=== PATIENT | female | born 1955 | race Caucasian/White ===

== ENCOUNTER → 2017-12-11 | Outpatient (CLI) | payer BC | END | disposition home or self-care (01) | LOC: LABPAT 10:53 | PROVIDERS: ATTEND Orthopaedic Surgery | DX: Z01.812 Encounter for preprocedural laboratory examination (principal) | CPT/HCPCS: 87070 ==

== ENCOUNTER 2017-12-25 07:30 | Inpatient (IN) | payer BC ==
[2017-12-19 16:27] VITALS: BMI 38.8
--- NOTE | 2017-12-24 11:48 | HP ---
HISTORY AND PHYSICAL SURGERY: 12/25/2017 Beverley Frances is a 62-year-old patient seen with symptomatic right knee osteoarthritis. Treatment options were discussed. She elected to proceed with right total knee arthroplasty. Consent was obtained. Medical clearance was provided by Dr. Kim. PAST MEDICAL HISTORY: Hypertension, hypothyroidism. PAST SURGICAL HISTORY: Left total knee arthroplasty. DAILY MEDICATIONS: Atenolol, furosemide, Klor-Con, losartan, Synthroid. ALLERGIES: ASPIRIN, SULFA, AMIODARONE, TAPAZOLE, ATORVASTATIN. SOCIAL HISTORY: The patient denies tobacco use. PHYSICAL EXAMINATION: Evaluation right knee: Range of motion is -13/14 to 120. Crepitus medial patellofemoral lateral compartments. Pain with patellofemoral compression. Tenderness medial joint line. Hip rotation without pain. Distal neurovascular exam intact. RADIOGRAPHS: Radiographs of the right knee revealed severe medial compartment osteoarthritis. IMPRESSION: 1. Right knee osteoarthritis. 2. Hypertension. 3. Hyperlipidemia. PLAN: Right total knee arthroplasty. MMODL / IJN: [id number] /
[~2017-12-25 07:30] MED LIST: ACETAMINOPHEN TAB 500 MG TAB PO ONE; DEXAMETHASONE SOD PHOSPHATE 10 MG/ML 1 ML VIAL IV ONE; MIDAZOLAM 2 MG/2 ML VIAL IV PRN; ONDANSETRON 4 MG/2 ML VIAL IVP ONE; Pre Op ABX Message 1 EACH MISC MISCELLANE ONE; TRANEXAMIC ACID 1,000 MG in SODIUM CHLORIDE 0.9% 50 ML IVPB ONE; ceFAZolin IN SWFI 2 GM/20 ML SYRINGE IVP ONE
[2017-12-25] MEDS: LACTATED RINGERS 1,000 ML IV SCH ×2 (08:58→16:21)
[2017-12-25] MEDS ORDERED: ROPIVACAINE 246.25 MG, EPINEPHrine 0.5 MG, KETOROLAC 30 MG, cloNIDine HCL/PF 80 MCG, WA... MISCELLANE ONE ×5 (09:16)
[2017-12-25 09:20] LABS: INR 1.2 (<1.2); Prothrombin Time 11.4 sec (9.0-12.0)
[2017-12-25] MEDS ORDERED: MIDAZOLAM 2 MG/2 ML VIAL IVP ONE (09:25)
[2017-12-25] MEDS ORDERED: ROPIVACAINE 1,100 MG, SODIUM CHLORIDE 0.9% 330 ML MISCELLANE PRN ×2 (09:46)
--- NOTE | 2017-12-25 09:49 | P.ONQ ---
Anesthesiology Proc Note - PNB - Peripheral Nerve Block Performed Right Adductor Canal Infusion Time Out Performed: Yes (0935) Procedure Start Time: 09:35 Procedure Stop Time: 09:48 Indication: Acute Post-Operative Pain, Dx/Pain Location (Right Knee Pain), Requested by physician Sedation Type: Sedate with meaningful contact maintained Catheter: Indwelling Needle Types: On-Q Needle Size: 100mm (4") Needle Gauge: 21 Technique: Ultrasound Injectate: 0.5% Ropivacaine (see comment for volume) Blood Aspirated: No Pain Paresthesia on Injection Noted: No Resistance on Injection: Normal Events: Uneventful and Well Tolerated
[2017-12-25] MEDS ORDERED: PROPOFOL 10 MG/ML 20 ML VIAL IV ONE (09:59)
[2017-12-25] MEDS ORDERED: SODIUM CHLORIDE 0.9% 100 ML BAG ONE (09:59)
[2017-12-25] MEDS ORDERED: TRANEXAMIC ACID 1,000 MG/10 ML VIAL ONE (09:59)
[2017-12-25] MEDS ORDERED: fentaNYL (PF) 50 MCG/ML 2 ML AMP ONE (09:59)
[2017-12-25] MEDS ORDERED: SUCCINYLCHOLINE CHLORIDE VIAL 200 MG/10 ML VIAL IV ONE (09:59)
[2017-12-25] MEDS ORDERED: LIDOCAINE 1% INJ 10MG/ML (20 ML MDV) ONE (09:59)
[2017-12-25] MEDS ORDERED: MIDAZOLAM 2 MG/2 ML VIAL ONE (09:59)
[2017-12-25] MEDS ORDERED: LACTATED RINGERS 1,000 ML IV ONE (10:37)
[2017-12-25] MEDS ORDERED: ceFAZolin 3,000 MG in SODIUM CHLORIDE 0.9% IRRIGATIO 3,000 ML IRRIGATION ONE (10:38)
[2017-12-25] MEDS ORDERED: HYDROmorphone 0.5 MG/0.5 ML SYRINGE IVP PRN ×3 (12:18)
[2017-12-25] MEDS ORDERED: ONDANSETRON 4 MG/2 ML VIAL IVP PRN (12:18)
[2017-12-25] MEDS ORDERED: hydrOXYzine PAMOATE 25 MG CAP PO PRN (12:18)
[2017-12-25] MEDS ORDERED: NALOXONE 0.4 MG/ML 1 ML VIAL IV PRN (12:18)
--- NOTE | 2017-12-25 12:18 | P.OP ---
Date of Procedure: 12/25/17 Preoperative Diagnosis: Right knee osteoarthritis with severe varus deformity Postoperative Diagnosis: same Procedure(s) Performed: Right total knee arthroplasty Implants: 1. Allyn persona size 6 right posterior stabilized cemented femur 2. Allyn persona size F right cemented tibia with a 14 mm stem extension 3. Allyn persona 20 mm fixed bearing constrained posterior stabilized polyethylene tibial insert 4. Allyn persona 32 mm all polyethylene cemented patella Anesthesia: GETA, regional (Adductor canal catheter), local Surgeon: Patrick Sosa Belt Cleaner #1: Van Rojas Estimated Blood Loss (ml): 30 Pathology: none sent Condition: stable Disposition: PACU Indications for Procedure: 62-year-old patient seen with symptomatic right knee osteoarthritis along with severe varus deformity. After treatment options were discussed, she elected to proceed with total knee arthroplasty. Operative Findings: See description of procedure Description of Procedure: Patient was taken to the operative suite after having and adductor canal catheter placed by the department of anesthesia. Patient underwent a final anesthetic by the department of anesthesia. Patient was given preoperative IV intake antibiotics and TXA. A well-padded tourniquet was placed about the [] lower extremity. The lower extremity was then prepped and draped in the normal sterile orthopedic fashion. The extremity was elevated, a tourniquet was insufflated to 350. A standard anterior incision was made sharply through skin. Dissection was taken down through the subcutaneous soft tissues down to the extensor mechanism. A medial arthrotomy was performed, patella was everted and knee was flexed. There was advanced osteoarthritis noted along with a severe varus deformity which was fairly fixed and severe erosion of the medial tibial plateau was present. A proximal tibial cutting guide was positioned. Proximal tibial cut was made taking quite a bit off laterally to try to accommodate this severe varus deformity knee. A distal intramedullary femoral cutting guide was positioned, distal femoral cut made. We placed the appropriate sizing guide and selected the appropriate size. A distal 4-in-1 femoral cutting block was positioned, distal femoral cuts were made. I now placed a trial femur and cut out the box for a posterior stabilized implant. We now placed a trial femoral component into position, along with an appropriate size tibial tray and insert. The knee was still quite tight medially and I performed quite a substantial released to loosen up and get this into a better position. I now fell again appropriate laxity medially to mimic the lateral side as close as possible. I now put the implant trials back in working up all the way to a size 20 mm fixed bearing constrained posterior stabilized trial tibial insert. We now took the knee through range of motion and had full extension good flexion and good overall soft tissue balance noted. The patella was everted and a flush cut made with patellar quad tendon. We templated the patella, appropriate drill holes were made. An appropriate trial patella was positioned, knee was taken through full range of motion with the patella tracking very nicely. The trial patella was removed. Drill holes were made through the femoral component. All trial components were removed after marking off the appropriate rotation of the tibia. Retractors were now positioned along the proximal tibia. An appropriate keel punch was made with the appropriate size tibial guide. The tibial bone was quite soft and therefore I'm going to add a stem extension for tibial tray. At this point appropriate size implants were chosen and opened. The joint was irrigated copiously with pulse lavage mechanical irrigation. The posterior capsule was infiltrated local analgesic. We mixed antibiotic methylmethacrylate. Once the methyl methacrylate was ready, the tibial component was cemented into place removing any excess methylmethacrylate. The femoral component was cemented into place removing the removing any excess methylmethacrylate. We then inserted the appropriate size polyethylene tibial insert. We made sure that it was locked into position. We took the knee into full extension, and then back in a flexion making sure we had removed any excess methylmethacrylate. The patellar component was then cemented down and secured with clamp. Excess methylmethacrylate removed. We kept the knee in full extension, patellar clamp in position until methylmethacrylate had hardened. Once it had hardened the patellar clamp was removed. The knee was taken through full range of motion. The patella tracked nicely. There was good soft tissue balancing. The tourniquet was now released. Additional hemostasis was achieved via electrocautery. A second gram of TXA was given. The wound was irrigated with pulse lavage irrigation. The superficial soft tissues were infiltrated local analgesic. The extensor mechanism was repaired with Vicryl. We checked the repair with range of motion and it was stable. The subcutaneous soft tissues were repaired with Vicryl in layers. The skin was approximated with skin kulwant. Sterile dressings were applied followed by loose web roll and Leonard bandage. The patient was transferred to a bed, and taken to recovery in stable and satisfactory condition. Angus RESENDEZ assisted with the procedure.
[2017-12-25] MEDS: HYDROmorphone 0.5 MG/0.5 ML SYRINGE IVP PRN ×4 (12:51→13:22)
--- NOTE | 2017-12-25 13:07 | XR ---
EXAMINATION TYPE: XR knee limited RT DATE OF EXAM: 12/25/2017 CLINICAL HISTORY: Right knee pain and arthritis status post total knee replacement. TECHNIQUE: Portable AP and crosstable lateral views of the right knee are obtained immediately posto peratively. COMPARISON: None FINDINGS: Metallic hardware from total right knee arthroplasty is seen and appears satisfactory in a lignment and position. There is evidence of recent surgery with diffuse subcutaneous gas and soft ti ssue swelling noted. IMPRESSION: METALLIC HARDWARE FROM TOTAL RIGHT KNEE ARTHROPLASTY IS SATISFACTORY IN ALIGNMENT.
[2017-12-25] MEDS: diphenhydrAMINE 50 MG/ML 1 ML VIAL IVP ONE ×2 (13:22→13:26)
[2017-12-25] MEDS: traMADol 50 MG TAB PO SCH ×3 (14:13→22:09)
[2017-12-25] MEDS: POTASSIUM CHLORIDE ER 20 MEQ TAB.ER PO SCH (18:00)
[2017-12-25] MEDS: ceFAZolin IN SWFI 2 GM/20 ML SYRINGE IVP SCH (20:47)
[2017-12-25] MEDS: SENNOSIDES-DOCUSATE SODIUM 1 EACH TAB PO SCH (20:47)
[2017-12-25] MEDS: MULTIVITAMINS, THERA 1 EACH TAB PO SCH (20:47)
[2017-12-25] MEDS ORDERED: ATENOLOL 50 MG TAB PO SCH (21:00)
[2017-12-25] MEDS: ENOXAPARIN 30 MG/0.3 ML SYRINGE SQ SCH (22:02)
--- NOTE | 2017-12-26 00:19 | PN ---
PROGRESS NOTE ATTENDING PHYSICIAN: Dr. Sosa. CONSULTING PHYSICIAN: Dr. Lilly Kim. CHIEF COMPLAINT: Re-evaluation. HISTORY OF PRESENT ILLNESS: This 62-year-old female was admitted to the hospital and undergone right total knee arthroplasty. The patient suffers from significant degenerative arthritis. She is also moderately obese. The patient had an episode of atrial fibrillation in the past. No recurrence with medical therapy. She has been on anticoagulation in the outpatient. She is doing relatively well postoperatively today. REVIEW OF SYSTEMS: NEURO: Denies any headaches or dizziness. PSYCH: No anxiety. CARDIAC: No chest pain, angina, palpitation. RESPIRATORY: Denies shortness of breath, cough. GI: No nausea, vomiting, abdominal pain, diarrhea. : No symptoms of dysuria, hematuria. EXTREMITIES: No pain except for the knee. CONSTITUTIONAL: No fever or chills. PHYSICAL EXAMINATION: Pleasant female in no distress. Vital signs reveals she is afebrile. Pulse 66, blood pressure 106/70, pulse ox 96% on room air. HEENT: Normocephalic. NECK: No JVD. CHEST: Clear to auscultation. CARDIAC: Normal S1, S2 with no gallops, murmurs. ABDOMEN: Soft. Bowel sounds present. EXTREMITIES: Reveal trace chronic edema. Neurologically, awake, alert, oriented with well-coordinated movements both upper extremities. LABORATORY ASSESSMENT: INR of 1.2. ASSESSMENT: 1. Paroxysmal atrial fibrillation. 2. Obesity. 3. Degenerative arthritis of the joints. PLAN: The patient is stable. Continue present medical regimen. The patient's condition discussed with the patient's spouse. Prognosis remains guarded. The patient will require placement in a nursing facility for rehab. MMODL / IJN: [id number] /
[2017-12-26] MEDS: ceFAZolin IN SWFI 2 GM/20 ML SYRINGE IVP SCH (02:13)
[2017-12-26] MEDS: HYDROcodone/APAP 7.5-325MG 1 EACH TAB PO PRN ×2 (04:58→14:11)
[2017-12-26] MEDS: LEVOTHYROXINE 88 MCG TAB PO SCH (04:58)
[2017-12-26] MEDS: LACTATED RINGERS 1,000 ML IV SCH ×3 (04:58→14:10)
[2017-12-26 07:42] LABS: Basophils % (A) 0 %; Eosinophils % (A) 0 %; HCT 31.8 % (34.0-46.0); HGB 10.2 gm/dL (11.4-16.0); Lymphocytes # (A) 0.4 k/uL (1.0-4.8); Lymphocytes % (A) 5 %; MCH 27.9 pg (25.0-35.0); MCV 87.3 fL (80.0-100.0); Mean Platelet Volume 6.9; Monocytes # (A) 0.6 k/uL (0-1.0); Monocytes % (A) 8 %; Neutrophils # (A) 6.6 k/uL (1.3-7.7); Neutrophils % (A) 86 %; Platelet Count 224 k/uL (150-450); RBC 3.64 m/uL (3.80-5.40); RDW 14.8 % (11.5-15.5); WBC 7.6 k/uL (3.8-10.6)
[2017-12-26] MEDS: ATENOLOL 25 MG TAB PO SCH ×2 (08:15→20:48)
[2017-12-26] MEDS: FAMOTIDINE 20 MG TAB PO SCH (08:15)
[2017-12-26] MEDS: MELOXICAM 7.5 MG TAB PO SCH (08:15)
[2017-12-26] MEDS: ENOXAPARIN 30 MG/0.3 ML SYRINGE SQ SCH ×2 (08:16→20:48)
[2017-12-26] MEDS: traMADol 50 MG TAB PO SCH ×4 (08:16→21:18)
[2017-12-26] MEDS: FUROSEMIDE 20 MG TAB PO SCH (08:16)
[2017-12-26] MEDS: LOSARTAN 50 MG TAB PO SCH (08:16)
--- NOTE | 2017-12-26 09:26 | P.PN ---
Subjective Progress Note Date: 12/26/17 Principal diagnosis: Status post right total knee arthroplasty Patient seen today resting in her hospital bed, she appears comfortable. Her pain is controlled at this time. She has worked with therapy. She denies any chest pain or shortness of breath. Objective - Vital Signs Vital signs: Vital Signs Temp 97.6 F 12/26/17 07:06 Pulse 65 12/26/17 07:06 Resp 16 12/26/17 07:06 BP 112/70 12/26/17 07:06 Pulse Ox 97 12/26/17 07:06 Intake & Output 12/25/17 12/26/17 12/26/17 18:59 06:59 18:59 Intake Total 1671 480 Output Total 30 Balance 1641 480 Weight 97.976 kg Intake: IV 1651 Intake, IV Titration 20 480 Amount Lactated Ringers 1,000 ml 20 @ 20 mls/hr IV .Q24H JOE Rx#:[id number] Lactated Ringers 1,000 ml 480 @ 80 mls/hr IV .[id number] JOE Rx#:[id number] Output: Estimated Blood Loss 30 Other: Voiding Method Incontinent Bedpan Incontinent # Voids 1 - Exam Right lower extremity: Incision is clean, dry, and intact. [place] are in good position. There is minimal soft tissue swelling and ecchymosis surrounding the medial and lateral aspects of the incision. Calf is soft, no tenderness with palpation. Plantar flexion, dorsiflexion, EHL, FHL are intact. Sensory exam to light touch throughout the extremity is intact, dorsal pedis pulses 2+. - Labs CBC & Chem 7: 12/26/17 07:12 Labs: Abnormal Lab Results - Last 24 Hours (Table) 12/26/17 Range/Units 07:12 RBC 3.64 L (3.80-5.40) m/uL Hgb 10.2 L (11.4-16.0) gm/dL Hct 31.8 L (34.0-46.0) % Lymphocytes # 0.4 L (1.0-4.8) k/uL Assessment and Plan Plan: Assessment: 1. Postop day #1 status post right total knee arthroplasty Plan: Pain control, continue use of oral medication GI and DVT prophylaxis, she is utilizing Lovenox, we'll restart Coumadin and bridge at this time Wound care instructions were discussed Daily therapy and use of CPM Medical recommendations Encourage incentive spirometer Plan for discharge to rehab over the next few days Time with Patient: Less than 30
--- NOTE | 2017-12-26 09:43 | P.PN ---
Progress Note - Text Progress Note Date: 12/26/17 62-year-old female status post right total knee arthroplasty postop day #1, adductor catheter day #2. Patient doing well VAS 0 out of 10 at rest, 2 out of 10 with movement. Patient is ambulatory, tolerating diet, and okay for discharge. Instructions given for removal of catheter were given, and patient was informed that if there is pain with removal or difficulty with removal to come back to the hospital to get evaluated
[2017-12-26 10:42] LABS: INR 1.3 (<1.2); Prothrombin Time 11.9 sec (9.0-12.0)
[2017-12-26] MEDS: IRON POLYSACCHARIDES COMPLEX 150 MG CAP PO SCH (12:22)
[2017-12-26] MEDS: POTASSIUM CHLORIDE ER 20 MEQ TAB.ER PO SCH (17:05)
[2017-12-26] MEDS ORDERED: WARFARIN 7.5 MG TAB PO ONE (18:00)
[2017-12-26] MEDS: MULTIVITAMINS, THERA 1 EACH TAB PO SCH (20:48)
[2017-12-26] MEDS: SENNOSIDES-DOCUSATE SODIUM 1 EACH TAB PO SCH (20:48)
--- NOTE | 2017-12-26 22:29 | PN ---
PROGRESS NOTE CHIEF COMPLAINT: Re-evaluation. HISTORY OF PRESENT ILLNESS: This is a 62-year-old, status post right knee arthroplasty. She is actually doing fairly well. REVIEW OF SYSTEMS: NEURO: Denies any headaches, dizziness. PSYCH: No anxiety. CARDIAC: No chest pain, angina, palpitation. RESPIRATORY: Denies shortness of breath, cough. GI: No nausea, vomiting, abdominal pain, diarrhea. : No symptoms of dysuria or hematuria. EXTREMITIES: Some tolerable pain, right knee. CONSTITUTIONAL: No fever, chills. PHYSICAL EXAMINATION: Pleasant female in no distress. VITAL SIGNS: Temperature 97.6, pulse 65, respirations 16, blood pressure 112/70, pulse ox 97% on 3 L. HEENT: Normocephalic. NECK: Supple. No JVD. CHEST: Clear to auscultation. CARDIAC: Normal S1, S2 with no gallop. Systolic murmur 2/6, left sternal border. ABDOMEN: Soft. Bowel sounds present. Extremities reveal trace edema. NEUROLOGIC: Awake, alert, oriented with well-coordinated movements, both upper extremities. LABORATORY ASSESSMENT: CBC shows hemoglobin of 10.2, white count 7.6, INR 1.3. ASSESSMENT: 1. Anemia secondary to acute blood loss. 2. History of paroxysmal atrial fibrillation. 3. Obesity. 4. Degenerative arthritis. PLAN: The patient is stable. Continue present medical regimen. Patient's condition was discussed with the patient. Prognosis remains guarded. MMODL / IJN: [id number] /
[2017-12-27] MEDS: LACTATED RINGERS 1,000 ML IV SCH ×3 (04:05→16:13)
[2017-12-27] MEDS: LEVOTHYROXINE 88 MCG TAB PO SCH (05:41)
[2017-12-27] MEDS: HYDROcodone/APAP 7.5-325MG 1 EACH TAB PO PRN ×3 (05:41→19:46)
[2017-12-27] MEDS: LOSARTAN 50 MG TAB PO SCH (09:45)
[2017-12-27] MEDS: ENOXAPARIN 30 MG/0.3 ML SYRINGE SQ SCH ×2 (09:45→20:46)
[2017-12-27] MEDS: traMADol 50 MG TAB PO SCH ×4 (09:45→22:43)
[2017-12-27] MEDS: FAMOTIDINE 20 MG TAB PO SCH (09:46)
[2017-12-27] MEDS: MELOXICAM 7.5 MG TAB PO SCH (09:46)
[2017-12-27] MEDS: ATENOLOL 25 MG TAB PO SCH ×2 (09:47→20:46)
[2017-12-27] MEDS: FUROSEMIDE 20 MG TAB PO SCH (09:54)
[2017-12-27 10:10] LABS: INR 1.6 (<1.2); Prothrombin Time 14.8 sec (9.0-12.0)
[2017-12-27] MEDS: IRON POLYSACCHARIDES COMPLEX 150 MG CAP PO SCH (12:04)
--- NOTE | 2017-12-27 12:05 | P.PN ---
Subjective Progress Note Date: 12/27/17 Principal diagnosis: Status post right total knee arthroplasty Patient seen today resting in her hospital bed, she appears comfortable. Her pain is controlled at this time. She has worked with therapy. She denies any chest pain or shortness of breath. Objective - Vital Signs Vital signs: Vital Signs Temp 98.8 F 12/27/17 07:00 Pulse 68 12/27/17 07:00 Resp 14 12/27/17 07:00 BP 118/66 12/27/17 07:00 Pulse Ox 99 12/27/17 07:00 Intake & Output 12/26/17 12/27/17 12/27/17 18:59 06:59 18:59 Intake Total 500 Balance 500 Intake: Oral 500 Other: Voiding Method Bedpan Incontinent Bedpan Incontinent Diaper Incontinent # Voids 2 1 2 # Bowel Movements 1 - Exam Right lower extremity: Incision is clean, dry, and intact. [place] are in good position. There is minimal soft tissue swelling and ecchymosis surrounding the medial and lateral aspects of the incision. Calf is soft, no tenderness with palpation. Plantar flexion, dorsiflexion, EHL, FHL are intact. Sensory exam to light touch throughout the extremity is intact, dorsal pedis pulses 2+. - Labs CBC & Chem 7: 12/26/17 07:12 Labs: Abnormal Lab Results - Last 24 Hours (Table) 12/27/17 Range/Units 09:34 PT 14.8 H (9.0-12.0) sec INR 1.6 H (<1.2) Assessment and Plan Plan: Assessment: 1. Postop day #2 status post right total knee arthroplasty Plan: Pain control, continue use of oral medication GI and DVT prophylaxis, she is utilizing Lovenox, we'll restart Coumadin and bridge at this time Wound care instructions were discussed Daily therapy and use of CPM Medical recommendations Encourage incentive spirometer Plan for discharge to rehab over the next few days Time with Patient: Less than 30
[2017-12-27] MEDS: POTASSIUM CHLORIDE ER 20 MEQ TAB.ER PO SCH (17:42)
[2017-12-27] MEDS ORDERED: WARFARIN 5 MG TAB PO ONE (18:00)
[2017-12-27] MEDS: SENNOSIDES-DOCUSATE SODIUM 1 EACH TAB PO SCH (20:46)
[2017-12-27] MEDS: MULTIVITAMINS, THERA 1 EACH TAB PO SCH (20:46)
--- NOTE | 2017-12-27 23:30 | PN ---
PROGRESS NOTE CHIEF COMPLAINT: Re-evaluation. HISTORY OF PRESENT ILLNESS: This 62-year-old female was admitted to the hospital and has undergone right total knee arthroplasty. The patient is actually doing fairly well. She does have some pain in the right knee area. REVIEW OF SYSTEMS: NEURO: Denies any headaches, dizziness. PSYCH: No anxiety. CARDIAC: No chest pain, angina, palpitation. RESPIRATORY: No shortness of breath or cough. GI: No nausea, vomiting, abdominal pain, diarrhea. : No symptoms of dysuria or hematuria. EXTREMITIES: Pain in the right knee. CONSTITUTIONAL: No fever, chills. PHYSICAL EXAMINATION: Pleasant female in no distress. Vital signs reveal temperature 98.8, pulse 68, respirations 14, blood pressure 118/66, pulse ox 99% on 2 L. HEENT: Normocephalic. NECK: No JVD. CHEST: Clear to auscultation. CARDIAC: Normal S1, S2 with no gallops or murmurs. Regular rhythm. ABDOMEN: Soft. Bowel sounds present. Extremities reveal some edema in the right lower leg. Neurologically awake, alert, oriented with well-coordinated movements, both upper extremities. LABORATORY ASSESSMENT: INR 1.6. ASSESSMENT: 1. Anemia secondary to acute blood loss. 2. History of paroxysmal atrial fibrillation. 3. Obesity. 4. Degenerative arthritis. PLAN: Patient is stable. Continue present medical regimen. Patient's condition was discussed with the patient. Prognosis guarded. Probable transfer to a nursing facility when bed is available. MMODL / IJN: [id number] /
[2017-12-28] MEDS: HYDROcodone/APAP 7.5-325MG 1 EACH TAB PO PRN ×2 (00:58→08:43)
[2017-12-28] MEDS: LEVOTHYROXINE 88 MCG TAB PO SCH (05:51)
[2017-12-28 07:15] LABS: Basophils % (A) 0 %; Eosinophils # (A) 0.1 k/uL (0-0.7); Eosinophils % (A) 2 %; HCT 26.8 % (34.0-46.0); Lymphocytes # (A) 0.9 k/uL (1.0-4.8); Lymphocytes % (A) 15 %; MCH 28.3 pg (25.0-35.0); MCV 88.3 fL (80.0-100.0); Mean Platelet Volume 7.1; Monocytes # (A) 0.7 k/uL (0-1.0); Monocytes % (A) 11 %; Neutrophils % (A) 70 %; Platelet Count 185 k/uL (150-450); RBC 3.03 m/uL (3.80-5.40); RDW 14.9 % (11.5-15.5); WBC 5.7 k/uL (3.8-10.6)
[2017-12-28 07:25] LABS: HGB 8.6 gm/dL (11.4-16.0)
[2017-12-28 07:26] LABS: INR 1.7 (<1.2); Prothrombin Time 15.4 sec (9.0-12.0)
[2017-12-28 08:28] VITALS: RESP 20
[2017-12-28] MEDS: LACTATED RINGERS 1,000 ML IV SCH ×3 (08:35→16:15)
[2017-12-28] MEDS: ATENOLOL 25 MG TAB PO SCH (08:44)
[2017-12-28] MEDS: ENOXAPARIN 30 MG/0.3 ML SYRINGE SQ SCH (08:44)
[2017-12-28] MEDS: LOSARTAN 50 MG TAB PO SCH (08:45)
[2017-12-28] MEDS: FAMOTIDINE 20 MG TAB PO SCH (08:45)
[2017-12-28] MEDS: MELOXICAM 7.5 MG TAB PO SCH (08:45)
[2017-12-28] MEDS: FUROSEMIDE 20 MG TAB PO SCH (08:45)
[2017-12-28] MEDS: traMADol 50 MG TAB PO SCH ×2 (08:46→13:25)
--- NOTE | 2017-12-28 11:45 | P.PN ---
Subjective Progress Note Date: 12/28/17 Principal diagnosis: Status post right total knee arthroplasty Patient seen today resting in her hospital bed, she appears comfortable. Her pain is controlled at this time. She has worked with therapy. She denies any chest pain or shortness of breath. Objective - Vital Signs Vital signs: Vital Signs Temp 98.6 F 12/28/17 08:15 Pulse 83 12/28/17 08:15 Resp 20 12/28/17 08:15 BP 122/77 12/28/17 08:15 Pulse Ox 96 12/28/17 08:15 Intake & Output 12/27/17 12/28/17 12/28/17 18:59 06:59 18:59 Intake Total 640 980 480 Balance 640 980 480 Intake: Oral 640 980 480 Other: Voiding Method Bedpan Bedpan Bedpan Diaper Diaper Diaper Incontinent Incontinent Incontinent # Voids 2 3 # Bowel Movements 1 - Exam Right lower extremity: Incision is clean, dry, and intact. [place] are in good position. There is minimal soft tissue swelling and ecchymosis surrounding the medial and lateral aspects of the incision. Calf is soft, no tenderness with palpation. Plantar flexion, dorsiflexion, EHL, FHL are intact. Sensory exam to light touch throughout the extremity is intact, dorsal pedis pulses 2+. - Labs CBC & Chem 7: 12/28/17 06:49 Labs: Abnormal Lab Results - Last 24 Hours (Table) 12/28/17 12/28/17 Range/Units 06:49 06:49 RBC 3.03 L (3.80-5.40) m/uL Hgb 8.6 L D (11.4-16.0) gm/dL Hct 26.8 L (34.0-46.0) % Lymphocytes # 0.9 L (1.0-4.8) k/uL PT 15.4 H (9.0-12.0) sec INR 1.7 H (<1.2) Assessment and Plan Plan: Assessment: 1. Postop day #3 status post right total knee arthroplasty Plan: Pain control, continue use of oral medication GI and DVT prophylaxis, she is utilizing Lovenox, we'll restart Coumadin and bridge at this time Wound care instructions were discussed Daily therapy and use of CPM Medical recommendations Encourage incentive spirometer Plan for discharge to rehab today Time with Patient: Less than 30
--- NOTE | 2017-12-28 11:53 | P.DS ---
Providers Date of admission: 12/25/17 07:54 Expected date of discharge: 12/28/17 Attending physician: Patrick Sosa Consults: 12/25/17 12:18 Consult Physician Routine Consulting Provider: Alexi Kim Reason/Comments: Medical management Do you want consulting provider notified?: Yes Primary care physician: Alexi Kim Hospital Course: Date of admission: 12/25/2017 Date of discharge: 12/28/2017 Admission diagnosis: Status post right total knee arthroplasty Discharge diagnosis: Same Attending physician: Dr. Sosa Surgical procedures: Right total knee arthroplasty Brief history: Patient is a 62-year-old female with a history of with progressive primary right knee osteoarthritis. At this point patient has failed conservative treatment measures and has opted to proceed with a elective right total knee arthroplasty. Hospital course: Details of patient's surgery can be found in operative report. Patient tolerated the procedure well and was subsequently transported to orthopedic floor. Patient's orthopeidc and medical care was provided daily. Patient had daily laboratory tests performed for evaluation of overall blood counts. Patient had daily physical therapy to include strengthening range of motion as well as education with walker ambulation. Patient had daily CPM usage as part of their physical therapy program. Patient was treated with Lovenox and Coumadin for their postoperative DVT prophylaxis during their inpatient stay. Patient was noted to have a relatively uneventful postoperative course. Patient reported satisfactory pain control with oral pain medications by postoperative day 0. Patient showed satisfactory progress with physical therapy. Patient moved steadily through the program and had no difficulty meeting the goals by postoperative day 3. Given patient's otherwise satisfactory course and having met physical therapy goals, plan is to discharge patient rehab on postoperative day 3. Discharge condition/disposition: Patient will be discharged to rehab in stable condition. Discharge medications: Instructions are given on resumption of patient's normal daily medications per primary care recommendation, in addition patient will be prescribed [place] 7.5 mg/325 mg, Lovenox 30mg. Discharge instructions: 1. Wound care and infection precautions, keep incision dry and covered while showering, no lotions, creams, moisturizers. No soaking, tubs, pools, hottubs. Do not scrub over the incision. 2. Weight-bear as tolerated with walker / cane until follow-up. 3. Ice and elevate when necessary. Do not exceed 20 minutes per hour with ice pack. 4. Utilize compression sleeve until seen at first follow up appointment. 5. Visiting nursing care. 6. Home physical therapy including home CPM. 7. Pain meds and anticoagulants per prescription. 8. Pain medication has potential to cause constipation. Increase oral fluid and fiber intake. Contact primary care provider if you have not had a bowel movement within 48 hours after discharge 9. No anti-inflammatory medication until discussed at first post operative visit, this including Motrin, Aleve, Mobic, Diclofenac. 10. Follow up in office at 2 weeks postop with Angus Rojas PA-C 11. Follow up with your primary care doctor 7-10 days after discharge. 12. Contact [facility] with any questions, . Procedures: Right total knee arthroplasty Patient Condition at Discharge: Good Plan - Discharge Summary Discharge Rx Participant: No New Discharge Prescriptions: New Enoxaparin [Lovenox] 30 mg SQ Q12H #10 syringe HYDROcodone/APAP 7.5-325MG [[place] 7.5] 1 - 2 each PO Q6HR PRN #56 tab PRN Reason: Pain No Action Multivitamins, Thera [Multivitamin (formulary)] 1 tab PO DAILY@2100 Atenolol 25 mg PO BID Warfarin [Coumadin] 7.5 mg PO TH Warfarin [Coumadin] 5 mg PO SUMOTUWEFRSA fluvoxaMINE MALEATE [Fluvoxamine Maleate] 100 mg PO DAILY Potassium Chloride [Klor-Con 20] 20 meq PO DAILY@1800 Losartan [Cozaar] 50 mg PO DAILY Levothyroxine Sodium [Synthroid] 88 mcg PO DAILY Furosemide [Lasix] 20 mg PO DAILY Acetaminophen [Tylenol Arthritis] 650 mg PO Q6H PRN PRN Reason: Pain Kvnekhainsswto-DV-Dzgatkjdgx [Folbic] 1 tab PO DAILY@1200 Iron (Unknown) 1 tab PO DAILY Discharge Medication List Atenolol 25 mg PO BID 11/25/13 [History] Multivitamins, Thera [Multivitamin (formulary)] 1 tab PO DAILY@2100 11/25/13 [ History] Acetaminophen [Tylenol Arthritis] 650 mg PO Q6H PRN 06/23/17 [History] Furosemide [Lasix] 20 mg PO DAILY 06/23/17 [History] Levothyroxine Sodium [Synthroid] 88 mcg PO DAILY 06/23/17 [History] Losartan [Cozaar] 50 mg PO DAILY 06/23/17 [History] Potassium Chloride [Klor-Con 20] 20 meq PO DAILY@1800 06/23/17 [History] Warfarin [Coumadin] 5 mg PO SUMOTUWEFRSA 06/23/17 [History] Warfarin [Coumadin] 7.5 mg PO TH 06/23/17 [History] fluvoxaMINE MALEATE [Fluvoxamine Maleate] 100 mg PO DAILY 06/23/17 [History] Urfrfpfooyucmk-LI-Kymrslwygt [Folbic] 1 tab PO DAILY@1200 06/26/17 [History] Iron (Unknown) 1 tab PO DAILY 12/19/17 [History] Enoxaparin [Lovenox] 30 mg SQ Q12H #10 syringe 12/28/17 [Rx] HYDROcodone/APAP 7.5-325MG [[place] 7.5] 1 - 2 each PO Q6HR PRN #56 tab 12/28/17 [ Rx] Follow up Appointment(s)/Referral(s): Van Rojas PAC [PHYSICIAN TELLERS SUPERVISOR] - 01/12/18 2:30 pm Ambulatory/Diagnostic Orders: Prothrombin Time INR [LAB.AMB] Location: Determined By Patient Activity/Diet/Wound Care/Special Instructions: Orthopedic Discharge Instructions: 1. Wound care and infection precautions, keep incision dry and covered while showering, no lotions, creams, moisturizers. No soaking, pools, hot tubs. Do not scrub over incision. 2. Weight-bear as tolerated with walker / cane until follow-up. 3. Ice and elevate when necessary. Do not exceed 20 minutes per hour with ice pack. 4. Utilize compression sleeve until seen at first follow up appointment. 5. Visiting nursing care. 6. Home physical therapy including home CPM. 7. Pain meds and anticoagulants per prescription. 8. Pain medication has potential to cause constipation. Increase oral fluid and fiber intake. Contact primary care provider if you have not had a bowel movement within 48 hours after discharge. 9. No anti-inflammatory medication until discussed at first post operative visit, this including Motrin, Aleve, Mobic, Diclofenac. 10. Follow up in office at 2 weeks postop with Angus Rojas PA-C 11. Follow up with your primary care doctor 7-10 days after discharge. 12. Contact [facility] with any questions, . Discharge Disposition: TRANSFER TO SNF/ECF
[2017-12-28] MEDS: IRON POLYSACCHARIDES COMPLEX 150 MG CAP PO SCH (13:19)
[2017-12-28 14:44] VITALS: BP 102/57; PULSE 78; TEMP 97.1
[2017-12-28] MEDS ORDERED: WARFARIN 7.5 MG TAB PO ONE (18:00)
--- NOTE | 2017-12-29 05:21 | PN ---
PROGRESS NOTE CHIEF COMPLAINT: Re-evaluation. HISTORY OF PRESENT ILLNESS: This 62-year-old was admitted to the hospital and undergone right total knee arthroplasty. The patient is doing relatively well. She has pain in the right knee joint. Otherwise denies any major symptoms. She does have a history of paroxysmal atrial fibrillation. She has stayed in sinus rhythm throughout. REVIEW OF SYSTEMS: NEURO: Denies any headaches, dizziness. PSYCH: No anxiety. CARDIAC: No chest pain, angina, palpitation. RESPIRATORY: Denies shortness of breath, cough. GI: No nausea, vomiting, abdominal pain, diarrhea. Did have a bowel movement yesterday. : No symptoms of dysuria or hematuria. EXTREMITIES: Has pain in the right knee, some edema. CONSTITUTIONAL: No fever or chills. PHYSICAL EXAMINATION: A 62-year-old, moderately obese female in no distress. Vital signs reveal temperature 98.6, pulse 83, respirations 20, blood pressure 122/77, pulse ox 96% on room air. HEENT: Normocephalic. NECK: No JVD. CHEST: Clear to auscultation. CARDIAC: Normal S1, S2 with no gallops or murmurs. ABDOMEN: Soft. Bowel sounds normal. Extremities reveal trace edema left ankle, 1+ edema right ankle. NEUROLOGICALLY: Awake, alert, oriented with well-coordinated movements both upper extremities. LABORATORY ASSESSMENT: CBC which revealed hemoglobin of 8.6. INR 1.7. ASSESSMENT: 1. Anemia secondary to acute blood loss post surgery. 2. History of paroxysmal atrial fibrillation. 3. Obesity. 4. Degenerative arthritis, status post right knee arthroplasty. PLAN: The patient is stable. Continue present medical regimen. Patient's condition discussed with the patient. Prognosis guarded. MMODL / IJN: [id number] /
== END 2017-12-28 16:48 | DRG 470 ==
LOC: 2ORMAIN 07:54 → 3SUR 12:05
PROVIDERS: ADMIT Orthopaedic Surgery; ATTEND Orthopaedic Surgery
PROC: 0SRC0J9 Replacement of Right Knee Joint with Synthetic Substitute, Cemented, Open Approach (ICD-10-PCS; principal; 2017-12-25 09:40)
DX: M17.11 Unilateral primary osteoarthritis, right knee (principal); D62 Acute posthemorrhagic anemia; E03.9 Hypothyroidism, unspecified; E66.9 Obesity, unspecified; E78.5 Hyperlipidemia, unspecified; I10 Essential (primary) hypertension; I48.0 Paroxysmal atrial fibrillation; Z96.652 Presence of left artificial knee joint; M21.161 Varus deformity, not elsewhere classified, right knee; Z79.890 Hormone replacement therapy; Z79.899 Other long term (current) drug therapy; Z88.6 Allergy status to analgesic agent; Z88.5 Allergy status to narcotic agent; Z88.2 Allergy status to sulfonamides; Z88.8 Allergy status to other drugs, medicaments and biological substances; Z68.38 Body mass index [BMI] 38.0-38.9, adult; Z86.73 Personal history of transient ischemic attack (TIA), and cerebral infarction without residual deficits
CPT/HCPCS: 85025; 85610; 88300

== ENCOUNTER → 2018-07-24 | Outpatient (CLI) | payer BC ==
[2018-07-24 09:02] VITALS: BP 142/65; PULSE 72; TEMP 96.9; BMI 43.9
--- NOTE | 2018-07-24 10:16 | P.HPOB ---
History of Present Illness H&P Date: 07/24/18 Chief Complaint: The patient is here for her routine gynecologic exam. This is a 63-year-old G0 with an LMP of 2006. The patient is here to establish with this office. She states that has been about 15 years since her last pelvic exam. The patient is without gynecologic complaints and denies any postmenopausal bleeding. She is sexually active. Review of Systems She is gained about 28 pounds over the last year. She previously weighed 339 pounds prior to being treated for thyroid problem. She went down to 203 pounds after thyroid treatment. She denies respiratory, cardiac, or G.I. problems. She has had some issues of anxiety. : she does have some urinary leakage at night since she does not wake when her bladder is full at night, according to the patient. She does not have problem with leakage during the day. 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 for thyroid, had kidney & liver issues related to a medication but no current problems, doesn't use CPAP. 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 History of Any Multi-Drug Resistant Organisms: None Reported Past Surgical History: Joint Replacement (Bilateral knee replacement), Orthopedic Surgery (Knee surgery) Additional Past Surgical History / Comment(s): wrist surg., colonoscopy 2016( next due 10yrs). Past Anesthesia/Blood Transfusion Reactions: No Reported Reaction Additional Past Anesthesia/Blood Transfusion Reaction / Comment(s): "DOESN'T WANT TO BE AWAKE," PER PATIENT. Past Psychological History: Anxiety, Depression Additional Psychological History / Comment(s): OCD Smoking Status: Never smoker Additional Past Alcohol Use History / Comment(s): quit drinking 1998, previously was a heavy drinker. Past Drug Use History: Marijuana (Many years ago.) Additional Drug Use History / Comment(s): Denies any marijuana use for many years. Additional History: since 1978. She is currently unemployed. - Past Family History Mother Family Medical History: Cancer (Breast cancer) Father Family Medical History: AFIB, Hypertension Sister(s) Family Medical History: Thyroid Disorder Additional Family Medical History / Comment(s): Multiple sisters with thyroid conditions. Medications and Allergies Home Medications Medication Instructions Recorded Confirmed Type Atenolol 25 mg PO BID 11/25/13 07/24/18 History Multivitamins, Thera [Multivitamin 1 tab PO DAILY@2100 11/25/13 07/24/18 History (formulary)] Acetaminophen [Tylenol Arthritis] 650 mg PO Q6H PRN 06/23/17 07/24/18 History Furosemide [Lasix] 20 mg PO DAILY 06/23/17 07/24/18 History Levothyroxine Sodium [Synthroid] 100 mcg PO DAILY 06/23/17 07/24/18 History Losartan [Cozaar] 50 mg PO DAILY 06/23/17 07/24/18 History Potassium Chloride [Klor-Con 20] 20 meq PO DAILY@1800 06/23/17 07/24/18 History Warfarin [Coumadin] 5 mg PO SUMOTUWEFRSA 06/23/17 07/24/18 History Warfarin [Coumadin] 7.5 mg PO TH 06/23/17 07/24/18 History Iron (Unknown) 1 tab PO DAILY 12/19/17 07/24/18 History Allergies Allergy/AdvReac Type Severity Reaction Status Date / Time amiodarone Allergy kidneys & Verified 07/24/18 08:48 liver shut down aspirin Allergy Swelling Verified 07/24/18 08:48 atorvastatin Allergy affected Verified 07/24/18 08:48 liver enzymes methimazole [From Tapazole] Allergy Unknown Verified 07/24/18 08:48 Sulfa (Sulfonamide Allergy Swelling Verified 07/24/18 08:48 Antibiotics) Exam Vital Signs Temp Pulse BP 07/24/18 08:59 96.9 F L 72 142/65 Intake and Output 07/23/18 07/24/18 07/24/18 22:59 06:59 14:59 Other: Weight 108.862 kg Height 5'2", weight 240 pounds, BMI 43.9. This is a well-developed well-nourished obese white female who is alert and oriented times 3 in no acute distress. The patient uses a walker chair and is very slow to ambulate. She states this is due to her knee problems and history of strokes. HEENT: Within normal limits. NECK: Supple without mass or thyromegaly. CHEST AND LUNGS: Clear to auscultation. HEART: Regular rate and rhythm. BREASTS: Are without mass or discharge. AXILLARY EXAM: Negative for adenopathy. BACK: Negative for CVA tenderness. ABDOMEN: Soft, obese, nontender, without palpable masses. PELVIC EXAM: Normal external genitalia with mild atrophy. Cervix and vagina appear normal mild atrophy. There is no unusual discharge. There is no evidence of prolapse. The uterus is midposition, nongravid size and nontender. There are no palpable adnexal masses or tenderness. Bimanual examination is somewhat limited secondary to her size. RECTAL EXAM: rectovaginal exam is negative for mass or tenderness and is negative for occult blood. EXTREMITIES: Nontender. IMPRESSION: 1. 63-year-old menopausal female with normal gynecologic exam. 2. Multiple medical problems. 3. Obesity. 4. Family history of breast cancer in her mother. PLAN: 1. Pap smear was performed. 2. Self breast awareness was discussed with the patient. 3. The patient states her last mammogram was done in the summer of 2018. I have recommended yearly mammograms especially with the family history of breast cancer. The order slip was given that the patient for this. 4. Osteoporosis prevention was discussed. I have stressed the importance of adequate calcium, vitamin D and regular exercise. Recommended amounts of calcium and vitamin D were also discussed. I recommended bone density screening and the order slip was given to the patient for this. 5. I have recommended that she return in one year and I have stressed the importance of regular gynecologic exams as well as yearly mammograms.
--- NOTE | 2018-08-01 08:48 | P.PN ---
Progress Note - Text Progress Note Date: 08/01/18 OUTPATIENT FOLLOW-UP NOTE TEST(S)/RESULTS: Pap smear on 07/24/2018 was negative. There was also a shift in the eliot suggestive of bacterial vaginosis. METHOD OF NOTIFICATION: the patient was notified by phone. PATIENT COMMENTS: the patient denies any symptoms such as vaginal odor or discharge. DIAGNOSIS: negative Pap smear with no BV symptoms. DISCUSSION: we have discussed these findings. She was instructed to call if she develops any symptoms such as vaginal odor or discharge. PLAN: she will return in one year for her annual well woman exam. She also has an order slip for her screening mammogram which will be due in the summer. She will also plan on doing the bone density test at that time as well.
== END ==
LOC: WWCWWP 08:34
PROVIDERS: ATTEND Obstetrics & Gynecology
DX: Z53.9 Procedure and treatment not carried out, unspecified reason (principal)

== ENCOUNTER 2019-06-10 15:02 | Emergency (ER) | payer BC ==
[2019-06-10] MEDS ORDERED: SODIUM CHLORIDE 0.9% 500 ML 500 ML IV STA (15:13)
[2019-06-10 15:14] VITALS: RESP 18
--- NOTE | 2019-06-10 15:54 | ED ---
General Adult HPI - General Chief complaint: Fall Stated complaint: fall, shoulder pain Time Seen by Provider: 06/10/19 15:05 Source: patient, EMS, RN notes reviewed Mode of arrival: EMS Limitations: no limitations - History of Present Illness Initial comments: 63-year-old female presents emergency Department with chief complaint of a fall. Patient states she is unsure how she fell she's not sure if she passed out or just lost her balance. She states there is a portion of this she does not remember. Patient states that she did hit her head and she does take warfarin. She states that she takes warfarin for irregular heartbeat and states that she has had 2 strokes in the past. Patient states that she had a mild headache no neck pain. Denies any left arm, lower extremity injury. She has right shoulder pain. Patient denies any current chest pain or palpitations. No nausea vomiting. - Related Data Home Medications Medication Instructions Recorded Confirmed Atenolol 25 mg PO BID 11/25/13 07/24/18 Multivitamins, Thera [Multivitamin 1 tab PO DAILY@2100 11/25/13 07/24/18 (formulary)] Acetaminophen [Tylenol Arthritis] 650 mg PO Q6H PRN 06/23/17 07/24/18 Furosemide [Lasix] 20 mg PO DAILY 06/23/17 07/24/18 Levothyroxine Sodium [Synthroid] 100 mcg PO DAILY 06/23/17 07/24/18 Losartan [Cozaar] 50 mg PO DAILY 06/23/17 07/24/18 Potassium Chloride [Klor-Con 20] 20 meq PO DAILY@1800 06/23/17 07/24/18 Warfarin [Coumadin] 5 mg PO SUMOTUWEFRSA 06/23/17 07/24/18 Warfarin [Coumadin] 7.5 mg PO TH 06/23/17 07/24/18 Iron (Unknown) 1 tab PO DAILY 12/19/17 07/24/18 Allergies Allergy/AdvReac Type Severity Reaction Status Date / Time amiodarone Allergy kidneys & Verified 06/10/19 15:14 liver shut down aspirin Allergy Swelling Verified 06/10/19 15:14 atorvastatin Allergy affected Verified 06/10/19 15:14 liver enzymes methimazole [From Tapazole] Allergy Unknown Verified 06/10/19 15:14 Sulfa (Sulfonamide Allergy Swelling Verified 06/10/19 15:14 Antibiotics) Review of Systems ROS Statement: Those systems with pertinent positive or pertinent negative responses have been documented in the HPI. ROS Other: All systems not noted in ROS Statement are negative. 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 for thyroid, had kidney & liver issues related to a medication but no current problems, doesn't use CPAP. 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 History of Any Multi-Drug Resistant Organisms: None Reported Past Surgical History: Joint Replacement, Orthopedic Surgery Additional Past Surgical History / Comment(s): wrist surg., colonoscopy 2016(next due 10yrs). Past Anesthesia/Blood Transfusion Reactions: No Reported Reaction Additional Past Anesthesia/Blood Transfusion Reaction / Comment(s): "DOESN'T WANT TO BE AWAKE," PER PATIENT. Past Psychological History: Anxiety, Depression Smoking Status: Never smoker Past Drug Use History: Marijuana - Past Family History Mother Family Medical History: Cancer (Breast cancer) Father Family Medical History: AFIB, Hypertension Sister(s) Family Medical History: Thyroid Disorder Additional Family Medical History / Comment(s): Multiple sisters with thyroid conditions. General Exam Limitations: no limitations General appearance: alert, in no apparent distress Head exam: Present: atraumatic, normocephalic, normal inspection Eye exam: Present: normal appearance, PERRL, EOMI. Absent: scleral icterus, conjunctival injection, periorbital swelling ENT exam: Present: normal exam, mucous membranes moist Neck exam: Present: normal inspection. Absent: tenderness, meningismus, lymphadenopathy Respiratory exam: Present: normal lung sounds bilaterally. Absent: respiratory distress, wheezes, rales, rhonchi, stridor Cardiovascular Exam: Present: regular rate, normal rhythm, normal heart sounds. Absent: systolic murmur, diastolic murmur, rubs, gallop, clicks GI/Abdominal exam: Present: soft, normal bowel sounds. Absent: distended, tenderness, guarding, rebound, rigid Extremities exam: Present: other (Tenderness with palpation to her right shoulder with ecchymosis limited range of motion neurovascular intact remaining extremity exam within normal limits.) Neurological exam: Present: alert Skin exam: Present: warm, dry, intact, normal color. Absent: rash Course Vital Signs 06/10/19 15:05 Temperature 97.1 F L Pulse Rate 76 Respiratory 18 Rate Blood Pressure 169/99 O2 Sat by Pulse 99 Oximetry EKG Findings - EKG Comments: EKG Findings:: EKG performed at 15:57 normal sinus rhythm rate of 70 VT 122 QRS 86 QTC is QTC 390/421 Medical Decision Making - Medical Decision Making Patient presented for a fall, right shoulder pain. Labs, CT her brain and C- spine are negative. X-ray shows fracture of the right proximal humerus. Patient placed in a sling follow-up with orthopedics. Return parameters were discussed. - Lab Data Result diagrams: 06/10/19 15:34 06/10/19 15:34 Lab Results 06/10/19 06/10/19 06/10/19 Range/Units 15:34 15:34 15:34 WBC 6.4 (3.8-10.6) k/uL RBC 4.49 (3.80-5.40) m/uL Hgb 14.0 (11.4-16.0) gm/dL Hct 42.3 (34.0-46.0) % MCV 94.2 (80.0-100.0) fL MCH 31.1 (25.0-35.0) pg MCHC 33.0 (31.0-37.0) g/dL RDW 12.5 (11.5-15.5) % Plt Count 295 (150-450) k/uL Neutrophils % 77 % Lymphocytes % 14 % Monocytes % 6 % Eosinophils % 1 % Basophils % 1 % Neutrophils # 4.9 (1.3-7.7) k/uL Lymphocytes # 0.9 L (1.0-4.8) k/uL Monocytes # 0.4 (0-1.0) k/uL Eosinophils # 0.1 (0-0.7) k/uL Basophils # 0.0 (0-0.2) k/uL PT 20.3 H (9.0-12.0) sec INR 2.1 H (<1.2) APTT 33.7 H (22.0-30.0) sec Sodium 133 L (137-145) mmol/L Potassium 4.5 (3.5-5.1) mmol/L Chloride 95 L (98-107) mmol/L Carbon Dioxide 28 (22-30) mmol/L Anion Gap 10 mmol/L BUN 19 H (7-17) mg/dL Creatinine 0.66 (0.52-1.04) mg/dL Est GFR (CKD-EPI)AfAm >90 (>60 ml/min/1.73 sqM) Est GFR (CKD-EPI)NonAf >90 (>60 ml/min/1.73 sqM) Glucose 149 H (74-99) mg/dL Calcium 9.4 (8.4-10.2) mg/dL Magnesium 1.9 (1.6-2.3) mg/dL Total Bilirubin 1.0 (0.2-1.3) mg/dL AST 26 (14-36) U/L ALT 20 (9-52) U/L Alkaline Phosphatase 105 (38-126) U/L Troponin I (0.000-0.034) ng/mL Total Protein 7.8 (6.3-8.2) g/dL Albumin 4.3 (3.5-5.0) g/dL 06/10/19 Range/Units 15:34 WBC (3.8-10.6) k/uL RBC (3.80-5.40) m/uL Hgb (11.4-16.0) gm/dL Hct (34.0-46.0) % MCV (80.0-100.0) fL MCH (25.0-35.0) pg MCHC (31.0-37.0) g/dL RDW (11.5-15.5) % Plt Count (150-450) k/uL Neutrophils % % Lymphocytes % % Monocytes % % Eosinophils % % Basophils % % Neutrophils # (1.3-7.7) k/uL Lymphocytes # (1.0-4.8) k/uL Monocytes # (0-1.0) k/uL Eosinophils # (0-0.7) k/uL Basophils # (0-0.2) k/uL PT (9.0-12.0) sec INR (<1.2) APTT (22.0-30.0) sec Sodium (137-145) mmol/L Potassium (3.5-5.1) mmol/L Chloride (98-107) mmol/L Carbon Dioxide (22-30) mmol/L Anion Gap mmol/L BUN (7-17) mg/dL Creatinine (0.52-1.04) mg/dL Est GFR (CKD-EPI)AfAm (>60 ml/min/1.73 sqM) Est GFR (CKD-EPI)NonAf (>60 ml/min/1.73 sqM) Glucose (74-99) mg/dL Calcium (8.4-10.2) mg/dL Magnesium (1.6-2.3) mg/dL Total Bilirubin (0.2-1.3) mg/dL AST (14-36) U/L ALT (9-52) U/L Alkaline Phosphatase (38-126) U/L Troponin I <0.012 (0.000-0.034) ng/mL Total Protein (6.3-8.2) g/dL Albumin (3.5-5.0) g/dL Disposition Clinical Impression: Fall, Closed fracture of right proximal humerus Disposition: HOME SELF-CARE Condition: Stable Instructions (If sedation given, give patient instructions): Proximal Humerus Fracture (ED) Additional Instructions: Please return to the Emergency Department if symptoms worsen or any other concerns. Is patient prescribed a controlled substance at d/c from ED?: No Referrals: Alexi Kim MD [Primary Care Provider] - 1-2 days Patrick Sosa DO [Doctor of Osteopathic Medicine] - 1-2 days Time of Disposition: 17:00
--- NOTE | 2019-06-10 16:00 | CT ---
EXAMINATION TYPE: CT brain dmitri michel DATE OF EXAM: 06/10/2019 COMPARISON: 11/24/2013 HISTORY: Fall injury today. Subsequent head and neck pain. CT DLP: 1547 mGycm. Automated Exposure Control for Dose Reduction was Utilized. TECHNIQUE: CT scan of the head and cervical spine are performed without contrast. FINDINGS: Right frontal scalp hematoma is seen measuring 1.1 cm. There is no acute intracranial hemo rrhage, mass effect, or midline shift identified. Encephalomalacia in the right frontal lobe and left parietal lobe are seen from prior infarcts. Moderate burden nonspecific white matter changes also se en as scattered areas of hypoattenuation in the periventricular and subcortical white matter. The aurora tricles and sulci are symmetrically prominent compatible with age-related volume loss with additional ex vacuo dilatation of the internal the right lateral ventricle. The globes are intact and the visu alized sinuses are clear. Bilateral raul bullosa are incidentally seen. Cervical spine is visualized in its entirety from C1 through upper thoracic levels and demonstrates s atisfactory alignment without evidence of acute fracture or dislocation. Prevertebral soft tissue ap pears within normal limits. There is straightening of usual cervical lordosis. Mild multilevel degene rative disc disease is seen without high-grade spinal canal stenosis. Spinal canal is limited on CT. The C1-C2 articulation is unremarkable. Scattered areas of atelectasis are seen in the lung apices. There is a levoscoliosis of the cervical spine, likely secondary to positioning. Enlargement of the r ight thyroid lobe and heterogeneity are seen. Variant anatomy is seen with at least aberrant subclavi an but possible right sided aortic arch. IMPRESSION: 1. There is no acute fracture or dislocation evident in the cervical spine. 2. No acute intracranial hemorrhage, mass effect, or midline shift is seen. 3. Right frontal scalp hematoma measuring 1.1 cm in greatest thickness. 4. Multifocal old infarcts and moderate burden nonspecific white matter change. 5. Mild multilevel degenerative change of the cervical spine.
[2019-06-10 16:09] LABS: Basophils % (A) 1 %; Eosinophils # (A) 0.1 k/uL (0-0.7); Eosinophils % (A) 1 %; HCT 42.3 % (34.0-46.0); Lymphocytes # (A) 0.9 k/uL (1.0-4.8); Lymphocytes % (A) 14 %; MCH 31.1 pg (25.0-35.0); MCV 94.2 fL (80.0-100.0); Mean Platelet Volume 6.3; Monocytes # (A) 0.4 k/uL (0-1.0); Monocytes % (A) 6 %; Neutrophils # (A) 4.9 k/uL (1.3-7.7); Neutrophils % (A) 77 %; Platelet Count 295 k/uL (150-450); RBC 4.49 m/uL (3.80-5.40); RDW 12.5 % (11.5-15.5); WBC 6.4 k/uL (3.8-10.6)
[2019-06-10 16:19] LABS: ALT 20 U/L (9-52); AST 26 U/L (14-36); African American GFR (CKD) >90 (>60 ml/min/1.73 sqM); Albumin 4.3 g/dL (3.5-5.0); Alkaline Phosphatase 105 U/L (38-126); Anion Gap 10 mmol/L; Blood Urea Nitrogen 19 mg/dL (7-17); Calcium 9.4 mg/dL (8.4-10.2); Carbon Dioxide 28 mmol/L (22-30); Chloride 95 mmol/L (98-107); Glucose 149 mg/dL (74-99); Magnesium 1.9 mg/dL (1.6-2.3); Non-African American GFR(CKD) >90 (>60 ml/min/1.73 sqM); Potassium 4.5 mmol/L (3.5-5.1); Sodium 133 mmol/L (137-145); Total Protein 7.8 g/dL (6.3-8.2)
[2019-06-10 16:21] LABS: INR 2.1 (<1.2); Partial Thromboplastin Time 33.7 sec (22.0-30.0); Prothrombin Time 20.3 sec (9.0-12.0)
[2019-06-10] MEDS ORDERED: MORPHINE SULFATE 4 MG/ML SYRINGE IVP STA ×2 (16:21→17:20)
--- NOTE | 2019-06-10 16:53 | XR ---
EXAMINATION TYPE: XR shoulder complete RT DATE OF EXAM: 06/10/2019 CLINICAL HISTORY: Right shoulder pain after injury TECHNIQUE: Three views of the right shoulder are obtained. COMPARISON: None. FINDINGS: There is a transversely oriented proximal right humeral fracture of the surgical neck with 1.7 cm foreshortening. No apparent comminution. Calcification of the distal rotator cuff tendon is se en. Mild arthropathy of the acromio clavicular joint. Diffuse osseous demineralization. IMPRESSION: Transversely oriented acute impacted right proximal humeral fracture without apparent com minution.
[2019-06-10] MEDS ORDERED: ACET/COD 300 MG/30 MG STARTER PACK 6 TAB BTL PO STA (17:00)
[2019-06-10 17:30] VITALS: BP 152/76; PULSE 74; TEMP 98.2
== END 2019-06-10 18:05 | disposition home or self-care (01) ==
LOC: EC 15:02
DX: S42.201A Unspecified fracture of upper end of right humerus, initial encounter for closed fracture (principal); R51 Headache; I48.91 Unspecified atrial fibrillation; I25.10 Atherosclerotic heart disease of native coronary artery without angina pectoris; I11.0 Hypertensive heart disease with heart failure; I50.9 Heart failure, unspecified; M19.90 Unspecified osteoarthritis, unspecified site; E05.90 Thyrotoxicosis, unspecified without thyrotoxic crisis or storm; Z88.2 Allergy status to sulfonamides; Z88.6 Allergy status to analgesic agent; Z88.8 Allergy status to other drugs, medicaments and biological substances; Z79.01 Long term (current) use of anticoagulants; Z79.890 Hormone replacement therapy; Z79.891 Long term (current) use of opiate analgesic; Z79.899 Other long term (current) drug therapy; Z86.73 Personal history of transient ischemic attack (TIA), and cerebral infarction without residual deficits; Z96.60 Presence of unspecified orthopedic joint implant; W19.XXXA Unspecified fall, initial encounter; Y92.015 Private garage of single-family (private) house as the place of occurrence of the external cause
CPT/HCPCS: 36415; 93005; 80053; 83735; 84484; 85025; 85610; 85730; 73030; 72125; 70450; 99284; 96374; 96376; 96361; J2270

== ENCOUNTER 2019-06-21 16:34 | Emergency (ER) | payer BC ==
[2019-06-21] MEDS ORDERED: SODIUM CHLORIDE 0.9% 500 ML 500 ML IV STA (17:34)
[2019-06-21] MEDS ORDERED: MORPHINE SULFATE 4 MG/ML SYRINGE IVP STA (17:34)
--- NOTE | 2019-06-21 18:19 | ED ---
Headache HPI - General Chief Complaint: Headache Stated Complaint: Head injury, headache Time Seen by Provider: 06/21/19 17:01 Mode of arrival: wheelchair Limitations: no limitations - History of Present Illness Initial Comments: Patient is a 63-year-old female, with past medical history of A. fib on Coumadin, heart failure, CVA, thyroid disease, presenting to the emergency dep artment with a headache. Patient states she tripped and fell approximately 10 days ago breaking her right humerus and also hitting her head on paint cans. Patient had a head CT performed on that day which did not show any acute bleeding. Patient states she has not been having headache until yesterday. Patient states she did develop a hematoma from hitting her head and it is still there. Patient states her head started hurting in the same spot last night and it has not stopped. Patient denies any additional falls. Patient states she called her doctor's office today to try to be seen however her doctor told her to go to the ER for evaluation and possible scan. Patient denies nausea, vomiting, fever, chills, blurry vision. Patient states she did take Tylenol 3 with codeine last night but it did not help with her headache. Patient has no other complaints at this time. Upon arrival to the ER, her vital signs are stable. - Related Data Home Medications Medication Instructions Recorded Confirmed Atenolol 25 mg PO BID 11/25/13 07/24/18 Multivitamins, Thera [Multivitamin 1 tab PO DAILY@2100 11/25/13 07/24/18 (formulary)] Acetaminophen [Tylenol Arthritis] 650 mg PO Q6H PRN 06/23/17 07/24/18 Furosemide [Lasix] 20 mg PO DAILY 06/23/17 07/24/18 Levothyroxine Sodium [Synthroid] 100 mcg PO DAILY 06/23/17 07/24/18 Losartan [Cozaar] 50 mg PO DAILY 06/23/17 07/24/18 Potassium Chloride [Klor-Con 20] 20 meq PO DAILY@1800 06/23/17 07/24/18 Warfarin [Coumadin] 5 mg PO SUMOTUWEFRSA 06/23/17 07/24/18 Warfarin [Coumadin] 7.5 mg PO TH 06/23/17 07/24/18 Iron (Unknown) 1 tab PO DAILY 12/19/17 07/24/18 Allergies Allergy/AdvReac Type Severity Reaction Status Date / Time amiodarone Allergy kidneys & Verified 06/21/19 16:57 liver shut down aspirin Allergy Swelling Verified 06/21/19 16:57 atorvastatin Allergy affected Verified 06/21/19 16:57 liver enzymes methimazole [From Tapazole] Allergy Unknown Verified 06/21/19 16:57 Sulfa (Sulfonamide Allergy Swelling Verified 06/21/19 16:57 Antibiotics) Review of Systems ROS Statement: Those systems with pertinent positive or pertinent negative responses have been documented in the HPI. ROS Other: All systems not noted in ROS Statement are negative. 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 for thyroid, had kidney & liver issues related to a medication but no current problems, doesn't use CPAP. 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 History of Any Multi-Drug Resistant Organisms: None Reported Past Surgical History: Joint Replacement, Orthopedic Surgery Additional Past Surgical History / Comment(s): wrist surg., colonoscopy 2016(next due 10yrs). Past Anesthesia/Blood Transfusion Reactions: No Reported Reaction Additional Past Anesthesia/Blood Transfusion Reaction / Comment(s): "DOESN'T WANT TO BE AWAKE," PER PATIENT. Past Psychological History: Anxiety, Depression Smoking Status: Never smoker Past Alcohol Use History: None Reported Past Drug Use History: None Reported, Marijuana - Past Family History Mother Family Medical History: Cancer (Breast cancer) Father Family Medical History: AFIB, Hypertension Sister(s) Family Medical History: Thyroid Disorder Additional Family Medical History / Comment(s): Multiple sisters with thyroid conditions. General Exam - General Exam Comments Initial Comments: GENERAL: Well-appearing, well-nourished and in no acute distress. HEAD: There is a small hematoma on the right superior portion of her skull. It is slightly tender to the touch. EYES: Pupils equal round and reactive to light, extraocular movements intact, sclera anicteric, conjunctiva are normal. ENT: TMs normal, nares patent, oropharynx clear without exudates. Moist mucous membranes. NECK: Normal range of motion, supple without lymphadenopathy or JVD. LUNGS: Breath sounds clear to auscultation bilaterally and equal. No wheezes rales or rhonchi. HEART: Regular rate and rhythm without murmurs, rubs or gallops. ABDOMEN: Soft, nontender, normoactive bowel sounds. No guarding, no rebound. No masses appreciated. : Deferred EXTREMITIES: Right upper extremity is in sling from humerus fracture. Left upper extremity and bilateral lower extremity strength is 5 out of 5. NEUROLOGICAL: Cranial nerves II through XII grossly intact. Normal speech. PSYCH: Normal mood, normal affect. SKIN: Warm, Dry, normal turgor, no rashes or lesions noted. Limitations: no limitations Course Vital Signs 06/21/19 16:54 Temperature 98.6 F Pulse Rate 71 Respiratory 16 Rate Blood Pressure 143/81 O2 Sat by Pulse 99 Oximetry Medical Decision Making - Medical Decision Making Patient is a 63-year-old female presenting with a headache since yesterday. Patient did have a fall on Coumadin and approximate 10 days ago fracturing her right humerus. Her computed tomography scan at that time was normal. Vital signs are normal today. Computed tomography scan shows no acute changes. Patient was given some fluids as well as morphine and reports improvement in her symptoms. I discussed the findings with the patient. Patient is stable for discharge at this time. Patient will follow up with her PCP as needed. I suggested she continue with Tylenol as needed for headache. Patient is in agreement with this plan of care. Return parameters were discussed with the patient she verbalized understanding. Case discussed with Dr. Hong. Disposition Clinical Impression: Headache Disposition: HOME SELF-CARE Condition: Stable Instructions (If sedation given, give patient instructions): Acute Headache (ED) Additional Instructions: Please return to the Emergency Department if symptoms worsen or any other concer ns. Follow-up with PCP as needed. Take Tylenol for headache. Continue to increase fluid intake. Is patient prescribed a controlled substance at d/c from ED?: No Referrals: Alexi Kim MD [Primary Care Provider] - 1-2 days
--- NOTE | 2019-06-21 19:09 | CT ---
EXAMINATION TYPE: CT brain wo con DATE OF EXAM: 06/21/2019 COMPARISON: 06/10/2019 HISTORY: Headache after head injury x11 days ago. CT DLP: 1173.4 mGycm Automated exposure control for dose reduction was used. There is some cerebral cortical atrophy. There is grade white matter hypodensity right posterior fron luis lobe and left posterior parietal lobe related to old infarct. There is no mass effect nor midline shift. There is no sign of intracranial hemorrhage. The calvarium is intact. There is patchy hypoden sity in the periventricular white matter. IMPRESSION: Old bilateral cortical infarcts. Chronic small vessel ischemia. No acute intracranial abnormality. No change.
[2019-06-21 19:51] VITALS: BP 144/84; PULSE 88; RESP 18; TEMP 98
== END 2019-06-21 19:49 | disposition home or self-care (01) ==
LOC: EC 16:34
DX: S00.03XA Contusion of scalp, initial encounter (principal); S42.331D Displaced oblique fracture of shaft of humerus, right arm, subsequent encounter for fracture with routine healing; I48.91 Unspecified atrial fibrillation; I25.10 Atherosclerotic heart disease of native coronary artery without angina pectoris; I11.0 Hypertensive heart disease with heart failure; I50.9 Heart failure, unspecified; M19.90 Unspecified osteoarthritis, unspecified site; E05.90 Thyrotoxicosis, unspecified without thyrotoxic crisis or storm; Z88.2 Allergy status to sulfonamides; Z88.6 Allergy status to analgesic agent; Z88.8 Allergy status to other drugs, medicaments and biological substances; Z79.01 Long term (current) use of anticoagulants; Z79.890 Hormone replacement therapy; Z79.891 Long term (current) use of opiate analgesic; Z79.899 Other long term (current) drug therapy; Z86.73 Personal history of transient ischemic attack (TIA), and cerebral infarction without residual deficits; Z92.3 Personal history of irradiation; Z97.8 Presence of other specified devices; Z96.60 Presence of unspecified orthopedic joint implant; W01.198A Fall on same level from slipping, tripping and stumbling with subsequent striking against other object, initial encounter; W01.198D Fall on same level from slipping, tripping and stumbling with subsequent striking against other object, subsequent encounter
CPT/HCPCS: 99283; 96374; 70450; J2270

== ENCOUNTER → 2019-08-14 | Outpatient (CLI) | payer BC ==
--- NOTE | 2019-08-14 12:21 | BD ---
EXAMINATION TYPE: Axial Bone Density DATE OF EXAM: 08/14/2019 COMPARISON: NONE CLINICAL HISTORY: Z 78.0 Height: 60 inches(patient unable to stand up fully as knees are in a flexed position) Weight: 242 pounds FRAX RISK QUESTIONS: Alcohol (3 or more units per day): no Family History (Parent hip fracture): yes, mother Glucocorticoids (More than 3mos): no (Ex: prednisone, prednisolone, methylprednisolone, dexamethasone, and hydrocortisone). History of Fracture in Adulthood: yes Secondary Osteoporosis: 1. Type 1 Diabetes: no 2. Hyperthyroidism: under control 3. Menopause before 45: no 4. Malnutrition: no 5. Chronic liver disease: no Rheumatoid Arthritis: states yes Current Tobacco Use: no RISK FACTORS HISTORY OF: History of Wrist Fracture: yes; right When: when in 20's Family History of Osteoporosis: unsure Active: limited uses walker Diet low in dairy products/other sources of calcium: no Postmenopausal woman: yes Take estrogen and/or progesterone medications: no Lost more than 2 inches in height since high school: unsure; may have been about 62 inches; patient n ot able to un-flex knees to stand to potential full height Frequent falls: balance problem Poor Health: somewhat Hyperparathyroidism: no Adrenal Insufficiency: no MEDICATIONS: Prednisone or other steroids: no Thyroid Medications: yes Which medication: Synthroid How Long: since 2014 Osteoporosis Medications: no Additional Medications: blood pressure med ; heart med for irregular beat, OCD med; potassium pill, i kiera pill Additional History: 2 strokes; radioactive iodine treatment, liver damage from a medication ; bilater al knee replacements EXAM MEASUREMENTS: Bone mineral densitometry was performed using the [employer] System. Bone mineral density as measured about the Lumbar spine is: ----- L1-L4(G/cm2): 1.302 T Score Values are as follows: ----- L2: 0.7 ----- L3: 2.3 ----- L4: 0.5 ----- L1-L4: 1.0 Bone mineral density BASELINE Bone mineral density about the R hip (g/cm2): 0.746 Bone mineral density about the L hip (g/cm2): 0.752 T Score values are as follows: -----R Neck: -2.1 -----L Neck: -2.1 -----R Total: -1.8 -----L Total: -1.7 Bone mineral density BASELINE Bone mineral density about the L Wrist (g/cm2): 0.631 T Score values are as follows: -----Dist. R+U: 2.0 -----Prox. R+U: -1.9 -----Radius total: -0.7 Bone mineral density BASELINE IMPRESSION: Osteopenia (T Score between -2.5 and -1). There is slightly increased risk of fracture and the patient may be considered for treatment. Re-Screen 2-5 years. NOTE: T-SCORE=SD OF THE YOUNG ADULT MEAN.
--- NOTE | 2019-08-14 14:25 | P.PN ---
Progress Note - Text Progress Note Date: 08/14/19 OUTPATIENT FOLLOW-UP NOTE TEST(S)/RESULTS: Bone density test from 08/14/2019 shows osteopenia. This is a baseline test. METHOD OF NOTIFICATION: The patient's was notified by phone and he will give the results to the patient. PATIENT COMMENTS: DIAGNOSIS: Osteopenia DISCUSSION: I have stressed the importance of adequate calcium, vitamin D and regular exercise. A handout on this will be sent to the patient by mail. PLAN: I have recommended that the patient have this repeated in approximately 2- 3 years.
--- NOTE | 2019-08-15 12:20 | MM ---
Reason for exam: screening (asymptomatic). Last mammogram was performed 1 year and 3 months ago. History: Patient is postmenopausal and is nulliparous. Family history of breast cancer in mother at age 79. Physical Findings: A clinical breast exam by your physician is recommended on an annual basis and results should be correlated with mammographic findings. MG 3D Screening Mammo W/Cad Bilateral CC and MLO view(s) were taken. Prior study comparison: May 02, 2018, mammogram, performed at [facility]. March 28, 2017, mammogram, performed at [facility]. There are scattered fibroglandular densities. There is no discrete abnormality. No significant changes when compared with prior studies. ASSESSMENT: Negative, BI-RAD 1 RECOMMENDATION: Routine screening mammogram of both breasts in 1 year.
== END | disposition home or self-care (01) ==
LOC: RADMAMWWP 09:00
PROVIDERS: ATTEND Obstetrics & Gynecology
DX: Z12.31 Encounter for screening mammogram for malignant neoplasm of breast (principal); M85.80 Other specified disorders of bone density and structure, unspecified site; Z78.0 Asymptomatic menopausal state
CPT/HCPCS: 77063; 77067; 77080

== ENCOUNTER → 2020-12-10 | Outpatient (CLI) | payer MEDICARE, OTHER ==
--- NOTE | 2020-12-10 17:05 | XR ---
EXAMINATION TYPE: XR Hip Bilateral Complete DATE OF EXAM: 12/10/2020 COMPARISON: None HISTORY: Hip pain TECHNIQUE: Bilateral hips are examined in 2 projections each. FINDINGS: Left hip: Femoral head articulates with the acetabulum. Mild diffuse joint space narrowing is present . No acute fracture or dislocation is evident. Some degenerative changes noted in the left sacroiliac joint. Right hip: There is destruction of the femoral head. A large erosion through the acetabulum is presen t. There is complete loss of joint space. No acute fracture is evident. IMPRESSION: 1. Destruction of the right femoral head with acetabular erosions compatible with very advanced dege nerative changes. 2. Mild degenerative change left hip
--- NOTE | 2020-12-14 07:54 | MM ---
Reason for exam: screening (asymptomatic). Last mammogram was performed 1 year and 4 months ago. History: Patient is postmenopausal and is nulliparous. Family history of breast cancer in mother at age 79. Physical Findings: A clinical breast exam by your physician is recommended on an annual basis and results should be correlated with mammographic findings. MG 3D Screening Mammo W/Cad Bilateral CC and MLO view(s) were taken. Prior study comparison: August 14, 2019, bilateral MG 3d screening mammo w/cad. May 02, 2018, mammogram, performed at [facility]. There are scattered fibroglandular densities. ASSESSMENT: Benign, BI-RAD 2 RECOMMENDATION: Routine screening mammogram of both breasts in 1 year.
== END | disposition home or self-care (01) ==
LOC: RADMAMWWP 10:49
PROVIDERS: ATTEND Internal Medicine
DX: Z12.31 Encounter for screening mammogram for malignant neoplasm of breast (principal); M16.12 Unilateral primary osteoarthritis, left hip; Z78.0 Asymptomatic menopausal state; Z80.3 Family history of malignant neoplasm of breast
CPT/HCPCS: 73521; 77063; 77067

== ENCOUNTER → 2021-06-08 | Outpatient (CLI) | payer MEDICARE, OTHER ==
--- NOTE | 2021-06-08 17:14 | US ---
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 Abnormal labs EXAM MEASUREMENTS: Liver Length: 13.9 cm Gallbladder Wall: 0.2 cm CBD: 0.5 cm Spleen: 9.37 cm Right Kidney: 10.0 x 3.9 x 4.4 cm Left Kidney: 10.1 x 3.7 x 5.1 cm Very limited exam due to patient body habitus Pancreas: Echogenic in appearance Liver: suboptimal visualization Gallbladder: Multiple echogenic foci seen Evidence for sonographic Husain's sign: neg CBD: wnl Spleen: wnl Right Kidney: No hydronephrosis or masses seen Left Kidney: No hydronephrosis or masses seen Upper IVC: wnl Abd Aorta: no AAA seen with portions visualized IMPRESSION: 1. Cholelithiasis. 2. Additional visualized portions of the abdomen are unremarkable. 2. Limited exam due to body habitus.
== END | disposition home or self-care (01) ==
LOC: RADUSWWP 10:16
PROVIDERS: ATTEND Internal Medicine Hematology & Oncology
DX: D89.2 Hypergammaglobulinemia, unspecified (principal); K80.20 Calculus of gallbladder without cholecystitis without obstruction
CPT/HCPCS: 76700

== ENCOUNTER → 2021-11-02 | Outpatient (CLI) | payer MEDICARE, OTHER ==
--- NOTE | 2021-11-02 15:30 | XR ---
EXAMINATION TYPE: XR hand limited bilateral DATE OF EXAM: 11/02/2021 CLINICAL HISTORY: Bilateral hand pain TECHNIQUE: Frontal and lateral images of the bilateral hands are obtained. COMPARISON: None. FINDINGS: Osseous structures are demineralized. Bilateral hands show moderate narrowing throughout th e PIP and DIP joints of the phalanges. There is mild to moderate narrowing and spurring first interph alangeal joint bilaterally. Moderate to severe narrowing first MCP joint bilaterally. Moderate Soft t issue swelling of the second and third digits is present bilaterally. There is valgus positioning sec ond MCP joint left hand. There is severe narrowing third MCP joint left hand. Advanced degenerative c hange in the carpal bones bilaterally with additional more prominent involvement base of first metaca rpal on the left. Findings could be better evaluated with dedicated wrist films as there is suggestio n of marked narrowing and subluxations at this level. IMPRESSION: As above.
[2021-11-02 16:55] LABS: Prothrombin Time 51.3 sec (9.0-12.0)
[2021-11-02 17:00] LABS: INR 5.1 (<1.2)
[2021-11-03 00:24] LABS: African American GFR (CKD) 104.6 (60.0-200.0); Anion Gap 9.9 mmol/L (10.00-18.00); BUN/Creat Ratio 35.57 Ratio (12.00-20.00); Blood Urea Nitrogen 24.9 mg/dL (9.0-27.0); Calcium 9.6 mg/dL (8.7-10.3); Carbon Dioxide 22.1 mmol/L (20.0-27.5); Non-African American GFR(CKD) 90.3 (60.0-200.0); Potassium 4.9 mmol/L (3.5-5.5); Total Bilirubin 0.4 mg/dL (0.30-1.20)
[2021-11-03 00:58] LABS: HCT 42.8 % (37.2-46.3); HGB 13.6 g/dL (12.0-15.0); MCHC 31.8 g/dL (32.0-37.0); MCV 94.5 fL (80.0-97.0); Mean Platelet Volume 10.6 fL (9.5-12.2); NRBC Per 100 WBC 0 /100 WBCS (0.0-0.0); Platelet Count 314 X 10*3/uL (140-440); RBC 4.53 X 10*6/uL (4.10-5.20); RDW 13.3 % (11.5-14.5); WBC 8.09 X 10*3/uL (4.50-10.00)
== END | disposition home or self-care (01) ==
LOC: LABWHC1 14:57
PROVIDERS: ATTEND Internal Medicine
DX: I10 Essential (primary) hypertension (principal); M79.643 Pain in unspecified hand; I48.91 Unspecified atrial fibrillation
CPT/HCPCS: 36415; 80053; 85027; 85610

== ENCOUNTER → 2021-11-04 | Outpatient (CLI) | payer MEDICARE, OTHER ==
[2021-11-04 23:16] LABS: INR 3.56 (0.90-1.11); Prothrombin Time 37.9 sec (9.9-11.9)
== END | disposition home or self-care (01) ==
LOC: LABWHC1 16:17
PROVIDERS: ATTEND Internal Medicine
DX: I48.91 Unspecified atrial fibrillation (principal)
CPT/HCPCS: 36415; 85610

== ENCOUNTER → 2022-02-15 | Outpatient (CLI) | payer MEDICARE, OTHER ==
[2022-02-15 22:52] LABS: Basophils # (A) 0.03 X 10*3/uL (0.00-0.10); Basophils % (A) 0.5 %; Eosinophils # (A) 0.11 X 10*3/uL (0.04-0.35); HCT 42.5 % (37.2-46.3); HGB 13.8 g/dL (12.0-15.0); Immature Grans, Automated 0.4 %; Lymphocytes # (A) 0.83 X 10*3/uL (0.90-5.00); Lymphocytes % (A) 15.2 %; MCH 30.7 pg (27.0-32.0); MCHC 32.5 g/dL (32.0-37.0); MCV 94.7 fL (80.0-97.0); Mean Platelet Volume 10.5 fL (9.5-12.2); Monocytes # (A) 0.54 X 10*3/uL (0.20-1.00); Monocytes % (A) 9.9 %; NRBC Per 100 WBC 0 /100 WBCS (0.0-0.0); Neutrophils # (A) 3.93 X 10*3/uL (1.80-7.70); Platelet Count 220 X 10*3/uL (140-440); RBC 4.49 X 10*6/uL (4.10-5.20); RDW 12.7 % (11.5-14.5); WBC 5.46 X 10*3/uL (4.50-10.00)
[2022-02-16 00:09] LABS: African American GFR (CKD) 93.6 (60.0-200.0); Albumin 4.2 g/dL (3.8-4.9); Albumin/Globulin Ratio 1.27 (1.60-3.17); Anion Gap 11.4 mmol/L (10.00-18.00); BUN/Creat Ratio 32.94 Ratio (12.00-20.00); Blood Urea Nitrogen 25.3 mg/dL (9.0-27.0); Calcium 9.7 mg/dL (8.7-10.3); Carbon Dioxide 24.3 mmol/L (20.0-27.5); Globulin 3.3 g/dL (1.6-3.3); Non-African American GFR(CKD) 80.7 (60.0-200.0); Total Bilirubin 0.7 mg/dL (0.30-1.20); Total Protein 7.5 g/dL (6.2-8.2)
== END | disposition home or self-care (01) ==
LOC: LABWHC1 15:09
PROVIDERS: ATTEND Internal Medicine Gastroenterology
DX: K76.9 Liver disease, unspecified (principal)
CPT/HCPCS: 36415; 80053; 85025

== ENCOUNTER → 2022-03-31 | Outpatient (CLI) | payer MEDICARE, OTHER ==
--- NOTE | 2022-04-01 08:12 | MM ---
Reason for Exam: Screening (asymptomatic). Last mammogram was performed 1 year(s) and 3 month(s) ago. Patient History: Menarche at age 12. Patient has no children. Postmenopausal. Mother had breast cancer, age 79. Risk Values: Kristin 5 year model risk: 3.3%. NCI Lifetime model risk: 11.5%. Prior Study Comparison: 05/02/2018 Screening Mammogram, [facility]. 08/14/2019 Bilateral Screening Mammogram, [facility]. 12/10/2020 Bilateral Screening Mammogram, [facility]. Tissue Density: There are scattered fibroglandular densities. Findings: Analyzed By CAD. There is no suspicious group of microcalcifications or new suspicious mass in either breast. Benign-appearing calcifications within both breasts. No significant change from prior exams. Overall Assessment: Benign, BI-RAD 2 Management: Screening Mammogram of both breasts in 1 year. A clinical breast exam by your physician is recommended on an annual basis and results should be correlated with mammographic findings. Electronically signed and approved by: Joseph Witt D.O.
== END | disposition home or self-care (01) ==
LOC: RADMAMWWP 11:06
PROVIDERS: ATTEND Internal Medicine
DX: Z12.31 Encounter for screening mammogram for malignant neoplasm of breast (principal); Z78.0 Asymptomatic menopausal state; Z80.3 Family history of malignant neoplasm of breast
CPT/HCPCS: 77063; 77067

== ENCOUNTER → 2022-03-31 | Outpatient (CLI) | payer MEDICARE, OTHER ==
[2022-03-31 19:18] LABS: T4, Free (Free Thyroxine) 1.81 ng/dL (0.800-1.800)
== END | disposition home or self-care (01) ==
LOC: LABWHC1 11:12
PROVIDERS: ATTEND Internal Medicine
DX: E89.0 Postprocedural hypothyroidism (principal); R73.9 Hyperglycemia, unspecified
CPT/HCPCS: 36415; 83036; 84439; 84443

== ENCOUNTER → 2022-10-18 | Outpatient (CLI) | payer MEDICARE, OTHER ==
[2022-10-18 20:06] LABS: Basophils # (A) 0.05 X 10*3/uL (0.00-0.10); Basophils % (A) 0.8 %; Eosinophils # (A) 0.12 X 10*3/uL (0.04-0.35); Eosinophils % (A) 1.8 %; HCT 41.1 % (37.2-46.3); HGB 13.4 g/dL (12.0-15.0); Immature Grans, Automated 0.3 %; Lymphocytes # (A) 1.03 X 10*3/uL (0.90-5.00); Lymphocytes % (A) 15.6 %; MCH 30.6 pg (27.0-32.0); MCHC 32.6 g/dL (32.0-37.0); MCV 93.8 fL (80.0-97.0); Mean Platelet Volume 10.3 fL (9.5-12.2); Monocytes # (A) 0.44 X 10*3/uL (0.20-1.00); Monocytes % (A) 6.7 %; NRBC Per 100 WBC 0 /100 WBCS (0.0-0.0); Neutrophils # (A) 4.94 X 10*3/uL (1.80-7.70); Neutrophils % (A) 74.8 %; Platelet Count 318 X 10*3/uL (140-440); RBC 4.38 X 10*6/uL (4.10-5.20); RDW 12.4 % (11.5-14.5)
== END | disposition home or self-care (01) ==
LOC: LABWHC1 15:48
PROVIDERS: ATTEND Internal Medicine Gastroenterology
DX: K76.9 Liver disease, unspecified (principal)
CPT/HCPCS: 36415; 85025

== ENCOUNTER 2023-03-02 17:43 | Inpatient (IN) | payer MEDICARE, OTHER ==
--- NOTE | 2023-03-02 18:00 | ED ---
Arrhythmia/Palpitations HPI - General Source: patient Mode of arrival: ambulatory Limitations: no limitations <Major Hester - Last Filed: 03/02/23 18:01> <Nena Frederick - Last Filed: 03/03/23 01:26> - General Chief Complaint: Arrhythmia/Palpitations Stated Complaint: Afib sent by icing maker Time Seen by Provider: 03/02/23 18:00 - History of Present Illness Initial Comments: 67-year-old female presenting to concerned for A. fib. Patient has history of A. fib, patient is on warfarin and atenolol. Heart rate ranging from 80s to 140s. Denies chest pain (Major Hester) 67-year-old female who presents to the emergency department from rehab with rapid heart rate. Patient does have a history of A. fib and takes atenolol and Eliquis. She recently had a total hip replacement done at [facility] on Monday. She was discharged to rehab on Monday. States that Monday night she began having elevated heart rate. The patient was in A. fib. They did attempt to adjust her atenolol however did not have success and therefore recommended that the patient be transferred to the hospital. She did want to come to [facility] as she sees Dr. Herman. She denies having any symptoms. No chest pain or shortness of breath. No other alleviating, precipitating modifying factors (Nena Frederick) - Related Data Home Medications Medication Instructions Recorded Confirmed Atenolol 50 mg PO BID 11/25/13 03/02/23 Acetaminophen [Tylenol Arthritis] 650 mg PO Q6H PRN 06/23/17 03/02/23 Apixaban [Eliquis] 5 mg PO BID 03/02/23 03/02/23 Docusate Sodium [Dok] 100 mg PO DAILY PRN 03/02/23 03/02/23 Levothyroxine Sodium [Synthroid] 125 mcg PO DAILY 03/02/23 03/02/23 fluvoxaMINE MALEATE [Luvox] 200 mg PO HS 03/02/23 03/02/23 methocarbamoL [Robaxin] 500 mg PO TID PRN 03/02/23 03/02/23 oxyCODONE HCL [OxyIR] 5 mg PO Q4H PRN 03/02/23 03/02/23 polyethylene glycoL 3350 [Miralax] 17 gm PO DAILY PRN 03/02/23 03/02/23 Allergies Allergy/AdvReac Type Severity Reaction Status Date / Time amiodarone Allergy kidneys & Verified 03/02/23 21:46 liver shut down aspirin Allergy Swelling Verified 03/02/23 21:46 atorvastatin Allergy affected Verified 03/02/23 21:46 liver enzymes methimazole [From Tapazole] Allergy Unknown Verified 03/02/23 21:46 Sulfa (Sulfonamide Allergy Swelling Verified 03/02/23 21:46 Antibiotics) Review of Systems ROS Other: All systems not noted in ROS Statement are negative. <Major Hester - Last Filed: 03/02/23 18:01> ROS Other: All systems not noted in ROS Statement are negative. <Nena Frederick - Last Filed: 03/03/23 01:26> ROS Statement: Those systems with pertinent positive or pertinent negative responses have been documented in the HPI. 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 for thyroid, had kidney & liver issues related to a medication but no current problems, doesn't use CPAP. 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 COVID 04/30 History of Any Multi-Drug Resistant Organisms: None Reported Past Surgical History: Joint Replacement, Orthopedic Surgery Additional Past Surgical History / Comment(s): wrist surg., colonoscopy 20 16(next due 10yrs)., rt total hip Past Anesthesia/Blood Transfusion Reactions: No Reported Reaction Additional Past Anesthesia/Blood Transfusion Reaction / Comment(s): "DOESN'T WANT TO BE AWAKE," PER PATIENT. Past Psychological History: Anxiety, Depression Smoking Status: Never smoker Past Alcohol Use History: None Reported Past Drug Use History: None Reported, Marijuana - Past Family History Mother Family Medical History: Cancer (Breast cancer) Father Family Medical History: AFIB, Hypertension Sister(s) Family Medical History: Thyroid Disorder Additional Family Medical History / Comment(s): Multiple sisters with thyroid conditions. <Major Hester - Last Filed: 03/02/23 18:01> General Exam Limitations: no limitations <Major Hester - Last Filed: 03/02/23 18:01> General appearance: alert, in no apparent distress Head exam: Present: atraumatic, normocephalic, normal inspection Eye exam: Present: normal appearance, PERRL, EOMI. Absent: scleral icterus, conjunctival injection, periorbital swelling ENT exam: Present: normal exam, mucous membranes moist Neck exam: Present: normal inspection. Absent: tenderness, meningismus, lymphadenopathy Respiratory exam: Present: normal lung sounds bilaterally. Absent: respiratory distress, wheezes, rales, rhonchi, stridor Cardiovascular Exam: Present: tachycardia, irregular rhythm, normal heart sounds. Absent: systolic murmur, diastolic murmur, rubs, gallop, clicks GI/Abdominal exam: Present: soft, normal bowel sounds. Absent: distended, tenderness, guarding, rebound, rigid Extremities exam: Present: normal capillary refill, pedal edema (Right lower extremity due to surgery). Absent: tenderness, joint swelling, calf tenderness Back exam: Present: normal inspection Neurological exam: Present: alert, oriented X3, CN II-XII intact Psychiatric exam: Present: normal affect, normal mood Skin exam: Present: warm, dry, intact, normal color. Absent: rash <Nena Frederick - Last Filed: 03/03/23 01:26> - General Exam Comments Initial Comments: Visual Physical Exam Vital signs reviewed General: Well-appearing, nontoxic, no acute distress. Head: Normocephalic, atraumatic Eyes: PERRLA, EOMI ENT: Airway patent Chest: Nonlabored breathing Skin: No visual rash, normal skin tone Neuro: Alert and oriented 3 Musculoskeletal: No gross abnormalities (Major Hester) Course Vital Signs 03/02/23 03/02/23 03/02/23 17:51 18:31 18:45 Temperature 99.1 F Pulse Rate 132 H 184 H 152 H Respiratory 20 18 14 Rate Blood Pressure 118/61 100/77 91/61 O2 Sat by Pulse 100 96 96 Oximetry 03/02/23 03/02/23 03/02/23 19:00 19:15 20:00 Temperature Pulse Rate 146 H 149 H 114 H Respiratory 14 14 19 Rate Blood Pressure 121/72 112/74 109/80 O2 Sat by Pulse 99 99 98 Oximetry 03/02/23 21:00 Temperature Pulse Rate 140 H Respiratory 18 Rate Blood Pressure 110/75 O2 Sat by Pulse 98 Oximetry Medical Decision Making - Lab Data Result diagrams: 03/02/23 18:50 03/02/23 18:50 <Nena Frederick A - Last Filed: 03/03/23 01:26> - Medical Decision Making Was pt. sent in by a medical professional or institution (, PA, PRINCIPLE SOFTWARE ENGINEER, urgent care, hospital, or shelter...) When possible be specific @ -Patient was sent in from her rehab facility Did you speak to anyone other than the patient for history (EMS, parent, family, police, friend...)? What history was obtained from this source @ -I spoke with the patient's sister in regards to her symptoms Did you review nursing and triage notes (agree or disagree)? Why? @ -I reviewed and agree with nursing and triage notes Were old charts reviewed (outside hosp., previous admission, EMS record, old EKG, old radiological studies, urgent care reports/EKG's, shelter records)? Report findings @ -No old charts were reviewed Differential Diagnosis (chest pain, altered mental status, abdominal pain women, abdominal pain men, vaginal bleeding, weakness, fever, dyspnea, syncope, headache, dizziness, GI bleed, back pain, seizure, CVA, palpatations, mental health, musculoskeletal)? @ -Differential Palpitations Ventricular arrhythmias, atrial arrhythmias, myocardial infarction, anemia, thyrotoxicosis, electrolyte imbalance, hypokalemia, pulmonary embolism, pulmonary disease, drugs, alcohol, anxiety, stress.... This is not meant to be an all-inclusive list. EKG interpreted by me (3pts min.). @ -Yes and demonstrates A. fib with a rate of 156. QRS 82. QTC of 357. No acute ST segment elevations or depressions X-rays interpreted by me (1pt min.). @ -Yes and demonstrates no acute intrathoracic process CT interpreted by me (1pt min.). @ -None done U/S interpreted by me (1pt. min.). @ -None done What testing was considered but not performed or refused? (CT, X-rays, U/S, labs)? Why? @ -None What meds were considered but not given or refused? Why? @ -None Did you discuss the management of the patient with other professionals (professionals i.e. , PA, PRINCIPLE SOFTWARE ENGINEER, lab, RT, psych nurse, secondary social studies teacher, insulation board back tender, teacher, sales and service officer, director case management)? Give summary @ -Spoke with Dr. Sylvester who agreed to admit the patient. Was smoking cessation discussed for >3mins.? @ -No Was critical care preformed (if so, how long)? @ -Yes, 35 minutes for Cardizem drip management Were there social determinants of health that impacted care today? How? (Homelessness, low income, unemployed, alcoholism, drug addiction, transport ation, low edu. Level, literacy, decrease access to med. care, halfway, rehab)? @ -Patient does present from rehab facility which was in [place] Was there de-escalation of care discussed even if they declined (Discuss DNR or withdrawal of care, Hospice)? DNR status @ -No What co-morbidities impacted this encounter? (DM, HTN, Smoking, COPD, CAD, Cancer, CVA, ARF, Chemo, Hep., AIDS, mental health diagnosis, sleep apnea, mo rbid obesity)? @ -A. fib with RVR, recent hip replacement Was patient admitted / discharged? Hospital course, mention meds given and route, prescriptions, significant lab abnormalities, going to OR and other pertinent info. @ -Upon arrival patient was placed into room 1. Thorough history and physical exam was performed. She is hooked continuous pulse ox and cardiac monitoring. Heart rate is anywhere from 140-180. IV is established. Laboratory studies were conducted. 12-lead EKG is performed which demonstrates that the patient is in A. fib with a rapid rate. She is initiated on a Cardizem drip which is titrated. Laboratory studies were conducted and reviewed. Patient will be admitted with cardiology consultation. Spoke with Dr. Enriquez who agreed to admission Undiagnosed new problem with uncertain prognosis? @ -No Drug Therapy requiring intensive monitoring for toxicity (Heparin, Nitro, Insulin, Cardizem)? @ -Yes, Cardizem Were any procedures done? @ -No Diagnosis/symptom? @ -A. fib with RVR Acute, or Chronic, or Acute on Chronic? @ -Acute Uncomplicated (without systemic symptoms) or Complicated (systemic symptoms)? @ -Complicated Side effects of treatment? @ -No Exacerbation, Progression, or Severe Exacerbation? @ -No Poses a threat to life or bodily function? How? (Chest pain, USA, LA, pneumonia, PE, COPD, DKA, ARF, appy, cholecystitis, CVA, Diverticulitis, Homicidal, Suicidal, threat to staff... and all critical care pts) @ -Yes patient does present with markedly elevated heart rate (Nena Frederick) - Lab Data Lab Results 03/02/23 03/02/23 03/02/23 Range/Units 18:50 18:50 18:50 WBC 10.5 (3.8-10.6) k/uL RBC 3.92 (3.80-5.40) m/uL Hgb 12.3 (11.4-16.0) gm/dL Hct 37.1 (34.0-46.0) % MCV 94.8 (80.0-100.0) fL MCH 31.4 (25.0-35.0) pg MCHC 33.2 (31.0-37.0) g/dL RDW 13.1 (11.5-15.5) % Plt Count 333 (150-450) k/uL MPV 7.9 Neutrophils % 76 % Lymphocytes % 12 % Monocytes % 7 % Eosinophils % 3 % Basophils % 0 % Neutrophils # 8.0 H (1.3-7.7) k/uL Lymphocytes # 1.2 (1.0-4.8) k/uL Monocytes # 0.8 (0-1.0) k/uL Eosinophils # 0.4 (0-0.7) k/uL Basophils # 0.0 (0-0.2) k/uL PT 10.1 (9.0-12.0) sec INR 0.9 (<1.2) APTT 19.8 L (22.0-30.0) sec Sodium 133 L (137-145) mmol/L Potassium 5.0 (3.5-5.1) mmol/L Chloride 101 (98-107) mmol/L Carbon Dioxide 25 (22-30) mmol/L Anion Gap 7 mmol/L BUN 22 H (7-17) mg/dL Creatinine 0.57 (0.52-1.04) mg/dL Est GFR (CKD-EPI)AfAm >90 (>60 ml/min/1.73 sqM) Est GFR (CKD-EPI)NonAf >90 (>60 ml/min/1.73 sqM) Glucose 113 H (74-99) mg/dL Calcium 8.3 L (8.4-10.2) mg/dL Magnesium 2.2 (1.6-2.3) mg/dL Total Bilirubin 1.0 (0.2-1.3) mg/dL AST 39 H (14-36) U/L ALT 30 (4-34) U/L Alkaline Phosphatase 108 (38-126) U/L Troponin I (0.000-0.034) ng/mL Total Protein 6.2 L (6.3-8.2) g/dL Albumin 3.2 L (3.5-5.0) g/dL TSH 0.815 (0.465-4.680) mIU/L 03/02/23 Range/Units 18:50 WBC (3.8-10.6) k/uL RBC (3.80-5.40) m/uL Hgb (11.4-16.0) gm/dL Hct (34.0-46.0) % MCV (80.0-100.0) fL MCH (25.0-35.0) pg MCHC (31.0-37.0) g/dL RDW (11.5-15.5) % Plt Count (150-450) k/uL MPV Neutrophils % % Lymphocytes % % Monocytes % % Eosinophils % % Basophils % % Neutrophils # (1.3-7.7) k/uL Lymphocytes # (1.0-4.8) k/uL Monocytes # (0-1.0) k/uL Eosinophils # (0-0.7) k/uL Basophils # (0-0.2) k/uL PT (9.0-12.0) sec INR (<1.2) APTT (22.0-30.0) sec Sodium (137-145) mmol/L Potassium (3.5-5.1) mmol/L Chloride (98-107) mmol/L Carbon Dioxide (22-30) mmol/L Anion Gap mmol/L BUN (7-17) mg/dL Creatinine (0.52-1.04) mg/dL Est GFR (CKD-EPI)AfAm (>60 ml/min/1.73 sqM) Est GFR (CKD-EPI)NonAf (>60 ml/min/1.73 sqM) Glucose (74-99) mg/dL Calcium (8.4-10.2) mg/dL Magnesium (1.6-2.3) mg/dL Total Bilirubin (0.2-1.3) mg/dL AST (14-36) U/L ALT (4-34) U/L Alkaline Phosphatase (38-126) U/L Troponin I <0.012 (0.000-0.034) ng/mL Total Protein (6.3-8.2) g/dL Albumin (3.5-5.0) g/dL TSH (0.465-4.680) mIU/L Disposition <Major Hester - Last Filed: 03/02/23 18:01> Is patient prescribed a controlled substance at d/c from ED?: No Time of Disposition: 21:37 Decision to Admit Reason: Admit from EC Decision Date: 03/02/23 Decision Time: 21:37 <Nena Frederick - Last Filed: 03/03/23 01:26> Clinical Impression: Atrial fibrillation with RVR Disposition: ADMITTED IP TO THIS HOSP Condition: Stable
[2023-03-02 19:09] LABS: Basophils % (A) 0 %; Eosinophils # (A) 0.4 k/uL (0-0.7); Eosinophils % (A) 3 %; HCT 37.1 % (34.0-46.0); HGB 12.3 gm/dL (11.4-16.0); Lymphocytes # (A) 1.2 k/uL (1.0-4.8); Lymphocytes % (A) 12 %; MCH 31.4 pg (25.0-35.0); MCHC 33.2 g/dL (31.0-37.0); MCV 94.8 fL (80.0-100.0); Mean Platelet Volume 7.9; Monocytes # (A) 0.8 k/uL (0-1.0); Monocytes % (A) 7 %; Neutrophils % (A) 76 %; Platelet Count 333 k/uL (150-450); RBC 3.92 m/uL (3.80-5.40); RDW 13.1 % (11.5-15.5); WBC 10.5 k/uL (3.8-10.6)
[2023-03-02 19:14] LABS: ALT 30 U/L (4-34); AST 39 U/L (14-36); African American GFR (CKD) >90 (>60 ml/min/1.73 sqM); Albumin 3.2 g/dL (3.5-5.0); Alkaline Phosphatase 108 U/L (38-126); Anion Gap 7 mmol/L; Blood Urea Nitrogen 22 mg/dL (7-17); Calcium 8.3 mg/dL (8.4-10.2); Carbon Dioxide 25 mmol/L (22-30); Chloride 101 mmol/L (98-107); Glucose 113 mg/dL (74-99); Magnesium 2.2 mg/dL (1.6-2.3); Non-African American GFR(CKD) >90 (>60 ml/min/1.73 sqM); Sodium 133 mmol/L (137-145); Total Protein 6.2 g/dL (6.3-8.2)
[2023-03-02] MEDS ORDERED: DILTIAZEM DRIP BOLUS FROM BAG 1 MG SOLN IV ONE (19:19)
[2023-03-02 19:30] LABS: INR 0.9 (<1.2); Partial Thromboplastin Time 19.8 sec (22.0-30.0); Prothrombin Time 10.1 sec (9.0-12.0)
[2023-03-02] MEDS ORDERED: DILTIAZEM 125 MG in SODIUM CHLORIDE 0.9% 100 ML IV SCH ×2 (19:30→21:30)
--- NOTE | 2023-03-02 20:33 | XR ---
EXAMINATION: XR chest 2V: 03/02/2023 7:33 PM CLINICAL INDICATION: dysrhythmia TECHNIQUE: Departmental protocol COMPARISON: 06/27/2017 FINDINGS: EKG leads noted. The overlying soft tissues are prominent. The lungs appear to be clear as seen. The pleural spaces are negative. The cardiac silhouette is mildly enlarged. The skeletal structures and soft tissues are negative for acute findings. IMPRESSION: No definite acute radiographic process.
[2023-03-02] MEDS ORDERED: NALOXONE 0.4 MG/ML 1 ML VIAL IV PRN (21:37)
[2023-03-02] MEDS ORDERED: ACETAMINOPHEN TAB 325 MG TAB PO PRN (21:37)
[2023-03-02] MEDS ORDERED: HYDROcodone/APAP 5-325MG 1 EACH TAB PO PRN (21:37)
[2023-03-03] MEDS ORDERED: methocarbamoL 500 MG TAB PO PRN (01:27)
[2023-03-03] MEDS ORDERED: NON FORMULARY DRUG (Acetaminophen [Tylenol Arthritis] 650 MG Tablet.Er) PO PRN (01:27)
[2023-03-03] MEDS ORDERED: DOCUSATE 100 MG CAP PO PRN (01:27)
[2023-03-03] MEDS ORDERED: polyethylene glycoL 3350 17 GM POWD.PACK PO PRN (01:27)
[2023-03-03] MEDS: APIXABAN 5 MG TAB PO SCH ×2 (02:17→16:46)
--- NOTE | 2023-03-03 02:26 | P.HPIM ---
History of Present Illness H&P Date: 03/03/23 Chief Complaint: Tachycardia 67-year-old female with A. fib on Eliqu Patient was sent in from rehab for tachycardia, her heart rate was in the 160s she is asymptomatic. She recently had right hip surgery done on Monday about a week ago and then was sent to rehab on Monday. Today she was found to be in A. fib with RVR with heart rates in the 160s she denies any associated symptoms denies any chest pain trouble breathing denies any dizziness lightheadedness denies any nausea vomiting. She was sent to our facility for cardiology evaluation Patient denies any tobacco smoke and illicit drugs or alcohol Patient reports that she was diagnosed with A. fib years ago after having a stroke . review of systems Pertinent positives as noted in HPI. All other systems were reviewed and are negative on exam Constitutional: No acute distress, conversant, pleasant Eyes: Anicteric sclerae, moist conjunctiva, Pupils equal round reactive to light ENMT: NC/AT Oropharynx clear, no erythema, or exudates Neck: Supple, no masses, or JVD No carotid bruits No thyromegaly Lungs: Clear to auscultation Clear to percussion Normal respiratory effort, no accessory muscle use Cardiovascular: Heart irregular No murmurs, gallops, or rubs +1 bilateral peripheral leg edema Abdominal: Soft Nontender, no guarding, rebound or rigidity Abdomen moving with respiration Normoactive bowel sounds No hepatomegaly, No splenomegaly No palpable mass No abdominal wall hernia noted Skin: Normal temperature, tone, texture, turgor No induration No subcutaneous nodules No rash, lesions No ulcers Extremities: No digital cyanosis No clubbing Pedal pulses intact and symmetrical Radial pulses intact and symmetrical No calf tenderness Psychiatric: Alert and oriented to person, place and time Appropriate affect Neuro Muscles Strength 5/5 in bilateral upper extremities, 4 out of 5 in bilateral lower extremities Sensation to light touch grossly present throughout Cranial nerves II-XII grossly intact Lymphatics: no palpable cervical or supraclavicular lymph nodes Past Medical History Past Medical History: Atrial Fibrillation, Coronary Artery Disease (CAD), Heart Failure, CVA/TIA, Hypertension, Osteoarthritis (OA), Pneumonia, Sleep Apnea/CPAP/BIPAP, Thyroid Disorder Additional Past Medical History / Comment(s): 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 for thyroid, had kidney & liver issues related to a medication but no current problems, doesn't use CPAP. 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 COVID 04/30 History of Any Multi-Drug Resistant Organisms: None Reported Past Surgical History: Joint Replacement, Orthopedic Surgery Additional Past Surgical History / Comment(s): wrist surg., colonoscopy 2016(next due 10yrs)., rt total hip Past Anesthesia/Blood Transfusion Reactions: No Reported Reaction Additional Past Anesthesia/Blood Transfusion Reaction / Comment(s): "DOESN'T WANT TO BE AWAKE," PER PATIENT. Past Psychological History: Anxiety, Depression Smoking Status: Never smoker Past Alcohol Use History: None Reported Past Drug Use History: None Reported, Marijuana - Past Family History Mother Family Medical History: Cancer (Breast cancer) Father Family Medical History: AFIB, Hypertension Sister(s) Family Medical History: Thyroid Disorder Additional Family Medical History / Comment(s): Multiple sisters with thyroid conditions. Medications and Allergies Home Medications Medication Instructions Recorded Confirmed Type Atenolol 50 mg PO BID 11/25/13 03/02/23 History Acetaminophen [Tylenol Arthritis] 650 mg PO Q6H PRN 06/23/17 03/02/23 History Apixaban [Eliquis] 5 mg PO BID 03/02/23 03/02/23 History Docusate Sodium [Dok] 100 mg PO DAILY PRN 03/02/23 03/02/23 History Levothyroxine Sodium [Synthroid] 125 mcg PO DAILY 03/02/23 03/02/23 History fluvoxaMINE MALEATE [Luvox] 200 mg PO HS 03/02/23 03/02/23 History methocarbamoL [Robaxin] 500 mg PO TID PRN 03/02/23 03/02/23 History oxyCODONE HCL [OxyIR] 5 mg PO Q4H PRN 03/02/23 03/02/23 History polyethylene glycoL 3350 [Miralax] 17 gm PO DAILY PRN 03/02/23 03/02/23 History Allergies Allergy/AdvReac Type Severity Reaction Status Date / Time amiodarone Allergy kidneys & Verified 03/02/23 21:46 liver shut down aspirin Allergy Swelling Verified 03/02/23 21:46 atorvastatin Allergy affected Verified 08/24/23 21:46 liver enzymes methimazole [From Tapazole] Allergy Unknown Verified 03/02/23 21:46 Sulfa (Sulfonamide Allergy Swelling Verified 03/02/23 21:46 Antibiotics) Physical Exam Vitals: Vital Signs Temp Pulse Resp BP Pulse Ox 03/02/23 21:00 140 H 18 110/75 98 03/02/23 20:00 114 H 19 109/80 98 03/02/23 19:15 149 H 14 112/74 99 03/02/23 19:00 146 H 14 121/72 99 03/02/23 18:45 152 H 14 91/61 96 03/02/23 18:31 184 H 18 100/77 96 03/02/23 17:51 99.1 F 132 H 20 118/61 100 Intake and Output 03/02/23 03/02/23 03/03/23 14:59 22:59 06:59 Other: Weight 100.199 kg Results CBC & Chem 7: 03/02/23 18:50 03/02/23 18:50 Labs: Abnormal Lab Results - Last 24 Hours (Table) 03/02/23 03/02/23 03/02/23 Range/Units 18:50 18:50 18:50 Neutrophils # 8.0 H (1.3-7.7) k/uL APTT 19.8 L (22.0-30.0) sec Sodium 133 L (137-145) mmol/L BUN 22 H (7-17) mg/dL Glucose 113 H (74-99) mg/dL Calcium 8.3 L (8.4-10.2) mg/dL AST 39 H (14-36) U/L Total Protein 6.2 L (6.3-8.2) g/dL Albumin 3.2 L (3.5-5.0) g/dL Assessment and Plan Assessment: 67-year-old female with A. fib on Eliquis coming in with tachycardia while in rehab post right hip replacement I discussed the case with the ED doctor and accepted the admission for A. fib with RVR with anticipated that the stay more than 2 midnights A. fib with RVR Initiated on Cardizem drip Continue with Eliquis Cardiology consult EKG showing A. fib with RVR Troponins negative Rest of her blood work unremarkable hemoglobin 12.3, white count 10.5 Sodium 133 potassium 5 magnesium 2.2 BUN 22 creatinine 0.57 Hypothyroidism levothyroxine Full code DVT prophylaxis on Eliquis for A. fib
[2023-03-03 06:15] LABS: African American GFR (CKD) >90 (>60 ml/min/1.73 sqM); Anion Gap 1 mmol/L; Blood Urea Nitrogen 17 mg/dL (7-17); Calcium 8.1 mg/dL (8.4-10.2); Carbon Dioxide 29 mmol/L (22-30); Chloride 103 mmol/L (98-107); Glucose 100 mg/dL (74-99); Non-African American GFR(CKD) >90 (>60 ml/min/1.73 sqM); Potassium 4.2 mmol/L (3.5-5.1); Sodium 133 mmol/L (137-145)
[2023-03-03] MEDS: LEVOTHYROXINE 125 MCG TAB PO SCH (07:07)
[2023-03-03 07:39] LABS: Basophils % (A) 0 %; Eosinophils # (A) 0.4 k/uL (0-0.7); Eosinophils % (A) 5 %; HCT 28.5 % (34.0-46.0); Lymphocytes # (A) 1.4 k/uL (1.0-4.8); Lymphocytes % (A) 19 %; MCH 31.8 pg (25.0-35.0); MCHC 33.1 g/dL (31.0-37.0); MCV 96.2 fL (80.0-100.0); Mean Platelet Volume 7.9; Monocytes # (A) 0.7 k/uL (0-1.0); Monocytes % (A) 9 %; Neutrophils # (A) 4.8 k/uL (1.3-7.7); Neutrophils % (A) 65 %; Platelet Count 272 k/uL (150-450); RBC 2.96 m/uL (3.80-5.40); RDW 13.5 % (11.5-15.5); WBC 7.4 k/uL (3.8-10.6)
[2023-03-03 07:45] LABS: HGB 9.4 gm/dL (11.4-16.0)
[2023-03-03] MEDS ORDERED: SODIUM CHLORIDE 0.9% 500 ML 500 ML IV ONE (08:15)
[2023-03-03 08:58] LABS: HCT 28.8 % (34.0-46.0); HGB 9.7 gm/dL (11.4-16.0); MCH 31.9 pg (25.0-35.0); MCHC 33.9 g/dL (31.0-37.0); MCV 94.2 fL (80.0-100.0); Mean Platelet Volume 7.7; Platelet Count 275 k/uL (150-450); RBC 3.05 m/uL (3.80-5.40); RDW 13.1 % (11.5-15.5); WBC 7.2 k/uL (3.8-10.6)
[2023-03-03] MEDS ORDERED: atenoloL 50 MG TAB PO SCH (09:00)
[2023-03-03] MEDS ORDERED: HEPARIN SODIUM 1,000 UN/ML (10ML VL) IV PRN (09:15)
[2023-03-03] MEDS ORDERED: FUROSEMIDE 10 MG/ML 4 ML VIAL IV STA (09:18)
--- NOTE | 2023-03-03 09:22 | P.PN ---
Subjective Progress Note Date: 03/03/23 Hospital course: Patient is a very pleasant 67-year-old female with a past medical history of CAD, chronic atrial fibrillation on anticoagulation with Eliquis, hypertension, hyperlipidemia, embolic CVA 2 with memory deficits, hypothyroidism, and osteoarthritis. Patient is status post right total hip at [facility] on Monday02/24/23 and was discharged to rehabilitation facility. Patient presented to the emergency department overnight from rehab facility after being found with heart rate in the 160s. Upon arrival to the emergency department patient underwent full evaluation. Vital signs showing heart rate 130s to 180s, blood pressure 118/61, respiratory rate 20, temp 99.1F, and SpO2 of 100% on room air. EKG was completed confirming tachycardic rhythm is atrial fibrillation with RVR at 156 bpm. Chest x-ray then completed negative for acute cardiopulmonary process. Labs completed and reviewed. CBC was unremarkable with WBC count of 10.5 and hemoglobin of 12.3 with platelet count of 333. Coagulation profile showing low PTT of 19.8 otherwise normal findings. BMP revealing mild hyponatremia with sodium of 133, prerenal azotemia with BUN of 22, and normal creatinine of 0.57. Glucose 113. Magnesium normal findings at 2.2. Liver pro file showing slightly elevated AST of 39 otherwise normal findings. Troponin was negative at less than 0.012. And TSH normal findings is 0.815. Patient was given Cardizem bolus followed by infusion and was admitted under our services with consultation to cardiology. repeat morning labs revealed a significant drop in hemoglobin and patient had not been given any fluids prior to these labs. Morning labs revealed a decrease in hemoglobin from 12.3 down to 9.4, order placed for stat repeat lab for verification showing results of hemoglobin of 9.7. Patient has no signs of active bleeding, no obvious bruising or hematoma from recent hip surgery, and denies having any hematemesis, hematuria, melena or hematochezia. Patient does report long-standing history of iron deficiency anemia and does report her hemoglobin has been at 9 previously. It is unclear why hemoglobin dropped nearly 3 g overnight. Patient does report having mild rectal pain and problems with constipation 1 week. Patient reports having one small bowel movement over the past week in which she reports was hard and abnor mal but denies any noted bleeding or dark colored stools. At this time patient was also noted to be hypotensive and continued tachycardia. It is unclear if patient is hypotensive secondary to Cardizem infusion or drop in hemoglobin. Patient was given a 500 mL bolus and Cardizem infusion was stopped. Cardiology evaluated and started patient on digoxin. Eliquis being held and patient started on heparin infusion per high school hvac r instructor recommendations due to history of 2 previous embolic strokes. Order placed for fecal occult and CT abdomen and pelvis. Patient started on Protonix 40 mg IVP twice daily. Will continue to monitor hemoglobin closely with repeat CBCs every 6 hours. General surgery co nsulted for evaluation for possible GI bleed. Physical exam: Vital signs reviewed and stable. General: Nontoxic, no distress and appears stated age. Derm: Skin warm and dry, normal coloration for ethnicity. postsurgical dressing in place right hip clean, dry, and intact with no signs of active bleeding, bruising, or hematoma noted. Head: Atraumatic, normocephalic and symmetric. Eyes: EOMs intact, no lid lag, and anicteric sclera Mouth: no lip lesions, mucus membranes moist Cardiovascular: regular rate and rhythm with normal S1S2, systolic murmur, positive posterior tibial pulses bilaterally, and cap refill < 2 seconds. Lungs: Respirations even, regular, and unlabored on room air. Lungs CTA bilaterally, no rhonchi, no rales, no wheezing, and no accessory muscle usage. Abdominal: Obese abdomen soft, nontender to palpation, no guarding, no appreciable organomegaly Ext: ROM intact. No gross muscle atrophy, 2+ pitting bilateral lower extremity edema, no contractures Neuro: Speech clear, face symmetrical and CN II-XII grossly intact with no noted focal neuro deficits Psych: Alert and oriented to person, place, time, and situation. Appropriate and pleasant affect. Assessment and Plan of Care: Atrial fibrillation with RVR Hypotension Acute blood loss anemia, unclear etiology Constipation and rectal pain History of CAD Hypertension Hyperlipidemia History of embolic CVA 2 events with memory deficits -Cardiology following, discussed plan of care with high school hvac r instructor and cardiac STRATEGIC PLANNING DIRECTOR. Cardiology also discontinuing Cardizem infusion and starting patient on metoprolol 12.5 mg twice daily and digoxin 125 mg daily at this time. -Patient to remain on continuous telemetry monitoring. -Order placed for echocardiogram -Drop in hemoglobin from 12.3 down to 9.4 over the past 12 hours. Eliquis held at this time and discussed with high school hvac r instructor whom was in agreement with holding Eliquis, but recommending patient be started on heparin infusion secondary to history of 2 previous embolic strokes. -Consult placed to Gen. surgery for evaluation of possible GI bleed. -Patient started on Protonix 40 mg IVP twice daily -Order placed for CT abdomen and pelvis and discussed with radiologist obtaining views of recent right hip replacement to rule out hematoma (however unlikely secondary to no noted bruising or pain upon examination). Patient does report constipation 1 week with one bowel movement over the past 7 days reported yesterday, she did deny noticing any melena or hematochezia. Patient does report mild rectal pain. -Continue to monitor hemoglobin closely with repeat CBC every 6 hours. We will transfuse as needed for hemoglobin less than 7. Acute cystitis without hematuria -CT abdomen and pelvis revealing moderate circumferential bladder wall thickening may be chronic for the patient correlate to exclude cystitis. Urinalysis positive for infection showing positive nitrites and leukocytes, and greater than 182 WBCs. Follow-up on Urine Culture and blood culture -Patient started on Rocephin 2 g every 24 hours. Hypothyroidism -TSH normal findings at 0.815. Patient to continue with daily medication regimen with the levothyroxine 125 g daily. CODE STATUS: Full code DVT prophylaxis: heparin infusion as recommended by cardiology Discussed with: patient, RN, cardiac STRATEGIC PLANNING DIRECTOR, and high school hvac r instructor Anticipated discharge date: clinical course to determine Anticipated discharge place: home Patient was seen independently by Nurse Pracitioner. This document was prepared using [employer] dictation software. Please allow for errors in environmental conservation professor, while rare they do occur. Stanislav Bo NP rendered care for this patient independently, reviewed the findings and plan as documented in the note above. I did not physically speak with or examine the patient on this date. Objective - Vital Signs Vital signs: Vital Signs Temp 99.1 F 03/02/23 17:51 Pulse 116 H 03/03/23 07:30 Resp 14 03/03/23 07:30 BP 85/54 03/03/23 07:30 Pulse Ox 98 03/03/23 07:30 FiO2 Intake & Output 03/02/23 03/03/23 03/03/23 18:59 06:59 18:59 Intake Total 94.5 Balance 94.5 Weight 100.199 kg Intake: Intake, IV Titration 94.5 Amount Diltiazem 125 mg In 94.5 Sodium Chloride 0.9% 100 ml @ Per Protocol IV .Q0M [facility] Rx#:[id number] - Labs CBC & Chem 7: 03/04/23 09:04 03/03/23 05:38 Labs: Abnormal Lab Results - Last 24 Hours (Table) 03/02/23 03/02/23 03/02/23 Range/Units 18:50 18:50 18:50 RBC (3.80-5.40) m/uL Hgb (11.4-16.0) gm/dL Hct (34.0-46.0) % Neutrophils # 8.0 H (1.3-7.7) k/uL APTT 19.8 L (22.0-30.0) sec Sodium 133 L (137-145) mmol/L BUN 22 H (7-17) mg/dL Glucose 113 H (74-99) mg/dL Calcium 8.3 L (8.4-10.2) mg/dL AST 39 H (14-36) U/L Total Protein 6.2 L (6.3-8.2) g/dL Albumin 3.2 L (3.5-5.0) g/dL 03/03/23 03/03/23 Range/Units 05:38 05:38 RBC 2.96 L (3.80-5.40) m/uL Hgb 9.4 L D (11.4-16.0) gm/dL Hct 28.5 L (34.0-46.0) % Neutrophils # (1.3-7.7) k/uL APTT (22.0-30.0) sec Sodium 133 L (137-145) mmol/L BUN (7-17) mg/dL Glucose 100 H (74-99) mg/dL Calcium 8.1 L (8.4-10.2) mg/dL AST (14-36) U/L Total Protein (6.3-8.2) g/dL Albumin (3.5-5.0) g/dL
--- NOTE | 2023-03-03 09:29 | P.CRDCN ---
History of Present Illness History of present illness: HISTORY OF PRESENT ILLNESS: This is a 67-year-old female with a past medical history significant for osteoarthritis with recent right hip replacement, atrial fibrillation, and hypothyroidism. Patient follows in the office with Dr. Herman. We have been asked to see the patient in consultation for atrial fibrillation with RVR. Patient examined at the bedside. Patient was at [facility] for rehab. She was brought to the hospital secondary to afib with RVR and hypotension. Patient remains in atrial fibrillation at the time of examination with heart rates in the 130-140s. She was on a Cardizem drip which has since been discontinued secondary to hypotension. Blood pressure somewhat improved with recent reading of 103/89. * EKG reveals atrial fibrillation with RVR * Chest xray negative for acute process * Laboratory data: WBC 7.4. Hemoglobin 12.3 on admission, down to 9.4 this morning. platelet count 272. Sodium 133. Potassium 4.2. BUN 17. Creatinine 0.56. troponin negative 1. TSH 0.815 * Current home cardiac medications include Eliquis 5mg BID, atenolol 50 mg twice a day REVIEW OF SYSTEMS: At the time of my exam: CONSTITUTIONAL: Denies fever or chills. HEENT: Denies blurred vision, vision changes, or eye pain. Denies hemoptysis CARDIOVASCULAR: Denies chest pain. Denies orthopnea. Denies PND. Denies palpitations RESPIRATORY: Denies shortness of breath. GASTROINTESTINAL: Denies abdominal pain. Denies nausea or vomiting. HEMATOLOGIC: Denies bleeding disorders. GENITOURINARY: Denies any blood in urine. SKIN: Denies pruitis. Denies rash. PHYSICAL EXAM: VITAL SIGNS: Reviewed. GENERAL: Well-developed in no acute distress. HEENT: Head is normocephalic. Pupils are equal, round. Sclerae anicteric. Mucous membranes of the mouth are moist. Neck supple. No JVD or thyromegaly LUNGS: Respirations even and unlabored. Lungs essentially clear to auscultation bilaterally. HEART: Tachycardic. Irregular rate and rhythm. S1 and S2 heard. ABDOMEN: Soft. Nondistended. Nontender. EXTREMITIES: Normal range of motion. No clubbing or cyanosis. Peripheral pulses intact. 2+ bilateral lower extremity edema NEUROLOGIC: Awake and alert. Oriented x 3. ASSESSMENT: Paroxysmal atrial fibrillation with RVR Mild CHF with bilateral lower extremity edema, type unknown, echo pending Osteoarthritis with recent right hip replacement Hypothyroidism Hypotension History of CVA x 2, per patient Anemia, etiology unclear, hemoglobin dropped from 12s to 9s. 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 Repeat in 6 hours. Begin oral Dixogin tomorrow Discontinue Atenolol. Begin metoprolol tartrate 12.5mg BID Continue telemetry monitoring Give Lasix 40mg IVP x 1 dose now Further recommendations pending patient course Nurse practitioner note has been reviewed by physician. Signing provider agrees with the documented findings, assessment, and plan of care. 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 for thyroid, had kidney & liver issues related to a medication but no current problems, doesn't use CPAP. 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 COVID 04/30 History of Any Multi-Drug Resistant Organisms: None Reported Past Surgical History: Joint Replacement, Orthopedic Surgery Additional Past Surgical History / Comment(s): wrist surg., colonoscopy 2016(next due 10yrs)., rt total hip Past Anesthesia/Blood Transfusion Reactions: No Reported Reaction Additional Past Anesthesia/Blood Transfusion Reaction / Comment(s): "DOESN'T WANT TO BE AWAKE," PER PATIENT. Past Psychological History: Anxiety, Depression Smoking Status: Never smoker Past Alcohol Use History: None Reported Past Drug Use History: None Reported, Marijuana - Past Family History Mother Family Medical History: Cancer (Breast cancer) Father Family Medical History: AFIB, Hypertension Sister(s) Family Medical History: Thyroid Disorder Additional Family Medical History / Comment(s): Multiple sisters with thyroid conditions. Medications and Allergies Home Medications Medication Instructions Recorded Confirmed Type Atenolol 50 mg PO BID 11/25/13 03/02/23 History Acetaminophen [Tylenol Arthritis] 650 mg PO Q6H PRN 06/23/17 03/02/23 History Apixaban [Eliquis] 5 mg PO BID 03/02/23 03/02/23 History Docusate Sodium [Dok] 100 mg PO DAILY PRN 03/02/23 03/02/23 History Levothyroxine Sodium [Synthroid] 125 mcg PO DAILY 03/02/23 03/02/23 History fluvoxaMINE MALEATE [Luvox] 200 mg PO HS 03/02/23 03/02/23 History methocarbamoL [Robaxin] 500 mg PO TID PRN 03/02/23 03/02/23 History oxyCODONE HCL [OxyIR] 5 mg PO Q4H PRN 03/02/23 03/02/23 History polyethylene glycoL 3350 [Miralax] 17 gm PO DAILY PRN 03/02/23 03/02/23 History Allergies Allergy/AdvReac Type Severity Reaction Status Date / Time amiodarone Allergy kidneys & Verified 03/02/23 21:46 liver shut down aspirin Allergy Swelling Verified 03/02/23 21:46 atorvastatin Allergy affected Verified 03/02/23 21:46 liver enzymes methimazole [From Tapazole] Allergy Unknown Verified 03/02/23 21:46 Sulfa (Sulfonamide Allergy Swelling Verified 03/02/23 21:46 Antibiotics) Physical Exam Vitals: Vital Signs Temp Pulse Resp BP Pulse Ox 03/03/23 05:00 103 H 18 93/57 95 03/03/23 03:00 118 H 21 91/49 95 03/03/23 02:00 105 H 19 101/71 95 03/03/23 01:00 135 H 21 98/56 95 03/03/23 00:00 120 H 18 83/48 96 03/02/23 23:00 102 H 20 99/84 95 03/02/23 22:00 130 H 20 102/80 96 03/02/23 21:00 140 H 18 110/75 98 03/02/23 20:00 114 H 19 109/80 98 03/02/23 19:15 149 H 14 112/74 99 03/02/23 19:00 146 H 14 121/72 99 03/02/23 18:45 152 H 14 91/61 96 03/02/23 18:31 184 H 18 100/77 96 03/02/23 17:51 99.1 F 132 H 20 118/61 100 Intake and Output 03/02/23 03/02/23 03/03/23 14:59 22:59 06:59 Other: Weight 100.199 kg Results 03/03/23 08:32 03/03/23 05:38 Cardiac Enzymes 03/02/23 03/02/23 Range/Units 18:50 18:50 AST 39 H (14-36) U/L Troponin I <0.012 (0.000-0.034) ng/mL Coagulation 03/02/23 Range/Units 18:50 PT 10.1 (9.0-12.0) sec APTT 19.8 L (22.0-30.0) sec CBC 03/02/23 Range/Units 18:50 WBC 10.5 (3.8-10.6) k/uL RBC 3.92 (3.80-5.40) m/uL Hgb 12.3 (11.4-16.0) gm/dL Hct 37.1 (34.0-46.0) % Plt Count 333 (150-450) k/uL Comprehensive Metabolic Panel 03/02/23 03/03/23 Range/Units 18:50 05:38 Sodium 133 L 133 L (137-145) mmol/L Potassium 5.0 4.2 (3.5-5.1) mmol/L Chloride 101 103 (98-107) mmol/L Carbon Dioxide 25 29 (22-30) mmol/L BUN 22 H 17 (7-17) mg/dL Creatinine 0.57 0.56 (0.52-1.04) mg/dL Glucose 113 H 100 H (74-99) mg/dL Calcium 8.3 L 8.1 L (8.4-10.2) mg/dL AST 39 H (14-36) U/L ALT 30 (4-34) U/L Alkaline Phosphatase 108 (38-126) U/L Total Protein 6.2 L (6.3-8.2) g/dL Albumin 3.2 L (3.5-5.0) g/dL Current Medications Generic Name Dose Route Start Last Admin Trade Name Freq PRN Reason Stop Dose Admin Acetaminophen 650 mg 08/24/23 21:37 Acetaminophen Tab 325 Mg Tab PO Q6HR PRN Mild Pain or Fever > 100.5 Hydrocodone Bitart/Acetaminophen 1 each 03/02/23 21:37 Hydrocodone/Apap 5-325mg 1 Each Tab PO Q4HR PRN Moderate Pain (Scale 4 to 6) Apixaban 5 mg 03/03/23 01:30 03/03/23 02:17 Apixaban 5 Mg Tab PO 5 mg BID [facility] Administration Protocol Atenolol 50 mg 03/03/23 09:00 Atenolol 50 Mg Tab PO BID [facility] Docusate Sodium 100 mg 03/03/23 01:27 Docusate 100 Mg Cap PO DAILY PRN Constipation Fluvoxamine Maleate 200 mg 03/03/23 21:00 Fluvoxamine 50 Mg Tab PO HS [facility] Diltiazem HCl 125 mg/ Sodium 125 mls @ 0 mls/hr 03/02/23 21:30 03/02/23 21:37 Chloride IV 10 mls/hr .Q0M [facility] 10 mls/hr Administration Protocol Per Protocol Levothyroxine Sodium 125 mcg 03/03/23 06:30 Levothyroxine 125 Mcg Tab PO DAILY@0630 [facility] Methocarbamol 500 mg 03/03/23 01:27 Methocarbamol 500 Mg Tab PO TID PRN Spasms Naloxone HCl 0.2 mg 03/02/23 21:37 Naloxone 0.4 Mg/Ml 1 Ml Vial IV Q2M PRN Opioid Reversal Oxycodone HCl 5 mg 03/03/23 01:27 Oxycodone Hcl 5 Mg Tab PO Q4H PRN Pain Polyethylene Glycol 17 gm 03/03/23 01:27 Polyethylene Glycol 3350 17 Gm Powd.Pack PO DAILY PRN Constipation Intake and Output 03/02/23 03/02/23 03/03/23 14:59 22:59 06:59 Other: Weight 100.199 kg Patient Weight 03/03/23 06:59 Weight 100.199 kg 03/02/23 18:50 03/03/23 05:38
[2023-03-03] MEDS ORDERED: DIGOXIN 250 MCG/ML 2 ML AMP IVP ONE ×2 (09:30→15:30)
[2023-03-03 10:40] LABS: Appearance,Urine Cloudy (Clear); Bacteria,Urine Few /hpf; Bilirubin,Urine Negative (Negative); Blood,Urine Trace (Negative); Glucose,Urine (UA) Negative (Negative); Ketones,Urine Negative (Negative); Leukocyte Esterase,Urine Large (Negative); Mucus,Urine Rare /hpf; Nitrite,Urine Positive (Negative); Protein,Urine Trace (Negative); RBC,Urine 3 /hpf (0-5); Specific Gravity,Urine 1.022 (1.001-1.035); Squamous Epithelial Cell,Urine 1 /hpf (0-4); WBC,Urine >182 /hpf (0-5)
[2023-03-03 10:42] LABS: Color,Urine Yellow
--- NOTE | 2023-03-03 11:31 | CT ---
EXAMINATION TYPE: CT abdomen pelvis w con DATE OF EXAM: 03/03/2023 COMPARISON: NONE HISTORY: 67-year-old female Sudden drop in Hgb, unknown source. Concerned with RT hip replacement, wh ich was done last Monday. TECHNIQUE: Contiguous axial scanning of the abdomen and pelvis following administration of 100 ml iso [place] 300 IV contrast. Delayed images through the kidneys and coronal/sagittal reconstructions perform ed. CT DLP: 2678.6 mGycm Automated exposure control for dose reduction was used. FINDINGS: Mild generalized anasarca changes. Heart upper limits of normal in size. Trace pleural effusions. No focal liver lesion. Multiple gallstones are present within the collapsed gallbladder. Stones measu re up to 1.4 cm. Portal venous system is patent. No biliary ductal dilatation. Adrenal glands, kidneys, spleen, and pancreas within normal limits. Mild to moderate atherosclerotic calcifications abdominal aorta. No dilated small bowel, free fluid, or free air. No mesenteric or retroperitoneal lymphadenopathy. Normal appendix. Mild to moderate stool burden. There is redundant sigmoid colon with sigmoid diverti culosis. No pericolonic inflammatory change seen. Confluent edema along the lateral aspect of the right hip. The area of edema measures up to 6.3 cm la terally located in the subcutaneous adipose layer. Possibly related to patient's recent hip replaceme nt. There is a small intramuscular hematoma suggested within the right gluteus medius muscle measuring 2. 0 cm, axial image 61. Moderate circumference of bladder wall thickening. Uterus appears small and anteverted. Both ovaries are visualized. Mild pelvic free fluid probably related to third spacing. No pelvic lymphadenopathy s een. Presacral edema. Possible mild wall thickening of the distal rectum. Correlate to exclude nonspecific colitis, axial i mage 75. Bones: [facility] in the lower thoracic spine. Osteopenia. Hypertrophic facet arthropathy lumbar spine. IMPRESSION: 1. CORRELATE FOR FLUID OVERLOAD STATE/THIRD SPACING GIVEN MILD GENERALIZED ANASARCA, TRACE EFFUSIONS, AND MILD PELVIC ASCITES. 2. ASYMMETRICALLY GREATER DEGREE OF SOFT TISSUE SWELLING ABOUT THE RIGHT HIP. CONFLUENT EDEMA IN THE SUBCUTANEOUS ADIPOSE LAYER MEASURES UP TO 6.3 CM LIKELY RELATED TO THE PATIENT'S RECENT HIP REPLACEME NT. A POSTOPERATIVE SEROMA IS POSSIBLE. 3. THERE APPEARS TO BE A SMALL 2 CM INTRAMUSCULAR HEMATOMA INVOLVING THE RIGHT GLUTEUS MEDIUS MUSCLE. 4. SIGMOID COLONIC DIVERTICULOSIS WITHOUT ACUTE DIVERTICULITIS. HOWEVER, THERE IS MILD CIRCUMFERENTIA L WALL THICKENING OF THE LOWER RECTUM THAT COULD REPRESENT A NONSPECIFIC MILD COLITIS. 5. MODERATE CIRCUMFERENTIAL BLADDER WALL THICKENING MAY BE CHRONIC FOR THE PATIENT. CORRELATE TO EXCL UDE CYSTITIS. 6. CHOLELITHIASIS.
--- NOTE | 2023-03-03 12:42 | CA ---
Transthoracic Echo Report Name: Beverley Frances Age: 67 Gender: F : 1955 Exam Date: 03/03/2023 10:59 Exam Location: [place] Echo Ht (in): 62 Wt (lb): 220 Ordering Physician: Stanislav Bo Attending/Referring Phys: Freight Conductor Jim Hendricks Procedure CPT: Indications: Evaluate structure and function Cardiac Hx: Technical Quality: Fair Contrast 1: Total Dose (mL): Contrast 2: Total Dose (mL): MEASUREMENTS (Male / Female) Normal Values 2D ECHO LV Diastolic Diameter PLAX 4.9 cm 4.2 - 5.9 / 3.9 - 5.3 cm LV Systolic Diameter PLAX 4.1 cm IVS Diastolic Thickness 0.9 cm 0.6 - 1.0 / 0.6 - 0.9 cm LVPW Diastolic Thickness 1.0 cm 0.6 - 1.0 / 0.6 - 0.9 cm LV Relative Wall Thickness 0.4 RV Internal Dim ED PLAX 2.9 cm LVOT Diameter 1.8 cm Aortic Root Diameter 2.6 cm LA Systolic Diameter LX 2.6 cm 3.0 - 4.0 / 2.7 - 3.8 cm LV Diastolic Volume MOD BP 51.4 cm??? 67 - 155 / 56 - 104 cm??? LV Systolic Volume MOD BP 28.6 cm??? / 19 - 49 cm??? LV Ejection Fraction MOD BP 44.5 % >= 55 % LV Cardiac Index MOD BP 1365.6 cm???/min???m??? LV Diastolic Volume MOD 4C 55.7 cm??? LV Systolic Volume MOD 4C 35.6 cm??? LV Ejection Fraction MOD 4C 36.0 % LV Cardiac Index MOD 4C 1197.9 cm???/min???m??? LV Diastolic Length 4C 6.6 cm LV Systolic Length 4C 5.7 cm LV Diastolic Volume MOD 2C 43.0 cm??? LV Systolic Volume MOD 2C 21.9 cm??? LV Ejection Fraction MOD 2C 49.0 % LV Cardiac Index MOD 2C 1258.1 cm???/min???m??? LV Diastolic Length 2C 5.9 cm LV Systolic Length 2C 5.4 cm LA Volume 59.8 cm??? - 58 / 22 - 52 cm??? DOPPLER AV Peak Velocity 135.9 cm/s AV Peak Gradient 7.4 mmHg LVOT Peak Velocity 98.6 cm/s LVOT Peak Gradient 3.9 mmHg AV Area Cont Eq pk 1.8 cm??? MV Peak Velocity 115.6 cm/s MV Peak Gradient 5.3 mmHg MV Mean Velocity 58.1 cm/s MV Mean Gradient 1.8 mmHg MV Velocity Time Integral 23.7 cm MR Peak Velocity 317.7 cm/s MR Peak Gradient 40.4 mmHg MV E' Velocity 11.8 cm/s TR Peak Velocity 289.5 cm/s TR Peak Gradient 33.5 mmHg Right Ventricular Systolic Press 38.8 mmHg PV Peak Velocity 101.9 cm/s PV Peak Gradient 4.2 mmHg FINDINGS Left Ventricle Normal LVsize and wall thickness. Left ventricular ejection fraction is estimated at _35-40 %. Right Ventricle Normal right ventricular size. RVSP= 46mmhg. Right Atrium Normal right atrial size. Left Atrium Normal left atrial size. LA volume index= 30ml/m2 Mitral Valve Mild Mitral thickening. Mild MR. Aortic Valve Aortic valve not well visualized. No aortic valve stenosis or regurgitation. Tricuspid Valve Structurally normal tricuspid valve. Moderate TR. Pulmonic Valve Pulmonic valve not well visualized. No pulmonic regurgitation. Pericardium Normal pericardium. Aorta Aortic root and proximal ascending aorta not well visualized. CONCLUSIONS rduced EF tachycardic Previewed by: Dr. Trung Whitten MD (Electronically Signed) Final Date: 03 March 2023 12:41
[2023-03-03] MEDS: HEPARIN SOD,PORK IN 0.45% NACL 25,000 UNIT in 0.45% NACL 1 250ML.BAG IV SCH (12:45)
[2023-03-03] MEDS: PANTOPRAZOLE 40 MG/10 ML VIAL IVP SCH ×2 (12:45→21:18)
[2023-03-03 12:56] LABS: Basophils % (A) 0 %; Eosinophils # (A) 0.3 k/uL (0-0.7); Eosinophils % (A) 4 %; HCT 30.3 % (34.0-46.0); Lymphocytes # (A) 1.2 k/uL (1.0-4.8); Lymphocytes % (A) 16 %; MCH 31.4 pg (25.0-35.0); MCHC 33.1 g/dL (31.0-37.0); MCV 94.8 fL (80.0-100.0); Mean Platelet Volume 7.6; Monocytes # (A) 0.5 k/uL (0-1.0); Monocytes % (A) 7 %; Neutrophils # (A) 5.1 k/uL (1.3-7.7); Neutrophils % (A) 70 %; Platelet Count 276 k/uL (150-450); RBC 3.19 m/uL (3.80-5.40); RDW 13.3 % (11.5-15.5); WBC 7.2 k/uL (3.8-10.6)
[2023-03-03 13:01] LABS: Partial Thromboplastin Time 25.3 sec (22.0-30.0); Prothrombin Time 10.7 sec (9.0-12.0)
--- NOTE | 2023-03-03 13:44 | P.GSCN ---
History of Present Illness Consult date: 03/03/23 History of present illness: CHIEF COMPLAINT: Tachycardia HISTORY OF PRESENT ILLNESS: This is a 67-year-old female who presents to the hospital with complaints of tachycardia. She has a known history of atrial fibrillation and stroke in which she is on Eliquis. Patient had recent hip surgery and its [place] a week ago. Patient does report having anemia hemoglobin of 9 after surgery. Patient does also have a history of iron deficiency anemia. Patient has been found to be anemic. Her initial hemoglobin on admission was 12.3 down to 9.7. She denies any blood in her stools. Denies any abdominal pain or nausea vomiting. She has been dealing with constipation for the past week. She has been hypotensive and tachycardic. She's received fluid boluses blood pressure showing improvement. Cardiology is a adjusting medications for her A. fib RVR. Her last colonoscopy was in 2017 and patient reports it as normal. She has never had EGD. Patient denies any NSAID use. Cardiology ordered IV heparin for her A. fib RVR this was not started. Patient does complain of pain at the right hip. PAST MEDICAL HISTORY: See below PAST SURGICAL HISTORY: See below MEDICATIONS: See below ALLERGIES: See below SOCIAL HISTORY: No illicit drug use. REVIEW OF SYSTEMS: CONSTITUTIONAL: Denies fever or chills. HEENT: Denies blurred vision, vision changes, or eye pain. Denies hemoptysis CARDIOVASCULAR: Denies chest pain or pressure. RESPIRATORY: No shortness of breath. GASTROINTESTINAL: See HPI for pertinent findings HEMATOLOGIC: Denies bleeding disorders. GENITOURINARY: Denies any blood in urine or increased urinary frequency. SKIN: Denies pruitis. Denies rash. PHYSICAL EXAM: VITAL SIGNS: Reviewed GENERAL: Well-developed in no acute distress. ABDOMEN: Soft. Obese. Nondistended. Nontender NEUROLOGIC: Alert and oriented. Cranial nerves II through XII grossly intact. Extremities: Swelling noted of the right hip. No evidence of hematoma. Surgical dressing intact. LABORATORY DATA: WBC 7.2 Hgb 12.3-9.7 and now 10.0 INR 1.0 Sodium 133 potassium 4.2 creatinine 0.56 Stool for occult blood negative IMAGING: Computed tomography scan abdomen and pelvis correlate for fluid overload state/third spacing given generalized anasarca. Trace effusions and pelvic ascites. Asymmetrical greater degree of soft tissue swelling about the right hip confluent for edema in the subcutaneous adipose layer measuring up to 6.3 cm likely related to patient's recent hip replacement. Postoperative seroma as possible. There appears to be 2 small centimeter intramuscular hematoma involving the right gluteus medius muscle. Sigmoid colonic diverticulosis without acute diverticulitis there is mild circumferential wall thickening of the lower rectum could represent nonspecific mild colitis. Cholelithiasis. ASSESSMENT: 1. Anemia with a drop of hemoglobin from 12-9 2. Constipation 3. Atrial fibrillation with rapid ventricular response 4. Recent right hip replacement 5. Soft tissue swelling of the right hip with edema and possible seroma noted on CT PLAN: -Further recommendations forthcoming per surgeon -Continue monitor hemoglobin -Continue monitor for any signs or symptoms of bleeding -Continue IV Protonix -Continue to hold anticoagulation -Continue IV fluids Thank you for this consultation Physician Print Producer note has been reviewed by physician. Signing provider agrees with the documented findings, assessment, and plan of care. I have personally seen and examined the patient, reviewed the MANAGER STUDIO /PAs history, exam and MDM and agree with the assessment and plan as written. Based on total visit time, I have performed more than 50% of the visit. As above: Patient with anemia and CAT scan showing some fluid around her recent surgical site. Stool for occult blood was negative. CAT scan reviewed. Will discuss options of upper and lower endoscopy with patient. Further recommendations to follow. 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 for thyroid, had kidney & liver issues related to a medication but no current problems, doesn't use CPAP. 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 COVID 04/30 History of Any Multi-Drug Resistant Organisms: None Reported Past Surgical History: Joint Replacement, Orthopedic Surgery Additional Past Surgical History / Comment(s): wrist surg., colonoscopy 2016(next due 10yrs)., rt total hip Past Anesthesia/Blood Transfusion Reactions: No Reported Reaction Additional Past Anesthesia/Blood Transfusion Reaction / Comm: "DOESN'T WANT TO BE AWAKE," PER PATIENT. Past Psychological History: Anxiety, Depression Smoking Status: Never smoker Past Alcohol Use History: None Reported Past Drug Use History: None Reported, Marijuana - Past Family History Mother Family Medical History: Cancer (Breast cancer) Father Family Medical History: AFIB, Hypertension Sister(s) Family Medical History: Thyroid Disorder Additional Family Medical History / Comment(s): Multiple sisters with thyroid conditions. Medications and Allergies Home Medications Medication Instructions Recorded Confirmed Type Atenolol 50 mg PO BID 11/25/13 03/02/23 History Acetaminophen [Tylenol Arthritis] 650 mg PO Q6H PRN 06/23/17 03/02/23 History Apixaban [Eliquis] 5 mg PO BID 03/02/23 03/02/23 History Docusate Sodium [Dok] 100 mg PO DAILY PRN 03/02/23 03/02/23 History Levothyroxine Sodium [Synthroid] 125 mcg PO DAILY 03/02/23 03/02/23 History fluvoxaMINE MALEATE [Luvox] 200 mg PO HS 03/02/23 03/02/23 History methocarbamoL [Robaxin] 500 mg PO TID PRN 03/02/23 03/02/23 History oxyCODONE HCL [OxyIR] 5 mg PO Q4H PRN 03/02/23 03/02/23 History polyethylene glycoL 3350 [Miralax] 17 gm PO DAILY PRN 03/02/23 03/02/23 History Allergies Allergy/AdvReac Type Severity Reaction Status Date / Time amiodarone Allergy kidneys & Verified 03/02/23 21:46 liver shut down aspirin Allergy Swelling Verified 03/02/23 21:46 atorvastatin Allergy affected Verified 03/02/23 21:46 liver enzymes methimazole [From Tapazole] Allergy Unknown Verified 03/02/23 21:46 Sulfa (Sulfonamide Allergy Swelling Verified 03/02/23 21:46 Antibiotics) Surgical - Exam Vital Signs Temp Pulse Resp BP Pulse Ox 99.1 F 132 H 20 118/61 100 03/02/23 17:51 03/02/23 17:51 03/02/23 17:51 03/02/23 17:51 03/02/23 17:51 Results - Labs 03/03/23 14:48 03/03/23 05:38 Abnormal Lab Results - Last 24 Hours (Table) 03/02/23 03/02/23 03/02/23 Range/Units 18:50 18:50 18:50 RBC (3.80-5.40) m/uL Hgb (11.4-16.0) gm/dL Hct (34.0-46.0) % Neutrophils # 8.0 H (1.3-7.7) k/uL APTT 19.8 L (22.0-30.0) sec Sodium 133 L (137-145) mmol/L BUN 22 H (7-17) mg/dL Glucose 113 H (74-99) mg/dL Calcium 8.3 L (8.4-10.2) mg/dL AST 39 H (14-36) U/L Total Protein 6.2 L (6.3-8.2) g/dL Albumin 3.2 L (3.5-5.0) g/dL Urine Appearance (Clear) Urine Protein (Negative) Urine Blood (Negative) Urine Nitrite (Negative) Ur Leukocyte Esterase (Negative) Urine WBC (0-5) /hpf Urine Bacteria (None) /hpf Urine Mucus (None) /hpf 03/03/23 03/03/23 03/03/23 Range/Units 05:38 05:38 08:32 RBC 2.96 L 3.05 L (3.80-5.40) m/uL Hgb 9.4 L D 9.7 L (11.4-16.0) gm/dL Hct 28.5 L 28.8 L (34.0-46.0) % Neutrophils # (1.3-7.7) k/uL APTT (22.0-30.0) sec Sodium 133 L (137-145) mmol/L BUN (7-17) mg/dL Glucose 100 H (74-99) mg/dL Calcium 8.1 L (8.4-10.2) mg/dL AST (14-36) U/L Total Protein (6.3-8.2) g/dL Albumin (3.5-5.0) g/dL Urine Appearance (Clear) Urine Protein (Negative) Urine Blood (Negative) Urine Nitrite (Negative) Ur Leukocyte Esterase (Negative) Urine WBC (0-5) /hpf Urine Bacteria (None) /hpf Urine Mucus (None) /hpf 03/03/23 03/03/23 Range/Units 10:00 12:04 RBC 3.19 L (3.80-5.40) m/uL Hgb 10.0 L (11.4-16.0) gm/dL Hct 30.3 L (34.0-46.0) % Neutrophils # (1.3-7.7) k/uL APTT (22.0-30.0) sec Sodium (137-145) mmol/L BUN (7-17) mg/dL Glucose (74-99) mg/dL Calcium (8.4-10.2) mg/dL AST (14-36) U/L Total Protein (6.3-8.2) g/dL Albumin (3.5-5.0) g/dL Urine Appearance Cloudy H (Clear) Urine Protein Trace H (Negative) Urine Blood Trace H (Negative) Urine Nitrite Positive H (Negative) Ur Leukocyte Esterase Large H (Negative) Urine WBC >182 H (0-5) /hpf Urine Bacteria Few H (None) /hpf Urine Mucus Rare H (None) /hpf Diabetes panel 03/02/23 03/03/23 Range/Units 18:50 05:38 Sodium 133 L 133 L (137-145) mmol/L Potassium 5.0 4.2 (3.5-5.1) mmol/L Chloride 101 103 (98-107) mmol/L Carbon Dioxide 25 29 (22-30) mmol/L BUN 22 H 17 (7-17) mg/dL Creatinine 0.57 0.56 (0.52-1.04) mg/dL Glucose 113 H 100 H (74-99) mg/dL Calcium 8.3 L 8.1 L (8.4-10.2) mg/dL AST 39 H (14-36) U/L ALT 30 (4-34) U/L Alkaline Phosphatase 108 (38-126) U/L Total Protein 6.2 L (6.3-8.2) g/dL Albumin 3.2 L (3.5-5.0) g/dL Thyroid panel 03/02/23 Range/Units 18:50 TSH 0.815 (0.465-4.680) mIU/L Calcium panel 03/02/23 03/03/23 Range/Units 18:50 05:38 Calcium 8.3 L 8.1 L (8.4-10.2) mg/dL Albumin 3.2 L (3.5-5.0) g/dL Pituitary panel 03/02/23 03/03/23 Range/Units 18:50 05:38 Sodium 133 L 133 L (137-145) mmol/L Potassium 5.0 4.2 (3.5-5.1) mmol/L Chloride 101 103 (98-107) mmol/L Carbon Dioxide 25 29 (22-30) mmol/L BUN 22 H 17 (7-17) mg/dL Creatinine 0.57 0.56 (0.52-1.04) mg/dL Glucose 113 H 100 H (74-99) mg/dL Calcium 8.3 L 8.1 L (8.4-10.2) mg/dL TSH 0.815 (0.465-4.680) mIU/L Adrenal panel 03/02/23 03/03/23 Range/Units 18:50 05:38 Sodium 133 L 133 L (137-145) mmol/L Potassium 5.0 4.2 (3.5-5.1) mmol/L Chloride 101 103 (98-107) mmol/L Carbon Dioxide 25 29 (22-30) mmol/L BUN 22 H 17 (7-17) mg/dL Creatinine 0.57 0.56 (0.52-1.04) mg/dL Glucose 113 H 100 H (74-99) mg/dL Calcium 8.3 L 8.1 L (8.4-10.2) mg/dL Total Bilirubin 1.0 (0.2-1.3) mg/dL AST 39 H (14-36) U/L ALT 30 (4-34) U/L Alkaline Phosphatase 108 (38-126) U/L Total Protein 6.2 L (6.3-8.2) g/dL Albumin 3.2 L (3.5-5.0) g/dL
[2023-03-03] MEDS: METOPROLOL TARTRATE 12.5 MG TAB PO SCH ×2 (14:14→17:52)
[2023-03-03 15:42] LABS: HCT 30.1 % (34.0-46.0); HGB 9.8 gm/dL (11.4-16.0); MCHC 32.6 g/dL (31.0-37.0); MCV 95.1 fL (80.0-100.0); Mean Platelet Volume 7.5; Platelet Count 279 k/uL (150-450); RBC 3.16 m/uL (3.80-5.40); RDW 13.2 % (11.5-15.5); WBC 6.9 k/uL (3.8-10.6)
[2023-03-03 21:31] LABS: HGB 10.2 gm/dL (11.4-16.0); MCH 31.5 pg (25.0-35.0); MCHC 32.9 g/dL (31.0-37.0); MCV 95.6 fL (80.0-100.0); Mean Platelet Volume 7.4; Platelet Count 308 k/uL (150-450); RBC 3.25 m/uL (3.80-5.40); RDW 13.3 % (11.5-15.5); WBC 6.8 k/uL (3.8-10.6)
[2023-03-04] MEDS: DIGOXIN 125 MCG TAB PO SCH (03:46)
[2023-03-04] MEDS: METOPROLOL TARTRATE 12.5 MG TAB PO SCH (03:46)
[2023-03-04 05:05] LABS: Basophils % (A) 0 %; Eosinophils # (A) 0.4 k/uL (0-0.7); Eosinophils % (A) 6 %; HCT 31.2 % (34.0-46.0); HGB 10.3 gm/dL (11.4-16.0); Lymphocytes # (A) 1.1 k/uL (1.0-4.8); Lymphocytes % (A) 16 %; MCH 31.6 pg (25.0-35.0); MCV 95.5 fL (80.0-100.0); Mean Platelet Volume 7.7; Monocytes # (A) 0.4 k/uL (0-1.0); Monocytes % (A) 7 %; Neutrophils # (A) 4.6 k/uL (1.3-7.7); Neutrophils % (A) 69 %; Platelet Count 310 k/uL (150-450); RBC 3.27 m/uL (3.80-5.40); RDW 13.2 % (11.5-15.5); WBC 6.6 k/uL (3.8-10.6)
[2023-03-04 05:09] LABS: INR 1.1 (<1.2); Prothrombin Time 11.1 sec (9.0-12.0)
[2023-03-04] MEDS: LEVOTHYROXINE 125 MCG TAB PO SCH (05:46)
[2023-03-04] MEDS: HEPARIN SOD,PORK IN 0.45% NACL 25,000 UNIT in 0.45% NACL 1 250ML.BAG IV SCH ×2 (06:08→13:09)
[2023-03-04] MEDS: PANTOPRAZOLE 40 MG/10 ML VIAL IVP SCH ×2 (08:22→19:52)
--- NOTE | 2023-03-04 09:59 | P.PN ---
Subjective Progress Note Date: 03/04/23 Principal diagnosis: Anemia Patient doing well today. Patient had her sister Beatrice on the phone during our visit. Her hip surgery was a week ago or so. Last Monday prior to discharge patient's hemoglobin was 9. Today's hemoglobin 10.3. Patient without rectal bleeding or melena. She was having some constipation although now having more formed stools. No abdominal pain. Objective - Vital Signs Vital signs: Vital Signs Temp 97.5 F L 03/04/23 08:11 Pulse 140 H 03/04/23 08:11 Resp 20 03/04/23 08:11 BP 112/80 03/04/23 08:11 Pulse Ox 98 03/04/23 08:11 FiO2 Intake & Output 03/03/23 03/04/23 03/04/23 18:59 06:59 18:59 Intake Total 204.5 540 Output Total 550 Balance 204.5 540 -550 Weight 100.199 kg Intake: Intake, IV Titration 94.5 Amount Diltiazem 125 mg In 94.5 Sodium Chloride 0.9% 100 ml @ Per Protocol IV .Q0M [facility] [place] Rx#:[id number] Oral 110 540 Output: Urine 550 Other: Voiding Method External Catheter - Exam Abdomen: Soft, nontender, nondistended - Labs CBC & Chem 7: 03/04/23 04:18 03/03/23 05:38 Labs: Abnormal Lab Results - Last 24 Hours (Table) 03/03/23 03/03/23 03/03/23 Range/Units 10:00 12:04 14:48 RBC 3.19 L 3.16 L (3.80-5.40) m/uL Hgb 10.0 L 9.8 L (11.4-16.0) gm/dL Hct 30.3 L 30.1 L (34.0-46.0) % Urine Appearance Cloudy H (Clear) Urine Protein Trace H (Negative) Urine Blood Trace H (Negative) Urine Nitrite Positive H (Negative) Ur Leukocyte Esterase Large H (Negative) Urine WBC >182 H (0-5) /hpf Urine Bacteria Few H (None) /hpf Urine Mucus Rare H (None) /hpf 03/03/23 03/04/23 Range/Units 21:19 04:18 RBC 3.25 L 3.27 L (3.80-5.40) m/uL Hgb 10.2 L 10.3 L (11.4-16.0) gm/dL Hct 31.0 L 31.2 L (34.0-46.0) % Urine Appearance (Clear) Urine Protein (Negative) Urine Blood (Negative) Urine Nitrite (Negative) Ur Leukocyte Esterase (Negative) Urine WBC (0-5) /hpf Urine Bacteria (None) /hpf Urine Mucus (None) /hpf Assessment and Plan (1) Anemia Narrative/Plan: Patient doing well at this time. Hemoglobin is stable. Likely related to surgical blood loss from recent hip surgery. CAT scan showing some fluid around the recent hip surgery as well as mild proctitis. Discussed options with patient and her sister. No plans for endoscopy at this time. Consider outpatient endoscopy. Can follow-up as outpatient. Recommend evaluation by orthopedic surgery given recent CAT scan findings and family request. We'll sign off. Please call if needed. Current Visit: Yes Status: Acute Code(s): D64.9 - ANEMIA, UNSPECIFIED SNOMED Code(s): 527226106
[2023-03-04 10:05] LABS: HCT 30.9 % (34.0-46.0); HGB 9.8 gm/dL (11.4-16.0); Hypochromasia Slight; MCH 30.9 pg (25.0-35.0); MCHC 31.8 g/dL (31.0-37.0); MCV 97.2 fL (80.0-100.0); Mean Platelet Volume 7.5; Platelet Count 304 k/uL (150-450); RBC 3.18 m/uL (3.80-5.40); RDW 13.3 % (11.5-15.5)
[2023-03-04] MEDS ORDERED: METOPROLOL TARTRATE 5 MG/5 ML VIAL IVP STA ×2 (13:01→13:18)
[2023-03-04] MEDS: APIXABAN 5 MG TAB PO SCH ×2 (14:31→19:53)
--- NOTE | 2023-03-04 14:31 | P.PN ---
Subjective Progress Note Date: 03/04/23 SUBJECTIVE: Patient was seen and examined at bedside with family present at bedside. Hemoglobin has been stable around 9-10. She has not shown any signs of bleeding. A CT abdomen was done which ruled out any internal bleeding. Her blood pressure is better with a systolic blood pressure 110 and diastolic from 80s. Her renal function is stable creatinine at 0.56 TSH 0.8, low normal PHYSICAL EXAMINATION Vital signs reviewed. Head: Normocephalic. Eyes: Sclerae nonicteric. Neck: Brisk carotid upstroke, mild JVD elevation Lungs: Good air entry in bilateral lung cloud with mild crackles in bilateral lower lung cloud Heart: Irregularly regular, S1-S2, no S3, no murmur or rub. Abdomen: Soft nontender, positive bowel sounds no organomegaly. Extremities: No edema, intact distal pulses. Neurological, alert oriented, no focal neurological deficits ASSESSMENT Atrial flutter with rapid ventricular response. 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 Uptitrate BB if BP high tomorrow Continue digoxin 125 mg daily Check for ferritin, iron saturation levels Give one-time dose of IV Lasix 40 mg tomorrow morning Plan for [place] cardioversion Monday Objective - Vital Signs Vital signs: Vital Signs Temp 97.4 F L 03/04/23 11:30 Pulse 144 H 03/04/23 13:44 Resp 24 03/04/23 11:30 BP 104/60 03/04/23 13:44 Pulse Ox 96 03/04/23 11:30 FiO2 Intake & Output 03/03/23 03/04/23 03/04/23 18:59 06:59 18:59 Intake Total 204.5 540 480 Output Total 550 Balance 204.5 540 -70 Weight 100.199 kg Intake: Intake, IV Titration 94.5 Amount Diltiazem 125 mg In 94.5 Sodium Chloride 0.9% 100 ml @ Per Protocol IV .Q0M [facility] Rx#:[id number] Oral 110 540 480 Output: Urine 550 Other: Voiding Method External Catheter External Catheter - Labs CBC & Chem 7: 03/04/23 09:04 03/03/23 05:38 Labs: Abnormal Lab Results - Last 24 Hours (Table) 03/03/23 03/03/23 03/04/23 Range/Units 14:48 21:19 04:18 RBC 3.16 L 3.25 L 3.27 L (3.80-5.40) m/uL Hgb 9.8 L 10.2 L 10.3 L (11.4-16.0) gm/dL Hct 30.1 L 31.0 L 31.2 L (34.0-46.0) % 03/04/23 Range/Units 09:04 RBC 3.18 L (3.80-5.40) m/uL Hgb 9.8 L (11.4-16.0) gm/dL Hct 30.9 L (34.0-46.0) %
[2023-03-04] MEDS: METOPROLOL TARTRATE 25 MG TAB PO SCH ×2 (14:32→19:53)
--- NOTE | 2023-03-04 15:14 | P.PN ---
Subjective Progress Note Date: 03/04/23 Hospital course: Patient is a very pleasant 67-year-old female with a past medical history of CAD, chronic atrial fibrillation on anticoagulation with Eliquis, hypertension, hyperlipidemia, embolic CVA 2 with memory deficits, hypothyroidism, and osteoarthritis. Patient is status post right total hip at [facility] on Monday02/24/23 and was discharged to rehabilitation facility. Patient presented to the emergency department overnight from rehab facility after being found with heart rate in the 160s. Upon arrival to the emergency department patient underwent full evaluation. Vital signs showing heart rate 130s to 180s, blood pressure 118/61, respiratory rate 20, temp 99.1F, and SpO2 of 100% on room air. EKG was completed confirming tachycardic rhythm is atrial fibrillation with RVR at 156 bpm. Chest x-ray then completed negative for acute cardiopulmonary process. Labs completed and reviewed. CBC was unremarkable with WBC count of 10.5 and hemoglobin of 12.3 with platelet count of 333. Coagulation profile showing low PTT of 19.8 otherwise normal findings. BMP revealing mild hyponatremia with sodium of 133, prerenal azotemia with BUN of 22, and normal creatinine of 0.57. Glucose 113. Magnesium normal findings at 2.2. Liver pro file showing slightly elevated AST of 39 otherwise normal findings. Troponin was negative at less than 0.012. TSH normal findings is 0.815. Patient was given Cardizem bolus followed by infusion and was admitted under our services with consultation to cardiology. repeat morning labs revealed a significant drop in hemoglobin and patient had not been given any fluids prior to these labs. Morning labs revealed a decrease in hemoglobin from 12.3 down to 9.4, order placed for stat repeat lab for verification showing results of hemoglobin of 9.7. Patient had no signs of active bleeding, no obvious bruising or hematoma from recent hip surgery, and denied having any hematemesis, hematuria, melena or hematochezia. Patient reported long-standing history of iron deficiency anemia and does report her hemoglobin has been at 9 previously. It is unclear why hemoglobin dropped nearly 3 g overnight. At this time patient was also noted to be hypotensive with continued tachycardia. Patient was given a 500 mL bolus and Cardizem infusion was stopped. Cardiology evaluated and started patient on di goxin. General surgery consulted for evaluation for possible GI bleed. CT abdomen and pelvis completed showing concerns of fluid overload and third spacing secondary to generalized anasarca, trace effusions, and mild pelvic ascites; tissue swelling of right hip with confluence edema in the subcutaneous adipose layer measuring up to 6.3 cm likely secondary to recent hip replacement however unable to rule out seroma; a small 2 cm intramuscular hematoma involving the right gluteus medius muscle; sigmoid colonic diverticulosis without acute diverticulitis with mild circumferential wall thickening at the lower rectum; moderate circumferential bladder wall thickening; and cholelithiasis. EKG com pleted showing atrial flutter with RVR at 170 bpm. Physical exam: Patient currently with A. fib RVR appears to have transitioned to a flutter heart rate persistent 150s to 170s. While at bedside evaluating order placed for metoprolol 5 mg IVP 2 doses, unsuccessful in lowering heart rate. Patient is stable and only complaint at this time with palpitations, she denies having any lightheadedness, dizziness, chest pain, shortness of breath, or experiencing any numbness/tingling/weakness in her extremities. Blood pressure remains stable but slightly soft after second dose of metoprolol 90 systolic. Called garment parts cutter hand at bedside. Vital signs reviewed and stable. General: Nontoxic, no distress and appears stated age. Derm: Skin warm and dry, normal coloration for ethnicity. postsurgical dressing in place right hip clean, dry, and intact with no signs of active bleeding, bruising, or hematoma noted. Head: Atraumatic, normocephalic and symmetric. Eyes: EOMs intact, no lid lag, and anicteric sclera Mouth: no lip lesions, mucus membranes moist Cardiovascular: Tachycardic rate, systolic murmur, positive posterior tibial pulses bilaterally, and cap refill < 2 seconds. Lungs: Respirations even, regular, and unlabored on room air. Lungs CTA bilaterally, no rhonchi, no rales, no wheezing, and no accessory muscle usage. Abdominal: Obese abdomen soft, nontender to palpation, no guarding, no appreciable organomegaly Ext: ROM intact. No gross muscle atrophy, 2+ pitting bilateral lower extremity edema, no contractures Neuro: Speech clear, face symmetrical and CN II-XII grossly intact with no noted focal neuro deficits Psych: Alert and oriented to person, place, time, and situation. Appropriate and pleasant affect. Assessment and Plan of Care: Atrial fibrillation/Flutter with persistent RVR Cardiomyopathy with EF of 35-40%, likely secondary to demand ischemia resulting from persistent RVR Hypotension, improved History of CAD Hypertension Hyperlipidemia History of embolic CVA 2 events with memory deficits -Patient with persistent atrial flutter despite interventions. During bedside evaluation 2 doses of metoprolol 5 mg IV P were administered secondary to persistent RVR 150s to 170s. -Repeat EKG completed showing atrial flutter with RVR at 170 bpm. -Cardiology following and called the garment parts cutter hand who also came to bedside to assess patient at this time. Cardiology reporting will plan for for cardioversion Monday. -Heparin discontinued and patient started back on Eliquis 5 mg twice a day per recommendations of garment parts cutter hand. -Patient to remain on continuous telemetry monitoring and continue current medication regimen with metoprolol 25 mg twice daily and digoxin 125 g daily.. -Echocardiogram revealed EF of 35-40% Acute blood loss anemia, stable Constipation and rectal pain, resolved Sigmoid colonic diverticulosis without acute diverticulitis with mild circumferential wall thickening at the lower rectum -Gen. surgery following and discussed plan of care and he is recommending outpatient follow-up to schedule for endoscopy. -Hemoglobin is stable with no noted blood loss. Constipation resolved.. -Patient to continue Protonix 40 mg IVP twice daily -Hemoglobin has been trended every 6 hours resulting at 12.3, 9.4, 9.7, 10.0, 9.8, 10.2, and 10.3. -Continue to monitor hemoglobin closely with repeat CBC every 6 hours. We will transfuse as needed for hemoglobin less than 7. Acute cystitis without hematuria -CT abdomen and pelvis revealing moderate circumferential bladder wall thickening may be chronic for the patient correlate to exclude cystitis. Urinalysis positive for infection showing positive nitrites and leukocytes, and greater than 182 WBCs. . Follow-up on Urine Culture and blood culture -Continue Rocephin 2 g every 24 hours pending urine culture results. Status post recent right total hip replacement 02/24/23 6.3 cm fluid collection in subcutaneous adipose tissue, concerning for seroma 2 centimeter intramuscular hematoma of right gluteus medius -CT findings showing edema and subcutaneous adipose layer measuring up to 6.3 cm, possible seroma along with 2 cm intramuscular hematoma involving the right gluteus medius muscle. -Surgical procedure was performed at [facility], patient will likely need to follow up with her orthopedic surgeon for evaluation and further intervention. -We will consult orthopedic surgery team here just for evaluation and review of CT. -PT OT consulted to evaluate Hypothyroidism -TSH normal findings at 0.815. Patient to continue with daily medication regimen with the levothyroxine 125 g daily. CODE STATUS: Full code DVT prophylaxis: heparin infusion as recommended by cardiology Discussed with: patient, RN, general surgeon, and garment parts cutter hand Anticipated discharge date: clinical course to determine Anticipated discharge place: home Patient was seen independently by Nurse Pracitioner. This document was prepared using [employer] dictation software. Please allow for errors in rigging foreman, while rare they do occur. Stanislav Bo NP rendered care for this patient independently, reviewed the findings and plan as documented in the note above. I did not physically speak with or examine the patient on this date. Objective - Vital Signs Vital signs: Vital Signs Temp 97.5 F L 03/04/23 08:11 Pulse 140 H 03/04/23 08:11 Resp 20 03/04/23 08:11 BP 112/80 03/04/23 08:11 Pulse Ox 98 03/04/23 08:11 FiO2 Intake & Output 03/03/23 03/04/23 03/04/23 18:59 06:59 18:59 Intake Total 204.5 540 Output Total 550 Balance 204.5 540 -550 Weight 100.199 kg Intake: Intake, IV Titration 94.5 Amount Diltiazem 125 mg In 94.5 Sodium Chloride 0.9% 100 ml @ Per Protocol IV .Q0M [facility] Rx#:[id number] Oral 110 540 Output: Urine 550 Other: Voiding Method External Catheter - Labs CBC & Chem 7: 03/04/23 09:04 03/03/23 05:38 Labs: Abnormal Lab Results - Last 24 Hours (Table) 03/03/23 03/03/23 03/03/23 Range/Units 10:00 12:04 14:48 RBC 3.19 L 3.16 L (3.80-5.40) m/uL Hgb 10.0 L 9.8 L (11.4-16.0) gm/dL Hct 30.3 L 30.1 L (34.0-46.0) % Urine Appearance Cloudy H (Clear) Urine Protein Trace H (Negative) Urine Blood Trace H (Negative) Urine Nitrite Positive H (Negative) Ur Leukocyte Esterase Large H (Negative) Urine WBC >182 H (0-5) /hpf Urine Bacteria Few H (None) /hpf Urine Mucus Rare H (None) /hpf 03/03/23 03/04/23 Range/Units 21:19 04:18 RBC 3.25 L 3.27 L (3.80-5.40) m/uL Hgb 10.2 L 10.3 L (11.4-16.0) gm/dL Hct 31.0 L 31.2 L (34.0-46.0) % Urine Appearance (Clear) Urine Protein (Negative) Urine Blood (Negative) Urine Nitrite (Negative) Ur Leukocyte Esterase (Negative) Urine WBC (0-5) /hpf Urine Bacteria (None) /hpf Urine Mucus (None) /hpf
[2023-03-04] MEDS ORDERED: METOPROLOL TARTRATE 25 MG TAB PO SCH (21:00)
[2023-03-04] MEDS ORDERED: APIXABAN 5 MG TAB PO SCH (21:00)
[2023-03-05] MEDS: LEVOTHYROXINE 125 MCG TAB PO SCH (06:14)
[2023-03-05] MEDS ORDERED: FUROSEMIDE 10 MG/ML 4 ML VIAL IV ONE (07:00)
[2023-03-05 07:48] LABS: % Iron Saturation 15.62 (12.00-45.00)
[2023-03-05 08:51] LABS: HCT 29.7 % (34.0-46.0); HGB 9.7 gm/dL (11.4-16.0); Hypochromasia Slight; MCH 31.4 pg (25.0-35.0); MCHC 32.7 g/dL (31.0-37.0); MCV 95.8 fL (80.0-100.0); Mean Platelet Volume 7.7; Platelet Count 296 k/uL (150-450); RDW 13.3 % (11.5-15.5); WBC 6.7 k/uL (3.8-10.6)
[2023-03-05 09:15] LABS: ALT 25 U/L (4-34); AST 25 U/L (14-36); African American GFR (CKD) >90 (>60 ml/min/1.73 sqM); Albumin 2.6 g/dL (3.5-5.0); Alkaline Phosphatase 89 U/L (38-126); Anion Gap 5 mmol/L; Blood Urea Nitrogen 16 mg/dL (7-17); Calcium 7.9 mg/dL (8.4-10.2); Carbon Dioxide 28 mmol/L (22-30); Chloride 101 mmol/L (98-107); Glucose 96 mg/dL (74-99); Non-African American GFR(CKD) 88 (>60 ml/min/1.73 sqM); Sodium 134 mmol/L (137-145); Total Bilirubin 0.6 mg/dL (0.2-1.3); Total Protein 5.4 g/dL (6.3-8.2)
[2023-03-05] MEDS: METOPROLOL TARTRATE 25 MG TAB PO SCH ×2 (09:37→20:34)
[2023-03-05] MEDS: APIXABAN 5 MG TAB PO SCH ×2 (09:38→20:34)
[2023-03-05] MEDS: DIGOXIN 125 MCG TAB PO SCH (09:38)
[2023-03-05] MEDS: PANTOPRAZOLE 40 MG/10 ML VIAL IVP SCH ×2 (09:38→20:34)
--- NOTE | 2023-03-05 11:41 | P.PN ---
Progress Note - Text Progress Note Date: 03/05/23 SPOKE WITH MEDICINE OVER THE PHONE WELL VIEWED IMAGES. sHE HAD A RIGHT TOTAL HIP REPLACEMENT WAS DONE IN [place] 2 WEEKS AGO BY [facility] [place] [facility]. sHE WENT INTO a. FIB WITH rvr AND TACHYCARDIA AND HAS BEEN REFRACTORY TO CONSERVATIVE MEASURES. ct OF THE HIP SHOWED SEROMA. iNCISION IS CLEAN AND DRY. aT THIS TIME WE WOULD RECOMMEND FOLLOW-UP WITH HER SURGEON. nO ORTHOPEDIC INTERVENTION AT THIS TIME. sHE IS OKAY FOR PROPHYLACTIC TREATMENTS AND FOLLOW dvt PROPHYLAXIS gi PROPHYLAXIS AND SHE IS ABLE TO HAVE ABLATION IF NEEDED FROM AN ORTHOPEDIC STANDPOINT. wE WILL SIGN OFF.
[2023-03-05] MEDS ORDERED: SODIUM FERRIC GLUCONAT-SUCROSE 125 MG in SODIUM CHLORIDE 0.9% 100 ML IVPB ONE (12:00)
[2023-03-05] MEDS ORDERED: DRONEDARONE 400 MG TAB PO SCH (16:05)
--- NOTE | 2023-03-05 17:18 | P.PN ---
Subjective Progress Note Date: 03/05/23 Hospital course: Patient is a very pleasant 67-year-old female with a past medical history of CAD, chronic atrial fibrillation on anticoagulation with Eliquis, hypertension, hyperlipidemia, embolic CVA 2 with memory deficits, hypothyroidism, and osteoarthritis. Patient is status post right total hip at [facility] on Monday02/24/23 and was discharged to rehabilitation facility. Patient presented to the emergency department overnight from rehab facility after being found with heart rate in the 160s. Upon arrival to the emergency department patient underwent full evaluation. Vital signs showing heart rate 130s to 180s, blood pressure 118/61, respiratory rate 20, temp 99.1F, and SpO2 of 100% on room air. EKG was completed confirming tachycardic rhythm is atrial fibrillation with RVR at 156 bpm. Chest x-ray then completed negative for acute cardiopulmonary process. Labs completed and reviewed. CBC was unremarkable with WBC count of 10.5 and hemoglobin of 12.3 with platelet count of 333. Coagulation profile showing low PTT of 19.8 otherwise normal findings. BMP revealing mild hyponatremia with sodium of 133, prerenal azotemia with BUN of 22, and normal creatinine of 0.57. Glucose 113. Magnesium normal findings at 2.2. Liver pro file showing slightly elevated AST of 39 otherwise normal findings. Troponin was negative at less than 0.012. TSH normal findings is 0.815. Patient was given Cardizem bolus followed by infusion and was admitted under our services with consultation to cardiology. repeat morning labs revealed a significant drop in hemoglobin and patient had not been given any fluids prior to these labs. Morning labs revealed a decrease in hemoglobin from 12.3 down to 9.4, order placed for stat repeat lab for verification showing results of hemoglobin of 9.7. Patient had no signs of active bleeding, no obvious bruising or hematoma from recent hip surgery, and denied having any hematemesis, hematuria, melena or hematochezia. Patient reported long-standing history of iron deficiency anemia and does report her hemoglobin has been at 9 previously. It is unclear why hemoglobin dropped nearly 3 g overnight. At this time patient was also noted to be hypotensive with continued tachycardia. Patient was given a 500 mL bolus and Cardizem infusion was stopped. Cardiology evaluated and started patient on di goxin. General surgery consulted for evaluation for possible GI bleed. CT abdomen and pelvis completed showing concerns of fluid overload and third spacing secondary to generalized anasarca, trace effusions, and mild pelvic ascites; tissue swelling of right hip with confluence edema in the subcutaneous adipose layer measuring up to 6.3 cm likely secondary to recent hip replacement however unable to rule out seroma; a small 2 cm intramuscular hematoma involving the right gluteus medius muscle; sigmoid colonic diverticulosis without acute diverticulitis with mild circumferential wall thickening at the lower rectum; moderate circumferential bladder wall thickening; and cholelithiasis. EKG com pleted showing atrial flutter with RVR at 170 bpm. Physical exam: Patient currently with A. fib RVR appears to have transitioned to a flutter heart rate persistent 150s to 170s. While at bedside evaluating order placed for metoprolol 5 mg IVP 2 doses, unsuccessful in lowering heart rate. Patient is stable and only complaint at this time with palpitations, she denies having any lightheadedness, dizziness, chest pain, shortness of breath, or experiencing any numbness/tingling/weakness in her extremities. Blood pressure remains stable but slightly soft after second dose of metoprolol 90 systolic. Called mixing machine tender at bedside. Vital signs reviewed and stable. General: Nontoxic, no distress and appears stated age. Derm: Skin warm and dry, normal coloration for ethnicity. postsurgical dressing in place right hip clean, dry, and intact with no signs of active bleeding, bruising, or hematoma noted. Head: Atraumatic, normocephalic and symmetric. Eyes: EOMs intact, no lid lag, and anicteric sclera Mouth: no lip lesions, mucus membranes moist Cardiovascular: Tachycardic rate, systolic murmur, positive posterior tibial pulses bilaterally, and cap refill < 2 seconds. Lungs: Respirations even, regular, and unlabored on room air. Lungs CTA bilaterally, no rhonchi, no rales, no wheezing, and no accessory muscle usage. Abdominal: Obese abdomen soft, nontender to palpation, no guarding, no appreciable organomegaly Ext: ROM intact. No gross muscle atrophy, 2+ pitting bilateral lower extremity edema, no contractures Neuro: Speech clear, face symmetrical and CN II-XII grossly intact with no noted focal neuro deficits Psych: Alert and oriented to person, place, time, and situation. Appropriate and pleasant affect. Assessment and Plan of Care: Atrial fibrillation/Flutter with persistent RVR Cardiomyopathy with EF of 35-40%, likely secondary to demand ischemia resulting from persistent RVR Hypotension, improved History of CAD Hypertension Hyperlipidemia History of embolic CVA 2 events with memory deficits -Heart rate much better controlled this morning. Patient remains in atrial fibrillation with RVR, however heart rate ranging from 70s to 110s -Cardiology following and reports pain remains for cardioversion tomorrow morning. -Patient to continueEliquis 5 mg twice a day, Bumex 1 mg daily, and metoprolol 25 mg twice daily -Patient to remain on continuous telemetry monitoring -Echocardiogram revealed EF of 35-40% Acute blood loss anemia, stable Constipation and rectal pain, resolved Sigmoid colonic diverticulosis without acute diverticulitis with mild circumferential wall thickening at the lower rectum -Gen. surgery following and discussed plan of care, he is recommending outpatient follow-up to schedule for endoscopy. -Hemoglobin is stable and 9.7 with no noted acute blood loss. -Patient to continue Protonix 40 mg IVP twice daily -Continue to monitor hemoglobin closely with repeat CBC every 6 hours. We will transfuse as needed for hemoglobin less than 7. Acute cystitis without hematuria -CT abdomen and pelvis revealing moderate circumferential bladder wall thickening may be chronic for the patient correlate to exclude cystitis. Urinalysis positive for infection showing positive nitrites and leukocytes, and greater than 182 WBCs. . Urine culture is preliminarily positive for gram-negative bacilli, we will follow up on final culture and sensitivity reports -Continue Rocephin 2 g every 24 hours pending final urine culture results. Status post recent right total hip replacement 02/24/23 6.3 cm fluid collection in subcutaneous adipose tissue, concerning for seroma 2 centimeter intramuscular hematoma of right gluteus medius -CT findings showing edema and subcutaneous adipose layer measuring up to 6.3 cm, possible seroma along with 2 cm intramuscular hematoma involving the right gluteus medius muscle. -Surgical procedure was performed at [facility], patient will need to follow up outpatient with her orthopedic surgeon for evaluation and further intervention once medically stable. -Orthopedic surgery team did evaluate and in agreement stating no need for urgent orthopedic intervention at this time recommending follow-up with her surgeon once medically stable. -PT OT consulted to evaluate Hypothyroidism -TSH normal findings at 0.815. Patient to continue with daily medication regimen with the levothyroxine 125 g daily. CODE STATUS: Full code DVT prophylaxis: heparin infusion as recommended by cardiology Discussed with: patient, RN, general surgeon, and mixing machine tender Anticipated discharge date: clinical course to determine Anticipated discharge place: home Patient was seen independently by Nurse Pracitioner. This document was prepared using [employer] dictation software. Please allow for errors in recreational programs director, while rare they do occur. Stanislav Bo NP rendered care for this patient independently, reviewed the findings and plan as documented in the note above. I did not physically speak with or examine the patient on this date. Objective - Vital Signs Vital signs: Vital Signs Temp 98.2 F 03/04/23 20:00 Pulse 109 H 03/05/23 04:00 Resp 18 03/05/23 04:00 BP 114/73 03/05/23 04:00 Pulse Ox 96 03/05/23 04:00 FiO2 Intake & Output 03/04/23 03/05/23 03/05/23 18:59 06:59 18:59 Intake Total 503.547 Output Total 550 550 Balance -46.453 -550 Intake: Intake, IV Titration 23.547 Amount Heparin Sod,Pork in 0.45% 23.547 NaCl 25,000 unit In 0.45 % NaCl 1 250ml.bag @ 10 UNITS/KG/HR 10.02 mls/hr IV .Q24H [facility] Rx#: [id number] Oral 480 Output: Urine 550 550 Other: Voiding Method External Catheter External Catheter # Voids 1 # Bowel Movements 1 - Labs CBC & Chem 7: 03/06/23 12:09 03/06/23 12:09 Labs: Abnormal Lab Results - Last 24 Hours (Table) 03/04/23 03/04/23 Range/Units 04:18 09:04 RBC 3.18 L (3.80-5.40) m/uL Hgb 9.8 L (11.4-16.0) gm/dL Hct 30.9 L (34.0-46.0) % Iron 30 L (50-170) UG/DL TIBC 192 L (228-460) UG/DL Transferrin 137.0 L (204.0-354.0) mg/dL Ferritin 352.0 H (10.0-291.0) ng/mL Microbiology - Last 24 Hours (Table) 03/03/23 14:41 Urine Culture - Preliminary Urine,Voided Gram Neg Bacilli
[2023-03-05] MEDS: METOPROLOL TARTRATE 5 MG/5 ML VIAL IVP SCH ×2 (18:40→18:51)
--- NOTE | 2023-03-05 19:44 | P.PN ---
Subjective Progress Note Date: 03/05/23 SUBJECTIVE: Patient was seen and examined at bedside with family present at bedside. Hemoglobin has been stable around 9-10. She has not shown any signs of bleeding. Her blood pressure is better with a systolic blood pressure 110 and diastolic from 80s. History patient converted spontaneously out of atrial flutter to normal sinus rhythm. There is a mean patient went back into atrial flutter Her renal function is stable creatinine at 0.56 TSH 0.8, low normal PHYSICAL EXAMINATION Vital signs reviewed. Head: Normocephalic. Eyes: Sclerae nonicteric. Neck: Brisk carotid upstroke, mild JVD elevation Lungs: Good air entry in bilateral lung cloud with mild crackles in bilateral lower lung cloud Heart: Regular pulse when I examined her she was sinus, S1-S2, no S3, no murmur or rub. Abdomen: Soft nontender, positive bowel sounds no organomegaly. Extremities: No edema, intact distal pulses. Neurological, alert oriented, no focal neurological deficits ASSESSMENT Atrial flutter with rapid ventricular response. Yesterday spontaneously to cardioverted. 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 Uptitrate BB if BP high tomorrow Continue digoxin 125 mg daily. Ferritin and iron saturation levels were low. Give 1 dose of Ferrlecit Discontinue IV Lasix and start Bumex 1 mg by mouth daily for 5 days Plan for [facility] cardioversion Monday Dr Herman Objective - Vital Signs Vital signs: Vital Signs Temp 97.5 F L 03/05/23 16:00 Pulse 133 H 03/05/23 18:59 Resp 16 03/05/23 16:00 BP 108/76 03/05/23 18:59 Pulse Ox 100 03/05/23 16:00 FiO2 Intake & Output 03/05/23 03/05/23 03/06/23 06:59 18:59 06:59 Intake Total 358 Output Total 550 2550 Balance -579 -219 Intake: Oral 358 Output: Urine 550 2550 Other: Voiding Method External Catheter External Catheter - Labs CBC & Chem 7: 03/05/23 08:16 03/05/23 08:16 Labs: Abnormal Lab Results - Last 24 Hours (Table) 03/04/23 03/05/23 03/05/23 Range/Units 04:18 08:16 08:16 RBC 3.10 L (3.80-5.40) m/uL Hgb 9.7 L (11.4-16.0) gm/dL Hct 29.7 L (34.0-46.0) % Sodium 134 L (137-145) mmol/L Calcium 7.9 L (8.4-10.2) mg/dL Iron 30 L (50-170) UG/DL TIBC 192 L (228-460) UG/DL Transferrin 137.0 L (204.0-354.0) mg/dL Ferritin 352.0 H (10.0-291.0) ng/mL Total Protein 5.4 L (6.3-8.2) g/dL Albumin 2.6 L (3.5-5.0) g/dL Microbiology - Last 24 Hours (Table) 03/03/23 14:41 Urine Culture - Preliminary Urine,Voided Gram Neg Bacilli
[2023-03-06] MEDS: LEVOTHYROXINE 125 MCG TAB PO SCH ×2 (06:37→07:08)
[2023-03-06] MEDS: PANTOPRAZOLE 40 MG/10 ML VIAL IVP SCH ×2 (08:25→20:06)
--- NOTE | 2023-03-06 08:31 | P.PN ---
Subjective Progress Note Date: 03/06/23 PROGRESS NOTE The patient is a 67-year-old female who recently underwent total hip arthroplasty at [facility], post operatively she had episodes of hypotension and atrial fibrillation with rapid ventricle response. She continues to be tachycardic. She does not feel the palpitations. She denies any chest discomfort, dizziness or change in her breathing. She has no nausea or vomiting. She is anticoagulated. 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 Medications: Bumex 1 mg daily, Lopressor 25 mg twice a day, Eliquis 5 mg twice a day. PHYSICAL EXAMINATION: Blood pressure 101/70 heart rate 140 LUNGS: Clear to auscultation HEART: Irregular rate and rhythm, S1, S2. No S3. Systolic ejection murmur ABDOMEN: Soft, nontender, no organomegaly, obese EXTREMETIES: Trace edema LAB: Potassium 4.0 yesterday, BUN 16, creatinine 0.72. IMPRESSION: 1. Status post total hip arthroplasty 2. Atrial fibrillation with rapid ventricle response, anticoagulated 3. Anemia, stable 4. 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 Cardiomyopathy, most likely related to the tachycardia PLAN: 1. Proceed with BASSAM guided cardioversion, discussed with the patient and the family 2. Depending on the BASSAM probably adding flecainide 3. Continue anticoagulation 4. Depending on her progress further recommendations will be made Objective - Vital Signs Vital signs: Vital Signs Temp 98.1 F 03/05/23 20:00 Pulse 145 H 03/06/23 04:00 Resp 18 03/06/23 04:00 BP 101/76 03/06/23 04:00 Pulse Ox 95 03/06/23 04:00 FiO2 Intake & Output 03/05/23 03/06/23 03/06/23 18:59 06:59 18:59 Intake Total 358 Output Total 2550 800 Balance -2191 Intake: Oral 358 Output: Urine 2550 800 Other: Voiding Method External Catheter External Catheter - Labs CBC & Chem 7: 03/05/23 08:16 03/05/23 08:16 Labs: Abnormal Lab Results - Last 24 Hours (Table) 03/05/23 03/05/23 Range/Units 08:16 08:16 RBC 3.10 L (3.80-5.40) m/uL Hgb 9.7 L (11.4-16.0) gm/dL Hct 29.7 L (34.0-46.0) % Sodium 134 L (137-145) mmol/L Calcium 7.9 L (8.4-10.2) mg/dL Total Protein 5.4 L (6.3-8.2) g/dL Albumin 2.6 L (3.5-5.0) g/dL Microbiology - Last 24 Hours (Table) 03/03/23 14:41 Urine Culture - Final Urine,Voided Proteus mirabilis
[2023-03-06] MEDS ORDERED: IV FLUID CONTINUATION 1,000 ML IV ONE ×2 (08:45)
[2023-03-06] MEDS ORDERED: PROPOFOL 10 MG/ML 20 ML VIAL IV ONE (08:58)
[2023-03-06] MEDS ORDERED: PHENYLEPHRINE-0.9% NACL SYG 1,000 MCG/10 ML SYRINGE ONE (08:58)
[2023-03-06] MEDS ORDERED: LIDOCAINE 2% INJ 20 MG/ML (2 ML VIAL) ONE (08:58)
[2023-03-06] MEDS ORDERED: BENZOCAINE SPRAY 1 CAN TOPICAL ONE ×2 (08:59→09:09)
--- NOTE | 2023-03-06 09:25 | P.PCN ---
Date of Procedure: 03/06/23 Description of Procedure: Indication: Atrial fibrillation Procedure Description: After explaining the procedure to the patient, it's risk and complications, blood pressure, heart rate and O2 saturation were monitored. The throat was sprayed with Cetacaine. Patient received sedation per anesthesia department. The probe was introduced into the esophagus without difficulty. Images were obtained. Following that, the probe was removed. There was no immediate complication. Findings: Left atrial size is dilated, left atrial appendage is normal. Spontaneous contrast was noted. The overall left ventricular systolic function is impaired with ejection fraction of 35-40% with global hypokinesis. The mitral valve revealed mild thickening of the mitral valve leaflets. The aortic valve, tricuspid valve and pulmonic valve appear to be normal. Descending thoracic aorta appears to be normal. No pericardial effusion was noted. Contrast bubble study revealed no shunting across the intra-atrial septum. Doppler: Pulse wave and color Doppler were obtained, revealed moderate mitral and tricuspid regurgitation with mild pulmonic regurgitation, there is no shunting by color Doppler study. Conclusion: 1. Dilated left atrium with normal appearance of the left atrial appendage 2. Moderately impaired systolic function with global hypokinesis 3. And moderate mitral and tricuspid regurgitation 4. No shunting across the interatrial septum 5. Normal appearance of the descending thoracic aorta Cardioversion: After obtaining a BASSAM and obtaining sedated state synchronized biphasic cardioversion using 150 J was done with [facility] of sinus mechanism, there was no immediate complications.
[2023-03-06] MEDS: SODIUM FERRIC GLUCONAT-SUCROSE 125 MG in SODIUM CHLORIDE 0.9% 100 ML IVPB SCH (10:33)
[2023-03-06] MEDS: FLECAINIDE 50 MG TAB PO SCH ×2 (10:34→20:07)
[2023-03-06] MEDS: BUMETANIDE 1 MG TAB PO SCH (10:34)
[2023-03-06] MEDS: METOPROLOL TARTRATE 50 MG TAB PO SCH ×2 (10:34→20:07)
[2023-03-06] MEDS: APIXABAN 5 MG TAB PO SCH ×2 (10:34→20:07)
[2023-03-06] MEDS: SODIUM CHLORIDE 0.9% 1,000 ML IV SCH (11:18)
[2023-03-06 13:51] LABS: HCT 30.3 % (34.0-46.0); HGB 9.9 gm/dL (11.4-16.0); MCH 31.3 pg (25.0-35.0); MCHC 32.9 g/dL (31.0-37.0); MCV 95.4 fL (80.0-100.0); Mean Platelet Volume 8.1; Platelet Count 317 k/uL (150-450); RBC 3.17 m/uL (3.80-5.40); RDW 13.3 % (11.5-15.5); WBC 6.9 k/uL (3.8-10.6)
[2023-03-06 13:57] LABS: ALT 25 U/L (4-34); AST 28 U/L (14-36); African American GFR (CKD) >90 (>60 ml/min/1.73 sqM); Albumin 2.7 g/dL (3.5-5.0); Alkaline Phosphatase 96 U/L (38-126); Anion Gap 5 mmol/L; Blood Urea Nitrogen 17 mg/dL (7-17); Calcium 8.1 mg/dL (8.4-10.2); Carbon Dioxide 30 mmol/L (22-30); Chloride 99 mmol/L (98-107); Glucose 88 mg/dL (74-99); Magnesium 1.9 mg/dL (1.6-2.3); Non-African American GFR(CKD) >90 (>60 ml/min/1.73 sqM); Sodium 134 mmol/L (137-145); Total Bilirubin 0.7 mg/dL (0.2-1.3); Total Protein 5.5 g/dL (6.3-8.2)
[2023-03-06] MEDS: METOPROLOL TARTRATE 5 MG/5 ML VIAL IVP SCH (15:51)
--- NOTE | 2023-03-06 18:34 | P.PN ---
Subjective Progress Note Date: 03/06/23 Hospital course: Patient is a very pleasant 67-year-old female with a past medical history of CAD, chronic atrial fibrillation on anticoagulation with Eliquis, hypertension, hyperlipidemia, embolic CVA 2 with memory deficits, hypothyroidism, and osteoarthritis. Patient is status post right total hip at [facility] on Monday02/24/23 and was discharged to rehabilitation facility. Patient presented to the emergency department overnight from rehab facility after being found with heart rate in the 160s. Upon arrival to the emergency department patient underwent full evaluation. Vital signs showing heart rate 130s to 180s, blood pressure 118/61, respiratory rate 20, temp 99.1F, and SpO2 of 100% on room air. EKG was completed confirming tachycardic rhythm is atrial fibrillation with RVR at 156 bpm. Chest x-ray then completed negative for acute cardiopulmonary process. Labs completed and reviewed. CBC was unremarkable with WBC count of 10.5 and hemoglobin of 12.3 with platelet count of 333. Coagulation profile showing low PTT of 19.8 otherwise normal findings. BMP revealing mild hyponatremia with sodium of 133, prerenal azotemia with BUN of 22, and normal creatinine of 0.57. Glucose 113. Magnesium normal findings at 2.2. Liver pro file showing slightly elevated AST of 39 otherwise normal findings. Troponin was negative at less than 0.012. TSH normal findings is 0.815. Patient was given Cardizem bolus followed by infusion and was admitted under our services with consultation to cardiology. repeat morning labs revealed a significant drop in hemoglobin and patient had not been given any fluids prior to these labs. Morning labs revealed a decrease in hemoglobin from 12.3 down to 9.4, order placed for stat repeat lab for verification showing results of hemoglobin of 9.7. Patient had no signs of active bleeding, no obvious bruising or hematoma from recent hip surgery, and denied having any hematemesis, hematuria, melena or hematochezia. Patient reported long-standing history of iron deficiency anemia and does report her hemoglobin has been at 9 previously. It is unclear why hemoglobin dropped nearly 3 g overnight. At this time patient was also noted to be hypotensive with continued tachycardia. Patient was given a 500 mL bolus and Cardizem infusion was stopped. Cardiology evaluated and started patient on di goxin. General surgery consulted for evaluation for possible GI bleed. CT abdomen and pelvis completed showing concerns of fluid overload and third spacing secondary to generalized anasarca, trace effusions, and mild pelvic ascites; tissue swelling of right hip with confluence edema in the subcutaneous adipose layer measuring up to 6.3 cm likely secondary to recent hip replacement however unable to rule out seroma; a small 2 cm intramuscular hematoma involving the right gluteus medius muscle; sigmoid colonic diverticulosis without acute diverticulitis with mild circumferential wall thickening at the lower rectum; moderate circumferential bladder wall thickening; and cholelithiasis. EKG com pleted showing atrial flutter with RVR at 170 bpm. Physical exam: Patient seen and fully evaluated at bedside upon return from cardioversion. Vital signs reviewed and stable. General: Nontoxic, no distress and appears stated age. Derm: Skin warm and dry, normal coloration for ethnicity. postsurgical dressing in place right hip clean, dry, and intact with no signs of active bleeding, bruising, or hematoma noted. Head: Atraumatic, normocephalic and symmetric. Eyes: EOMs intact, no lid lag, and anicteric sclera Mouth: no lip lesions, mucus membranes moist Cardiovascular: Tachycardic rate irregularly irregular, systolic murmur, positive posterior tibial pulses bilaterally, and cap refill < 2 seconds. Lungs: Respirations even, regular, and unlabored on room air. Lungs CTA bilaterally, no rhonchi, no rales, no wheezing, and no accessory muscle usage. Abdominal: Obese abdomen soft, nontender to palpation, no guarding, no appreciable organomegaly Ext: ROM intact. No gross muscle atrophy, 2+ pitting bilateral lower extremity edema, no contractures Neuro: Speech clear, face symmetrical and CN II-XII grossly intact with no noted focal neuro deficits Psych: Alert and oriented to person, place, time, and situation. Appropriate and pleasant affect. Assessment and Plan of Care: Atrial fibrillation/Flutter with persistent RVR Cardiomyopathy with EF of 35-40%, likely secondary to demand ischemia resulting from persistent RVR Hypotension, improved History of CAD Hypertension Hyperlipidemia History of embolic CVA 2 events with memory deficits -Patient went for cardioversion this morning which was initially reported to be successful with hoahaoism of sinus mechanism, however upon return to room patient again in atrial fibrillation with RVR. -Cardiologystarted patient on flecainide 50 mg every 12 hours and increase metoprolol to 50 mg twice daily. Ventricular rate currently fluctuating between 110s and 140s -Patient to continueEliquis 5 mg twice a day and Bumex 1 mg daily -Patient to remain on continuous telemetry monitoring -Echocardiogram revealed EF of 35-40% Acute blood loss anemia, stable Constipation and rectal pain, resolved Sigmoid colonic diverticulosis without acute diverticulitis with mild circumferential wall thickening at the lower rectum -Gen. surgery following and discussed plan of care, he is recommending outpatient follow-up to schedule for endoscopy. -Hemoglobin is stable and 9.9 with no noted acute blood loss. -Patient to continue Protonix 40 mg IVP twice daily -Continue to monitor hemoglobin closely. We will transfuse as needed for hemoglobin less than 7. Proteus mirabilis UTI -CT abdomen and pelvis revealing moderate circumferential bladder wall thickening may be chronic for the patient correlate to exclude cystitis. Urinalysis positive for infection showing positive nitrites and leukocytes, and greater than 182 WBCs. . Urine culture positive for Proteus mirabilis resistant to nitrofurantoin and tetracycline. -Continue Rocephin 2 g every 24 hours dose #4 of 5 . Status post recent right total hip replacement 02/24/23 6.3 cm fluid collection in subcutaneous adipose tissue, concerning for seroma 2 centimeter intramuscular hematoma of right gluteus medius -CT findings showing edema and subcutaneous adipose layer measuring up to 6.3 cm, possible seroma along with 2 cm intramuscular hematoma involving the right gluteus medius muscle. -Surgical procedure was performed at [facility], patient will need to follow up outpatient with her orthopedic surgeon for evaluation and further intervention once medically stable. -Orthopedic surgery team did evaluate and in agreement stating no need for urgent orthopedic intervention at this time recommending follow-up with her surgeon once medically stable. -PT OT consulted to evaluate Hypothyroidism -TSH normal findings at 0.815. Patient to continue with daily medication regimen with the levothyroxine 125 g daily. Data review: Labs reviewed. CBC showing stable normocytic anemia with hemoglobin of 9.9. BMP revealing mild hyponatremia with sodium of 134 otherwise normal findings. Magnesium normal findings at 1.9. Liver profile unremarkable. Urine culture coming back positive for Proteus mirabilis. CODE STATUS: Full code DVT prophylaxis: heparin infusion as recommended by cardiology Discussed with: patient, RN, and cardiology COBOL APPLICATION DEVELOPER Anticipated discharge date: clinical course to determine Anticipated discharge place: home Patient was seen independently by Nurse Pracitioner. This document was prepared using [employer] dictation software. Please allow for errors in polarity tester, while rare they do occur. Stanislav Bo COBOL APPLICATION DEVELOPER rendered care for this patient independently, reviewed the findings and plan as documented in the note above. I did not physically speak with or examine the patient on this date. Objective - Vital Signs Vital signs: Vital Signs Temp 98.3 F 03/06/23 08:15 Pulse 160 H 03/06/23 08:15 Resp 18 03/06/23 08:15 BP 95/63 03/06/23 08:15 Pulse Ox 96 03/06/23 08:15 FiO2 Intake & Output 03/05/23 03/06/23 03/06/23 18:59 06:59 18:59 Intake Total 358 Output Total 2550 800 Balance -2 -800 Intake: Oral 358 Output: Urine 2550 800 Other: Voiding Method External Catheter External Catheter - Labs CBC & Chem 7: 03/08/23 07:20 03/08/23 07:20 Labs: Abnormal Lab Results - Last 24 Hours (Table) 03/05/23 03/05/23 Range/Units 08:16 08:16 RBC 3.10 L (3.80-5.40) m/uL Hgb 9.7 L (11.4-16.0) gm/dL Hct 29.7 L (34.0-46.0) % Sodium 134 L (137-145) mmol/L Calcium 7.9 L (8.4-10.2) mg/dL Total Protein 5.4 L (6.3-8.2) g/dL Albumin 2.6 L (3.5-5.0) g/dL Microbiology - Last 24 Hours (Table) 03/03/23 14:41 Urine Culture - Final Urine,Voided Proteus mirabilis
[2023-03-07] MEDS: LEVOTHYROXINE 125 MCG TAB PO SCH (05:56)
[2023-03-07] MEDS: PANTOPRAZOLE 40 MG/10 ML VIAL IVP SCH ×2 (07:50→20:37)
[2023-03-07] MEDS: APIXABAN 5 MG TAB PO SCH ×2 (07:51→20:37)
[2023-03-07] MEDS: BUMETANIDE 1 MG TAB PO SCH (07:51)
[2023-03-07] MEDS: FLECAINIDE 50 MG TAB PO SCH ×2 (07:51→20:37)
[2023-03-07] MEDS: METOPROLOL TARTRATE 50 MG TAB PO SCH ×2 (07:51→20:37)
[2023-03-07] MEDS ORDERED: FUROSEMIDE 10 MG/ML 4 ML VIAL IV STA (08:09)
--- NOTE | 2023-03-07 08:09 | P.PN ---
Subjective Progress Note Date: 03/07/23 PROGRESS NOTE The patient is a 67-year-old female who recently underwent total hip arthroplasty at [facility], post operatively she had episodes of hypotension and atrial fibrillation with rapid ventricle response. She continues to be tachycardic. She does not feel the palpitations. She denies any chest discomfort, dizziness or change in her breathing. She has no nausea or vomiting. She is anticoagulated. 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 March 07: She feels better today, she underwent BASSAM guided cardioversion with voodoo of sinus mechanism that was not sustained and subsequently was started on flecainide, she is back in sinus mechanism since yesterday. She denies any chest discomfort, dizziness or palpitations. She feels better overall. She denies any nausea or vomiting. Hemodynamically she is stable. Medications: Bumex 1 mg daily, Lopressor 50 mg twice a day, Eliquis 5 mg twice a day. Flecainide 50 mg twice a day PHYSICAL EXAMINATION: Blood pressure 111/60 heart rate 60 LUNGS: Clear to auscultation HEART: Regular rate and rhythm, S1, S2. No S3. Systolic ejection murmur ABDOMEN: Soft, nontender, no organomegaly, obese EXTREMETIES: 1+ edema LAB: Potassium yesterday 4.0, hemoglobin 9.9 IMPRESSION: 1. Status post total hip arthroplasty 2. Atrial fibrillation with rapid ventricle response, anticoagulated, back in sinus mechanism 3. Anemia, stable 4. 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 Cardiomyopathy, most likely related to the tachycardia PLAN: 1. Continue flecainide, her cardiomyopathy is nonischemic 2. Add low dose EUNICE inhibitor 3. One dose IV Lasix today 4. Add Farxiga 5. Follow renal functions 6. Increase physical activity and is stable probable discharge tomorrow Objective - Vital Signs Vital signs: Vital Signs Temp 98.3 F 03/07/23 07:47 Pulse 62 03/07/23 07:47 Resp 17 03/07/23 07:47 BP 111/66 03/07/23 07:47 Pulse Ox 94 L 03/07/23 07:47 FiO2 Intake & Output 03/06/23 03/07/23 03/07/23 18:59 06:59 18:59 Intake Total 528 120 Output Total 1450 Balance -922 120 Intake: IV 50 Oral 478 120 Output: Urine 1450 Other: Voiding Method External Catheter External Catheter - Labs CBC & Chem 7: 03/06/23 12:09 03/06/23 12:09 Labs: Abnormal Lab Results - Last 24 Hours (Table) 03/06/23 03/06/23 Range/Units 12:09 12:09 RBC 3.17 L (3.80-5.40) m/uL Hgb 9.9 L (11.4-16.0) gm/dL Hct 30.3 L (34.0-46.0) % Sodium 134 L (137-145) mmol/L Calcium 8.1 L (8.4-10.2) mg/dL Total Protein 5.5 L (6.3-8.2) g/dL Albumin 2.7 L (3.5-5.0) g/dL
[2023-03-07 08:41] LABS: HCT 28.6 % (34.0-46.0); HGB 9.5 gm/dL (11.4-16.0); Hypochromasia Slight; MCH 31.8 pg (25.0-35.0); MCHC 33.1 g/dL (31.0-37.0); MCV 96.1 fL (80.0-100.0); Mean Platelet Volume 7.7; Platelet Count 288 k/uL (150-450); RBC 2.98 m/uL (3.80-5.40); RDW 13.9 % (11.5-15.5); WBC 6.9 k/uL (3.8-10.6)
[2023-03-07 08:57] LABS: African American GFR (CKD) >90 (>60 ml/min/1.73 sqM); Blood Urea Nitrogen 21 mg/dL (7-17); Calcium 7.9 mg/dL (8.4-10.2); Carbon Dioxide 33 mmol/L (22-30); Glucose 99 mg/dL (74-99); Non-African American GFR(CKD) >90 (>60 ml/min/1.73 sqM)
[2023-03-07] MEDS: DAPAGLIFLOZIN PROPANEDIOL 10 MG TABLET PO SCH (09:15)
[2023-03-07] MEDS: SODIUM FERRIC GLUCONAT-SUCROSE 125 MG in SODIUM CHLORIDE 0.9% 100 ML IVPB SCH (09:16)
[2023-03-07] MEDS: lisinopriL 5 MG TAB PO SCH (09:16)
[2023-03-07 09:44] LABS: Anion Gap 1 mmol/L; Chloride 98 mmol/L (98-107); Potassium 3.6 mmol/L (3.5-5.1); Sodium 132 mmol/L (137-145)
[2023-03-07] MEDS: SODIUM CHLORIDE 0.9% 1,000 ML IV SCH (10:43)
--- NOTE | 2023-03-07 13:56 | P.PN ---
Subjective Progress Note Date: 03/07/23 Hospital course: Patient is a very pleasant 67-year-old female with a past medical history of CAD, chronic atrial fibrillation on anticoagulation with Eliquis, hypertension, hyperlipidemia, embolic CVA 2 with memory deficits, hypothyroidism, and osteoarthritis. Patient is status post right total hip at [facility] on Monday02/24/23 and was discharged to rehabilitation facility. Patient presented to the emergency department on 03/02/23 from rehab facility after being found with heart rate in the 160s. EKG was completed confirming tachycardic rhythm was atrial fibrillation with RVR at 156 bpm. Chest x-ray then completed negative for acute cardiopulmonary process. Patient was given Cardizem bolus followed by infusion and was admitted under our services with consultation to cardiology. Patient's blood pressures did not tolerate Cardizem and therefore she was started on digoxin. Patient also had a noted drop in hemoglobin and a CT abdomen and pelvis was completed showing concerns of fluid overload and third spacing secondary to generalized anasarca, trace effusions, and mild pelvic ascites; tissue swelling of right hip with confluence edema in the subcutaneous adipose layer measuring up to 6.3 cm likely secondary to recent hip replacement however unable to rule out seroma; and small 2 cm intramuscular hematoma involving the right gluteus medius muscle; sigmoid colonic diverticulosis without acute diverticulitis with mild circumferential wall thickening at the lower rectum; moderate circumferential bladder wall thickening; and chol elithiasis. General surgery evaluated and recommending outpatient follow-up for endoscopy once medically stable. Orthopedic surgery also evaluated secondary to concerns of seroma along with 2 intramuscular hematomas, orthopedic surgeon stating no need for urgent orthopedic intervention and recommending patient follow-up with her surgeon after discharge once medically stable. Patient continued to have persistent atrial fibrillation with RVR and on 03/04/23 read worsening 150s to 170s. EKG completed at that time now showing atrial flutter with RVR at 170 bpm. Echocardiogram revealed EF of 35-40% Patient was given second dose of digoxin and later converted to normal sinus rhythm , but upon g etting out of bed to ambulate to restroom patient again converted back into atrial fibrillation with RVR 140s to 160s. Patient underwent cardioversion on 03/06/23 which was initially successful in converting patient back into normal sinus rhythm, however by the time patient return to room she was back in atrial fibrillation with RVR and cardiology started patient on flecainide. Patient again converted to normal sinus rhythm on the afternoon of 03/06/23. Physical exam: Patient seen and fully evaluated at bedside this morning. She was resting comfortably and currently free from any complaints or concerns. Patient encouraged to increase ambulation today and up to chair with all meals, would like to monitor patient's toleration of activity and ambulation now that she has converted back into normal sinus rhythm. Discussed with patient plan for di luis within the next 24-48 hours. Vital signs reviewed and stable. General: Nontoxic, no distress and appears stated age. Derm: Skin warm and dry, normal coloration for ethnicity. postsurgical dressing in place right hip clean, dry, and intact with no signs of active bleeding, bruising, or hematoma noted. Head: Atraumatic, normocephalic and symmetric. Eyes: EOMs intact, no lid lag, and anicteric sclera Mouth: no lip lesions, mucus membranes moist Cardiovascular: Tachycardic rate irregularly irregular, systolic murmur, positive posterior tibial pulses bilaterally, and cap refill < 2 seconds. Lungs: Respirations even, regular, and unlabored on room air. Lungs CTA bilaterally, no rhonchi, no rales, no wheezing, and no accessory muscle usage. Abdominal: Obese abdomen soft, nontender to palpation, no guarding, no appreciable organomegaly Ext: ROM intact. No gross muscle atrophy, 2+ pitting bilateral lower extremity edema, no contractures Neuro: Speech clear, face symmetrical and CN II-XII grossly intact with no noted focal neuro deficits Psych: Alert and oriented to person, place, time, and situation. Appropriate and pleasant affect. Assessment and Plan of Care: Atrial fibrillation/Flutter with persistent RVR, currently maintaining sinus mechanism. Cardiomyopathy with EF of 35-40%, likely secondary to demand ischemia resulting from persistent RVR Hypotension, improved History of CAD Hypertension Hyperlipidemia History of embolic CVA 2 events with memory deficits -After unsuccessful cardioversion, patient was started on flecainide and later that afternoon on 03/06/23 patient again converted back into normal sinus rhythm. -Cardiology following and reviewed documentation in chart. Solution Design Engineer adding on low-dose EUNICE inhibitor and Farxiga. -Patient to continue with flecainide 50 mg every 12 hours, metoprolol to 50 mg twice daily, Eliquis 5 mg twice a day and Bumex 1 mg daily -Patient to remain on continuous telemetry monitoring and encouraged to increase activity. If patient tolerates activity increased and remains normal sinus rhythm/controlled ventricular rate will plan for discharge within the next 24-48 hours. Acute blood loss anemia, stable Constipation and rectal pain, resolved Sigmoid colonic diverticulosis without acute diverticulitis with mild circumferential wall thickening at the lower rectum -Gen. surgery evaluated and recommended outpatient follow-up once medically stable for scheduling of outpatient endoscopy. -Hemoglobin is stable and 9.5 with no noted acute blood loss. -Continue GI prophylaxis with Protonix 40 mg IVP twice daily Proteus mirabilis UTI -CT abdomen and pelvis revealing moderate circumferential bladder wall thickening may be chronic for the patient correlate to exclude cystitis. Urinalysis positive for infection showing positive nitrites and leukocytes, and greater than 182 WBCs. . Urine culture positive for Proteus mirabilis resistant to nitrofurantoin and tetracycline. -Continue Rocephin 2 g every 24 hours dose #5 of 5 . Status post recent right total hip replacement 02/24/23 6.3 cm fluid collection in subcutaneous adipose tissue, concerning for seroma 2 centimeter intramuscular hematoma of right gluteus medius -CT findings showing edema and subcutaneous adipose layer measuring up to 6.3 cm, possible seroma along with 2 cm intramuscular hematoma involving the right gluteus medius muscle. -Surgical procedure was performed at [facility], patient will need to follow up outpatient with her orthopedic surgeon for evaluation and further intervention once medically stable. -Orthopedic surgery team did evaluate and in agreement stating no need for urgent orthopedic intervention at this time recommending follow-up with her surgeon once medically stable. -PT/OT following Hypothyroidism -TSH normal findings at 0.815. Patient to continue with daily medication regimen with the levothyroxine 125 g daily. Data review: Labs reviewed. CBC showing stable normocytic anemia with hemoglobin of 9.5. BMP revealing mild hyponatremia with sodium of 132, hypercarbia with bicarb of 33, and mild prerenal azotemia with BUN of 21. Magnesium normal findings at 1.9. Vital signs reviewed. Blood pressure 111/66, heart rate 62, respiratory rate 17, temp 90.3F, SpO2 of 94% on room air. CODE STATUS: Full code DVT prophylaxis: heparin infusion as recommended by cardiology Discussed with: patient, RN, and cardiology CHILDCARE ATTENDANT Anticipated discharge date: clinical course to determine Anticipated discharge place: Return to SNF Patient was seen independently by Nurse Pracitioner. This document was prepared using [employer] dictation software. Please allow for errors in cleaning specialist, while rare they do occur. Stanislav Bo, CHILDCARE ATTENDANT rendered care for this patient independently, reviewed the findings and plan as documented in the note above. I did not physically speak with or examine the patient on this date. Objective - Vital Signs Vital signs: Vital Signs Temp 98.3 F 03/07/23 07:47 Pulse 62 03/07/23 07:47 Resp 17 03/07/23 07:47 BP 111/66 03/07/23 07:47 Pulse Ox 94 L 03/07/23 07:47 FiO2 Intake & Output 03/06/23 03/07/23 03/07/23 18:59 06:59 18:59 Intake Total 528 120 Output Total 1450 Balance -922 120 Intake: IV 50 Oral 478 120 Output: Urine 1450 Other: Voiding Method External Catheter External Catheter - Labs CBC & Chem 7: 03/07/23 08:12 03/07/23 08:12 Labs: Abnormal Lab Results - Last 24 Hours (Table) 03/06/23 03/06/23 Range/Units 12:09 12:09 RBC 3.17 L (3.80-5.40) m/uL Hgb 9.9 L (11.4-16.0) gm/dL Hct 30.3 L (34.0-46.0) % Sodium 134 L (137-145) mmol/L Calcium 8.1 L (8.4-10.2) mg/dL Total Protein 5.5 L (6.3-8.2) g/dL Albumin 2.7 L (3.5-5.0) g/dL
[2023-03-07 13:59] VITALS: BMI 39.7
[2023-03-08] MEDS: LEVOTHYROXINE 125 MCG TAB PO SCH (06:19)
[2023-03-08 08:01] LABS: HGB 9.3 gm/dL (11.4-16.0); Hypochromasia Slight; MCH 30.9 pg (25.0-35.0); MCHC 32.1 g/dL (31.0-37.0); MCV 96.1 fL (80.0-100.0); Mean Platelet Volume 7.8; Platelet Count 284 k/uL (150-450); RBC 3.02 m/uL (3.80-5.40); RDW 14.2 % (11.5-15.5); WBC 8.7 k/uL (3.8-10.6)
[2023-03-08 08:10] LABS: African American GFR (CKD) >90 (>60 ml/min/1.73 sqM); Anion Gap 4 mmol/L; Blood Urea Nitrogen 25 mg/dL (7-17); Carbon Dioxide 32 mmol/L (22-30); Chloride 96 mmol/L (98-107); Glucose 85 mg/dL (74-99); Non-African American GFR(CKD) 80 (>60 ml/min/1.73 sqM); Potassium 3.7 mmol/L (3.5-5.1); Sodium 132 mmol/L (137-145)
[2023-03-08 09:07] VITALS: TEMP 97.7
[2023-03-08] MEDS: DAPAGLIFLOZIN PROPANEDIOL 10 MG TABLET PO SCH (09:11)
[2023-03-08] MEDS: METOPROLOL TARTRATE 50 MG TAB PO SCH (09:11)
[2023-03-08] MEDS: PANTOPRAZOLE 40 MG/10 ML VIAL IVP SCH (09:11)
[2023-03-08] MEDS: lisinopriL 5 MG TAB PO SCH (09:11)
[2023-03-08] MEDS: FLECAINIDE 50 MG TAB PO SCH (09:11)
[2023-03-08] MEDS: APIXABAN 5 MG TAB PO SCH (09:11)
[2023-03-08] MEDS: BUMETANIDE 1 MG TAB PO SCH (09:25)
--- NOTE | 2023-03-08 11:59 | P.DS ---
Providers Date of admission: 03/03/23 12:03 Expected date of discharge: 03/08/23 Attending physician: Reyes Sylvester MD Consults: 03/02/23 21:37 Consult Physician Urgent Consulting Provider: [facility] Consult Reason/Comments: afib with rvr Do you want consulting provider notified?: Yes 03/04/23 14:55 Consult Physician Routine Consulting Provider: Prince Murdock Consult Reason/Comments: Seroma 6.3 cm, hematoma s/p r hip replacement at [facility] 02/24 Do you want consulting provider notified?: Yes Primary care physician: Zeb Woodruff MD Hospital Course: Discharge Diagnosis: Atrial fibrillation/Flutter with persistent RVR, currently maintaining sinus mechanism. Cardiomyopathy with EF of 35-40%, likely secondary to demand ischemia resulting from persistent RVR Hypotension History of CAD Hypertension Hyperlipidemia History of embolic CVA 2 events with memory deficits Acute blood loss anemia, stable Constipation and rectal pain Sigmoid colonic diverticulosis without acute diverticulitis with mild circumferential wall thickening at the lower rectum Proteus mirabilis UTI Status post recent right total hip replacement 02/24/23 6.3 cm fluid collection in subcutaneous adipose tissue, concerning for seroma 2 centimeter intramuscular hematoma of right gluteus medius Hypothyroidism Hospital Course: Patient is a very pleasant 67-year-old female with a past medical history of CAD, chronic atrial fibrillation on anticoagulation with Eliquis, hypertension, hyperlipidemia, embolic CVA 2 with memory deficits, hypothyroidism, and osteoarthritis. Patient is status post right total hip at [facility] on Monday02/24/23 and was discharged to rehabilitation facility. Patient presented to the emergency department on 03/02/23 from rehab facility after being found with heart rate in the 160s. EKG showed tachycardic rhythm was atrial fibrillation with RVR at 156 bpm. Chest x-ray was negative for acute cardiopulmonary process. Patient was given Cardizem bolus followed by infusion and was admitted under our services with consultation to cardiology. Patient's blood pressures did not tolerate Cardizem and therefore she was started on digoxin. Patient also had a noted drop in hemoglobin and a CT abdomen and pelvis showing concerns of fluid overload and third spacing secondary to generalized anasarca, trace effusions, and mild pelvic ascites; tissue swelling of right hip with confluence edema in the subcutaneous adipose layer measuring up to 6.3 cm likely secondary to recent hip replacement however unable to rule out seroma; and small 2 cm intramuscular hematoma involving the right gluteus medius muscle; sigmoid colonic diverticulosis without acute diverticulitis with mild circumferential wall thickening at the lower rectum; moderate circumferential bladder wall thickening; and cholelithiasis. General surgery evaluated and recommending outpatient follow-up for endoscopy once medically stable. Orthopedic surgery also evaluated secondary to concerns of seroma along with 2 intramuscular hematomas, orthopedic surgeon stating no need for urgent orthopedic intervention and recommending patient follow-up with her surgeon after discharge once medically stable. Patient continued to have persistent atrial fibrillation with RVR and on 03/04/23 read worsening 150s to 170s. EKG showing atrial flutter with RVR at 170 bpm. Echocardiogram revealed EF of 35-40% Patient was given second dose of digoxin and later converted to normal sinus rhythm , but upon getting out of bed to ambulate to restroom patient again converted back into atrial fibrillation with RVR 140s to 160s. Patient underwent cardioversion on 03/06/23 which was initially successful in converting patient back into normal sinus rhythm, however by the time patient return to room she was back in atrial fibrillation with RVR and cardiology started patient on flecainide. Patient again converted to normal sinus rhythm on the afternoon of 03/06/23. Patient remains in normal sinus rhythm. Also treated for Proteus UTI. Completed course of IV ceftriaxone. Patient seen and examined at bedside. Vital signs reviewed and stable. General: Nontoxic, no distress and appears stated age. Derm: Skin warm and dry, normal coloration for ethnicity. postsurgical dressing in place right hip clean, dry, and intact with no signs of active bleeding, bruising, or hematoma noted. Head: Atraumatic, normocephalic and symmetric. Eyes: EOMs intact, no lid lag, and anicteric sclera Mouth: no lip lesions, mucus membranes moist Cardiovascular: Normal S1-S2, regular, systolic murmur, positive posterior tibial pulses bilaterally, and cap refill < 2 seconds. Lungs: Respirations even, regular, and unlabored on room air. Lungs CTA bilaterally, no rhonchi, no rales, no wheezing, and no accessory muscle usage. Abdominal: Obese abdomen soft, nontender to palpation, no guarding, no appreciable organomegaly Ext: ROM intact. No gross muscle atrophy, 2+ pitting bilateral lower extremity edema, no contractures Neuro: Speech clear, face symmetrical and CN II-XII grossly intact with no noted focal neuro deficits Psych: Alert and oriented to person, place, time, and situation. Appropriate and pleasant affect. A total of 55 minutes of time were spent preparing this complex discharge summary. Patient was discharged on 03/08/23 at 10:43. Patient Condition at Discharge: Stable Plan - Discharge Summary New Discharge Prescriptions: New Bumetanide [BUMEX] 1 mg PO DAILY tab Metoprolol Tartrate [Lopressor] 50 mg PO BID tab Dapagliflozin Propanediol [Farxiga] 10 mg PO DAILY tab Pantoprazole [Protonix] 40 mg PO DAILY #7 tab Flecainide [Tambocor] 50 mg PO Q12HR tab lisinopriL [Zestril] 5 mg PO DAILY tab Continue Acetaminophen [Tylenol Arthritis] 650 mg PO Q6H PRN PRN Reason: Pain methocarbamoL [Robaxin] 500 mg PO TID PRN PRN Reason: Spasms Docusate Sodium [Dok] 100 mg PO DAILY PRN PRN Reason: Constipation fluvoxaMINE MALEATE [Luvox] 200 mg PO HS Levothyroxine Sodium [Synthroid] 125 mcg PO DAILY Apixaban [Eliquis] 5 mg PO BID polyethylene glycoL 3350 [Miralax] 17 gm PO DAILY PRN PRN Reason: Constipation oxyCODONE HCL [OxyIR] 5 mg PO Q4H PRN PRN Reason: Pain Discontinued Atenolol 50 mg PO BID Discharge Medication List Acetaminophen [Tylenol Arthritis] 650 mg PO Q6H PRN 06/23/17 [History] Apixaban [Eliquis] 5 mg PO BID 03/02/23 [History] Docusate Sodium [Dok] 100 mg PO DAILY PRN 03/02/23 [History] Levothyroxine Sodium [Synthroid] 125 mcg PO DAILY 03/02/23 [History] fluvoxaMINE MALEATE [Luvox] 200 mg PO HS 03/02/23 [History] methocarbamoL [Robaxin] 500 mg PO TID PRN 03/02/23 [History] oxyCODONE HCL [OxyIR] 5 mg PO Q4H PRN 03/02/23 [History] polyethylene glycoL 3350 [Miralax] 17 gm PO DAILY PRN 03/02/23 [History] Bumetanide [BUMEX] 1 mg PO DAILY tab 03/08/23 [Rx] Dapagliflozin Propanediol [Farxiga] 10 mg PO DAILY tab 03/08/23 [Rx] Flecainide [Tambocor] 50 mg PO Q12HR tab 03/08/23 [Rx] Metoprolol Tartrate [Lopressor] 50 mg PO BID tab 03/08/23 [Rx] Pantoprazole [Protonix] 40 mg PO DAILY #7 tab 03/08/23 [Rx] lisinopriL [Zestril] 5 mg PO DAILY tab 03/08/23 [Rx] Follow up Appointment(s)/Referral(s): Zeb Woodruff MD [Primary Care Provider] - 1-2 days Patient Instructions/Handouts: A-fib (Atrial Fibrillation) (DC), Anemia (DC) Activity/Diet/Wound Care/Special Instructions: Please see your PCP, and orthopedic surgeon. You may also need an endoscopy in the future, and would have to see a general surgeon or GI doctor. Discharge Disposition: TRANSFER TO SNF/ECF
[2023-03-08 12:28] VITALS: BP 121/68; PULSE 68; RESP 16
--- NOTE | 2023-03-08 15:03 | P.PN ---
Subjective Progress Note Date: 03/08/23 PROGRESS NOTE The patient is a 67-year-old female who recently underwent total hip arthroplasty at [facility], post operatively she had episodes of hypotension and atrial fibrillation with rapid ventricle response. She continues to be tachycardic. She does not feel the palpitations. She denies any chest discomfort, dizziness or change in her breathing. She has no nausea or vomiting. She is anticoagulated. 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 March 07: She feels better today, she underwent BASSAM guided cardioversion with restorationism of sinus mechanism that was not sustained and subsequently was started on flecainide, she is back in sinus mechanism since yesterday. She denies any chest discomfort, dizziness or palpitations. She feels better overall. She denies any nausea or vomiting. Hemodynamically she is stable. March 08: She is feeling better today, she continues to be in sinus mechanism. Her energy is better. She denies any chest discomfort, dizziness or palpitations. She denies any nausea. She is planning to go back to rehab following her hip surgery. Medications: Bumex 1 mg daily, Lopressor 50 mg twice a day, Eliquis 5 mg twice a day. Flecainide 50 mg twice a day, Farxiga 10 mg daily, lisinopril 5 mg daily PHYSICAL EXAMINATION: Blood pressure 121/60 heart rate 68 LUNGS: Clear to auscultation HEART: Regular rate and rhythm, S1, S2. No S3. Systolic ejection murmur ABDOMEN: Soft, nontender, no organomegaly, obese EXTREMETIES: 1+ edema LAB: Potassium 3.7, hemoglobin 9.3, BUN 25, creatinine 0.77 IMPRESSION: 1. Status post total hip arthroplasty 2. Atrial fibrillation with rapid ventricle response, anticoagulated, back in sinus mechanism 3. Anemia, stable 4. 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 Cardiomyopathy, most likely related to the tachycardia PLAN: 1. Continue flecainide, her cardiomyopathy is nonischemic 2. Continue EUNICE inhibitor and beta michelle 3. Transfer to rehab when available 4. Follow-up as an outpatient to reassess LV systolic function. Objective - Vital Signs Vital signs: Vital Signs Temp 97.7 F 03/08/23 09:06 Pulse 68 03/08/23 12:27 Resp 16 03/08/23 12:27 BP 121/68 03/08/23 12:27 Pulse Ox 98 03/08/23 12:27 FiO2 Intake & Output 03/07/23 03/08/23 03/08/23 18:59 06:59 18:59 Intake Total 225 220 Output Total 1500 900 Balance -1275 -900 220 Weight 100.199 kg 110.1 kg Intake: Oral 225 220 Output: Urine 1500 900 Other: Voiding Method External Catheter External Catheter External Catheter # Voids 1 2 # Bowel Movements 1 - Labs CBC & Chem 7: 03/08/23 07:20 03/08/23 07:20 Labs: Abnormal Lab Results - Last 24 Hours (Table) 03/08/23 03/08/23 Range/Units 07:20 07:20 RBC 3.02 L (3.80-5.40) m/uL Hgb 9.3 L (11.4-16.0) gm/dL Hct 29.0 L (34.0-46.0) % Sodium 132 L (137-145) mmol/L Chloride 96 L (98-107) mmol/L Carbon Dioxide 32 H (22-30) mmol/L BUN 25 H (7-17) mg/dL Calcium 8.0 L (8.4-10.2) mg/dL
== END 2023-03-08 15:10 | DRG 308 ==
LOC: EC 17:43 → 3SCARD 21:38 → OBSVTOIN 03-03 12:03 → 3SCARD 03-03 15:52
PROVIDERS: ADMIT Internal Medicine; ATTEND Internal Medicine
PROC: 5A2204Z Restoration of Cardiac Rhythm, Single (ICD-10-PCS; 2023-03-06)
PROC: B24BZZ4 Ultrasonography of Heart with Aorta, Transesophageal (ICD-10-PCS; principal; 2023-03-06 07:30)
DX: I48.19 Other persistent atrial fibrillation (principal); I50.23 Acute on chronic systolic (congestive) heart failure; D62 Acute posthemorrhagic anemia; E87.1 Hypo-osmolality and hyponatremia; I24.8 Other forms of acute ischemic heart disease; M96.842 Postprocedural seroma of a musculoskeletal structure following a musculoskeletal system procedure; R18.8 Other ascites; M96.840 Postprocedural hematoma of a musculoskeletal structure following a musculoskeletal system procedure; N39.0 Urinary tract infection, site not specified; I48.92 Unspecified atrial flutter; B96.4 Proteus (mirabilis) (morganii) as the cause of diseases classified elsewhere; E03.9 Hypothyroidism, unspecified; I69.311 Memory deficit following cerebral infarction; E78.5 Hyperlipidemia, unspecified; F32.A Depression, unspecified; F41.9 Anxiety disorder, unspecified; I08.1 Rheumatic disorders of both mitral and tricuspid valves; I11.0 Hypertensive heart disease with heart failure; I25.10 Atherosclerotic heart disease of native coronary artery without angina pectoris; I42.8 Other cardiomyopathies; Z88.8 Allergy status to other drugs, medicaments and biological substances; I95.9 Hypotension, unspecified; Y83.4 Other reconstructive surgery as the cause of abnormal reaction of the patient, or of later complication, without mention of misadventure at the time of the procedure; M19.90 Unspecified osteoarthritis, unspecified site; Z87.01 Personal history of pneumonia (recurrent); K59.00 Constipation, unspecified; K62.89 Other specified diseases of anus and rectum; Z79.01 Long term (current) use of anticoagulants; Z79.890 Hormone replacement therapy; Z79.899 Other long term (current) drug therapy; Z80.3 Family history of malignant neoplasm of breast; Z82.49 Family history of ischemic heart disease and other diseases of the circulatory system; Y79.2 Prosthetic and other implants, materials and accessory orthopedic devices associated with adverse incidents; Z96.641 Presence of right artificial hip joint; Z88.6 Allergy status to analgesic agent; K57.30 Diverticulosis of large intestine without perforation or abscess without bleeding; Z86.16 Personal history of COVID-19
CPT/HCPCS: 36415; 71046; 74177; 80048; 80053; 81001; 82272; 82728; 83540; 83550; 83735; 84443; 84484; 85025; 85027; 85610; 85730; 87077; 87086; 87186; 92960; 93005; 93306; 93312; 93320; 93325; 96365; 96366; 96375; 99285

== ENCOUNTER → 2023-06-26 | Outpatient (CLI) | payer MEDICARE, OTHER ==
[2023-06-26 17:17] LABS: African American GFR (CKD) >90 (>60 ml/min/1.73 sqM); Anion Gap 14 mmol/L; Blood Urea Nitrogen 22 mg/dL (7-17); Calcium 9.6 mg/dL (8.4-10.2); Carbon Dioxide 21 mmol/L (22-30); Chloride 102 mmol/L (98-107); Glucose 114 mg/dL (74-99); Non-African American GFR(CKD) 80 (>60 ml/min/1.73 sqM); Potassium 4.5 mmol/L (3.5-5.1); Sodium 137 mmol/L (137-145)
[2023-06-26 17:25] LABS: HCT 46.3 % (34.0-46.0); HGB 14.7 gm/dL (11.4-16.0); MCH 28.7 pg (25.0-35.0); MCHC 31.7 g/dL (31.0-37.0); MCV 90.5 fL (80.0-100.0); Mean Platelet Volume 8.4; Platelet Count 346 k/uL (150-450); RBC 5.12 m/uL (3.80-5.40); RDW 14.5 % (11.5-15.5); WBC 6.7 k/uL (3.8-10.6)
[2023-06-26 17:30] LABS: Prothrombin Time 10.5 sec (10.0-12.5)
== END | disposition home or self-care (01) ==
LOC: LABWHC1 15:20
PROVIDERS: ATTEND Internal Medicine Cardiovascular Disease
DX: I48.0 Paroxysmal atrial fibrillation (principal)
CPT/HCPCS: 36415; 80048; 85027; 85610

== ENCOUNTER → 2023-07-04 | Outpatient (CLI) | payer MEDICARE, OTHER ==
[2023-07-04 19:01] LABS: Blood Urea Nitrogen 30.6 mg/dL (9.0-27.0); Calcium 9.7 mg/dL (8.7-10.3); Carbon Dioxide 22.3 mmol/L (21.6-31.8); Chloride 101 mmol/L (96-109); Glucose 113 mg/dL (70-110); Potassium 4.9 mmol/L (3.5-5.5); Sodium 136 mmol/L (135-145)
== END | disposition home or self-care (01) ==
LOC: LABWHC1 16:12
PROVIDERS: ATTEND Internal Medicine Interventional Cardiology
DX: I10 Essential (primary) hypertension (principal)
CPT/HCPCS: 36415; 80048

== ENCOUNTER 2023-07-13 06:06 | Day surgery (SDC) | payer MEDICARE, OTHER ==
[~2023-07-13 06:06] MED LIST changes: -ACETAMINOPHEN TAB 500 MG TAB PO ONE; -DEXAMETHASONE SOD PHOSPHATE 10 MG/ML 1 ML VIAL IV ONE; -MIDAZOLAM 2 MG/2 ML VIAL IV PRN; -ONDANSETRON 4 MG/2 ML VIAL IVP ONE; -Pre Op ABX Message 1 EACH MISC MISCELLANE ONE; +SODIUM CHLORIDE 0.9% 1,000 ML IV SCH; -TRANEXAMIC ACID 1,000 MG in SODIUM CHLORIDE 0.9% 50 ML IVPB ONE; -ceFAZolin IN SWFI 2 GM/20 ML SYRINGE IVP ONE
[2023-07-13] MEDS ORDERED: SODIUM CHLORIDE 0.9% 500 ML 500 ML IV ONE (06:35)
[2023-07-13 07:10] LABS: Glucose,Whole Blood 115 mg/dL (70-110)
[2023-07-13 07:25] VITALS: TEMP 97.8
[2023-07-13 07:48] VITALS: RESP 16
--- NOTE | 2023-07-13 08:06 | P.PN ---
Subjective Progress Note Date: 07/13/23 The patient presented to undergo cardioversion for atrial fibrillation and rapid ventricle response, she spontaneously back in sinus mechanism. We will continue on present therapy and follow-up as planned. Objective - Vital Signs Vital signs: Vital Signs Temp 97.8 F 07/13/23 06:30 Pulse 72 07/13/23 07:50 Resp 16 07/13/23 07:50 BP 95/60 07/13/23 07:50 Pulse Ox 96 07/13/23 07:50 FiO2 Intake & Output 07/12/23 07/13/23 07/13/23 18:59 06:59 18:59 Intake Total 50 50 Balance 50 50 Weight 100.698 kg 103.4 kg Intake: IV 50 50 - Labs Labs: Abnormal Lab Results - Last 24 Hours (Table) 07/13/23 Range/Units 06:58 POC Glucose (mg/dL) 115 H (70-110) mg/dL
[2023-07-13 08:14] VITALS: BP 95/60; PULSE 72
== END 2023-07-13 08:09 | disposition home or self-care (01) ==
LOC: OR 06:06
PROVIDERS: ATTEND Internal Medicine Interventional Cardiology
DX: Z53.8 Procedure and treatment not carried out for other reasons (principal); I48.0 Paroxysmal atrial fibrillation; E78.5 Hyperlipidemia, unspecified; E03.9 Hypothyroidism, unspecified; I10 Essential (primary) hypertension; Z86.73 Personal history of transient ischemic attack (TIA), and cerebral infarction without residual deficits; Z88.6 Allergy status to analgesic agent; Z88.8 Allergy status to other drugs, medicaments and biological substances; Z88.2 Allergy status to sulfonamides; Z79.890 Hormone replacement therapy; Z79.01 Long term (current) use of anticoagulants; Z79.899 Other long term (current) drug therapy

== ENCOUNTER → 2023-07-25 | Outpatient (CLI) | payer MEDICARE, OTHER | END | disposition home or self-care (01) | LOC: LABWHC1 14:12 | PROVIDERS: ATTEND Family Medicine | DX: M25.551 Pain in right hip (principal) | CPT/HCPCS: 36415; 86038; 86431 ==

== ENCOUNTER → 2023-09-07 | Outpatient (CLI) | payer MEDICARE, OTHER ==
--- NOTE | 2023-09-07 14:56 | MM ---
Reason for Exam: Screening (asymptomatic). Last mammogram was performed 1 year(s) and 5 month(s) ago. Patient History: Menarche at age 12. Patient has no children. Postmenopausal. Mother had breast cancer, age 79. Risk Values: Kristin 5 year model risk: 3.4%. NCI Lifetime model risk: 10.7%. Prior Study Comparison: 08/14/2019 Bilateral Screening Mammogram, [facility]. 12/10/2020 Bilateral Screening Mammogram, [facility]. 03/31/2022 Bilateral MG 3D screening mammo w/cad, [facility]. Tissue Density: The breast tissue is almost entirely fat. Findings: Analyzed By CAD. There is no suspicious group of microcalcifications or new suspicious mass. Benign-appearing calcifications bilaterally. Overall Assessment: Benign, BI-RAD 2 Management: Screening Mammogram of both breasts in [address] [facility] will attempt to contact patient to return for supplemental views and ultrasound if indicated. Patient should continue monthly self-breast exams. A clinical breast exam by your physician is recommended on an annual basis. This exam should not preclude additional follow-up of suspicious palpable abnormalities. Note on Kristin scores and lifetime risk: 1. A Kristin score greater than 3% is considered moderate risk. If this is the case, consider specialist referral to assess eligibility for a risk reducing agent. 2. If overall lifetime risk for the development of breast cancer is 20% or higher, the patient may qualify for future screening with alternating mammogram and breast MRI. Electronically signed and approved by: Solis Hussein DO
== END | disposition home or self-care (01) ==
LOC: RADMAMWWP 13:25
PROVIDERS: ATTEND Family Medicine
DX: Z12.31 Encounter for screening mammogram for malignant neoplasm of breast (principal); Z80.3 Family history of malignant neoplasm of breast; Z78.0 Asymptomatic menopausal state
CPT/HCPCS: 77063; 77067

== ENCOUNTER → 2023-09-07 | Outpatient (CLI) | payer MEDICARE, OTHER ==
--- NOTE | 2023-09-07 19:28 | BD ---
EXAMINATION TYPE: Axial Bone Density DATE OF EXAM: 09/07/2023 CLINICAL HISTORY: 68 years old Female. ICD-10 CODE: M85.80 OTH DISRD OF BONE DENSITY AND STRUCTURE, UN Height: Weight: FRAX RISK QUESTIONS: Family History (Parent hip fracture): yes secondary osteoporosis History of Fracture in Adulthood: yes 3. Menopause before 45: no at age 51 5. Chronic liver disease: liver failure in the past Rheumatoid Arthritis: yes, per patient RISK FACTORS HISTORY OF: height loss, and loss of mobility, using walker hx of tib fib fx at age 17 yrs old History of Wrist Fracture: yes, rt Surgery to rt hip replacement 2022 MEDICATIONS: Thyroid Medications: yes, synthroid, hx of thyroid ca, for many yrs bp meds, heart meds, hx of multiple strokes, hx of liver failure EXAM MEASUREMENTS: Bone mineral densitometry was performed using the [employer] System. Bone mineral density as measured about the Lumbar spine is: ----- L1-L4(G/cm2): 1.355 T Score Values are as follows: ----- L1: 1.5 ----- L2: 1.7 ----- L3: 2.2 ----- L4: 0.5 ----- L1-L4: 1.5 Z Score Values are as follows: ----- L1: 2.0 ----- L2: 2.2 ----- L3: 2.7 ----- L4: 1.0 ----- L1-L4: 1.9 Bone mineral density has: Increased 4.1% since study of: 08.14.2019 Bone mineral density about the L hip (g/cm2): 0.738 T Score values are as follows: -----L Neck: -2.1 -----L Total: -1.9 Z Score values are as follows: -----L Neck: -1.6 -----L Total: -1.1 Bone mineral density has: Decreased -6.5% since study of: 08.14.2019 FRAX%s: The graph provided illustrates a 31.3% chance for a major osteoporotic fx and a 5.2% chance f or the hips probability for fx in 10 years time. IMPRESSION: Osteopenia (T Score between -2.5 and -1). There is slightly increased risk of fracture and the patient may be considered for treatment. Re-Screen 2-5 years. NOTE: T-SCORE=SD OF THE YOUNG ADULT MEAN.
== END | disposition home or self-care (01) ==
LOC: RADBDWWP 13:23
PROVIDERS: ATTEND Family Medicine
DX: M85.89 Other specified disorders of bone density and structure, multiple sites (principal); Z78.0 Asymptomatic menopausal state
CPT/HCPCS: 77080

== ENCOUNTER → 2023-10-23 | Outpatient (CLI) | payer MEDICARE, OTHER ==
[2023-10-23 20:10] LABS: Basophils # (A) 0.06 X 10*3/uL (0.00-0.10); Basophils % (A) 0.8 %; Eosinophils # (A) 0.25 X 10*3/uL (0.04-0.35); Eosinophils % (A) 3.3 %; HCT 45.9 % (37.2-46.3); HGB 15.1 g/dL (12.0-15.0); Lymphocytes # (A) 1.32 X 10*3/uL (0.90-5.00); Lymphocytes % (A) 17.6 %; MCHC 32.9 g/dL (32.0-37.0); MCV 91.3 FL (80.0-97.0); Mean Platelet Volume 10.3 FL (9.5-12.2); Monocytes # (A) 0.61 X 10*3/uL (0.20-1.00); Monocytes % (A) 8.1 %; NRBC Per 100 WBC 0 X 10*3/uL (0.00-0.01); Neutrophils # (A) 5.25 X 10*3/uL (1.80-7.70); Neutrophils % (A) 69.9 %; Platelet Count 301 X 10*3/uL (140-440); RBC 5.03 X 10*6/uL (4.10-5.20); WBC 7.51 X 10*3/uL (4.50-10.00)
[2023-10-23 21:47] LABS: ALT 15 U/L (8-44); AST 22 U/L (13-35); Albumin 4.1 g/dL (3.8-4.9); Albumin/Globulin Ratio 1.14 Ratio (1.60-3.17); Alkaline Phosphatase 142 U/L (41-126); Blood Urea Nitrogen 42.7 mg/dL (9.0-27.0); Calcium 10.2 mg/dL (8.7-10.3); Carbon Dioxide 27.5 mmol/L (21.6-31.8); Chloride 96 mmol/L (96-109); Globulin 3.6 g/dL (1.6-3.3); Glucose 114 mg/dL (70-110); Potassium 3.8 mmol/L (3.5-5.5); Sodium 138 mmol/L (135-145); Total Bilirubin 0.8 mg/dL (0.3-1.2); Total Protein 7.7 g/dL (6.2-8.2)
== END | disposition home or self-care (01) ==
LOC: LABWHC1 15:54
PROVIDERS: ATTEND Internal Medicine Gastroenterology
DX: K76.9 Liver disease, unspecified (principal)
CPT/HCPCS: 36415; 80053; 85025

== ENCOUNTER → 2023-11-16 | Outpatient (CLI) | payer MEDICARE, OTHER ==
[2023-11-16 19:56] LABS: ALT 18 U/L (8-44); AST 24 U/L (13-35); Albumin 4.3 g/dL (3.8-4.9); Albumin/Globulin Ratio 1.26 Ratio (1.60-3.17); Alkaline Phosphatase 156 U/L (41-126); Blood Urea Nitrogen 46.2 mg/dL (9.0-27.0); Calcium 10.1 mg/dL (8.7-10.3); Carbon Dioxide 29.4 mmol/L (21.6-31.8); Chloride 95 mmol/L (96-109); Globulin 3.4 g/dL (1.6-3.3); Glucose 114 mg/dL (70-110); Potassium 5.2 mmol/L (3.5-5.5); Sodium 138 mmol/L (135-145); T4, Free (Free Thyroxine) 1.78 ng/dL (0.80-1.80); Total Bilirubin 0.5 mg/dL (0.3-1.2); Total Protein 7.7 g/dL (6.2-8.2)
== END | disposition home or self-care (01) ==
LOC: LABWHC1 14:23
PROVIDERS: ATTEND Internal Medicine
DX: E55.9 Vitamin D deficiency, unspecified (principal); E89.0 Postprocedural hypothyroidism
CPT/HCPCS: 36415; 80053; 82306; 84439; 84443

== ENCOUNTER → 2023-12-01 | Outpatient (CLI) | payer MEDICARE, OTHER ==
[2023-12-02 02:33] LABS: NT-Pro-B-Type Natriuretic Pept 487 pg/mL (0-125)
[2023-12-02 02:59] LABS: ALT 20 U/L (8-44); AST 23 U/L (13-35); Albumin 4.3 g/dL (3.8-4.9); Albumin/Globulin Ratio 1.23 Ratio (1.60-3.17); Alkaline Phosphatase 166 U/L (41-126); BUN/Creat Ratio 31.82 Ratio (12.00-20.00); Calcium 9.8 mg/dL (8.7-10.3); Carbon Dioxide 29.5 mmol/L (21.6-31.8); Chloride 99 mmol/L (96-109); Globulin 3.5 g/dL (1.6-3.3); Glucose 103 mg/dL (70-110); Potassium 4.5 mmol/L (3.5-5.5); Sodium 141 mmol/L (135-145); Total Bilirubin 0.6 mg/dL (0.3-1.2); Total Protein 7.8 g/dL (6.2-8.2)
== END | disposition home or self-care (01) ==
LOC: LABWHC1 16:17
PROVIDERS: ATTEND Internal Medicine
DX: I48.0 Paroxysmal atrial fibrillation (principal); I48.4 Atypical atrial flutter; I42.8 Other cardiomyopathies; I42.0 Dilated cardiomyopathy; I25.10 Atherosclerotic heart disease of native coronary artery without angina pectoris
CPT/HCPCS: 36415; 80053; 83880

== ENCOUNTER → 2024-01-29 | Outpatient (CLI) | payer MEDICARE, OTHER ==
[2024-01-29 19:12] LABS: BUN/Creat Ratio 29.91 Ratio (12.00-20.00); Blood Urea Nitrogen 32.9 mg/dL (9.0-27.0); Calcium 9.3 mg/dL (8.7-10.3); Carbon Dioxide 26.4 mmol/L (21.6-31.8); Chloride 98 mmol/L (96-109); Glucose 107 mg/dL (70-110); Potassium 4.5 mmol/L (3.5-5.5); Sodium 137 mmol/L (135-145)
[2024-01-29 19:28] LABS: NT-Pro-B-Type Natriuretic Pept 1258 pg/mL (0-125)
== END | disposition home or self-care (01) ==
LOC: LABWHC1 13:21
PROVIDERS: ATTEND Internal Medicine
DX: I50.22 Chronic systolic (congestive) heart failure (principal)
CPT/HCPCS: 36415; 80048; 83880

== ENCOUNTER → 2024-02-02 | Outpatient (CLI) | payer MEDICARE, OTHER ==
[2024-02-02 19:29] LABS: ALT 14 U/L (8-44); AST 22 U/L (13-35); Albumin 4.2 g/dL (3.8-4.9); Albumin/Globulin Ratio 1.24 Ratio (1.60-3.17); Alkaline Phosphatase 155 U/L (41-126); BUN/Creat Ratio 27.33 Ratio (12.00-20.00); Blood Urea Nitrogen 32.8 mg/dL (9.0-27.0); Calcium 9.8 mg/dL (8.7-10.3); Carbon Dioxide 25.7 mmol/L (21.6-31.8); Chloride 99 mmol/L (96-109); Chol/HDL Ratio 3.08 Ratio; Globulin 3.4 g/dL (1.6-3.3); Glucose 114 mg/dL (70-110); LDL Cholesterol,Calculated 125.4 mg/dL (0.0-131.0); Potassium 4.7 mmol/L (3.5-5.5); Sodium 140 mmol/L (135-145); Total Bilirubin 0.5 mg/dL (0.3-1.2); Total Protein 7.6 g/dL (6.2-8.2); VLDL Calculation 18.46 mg/dL (5.00-40.00)
[2024-02-02 19:35] LABS: NT-Pro-B-Type Natriuretic Pept 506 pg/mL (0-125)
== END | disposition home or self-care (01) ==
LOC: LABWHC1 14:08
PROVIDERS: ATTEND Internal Medicine Interventional Cardiology
DX: I42.8 Other cardiomyopathies (principal); E78.2 Mixed hyperlipidemia
CPT/HCPCS: 36415; 80053; 80061; 83880

== ENCOUNTER → 2024-03-07 | Outpatient (CLI) | payer MEDICARE, OTHER ==
[2024-03-08 01:16] LABS: MCHC 31.7 g/dL (32.0-37.0); MCV 94.7 FL (80.0-97.0); Mean Platelet Volume 9.7 FL (9.5-12.2); NRBC Per 100 WBC 0 X 10*3/uL (0.00-0.01); Platelet Count 407 X 10*3/uL (140-440); RBC 4.33 X 10*6/uL (4.10-5.20); RDW 12.9 % (11.5-14.5); WBC 8.93 X 10*3/uL (4.50-10.00)
[2024-03-08 02:37] LABS: Blood Urea Nitrogen 31.9 mg/dL (9.0-27.0); Calcium 9.7 mg/dL (8.7-10.3); Carbon Dioxide 25.3 mmol/L (21.6-31.8); Chloride 96 mmol/L (96-109); Glucose 118 mg/dL (70-110); Potassium 4.9 mmol/L (3.5-5.5); Sodium 136 mmol/L (135-145)
[2024-03-08 02:38] LABS: NT-Pro-B-Type Natriuretic Pept 1018 pg/mL (0-125)
== END | disposition home or self-care (01) ==
LOC: LABWHC1 14:34
PROVIDERS: ATTEND Internal Medicine
DX: I50.20 Unspecified systolic (congestive) heart failure (principal)
CPT/HCPCS: 36415; 80048; 83880; 85027

== ENCOUNTER → 2024-03-15 | Outpatient (CLI) | payer MEDICARE, OTHER ==
[2024-03-15 16:43] LABS: HCT 42.4 % (37.2-46.3); HGB 13.5 g/dL (12.0-15.0); MCH 29.8 pg (27.0-32.0); MCHC 31.8 g/dL (32.0-37.0); MCV 93.6 FL (80.0-97.0); Mean Platelet Volume 9.5 FL (9.5-12.2); NRBC Per 100 WBC 0 X 10*3/uL (0.00-0.01); Platelet Count 345 X 10*3/uL (140-440); RBC 4.53 X 10*6/uL (4.10-5.20); RDW 13.2 % (11.5-14.5); WBC 8.54 X 10*3/uL (4.50-10.00)
== END | disposition home or self-care (01) ==
LOC: LABWHC1 11:25
PROVIDERS: ATTEND Internal Medicine
DX: I50.20 Unspecified systolic (congestive) heart failure (principal)
CPT/HCPCS: 36415; 85027

== ENCOUNTER → 2024-04-01 | Outpatient (CLI) | payer MEDICARE, OTHER ==
--- NOTE | 2024-04-01 11:29 | CT ---
EXAMINATION TYPE: CT chest wo con DATE OF EXAM: 04/01/2024 COMPARISON: None HISTORY: F/U LUNG NODULE CT DLP: [address] of the chest was performed with lung and mediastinal window settings submitted. The la ck of contrast limits evaluation of the vascular, mediastinal and parenchymal structures including th e upper abdomen. LUNGS: There are scattered groundglass infiltrates throughout both lung cloud. 4 mm pulmonary nodule right upper lobe image 29. Left basilar parenchymal scarring. No additional nodules seen. No pulmona ry mass noted. No evidence for infiltrate or pleural effusion. MEDIASTINUM/LISA: Thoracic aorta is of normal caliber with limited evaluation given lack of contrast . The heart is not enlarged. No evidence for mediastinal mass. No lymph nodes greater than 1cm. UPPER ABDOMEN: No significant abnormality is seen. OTHER: No significant other abnormality. IMPRESSION: 1. Nonspecific scattered groundglass opacities could reflect inflammatory process nonspecific. 2. 4 mm right upper lobe pulmonary nodule. [facility], , 04/01/2024 11:27 AM
== END | disposition home or self-care (01) ==
LOC: RADCTMAIN 09:36
PROVIDERS: ATTEND Internal Medicine
DX: R91.8 Other nonspecific abnormal finding of lung field (principal)
CPT/HCPCS: 71250

== ENCOUNTER → 2024-04-19 | Outpatient (CLI) | payer MEDICARE, OTHER ==
--- NOTE | 2024-05-01 22:49 | P.PCN ---
Date of Procedure: 04/21/24 Operative Findings: Home sleep study report Pertinent history 68-year-old female patient with remote history of obstructive sleep thousand and 14 and she was treated with CPAP therapy. However when she stopped using the CPAP back in 2014. She came in for evaluation. The patient has severe cardiomyopathy, LV dysfunction, valvular heart disease, atrial fibrillation requiring ablation, hyperlipidemia, CVA, moderate mitral regurgitation, hypothyroidism, degenerative arthritis. Pertinent physical findings Body mass index is 40.2 Technical description [employer] Ap[employer] system was used to complete his home sleep study. His diagnostic study evaluation. The total recording duration was 12 hours. The study started at 1:27 AM and the study ended at 1:27 PM. There was a total of 8 hours and 29 minutes of flow monitoring at 11 hours and 49 minutes of oxygen saturation monitoring. As such, this was an adequate study. Results Respiratory analysis showed a total of 81 obstructive apneas and a total of 210 obstructive hypopneas resulting AHI was 44.2 consistent with severe JUAN ALBERTO. No central events were noted Oxygenation analysis The baseline pulse ox while awake was 95%. Average pulse ox during sleep was 91% and the lowest pulse ox was 74%. The patient spent approximately 1 hour and 22 minutes of sleep time below pulse ox of 89% Cardiac summary The average heart rate was 61 with a minimum heart rate of 51 and a maximum heart rate of 88. Assessment Severe symptomatic JUAN ALBERTO with an AHI of 44.2. Nocturnal oxygen desaturation with a minimum pulse ox of 74% related to obstructive sleep apnea Comorbidities as mentioned above Plan Proceed with CPAP titration. Weight loss Maintain regular sleep hygiene measures and sleep schedule Optimize cardiac status Will follow
== END | disposition home or self-care (01) ==
LOC: 3 N SLEEP 13:07
PROVIDERS: ATTEND Internal Medicine Critical Care Medicine

== ENCOUNTER 2024-05-27 19:50 | Outpatient (CLI) | payer MEDICARE, OTHER ==
--- NOTE | 2024-05-28 22:28 | P.PCN ---
Date of Procedure: 05/27/24 Operative Findings: CPAP titration report Date of service is 05/27/2024 Pertinent history 68-year-old female patient with remote history of obstructive sleep diagnosed back in 2013 and she was treated with CPAP therapy. The patient has severe cardiomyopathy, LV dysfunction, valvular heart disease, atrial fibrillation requiring ablation, hyperlipidemia, CVA, moderate mitral regurgitation, hypothyroidism, degenerative arthritis. Patient was off therapy and the patient become more symptomatic. A home sleep study was obtained on this patient on 04/21/2024 and the patient was found to have severe obstructive sleep apnea with an AHI of 44.2 and based on that CPAP therapy was recommended and the patient is coming in to undergo a CPAP titration study. Pertinent physical findings Body mass index is 40.2, weight is 223 pounds Technical description The patient was studied using a standard complex polysomnography protocol that included recording of the Lead II EKG, Central, occipital and frontal EEG, right and left outer canthus EOG, submental EMG, right and left anterior tibialis EMG, respiratory airflow by thermocouple and or pressure/flow transducer, respiratory efforts by abdominal and thoracic PVDF belts, oxygen saturation by cable oximetry. Position by observation synchronized the PSG. Equipment used: [employer]. Stepwise CPAP titration was done to limit all obstructive respiratory events Sleep characteristics Total recording duration was 357 minutes of the total sleep time was 177.5 minutes. The overall sleep efficiency was 49.7%. The wake after sleep onset time was 128.5 minutes. The latency to sleep onset was 57 minutes. Sleep architecture was characterized by 10.4% stage I, 90.7% stage II, 0% stage III and 0% REM sleep. The total arousal index was 12.2 Respiratory analysis The patient was started on CPAP therapy initially at a pressure of 5 cm of water and the pressure was gradually increased maintenance of 1 cm to reach a maximum CPAP pressure of 15 cm of water. Throughout the titration, the patient continued to have obstructive hypopneas and the obstructive respiratory events improved considerably at a CPAP pressure of 13 cm of water and above. Noted the titration was essentially done during non-REM sleep. The patient was studied in his side was body position. No supine recording was obtained. Despite this limitation, the titration especially at CPAP pressures of 13 cm of water and above was successful and effective and ended up making obstructive respiratory events. Noted overall sleep efficiency was poor and the patient had a prolonged sleep latency and the patient was awake also by the end of the sleep study. Sleep continuity summary A total of 36 arousals were counted with an index of 1.1. Respiratory arousal index was 1 Periodic limb movements Total of 73 periodic limb movement activity with an index of 24.7. A total of 4 periodic limb movement activity with arousals with an index of 1.4 Cardiac summary Average heart rate was 63 with a minimum heart rate of 60 and a maximum heart rate of 67. Assessment Severe symptomatic JUAN ALBERTO with an AHI of 44.2.The titration itself was somewhat suboptimal as the recording was essentially done during non-REM sleep and while the patient sleeping in the side was body position. The overall sleep efficiency was also poor as the patient had a delayed sleep latency. Nocturnal oxygen desaturation with a minimum pulse ox of 74% related to obstructive sleep apnea Nonischemic cardiomyopathy Paroxysmal atrial fibrillation and the current rhythm was sinus Hypothyroidism Hyperlipidemia History of CVA Valvular heart disease with moderate MR Plan Will initiate CPAP therapy and the patient will be offered an APAP machine pressures of 7/15 cm of water Will offer the patient a medium size AirFit F20 fullface mask Weight loss Maintain regular sleep hygiene measures and sleep schedule Optimize cardiac status Will follow-up with me in the office in 30 to 90 days to assess clinical response and compliancy.
== END 2024-05-28 06:45 | disposition home or self-care (01) ==
LOC: 3 N SLEEP 19:50
PROVIDERS: ATTEND Internal Medicine Critical Care Medicine
DX: G47.33 Obstructive sleep apnea (adult) (pediatric) (principal); G47.36 Sleep related hypoventilation in conditions classified elsewhere; E78.5 Hyperlipidemia, unspecified; E03.9 Hypothyroidism, unspecified; I42.8 Other cardiomyopathies; I48.0 Paroxysmal atrial fibrillation; M19.90 Unspecified osteoarthritis, unspecified site; I34.0 Nonrheumatic mitral (valve) insufficiency; Z86.73 Personal history of transient ischemic attack (TIA), and cerebral infarction without residual deficits; Z88.8 Allergy status to other drugs, medicaments and biological substances; Z88.6 Allergy status to analgesic agent; Z88.2 Allergy status to sulfonamides; Z79.01 Long term (current) use of anticoagulants; Z79.890 Hormone replacement therapy
CPT/HCPCS: 95811

== ENCOUNTER → 2024-05-28 | Outpatient (CLI) | payer MEDICARE, OTHER | END | disposition home or self-care (01) | LOC: LABWHC1 07:07 | PROVIDERS: ATTEND Internal Medicine Interventional Cardiology | DX: Z53.9 Procedure and treatment not carried out, unspecified reason (principal) ==

== ENCOUNTER 2024-08-02 13:53 | Inpatient (IN) | payer MEDICARE, OTHER ==
--- NOTE | 2024-08-02 14:07 | ED ---
General Adult HPI - General Stated complaint: PE rule out Time Seen by Provider: 08/02/24 13:57 Source: patient, EMS, RN notes reviewed, old records reviewed Limitations: no limitations - History of Present Illness Initial comments: 69-year-old female sent from [facility] for evaluation of chest pain and concern for pulmonary embolism. Patient follows with cardiology at this hospital. She has history of atrial fibrillation and is on Eliquis. She was sent by [facility] for concern for pulmonary embolism. She reports central chest discomfort as well as weight gain and increased bilateral lower extremity edema. She denies fever. She reports moderate dyspnea and did require supplemental oxygen during transport. - Related Data Home Medications Medication Instructions Recorded Confirmed Apixaban [Eliquis] 5 mg PO DIRECTED 03/02/23 08/02/24 Levothyroxine Sodium [Synthroid] 125 mcg PO DAILY 03/02/23 08/02/24 fluvoxaMINE MALEATE [Luvox] 200 mg PO HS 03/02/23 08/02/24 Metoprolol Succinate (ER) [Toprol 50 mg PO BID 07/12/23 08/02/24 Xl] Omeprazole 20 mg PO DAILY 07/12/23 08/02/24 Amoxicillin 1 dose PO DIRECTED 08/02/24 08/02/24 Chlorhexidine Gluconate [Peridex] 15 ml PO DIRECTED 08/02/24 08/02/24 Dapagliflozin Propanediol [Farxiga] 10 mg PO DIRECTED 08/02/24 08/02/24 Eplerenone 12.5 mg PO DAILY 08/02/24 08/02/24 Torsemide [Demadex] 40 mg PO DAILY 08/02/24 08/02/24 amLODIPine [Norvasc] 2.5 mg PO DAILY 08/02/24 08/02/24 Allergies Allergy/AdvReac Type Severity Reaction Status Date / Time amiodarone Allergy kidneys & Verified 08/02/24 17:19 liver shut down aspirin Allergy Swelling Verified 08/02/24 17:19 atorvastatin Allergy affected Verified 08/02/24 17:19 liver enzymes methimazole [From Tapazole] Allergy Unknown Verified 08/02/24 17:19 Sulfa (Sulfonamide Allergy Swelling Verified 08/02/24 17:19 Antibiotics) Review of Systems ROS Statement: Those systems with pertinent positive or pertinent negative responses have been documented in the HPI. ROS Other: All systems not noted in ROS Statement are negative. 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 for thyroid, had kidney & liver issues related to a medication but no current problems, doesn't use CPAP. COVID 04/30, recent adm to [facility] for elevated heart rate, & seroma & hematoma near recent right hip replacement in February, currently wearing heart monitor, takes Farxiga for heart not a diabetic per pt. History of Any Multi-Drug Resistant Organisms: None Reported Past Surgical History: Cardiac Ablation, Joint Replacement, Orthopedic Surgery Additional Past Surgical History / Comment(s): wrist surg., colonoscopy 2015(next due 10yrs)., rt total hip 03/01 @[facility], recent cardioversion 2022, cardiac ablation @[facility] 2022 Past Anesthesia/Blood Transfusion Reactions: No Reported Reaction Additional Past Anesthesia/Blood Transfusion Reaction / Comment(s): "DOESN'T WANT TO BE AWAKE," PER PATIENT. Smoking Status: Never smoker - Past Family History Mother Family Medical History: Cancer Father Family Medical History: AFIB, Hypertension Sister(s) Family Medical History: Thyroid Disorder Additional Family Medical History / Comment(s): Multiple sisters with thyroid conditions. General Exam General appearance: alert, in no apparent distress Head exam: Present: atraumatic, normocephalic Eye exam: Present: normal appearance, PERRL ENT exam: Present: normal exam Neck exam: Present: normal inspection. Absent: tenderness, meningismus Respiratory exam: Present: rales, decreased breath sounds. Absent: respiratory distress Cardiovascular Exam: Present: regular rate, irregular rhythm GI/Abdominal exam: Present: soft. Absent: distended, tenderness, guarding Extremities exam: Present: normal capillary refill, pedal edema Neurological exam: Present: alert, oriented X3 Psychiatric exam: Present: normal affect, normal mood Skin exam: Present: warm, dry, intact Course Vital Signs 08/02/24 08/02/24 14:00 15:00 Temperature 98.2 F Pulse Rate 75 72 Respiratory 22 22 Rate Blood Pressure 88/37 102/65 O2 Sat by Pulse 94 L 96 Oximetry Medical Decision Making - Medical Decision Making Was pt. sent in by a medical professional or institution ([facility], [employer], urgent care, hospital, or penitentiary...) When possible be specific @Transferred from [facility] Did you speak to anyone other than the patient for history (EMS, parent, family, police, friend...)? What history was obtained from this source @ -No Did you review nursing and triage notes (agree or disagree)? Why? @ -I reviewed and agree with nursing and triage notes Were old charts reviewed (outside hosp., previous admission, EMS record, old EKG, old radiological studies, urgent care reports/EKG's, penitentiary records)? Report findings @ -No old charts were reviewed Differential Dyspnea: Coronary syndrome, arrhythmia, tamponade, asthma, COPD, pulmonary embolism, pneumonia, pneumothorax, pulmonary effusion, anaphylaxis, diabetic ketoacidosis, flailed chest, pulmonary contusion, diaphragmatic rupture, anemia, neuromuscular, this is not meant to be an all-inclusive list. EKG interpreted by me (3pts min.). @ -Sinus rhythm rate of 74, RI interval 137, QRS duration 86, QTc [address] segment elevation. @ -X-ray showing pulmonary edema @ -X-rays interpreted by me (1pt min.). CT interpreted by me: CT angiography negative for pulmonary embolism. U/S interpreted by me (1pt. min.). @ -None done What testing was considered but not performed or refused? (CT, X-rays, U/S, labs)? Why? @ -None What meds were considered but not given or refused? Why? @ -None Did you discuss the management of the patient with other professionals (professionals i.e. [facility], [employer], lab, RT, psych nurse, social insurance adviser, carbon furnace operator helper, teacher, global safety officer, egg caser)? Give summary @Case discussed with Dr. Fried] Was smoking cessation discussed for >3mins.? @ -No Was critical care preformed (if so, how long)? @ -No Were there social determinants of health that impacted care today? How? (Homelessness, low income, unemployed, alcoholism, drug addiction, transportation, low edu. Level, literacy, decrease access to med. care, [facility], rehab)? @ -No Was there de-escalation of care discussed even if they declined (Discuss DNR or withdrawal of care, Hospice)? DNR status @ -No What co-morbidities impacted this encounter? (DM, HTN, Smoking, COPD, CAD, Cancer, CVA, ARF, Chemo, Hep., AIDS, mental health diagnosis, sleep apnea, morbid obesity)? @ -CHF Was patient admitted / discharged? Hospital course, mention meds given and route, prescriptions, significant lab abnormalities, going to OR and other pertinent info. @ -[Transfer from [facility] with chest pain, hypoxia, concern for pulmonary embolism. Patient is on Eliquis but does have pleuritic type chest pain. CT angiography was negative. She has fluid overload with elevated BNP. She will be admitted for IV diuresis, cardiology consultation, and serial cardiac enzymes. Undiagnosed new problem with uncertain prognosis? @ -No Drug Therapy requiring intensive monitoring for toxicity (Heparin, Nitro, Insulin, Cardizem)? @ -No Were any procedures done? @ -No Diagnosis/symptom? @ -Chest pain, CHF exacerbation Acute, or Chronic, or Acute on Chronic? @Acute Uncomplicated (without systemic symptoms) or Complicated (systemic symptoms)? @ -Complicated Side effects of treatment? @ -No Exacerbation, Progression, or Severe Exacerbation? @ -No Poses a threat to life or bodily function? How? (Chest pain, USA, MD, pneumonia, PE, COPD, DKA, ARF, appy, cholecystitis, CVA, Diverticulitis, Homicidal, Suicidal, threat to staff... and all critical care pts) @ -Yes, chest pain, CHF - Lab Data Result diagrams: 08/02/24 14:00 08/02/24 14:00 Lab Results 08/02/24 08/02/24 08/02/24 Range/Units 14:00 14:00 14:00 WBC 15.0 H (3.8-10.6) k/uL RBC 4.44 (3.80-5.40) m/uL Hgb 12.6 (11.4-16.0) gm/dL Hct 38.5 (34.0-46.0) % MCV 86.7 (80.0-100.0) fL MCH 28.5 (25.0-35.0) pg MCHC 32.8 (31.0-37.0) g/dL RDW 14.1 (11.5-15.5) % Plt Count 279 (150-450) k/uL MPV 6.9 Neutrophils % 84 % Lymphocytes % 6 % Monocytes % 8 % Eosinophils % 1 % Basophils % 0 % Neutrophils # 12.6 H (1.3-7.7) k/uL Lymphocytes # 0.9 L (1.0-4.8) k/uL Monocytes # 1.2 H (0-1.0) k/uL Eosinophils # 0.1 (0-0.7) k/uL Basophils # 0.0 (0-0.2) k/uL PT 12.9 H (10.0-12.5) sec INR 1.2 H (<1.2) APTT 29.7 (22.0-30.0) sec Sodium 132 L (137-145) mmol/L Potassium 4.2 (3.5-5.1) mmol/L Chloride 94 L (98-107) mmol/L Carbon Dioxide 29 (22-30) mmol/L Anion Gap 9 mmol/L BUN 32 H (7-17) mg/dL Creatinine 0.91 (0.52-1.04) mg/dL Est GFR (CKD-EPI)AfAm 74 (>60 ml/min/1.73 sqM) Est GFR (CKD-EPI)NonAf 65 (>60 ml/min/1.73 sqM) Glucose 125 H (74-99) mg/dL Calcium 9.4 (8.4-10.2) mg/dL Magnesium 2.1 (1.6-2.3) mg/dL Total Bilirubin 1.4 H (0.2-1.3) mg/dL AST 22 (14-36) U/L ALT 10 (4-34) U/L Alkaline Phosphatase 123 (38-126) U/L Troponin I (0.000-0.034) ng/mL NT-Pro-B Natriuret Pep 4020 pg/mL Total Protein 7.1 (6.3-8.2) g/dL Albumin 3.6 (3.5-5.0) g/dL Influenza Type A (PCR) (Not Detectd) Influenza Type B (PCR) (Not Detectd) RSV (PCR) (Not Detectd) SARS-CoV-2 (PCR) (Not Detectd) 08/02/24 08/02/24 Range/Units 14:00 15:32 WBC (3.8-10.6) k/uL RBC (3.80-5.40) m/uL Hgb (11.4-16.0) gm/dL Hct (34.0-46.0) % MCV (80.0-100.0) fL MCH (25.0-35.0) pg MCHC (31.0-37.0) g/dL RDW (11.5-15.5) % Plt Count (150-450) k/uL MPV Neutrophils % % Lymphocytes % % Monocytes % % Eosinophils % % Basophils % % Neutrophils # (1.3-7.7) k/uL Lymphocytes # (1.0-4.8) k/uL Monocytes # (0-1.0) k/uL Eosinophils # (0-0.7) k/uL Basophils # (0-0.2) k/uL PT (10.0-12.5) sec INR (<1.2) APTT (22.0-30.0) sec Sodium (137-145) mmol/L Potassium (3.5-5.1) mmol/L Chloride (98-107) mmol/L Carbon Dioxide (22-30) mmol/L Anion Gap mmol/L BUN (7-17) mg/dL Creatinine (0.52-1.04) mg/dL Est GFR (CKD-EPI)AfAm (>60 ml/min/1.73 sqM) Est GFR (CKD-EPI)NonAf (>60 ml/min/1.73 sqM) Glucose (74-99) mg/dL Calcium (8.4-10.2) mg/dL Magnesium (1.6-2.3) mg/dL Total Bilirubin (0.2-1.3) mg/dL AST (14-36) U/L ALT (4-34) U/L Alkaline Phosphatase (38-126) U/L Troponin I <0.012 (0.000-0.034) ng/mL NT-Pro-B Natriuret Pep pg/mL Total Protein (6.3-8.2) g/dL Albumin (3.5-5.0) g/dL Influenza Type A (PCR) Not Detected (Not Detectd) Influenza Type B (PCR) Not Detected (Not Detectd) RSV (PCR) Not Detected (Not Detectd) SARS-CoV-2 (PCR) Not Detected (Not Detectd) Disposition Clinical Impression: Acute pulmonary edema, Chest pain, CHF (congestive heart failure) Disposition: ADMITTED IP TO THIS HOSP Condition: Stable Is patient prescribed a controlled substance at d/c from ED?: No Referrals: Brittany Adam MD [Primary Care Provider] - 1-2 days Time of Disposition: 19:05
--- NOTE | 2024-08-02 14:28 | XR ---
EXAMINATION TYPE: XR chest 2V DATE OF EXAM: 08/02/2024 2:22 PM COMPARISON: CT chest 04/01/2024, chest radiograph 03/02/2023 TECHNIQUE: XR chest 2V Frontal and lateral views of the chest. CLINICAL INDICATION:Female, 69 years old with history of Chest Pain; FINDINGS: Lungs/Pleura: Patchy groundglass opacities throughout the right lung. No pleural effusion or pneumoth orax. Pulmonary vascularity: Unremarkable. Heart/mediastinum: Cardiomediastinal silhouette is enlarged and stable. Musculoskeletal: No acute osseous pathology. High riding bilateral humeral heads suggestive of chroni c rotator cuff tears. IMPRESSION: Patchy groundglass opacities throughout the right lung concerning for atypical pneumonia versus other etiologies. [facility], , 08/02/2024 2:26 PM
[2024-08-02 15:15] LABS: Basophils % (A) 0 %; Eosinophils # (A) 0.1 k/uL (0-0.7); Eosinophils % (A) 1 %; HCT 38.5 % (34.0-46.0); HGB 12.6 gm/dL (11.4-16.0); Lymphocytes # (A) 0.9 k/uL (1.0-4.8); Lymphocytes % (A) 6 %; MCH 28.5 pg (25.0-35.0); MCHC 32.8 g/dL (31.0-37.0); MCV 86.7 fL (80.0-100.0); Mean Platelet Volume 6.9; Monocytes # (A) 1.2 k/uL (0-1.0); Monocytes % (A) 8 %; Neutrophils # (A) 12.6 k/uL (1.3-7.7); Neutrophils % (A) 84 %; Platelet Count 279 k/uL (150-450); RBC 4.44 m/uL (3.80-5.40); RDW 14.1 % (11.5-15.5)
[2024-08-02 15:24] LABS: INR 1.2 (<1.2); Partial Thromboplastin Time 29.7 sec (22.0-30.0); Prothrombin Time 12.9 sec (10.0-12.5)
[2024-08-02 15:38] LABS: ALT 10 U/L (4-34); AST 22 U/L (14-36); African American GFR (CKD) 74 (>60 ml/min/1.73 sqM); Albumin 3.6 g/dL (3.5-5.0); Alkaline Phosphatase 123 U/L (38-126); Anion Gap 9 mmol/L; Blood Urea Nitrogen 32 mg/dL (7-17); Calcium 9.4 mg/dL (8.4-10.2); Carbon Dioxide 29 mmol/L (22-30); Chloride 94 mmol/L (98-107); Glucose 125 mg/dL (74-99); Magnesium 2.1 mg/dL (1.6-2.3); Non-African American GFR(CKD) 65 (>60 ml/min/1.73 sqM); Potassium 4.2 mmol/L (3.5-5.1); Sodium 132 mmol/L (137-145); Total Bilirubin 1.4 mg/dL (0.2-1.3); Total Protein 7.1 g/dL (6.3-8.2)
[2024-08-02 15:45] LABS: NT-Pro-B-Type Natriuretic Pept 4020 pg/mL
[2024-08-02 17:06] LABS: Influenza A Not Detected (Not Detectd); Influenza B Not Detected (Not Detectd); RSV Not Detected (Not Detectd)
[2024-08-02] MEDS: ACETAMINOPHEN TAB 325 MG TAB PO STA (17:25)
--- NOTE | 2024-08-02 17:59 | CT ---
EXAMINATION TYPE: CT angio chest DATE OF EXAM: 08/02/2024 5:02 PM COMPARISON: None. CLINICAL INDICATION: Female, 69 years old with history of cp/[place], [place] TECHNIQUE: CT of the chest is performed on a spiral scan at 2 mm thick sections. Study is performed with intravenous contrast timed for evaluation for pulmonary embolism. This will limit additional po rtions of the evaluation. 3-D MIP images reconstructed by the technologist are reviewed on the compu ter in the coronal and sagittal planes. Contrast used:70 mL of Isovue 370 with IV Contrast, (none if empty) Oral contrast used: (none if empty) CT DLP: 739.4 mGycm, Automated exposure control for dose reduction was used. FINDINGS: No persistent filling defects are evident to suggest an acute pulmonary embolism. There is a right-sided arch. There is some left suprahilar and superior mediastinal adenopathy which is prominent measuring greate r than 1 cm, largest measures 1.8 cm. The ascending aorta diameter at the level of the main pulmonary artery is 3.5 cm. The main pulmonary artery diameter at the bifurcation is 3.2 cm. There is a small pericardial effusion. Groundglass opacities and some milder patchy infiltrates are present throughout the bilateral lung fi elds. Correlate for volume overload. Some compressive atelectasis may be within the dependent lung ba ses bilaterally. Patient's previous 4 mm right upper lobe nodule not identified on the current exam Limited CT sections were through the upper abdomen. Upper abdomen appears unremarkable. IMPRESSION: 1. No acute pulmonary embolism. 2. Small pericardial effusion [facility], Workstation: [facility], 08/02/2024 5:57 PM
[2024-08-02] MEDS: FUROSEMIDE 10 MG/ML 2 ML VIAL IV STA (18:51)
[2024-08-02] MEDS ORDERED: NALOXONE 0.4 MG/ML 1 ML VIAL IV PRN (19:01)
[2024-08-02] MEDS ORDERED: ACETAMINOPHEN TAB 325 MG TAB PO PRN (19:01)
[2024-08-02] MEDS: FUROSEMIDE 10 MG/ML 2 ML VIAL IV SCH (22:14)
--- NOTE | 2024-08-02 22:52 | P.HPIM ---
History of Present Illness H&P Date: 08/02/24 Patient is a 69-year-old female with a history of congestive heart failure, A- fib status post cardioversion and 2 ablations (currently in normal sinus rhythm) on Eliquis, hypertension, hypothyroidism presented to the ER with concerns for chest pain and shortness of breath. Patient fell sharp, constant, midsternal, 8/10, chest pain radiating to her both shoulders which she started last night but worsened this morning. She has also been feeling mildly short of breath associated with worsening swelling of her legs since last couple of days. She keeps track of her daily weights and have noticed that she gained about 7 to 8 pounds since yesterday. Patient had flulike symptoms couple weeks ago from which she has recovered. Currently not complaining of any cough, fever, chills, nausea, vomiting, diarrhea, constipation, numbness or tingling in upper or lower extremities. Patient is not dependent on home oxygen. Patient denies any recent travel or hospitalization. Patient is well-established with cardiology Dr. Herman. Her last echocardiogram was done in February 2023 that showed reduced ejection fraction of 35 to 40%. Laboratory data: Initial labs in the ER shows WBC 15.0, hemoglobin 12.6, platelet count 279, PT 12.9, INR 1.2, sodium 132, potassium 4.2, chloride 94, bicarb 29, BUN 32, creatinine 0.91, EGFR 65, glucose 125, calcium 9.4, total bili 1.4, AST 22, ALT 10, ALP 123, Troponin I less than 0.012 NT proBNP 4020 Serology for influenza type A and B, RSV, COVID-19 is negative Images: Chest x-ray done in the ER interpreted independently shows patchy groundglass opacities throughout the right lung with small bilateral pleural effusions Chest CTA shows no acute pulm embolism. Groundglass opacities and some mild patchy infiltrates present throughout the bilateral lung cloud. EKG done in the ER interpreted independently shows normal sinus rhythm with ventricular rate of 74 bpm. CO interval 137 ms. QRS duration 86 ms. QTc 400 ms. Normal R wave progression Vitals: Initial vitals with Tmax of 98.2 F, heart rate 75, respiratory 22, blood pressure 88/37, oxygen saturation 94% on 2 L via nasal cannula Review of systms: Pertinent positives and negatives as discussed in HPI, a complete review of systems was performed and all other systems are negative. Social history: Tobacco: None Alcohol: None Recreational drugs: None Travel: No recent travel Family History: A-fib and hypertension in father Physical examination: Vital signs reviewed General: non toxic, no distress, appears older than stated age obese Derm: no unusual rashes/lesions, warm Head: atraumatic, normocephalic, symmetric Eyes: EOMI, anicteric sclera, pupils equal round reactive to light ENT: Nose and ears atraumatic Neck: No cervical lymphadenopathy, trachea midline, supple Mouth: no lip lesion, mucus membranes moist Cardiovascular: S1S2 reg, no murmur, positive dorsalis pedis pulse bilateral, 1+ bilateral pitting edema Lungs: Coarse crackles appreciated on bilateral lower lung bases, no wheezing Abdominal: soft, nontender to palpation, no guarding Ext: muscle strength 5 out of 5 in all 4 extremities grossly, no gross muscle atrophy, no contractures, Neuro: CN II-XI grossly intact, no gross focal neuro deficits Psych: Alert, oriented, appropriate affect Assessment/Plan: This is a Patient is a 69-year-old female with a history of congestive heart failure, A-fib status post cardioversion and 2 ablations (currently in normal sinus rhythm) on Eliquis, hypertension, hypothyroidism presented to the ER with concerns for chest pain and shortness of breath. Case was discussed with the Emergency Room provider and decision was made to admit the patient for CHF exacerbation. #Acute on chronic CHF exacerbation #Acute hypoxic respiratory failure #Atypical chest pain, rule out ACS Chest x-ray shows patchy groundglass opacities throughout the right lung with small bilateral pleural effusions Chest CTA shows Groundglass opacities and some mild patchy infiltrates present throughout the bilateral lung cloud. Patient received 20 mg IV Lasix once in ED Continue with IV Lasix 20 mg every 12 hours Strict I's and O's Daily weights Fluid restriction to 1.5 L/day Continue to trend troponin; initial troponin level is negative Consult cardiology Continue with cardiac telemetry Continue with oxygen administration 2 L via nasal cannula with goal of keeping the oxygen saturation more than 90% Continue monitor vital signs GDMT for HFrEF: Resume Farxiga 10 mg p.o. daily, eplerenone 12.5 mg p.o. daily, resume metoprolol succinate once blood pressure improved, consider adding statin therapy Her last echocardiogram was done in February 2023 that showed reduced ejection fraction of 35 to 40%. Initial labs in the ER shows WBC 15.0, hemoglobin 12.6, platelet count 279, PT 12.9, INR 1.2, sodium 132, potassium 4.2, chloride 94, bicarb 29, BUN 32, creatinine 0.91, EGFR 65, glucose 125, calcium 9.4, total bili 1.4, AST 22, ALT 10, ALP 123, Troponin I less than 0.012 NT proBNP 4020 Serology for influenza type A and B, RSV, COVID-19 is negative #Leukocytosis reactive in the setting of CHF exacerbation, rule out infectious etiology such as atypical pneumonia WBC 15.0 Order procalcitonin Continue to monitor CBC Continue monitor vital signs #Hypervolemic hyponatremia secondary to congestive heart failure Sodium 132, potassium 4.2, chloride 94, bicarb 29, Fluid restrictions Continue monitor BMP #Hyperglycemia Glucose 125 Accu-Cheks and sliding scale insulin Check HbA1c #Elevated total bilirubin Total bili 1.4 Chronic condition: Hypertension: Hold amlodipine for now due to low blood pressure DVT prophylaxis: Eliquis 5 mg p.o. daily GI prophylaxis: Omeprazole 20 mg p.o. daily F: Fluid restrictions E: Replete as needed N: Heart healthy diet A: Patient ambulatory at baseline at home The patient is admitted with an anticipated less than 2 midnight stay for evaluation of CHF exacerbation CODE STATUS: Full code Discussed with: Patient Anticipated discharge place: Pending clinical course Dictation was produced using [employer] dictation software. Please excuse any grammatical, word or spelling errors. I have seen and evaluated the patient today. I Discussed the case with the resident and agree with the resident's findings I edited the assessment and plan as necessary as documented in the resident's note. Past Medical History Past Medical History: Atrial Fibrillation, Coronary Artery Disease (CAD), Heart Failure, CVA/TIA, Hypertension, Osteoarthritis (OA), Pneumonia, Sleep Apnea/CPAP/BIPAP, Thyroid Disorder History of Any Multi-Drug Resistant Organisms: None Reported Past Surgical History: Cardiac Ablation, Joint Replacement, Orthopedic Surgery Additional Past Surgical History / Comment(s): wrist surg., colonoscopy 2015(next due 10yrs)., rt total hip 03/01 @[place], recent cardioversion 2022, cardiac ablation @[facility] 2022 Past Anesthesia/Blood Transfusion Reactions: No Reported Reaction Additional Past Anesthesia/Blood Transfusion Reaction / Comment(s): "DOESN'T WANT TO BE AWAKE," PER PATIENT. Smoking Status: Never smoker - Past Family History Mother Family Medical History: Cancer Father Family Medical History: AFIB, Hypertension Sister(s) Family Medical History: Thyroid Disorder Additional Family Medical History / Comment(s): Multiple sisters with thyroid conditions. Medications and Allergies Home Medications Medication Instructions Recorded Confirmed Type Apixaban [Eliquis] 5 mg PO DIRECTED 03/02/23 08/02/24 History Levothyroxine Sodium [Synthroid] 125 mcg PO DAILY 03/02/23 08/02/24 History fluvoxaMINE MALEATE [Luvox] 200 mg PO HS 03/02/23 08/02/24 History Metoprolol Succinate (ER) [Toprol 50 mg PO BID 07/12/23 08/02/24 History Xl] Omeprazole 20 mg PO DAILY 07/12/23 08/02/24 History Amoxicillin 1 dose PO DIRECTED 08/02/24 08/02/24 History Chlorhexidine Gluconate [Peridex] 15 ml PO DIRECTED 08/02/24 08/02/24 History Dapagliflozin Propanediol [Farxiga] 10 mg PO DIRECTED 08/02/24 08/02/24 History Eplerenone 12.5 mg PO DAILY 08/02/24 08/02/24 History Torsemide [Demadex] 40 mg PO DAILY 08/02/24 08/02/24 History amLODIPine [Norvasc] 2.5 mg PO DAILY 08/02/24 08/02/24 History Allergies Allergy/AdvReac Type Severity Reaction Status Date / Time amiodarone Allergy kidneys & Verified 08/02/24 17:19 liver shut down aspirin Allergy Swelling Verified 08/02/24 17:19 atorvastatin Allergy affected Verified 08/02/24 17:19 liver enzymes methimazole [From Tapazole] Allergy Unknown Verified 08/02/24 17:19 Sulfa (Sulfonamide Allergy Swelling Verified 08/02/24 17:19 Antibiotics) Physical Exam Vitals: Vital Signs Temp Pulse Pulse Resp BP BP Pulse Ox 08/02/24 21:34 98.0 F 75 17 93/60 92 L 01/24/25 21:08 74 18 92/65 93 L 08/02/24 15:00 72 22 102/65 96 08/02/24 14:00 98.2 F 75 22 88/37 94 L Intake and Output 08/02/24 08/02/24 08/02/24 06:59 14:59 22:59 Other: Weight 98.883 kg Results CBC & Chem 7: 08/02/24 14:00 08/02/24 14:00 Labs: Abnormal Lab Results - Last 24 Hours (Table) 08/02/24 08/02/24 08/02/24 Range/Units 14:00 14:00 14:00 WBC 15.0 H (3.8-10.6) k/uL Neutrophils # 12.6 H (1.3-7.7) k/uL Lymphocytes # 0.9 L (1.0-4.8) k/uL Monocytes # 1.2 H (0-1.0) k/uL PT 12.9 H (10.0-12.5) sec INR 1.2 H (<1.2) Sodium 132 L (137-145) mmol/L Chloride 94 L (98-107) mmol/L BUN 32 H (7-17) mg/dL Glucose 125 H (74-99) mg/dL Total Bilirubin 1.4 H (0.2-1.3) mg/dL
[2024-08-02] MEDS: SPIRONOLACTONE 25 MG TAB PO SCH (23:47)
[2024-08-02] MEDS: DAPAGLIFLOZIN PROPANEDIOL 10 MG TABLET PO SCH (23:47)
[2024-08-02] MEDS: APIXABAN 5 MG TAB PO SCH (23:47)
[2024-08-03 06:33] LABS: Glucose,Whole Blood 123 mg/dL (70-110)
[2024-08-03] MEDS: INSULIN ASPART (NovoLOG) 100 UNIT/ML VIAL SQ SCH (06:42)
[2024-08-03] MEDS: PANTOPRAZOLE 40 MG TABLET PO SCH (06:47)
[2024-08-03] MEDS: LEVOTHYROXINE 125 MCG TAB PO SCH (06:47)
--- NOTE | 2024-08-03 09:44 | P.CRDCN ---
History of Present Illness Consult date: 08/03/24 Reason for Consult (text): CHest pain, CHF History of present illness: This is a 69-year-old female patient of Dr. Herman with past medical history of paroxysmal atrial fibrillation status post radiofrequency ablation maintaining sinus rhythm on Eliquis, nonischemic cardiomyopathy, hypertension, mixed hyperlipidemia. We have been asked to evaluate the patient for chest pain and CHF. Patient states for the last couple days she had some sharp pain in the midsternal area. This seems to be getting worse. She is never had this type of pain before. She initially presented to [facility] and was transferred to [facility]. She has been started on Lasix 20 mg every 12 hours. Blood pressure 135/83, heart rate 82, pulse ox 94% on 2 L nasal cannula. -EKG: Sinus rhythm with no acute ST-T wave changes. -Chest x-ray: Patchy groundglass opacities throughout the right lung concerning for atypical pneumonia versus other etiologies. CTA chest: No acute pulmonary embolism. Small pericardial effusion. -Laboratory studies: WBC 15, hemoglobin 12.7, creatinine 0.91, sodium 132, potassium 4.2, troponin negative x 3. proBNP 4020, Cepheid viral screen negative. -Home cardiac medications: Amlodipine 2.5 mg daily, Eliquis 5 mg twice daily, Farxiga 10 mg daily, metoprolol succinate 50 mg twice daily, torsemide 40 mg daily, also on levothyroxine. - Review Of Systems: At the time of my exam: CONSTITUTIONAL: Denies fever or chills. HEENT: Denies blurred vision, vision changes, or eye pain. Denies hemoptysis CARDIOVASCULAR: Denies chest pain. Denies orthopnea. Denies PND. Denies palpitations RESPIRATORY: Denies shortness of breath. GASTROINTESTINAL: Denies abdominal pain. Denies nausea or vomiting. HEMATOLOGIC: Denies bleeding disorders. GENITOURINARY: Denies any blood in urine. SKIN: Denies puritis. Denies rash. Physical examination: Gen: This is a 69-year-old female in no acute distress VS: reviewed HEENT: Head is atraumatic, normocephalic. Pupils equal, round. Sclerae is anicteric. NECK: Supple. No JVD. LUNGS: Clear to auscultation. No wheezes or rhonchi. No intercostal retractions. HEART: Regular rate and rhythm. Systolic murmur at the apex. ABDOMEN: Soft No tenderness. EXTREMITIES: No pedal edema. No calf tenderness. NEUROLOGICAL: Patient is awake, alert and oriented x3. Assessment: Acute on chronic diastolic heart failure Atypical chest pain, acute coronary syndrome ruled out Paroxysmal atrial fibrillation with controlled ventricular rate s/p RFA, currently in a sinus rhythm Nonischemic cardiomyopathy Hypertension Mixed hyperlipidemia Plan: Resume patient's home cardiac medications Continue patient on IV Lasix 20 mg every 12 hours Monitor ENID, daily weights, electrolytes and renal function Obtain 2-D echocardiogram and Doppler study to assess cardiac structure and function At time of discharge, patient will follow-up with Dr. Herman and plan for outpatient stress testing. Further recommendations to follow based upon clinical course Thank you kindly for this consultation. Nurse practitioner note has been reviewed, I agree with documented findings and plan of care. Patient was seen and examined. 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 for thyroid, had kidney & liver issues related to a medication but no current problems, doesn't use CPAP. COVID 04/30, recent adm to [facility] for elevated heart rate, & seroma & hematoma near recent right hip replacement in February, currently wearing heart monitor, takes Farxiga for heart not a diabetic per pt. History of Any Multi-Drug Resistant Organisms: None Reported Past Surgical History: Cardiac Ablation, Joint Replacement, Orthopedic Surgery Additional Past Surgical History / Comment(s): wrist surg., colonoscopy 2016(next due 10yrs)., rt total hip 03/01 @[place], recent cardioversion 2022, cardiac ablation @[facility] 2022 Past Anesthesia/Blood Transfusion Reactions: No Reported Reaction Additional Past Anesthesia/Blood Transfusion Reaction / Comment(s): "DOESN'T WANT TO BE AWAKE," PER PATIENT. Smoking Status: Never smoker - Past Family History Mother Family Medical History: Cancer Additional Family Medical History / Comment(s): breast cancer Father Family Medical History: AFIB, Hypertension Sister(s) Family Medical History: Thyroid Disorder Additional Family Medical History / Comment(s): Multiple sisters with thyroid conditions. Medications and Allergies Home Medications Medication Instructions Recorded Confirmed Type Apixaban [Eliquis] 5 mg PO DIRECTED 03/02/23 08/02/24 History Levothyroxine Sodium [Synthroid] 125 mcg PO DAILY 03/02/23 08/02/24 History fluvoxaMINE MALEATE [Luvox] 200 mg PO HS 03/02/23 08/02/24 History Metoprolol Succinate (ER) [Toprol 50 mg PO BID 07/12/23 08/02/24 History Xl] Omeprazole 20 mg PO DAILY 07/12/23 08/02/24 History Amoxicillin 1 dose PO DIRECTED 08/02/24 08/02/24 History Chlorhexidine Gluconate [Peridex] 15 ml PO DIRECTED 08/02/24 08/02/24 History Dapagliflozin Propanediol [Farxiga] 10 mg PO DIRECTED 08/02/24 08/02/24 History Eplerenone 12.5 mg PO DAILY 08/02/24 08/02/24 History Torsemide [Demadex] 40 mg PO DAILY 08/02/24 08/02/24 History amLODIPine [Norvasc] 2.5 mg PO DAILY 08/02/24 08/02/24 History Allergies Allergy/AdvReac Type Severity Reaction Status Date / Time amiodarone Allergy kidneys & Verified 08/02/24 17:19 liver shut down aspirin Allergy Swelling Verified 08/02/24 17:19 atorvastatin Allergy affected Verified 08/02/24 17:19 liver enzymes methimazole [From Tapazole] Allergy Unknown Verified 08/02/24 17:19 Sulfa (Sulfonamide Allergy Swelling Verified 08/02/24 17:19 Antibiotics) Physical Exam Vitals: Vital Signs Temp Pulse Pulse Resp BP BP Pulse Ox 08/03/24 02:00 98.2 F 84 17 113/74 94 L 08/02/24 21:34 98.0 F 75 17 93/60 92 L 08/02/24 21:08 74 18 92/65 93 L 08/02/24 15:00 72 22 102/65 96 08/02/24 14:00 98.2 F 75 22 88/37 94 L Intake and Output 08/02/24 08/03/24 08/03/24 22:59 06:59 14:59 Intake Total 240 Balance 240 Intake: Oral 240 Other: Voiding Method Incontinent Weight 98.883 kg 71.5 kg Results 08/02/24 14:00 08/02/24 14:00 Cardiac Enzymes 08/02/24 08/02/24 08/02/24 Range/Units 14:00 14:00 20:17 AST 22 (14-36) U/L Troponin I <0.012 <0.012 (0.000-0.034) ng/mL 08/03/24 Range/Units 00:03 AST (14-36) U/L Troponin I <0.012 (0.000-0.034) ng/mL Coagulation 08/02/24 Range/Units 14:00 PT 12.9 H (10.0-12.5) sec APTT 29.7 (22.0-30.0) sec CBC 08/02/24 Range/Units 14:00 WBC 15.0 H (3.8-10.6) k/uL RBC 4.44 (3.80-5.40) m/uL Hgb 12.6 (11.4-16.0) gm/dL Hct 38.5 (34.0-46.0) % Plt Count 279 (150-450) k/uL Comprehensive Metabolic Panel 08/02/24 Range/Units 14:00 Sodium 132 L (137-145) mmol/L Potassium 4.2 (3.5-5.1) mmol/L Chloride 94 L (98-107) mmol/L Carbon Dioxide 29 (22-30) mmol/L BUN 32 H (7-17) mg/dL Creatinine 0.91 (0.52-1.04) mg/dL Glucose 125 H (74-99) mg/dL Calcium 9.4 (8.4-10.2) mg/dL AST 22 (14-36) U/L ALT 10 (4-34) U/L Alkaline Phosphatase 123 (38-126) U/L Total Protein 7.1 (6.3-8.2) g/dL Albumin 3.6 (3.5-5.0) g/dL Current Medications Generic Name Dose Route Start Last Admin Trade Name Freq PRN Reason Stop Dose Admin Acetaminophen 650 mg 08/02/24 19:01 Acetaminophen Tab 325 Mg Tab PO Q6HR PRN Mild Pain or Fever > 100.5 Apixaban 5 mg 08/02/24 22:45 08/02/24 23:47 Apixaban 5 Mg Tab PO 5 mg BID JOE Administration Protocol Dapagliflozin 10 mg 08/02/24 22:45 08/02/24 23:47 Dapagliflozin Propanediol 10 Mg Tablet PO 10 mg DAILY JOE Administration Furosemide 20 mg 08/02/24 21:00 08/02/24 22:14 Furosemide 10 Mg/Ml 2 Ml Vial IV Not Given Q12HR [facility] Insulin Aspart 0 unit 08/03/24 07:30 08/03/24 06:42 Insulin Aspart (Novolog) 100 Unit/Ml Vial SQ Not Given ACHS [facility] Protocol Levothyroxine Sodium 125 mcg 08/03/24 06:00 08/03/24 06:47 Levothyroxine 125 Mcg Tab PO 125 mcg DAILY@0600 [facility] Administration Naloxone HCl 0.2 mg 08/02/24 19:01 Naloxone 0.4 Mg/Ml 1 Ml Vial IV Q2M PRN Opioid Reversal Pantoprazole Sodium 40 mg 08/03/24 07:30 08/03/24 06:47 Pantoprazole 40 Mg Tablet PO 40 mg DAILY@0730 [facility] Administration Spironolactone 12.5 mg 08/02/24 22:45 08/02/24 23:47 Spironolactone 25 Mg Tab PO 12.5 mg BID JOE Administration Intake and Output 08/02/24 08/03/24 08/03/24 22:59 06:59 14:59 Intake Total 240 Balance 240 Intake: Oral 240 Other: Voiding Method Incontinent Weight 98.883 kg 71.5 kg 08/02/24 14:00 08/02/24 14:00
[2024-08-03 09:48] LABS: Basophils # (A) 0.04 X 10*3/uL (0.00-0.10); Basophils % (A) 0.3 %; Eosinophils # (A) 0.02 X 10*3/uL (0.04-0.35); Eosinophils % (A) 0.2 %; HCT 36.4 % (37.2-46.3); HGB 11.7 g/dL (12.0-15.0); Lymphocytes # (A) 0.64 X 10*3/uL (0.90-5.00); Lymphocytes % (A) 5.5 %; MCH 27.7 pg (27.0-32.0); MCHC 32.1 g/dL (32.0-37.0); MCV 86.3 FL (80.0-97.0); Mean Platelet Volume 9.5 FL (9.5-12.2); Monocytes # (A) 1.47 X 10*3/uL (0.20-1.00); Monocytes % (A) 12.6 %; NRBC Per 100 WBC 0 X 10*3/uL (0.00-0.01); Neutrophils # (A) 9.44 X 10*3/uL (1.80-7.70); Neutrophils % (A) 81.1 %; Platelet Count 250 X 10*3/uL (140-440); RBC 4.22 X 10*6/uL (4.10-5.20); WBC 11.65 X 10*3/uL (4.50-10.00)
[2024-08-03] MEDS: METOPROLOL SUCCINATE (ER) 50 MG TAB.ER.24H PO SCH (10:03)
[2024-08-03 10:19] LABS: BUN/Creat Ratio 32.62 Ratio (12.00-20.00); Blood Urea Nitrogen 26.1 mg/dL (9.0-27.0); Calcium 8.6 mg/dL (8.7-10.3); Carbon Dioxide 25.7 mmol/L (21.6-31.8); Chloride 97 mmol/L (96-109); Glucose 123 mg/dL (70-110); Potassium 3.7 mmol/L (3.5-5.5); Sodium 132 mmol/L (135-145)
[2024-08-03 12:22] LABS: Glucose,Whole Blood 170 mg/dL (70-110)
--- NOTE | 2024-08-03 16:55 | P.PN ---
Subjective Progress Note Date: 08/03/24 Hospital course: Patient is a very pleasant 69-year-old female with a past medical history of nonischemic cardiomyopathy, congestive heart failure, hypertension, h yperlipidemia, paroxysmal atrial fibrillation status post ablation on anticoagulation with Eliquis, and hypothyroidism. She presented to the emergency department on 08/02/2024 chief complaint of shortness of breath accompanied by midsternal chest pain radiating to bilateral shoulders. Upon arrival to our facility, patient underwent evaluation to the emergency department. Vital signs upon arrival show blood pressure 88/37, heart rate 75, respiratory rate 22, temp 98.2 F, and SpO2 of 94% on 2 L. EKG completed showing normal sinus rhythm at 74 bpm with no significant T wave or ST abnormality showing no signs of acute ischemia upon personal review and interpretation. Chest x-ray showing patchy groundglass opacities throughout the right lung. Labs were completed and reviewed. CBC showing leukocytosis with WBC count of 15.0. Coagulation profile showing elevated PT of 12.9 and INR of 1.2. BMP showing hyponatremia with sodium of 132 and hypochloremia with chloride of 94 along with mild prerenal azotemia with BUN of 32. Blood glucose 125. Liver profile unremarkable with exception of slightly elevated total bili of 1.4. Troponin was negative at less than 0.012. proBNP was 4020. CTA completed negative for pulmonary emboli, but revealing small pericardial effusion and groundglass opacities and some milder patchy infiltrates present throughout the bilateral lung cloud concerning for fluid volume overload along with some compressive atelectasis dependent lung bases bilaterally. Influenza A, influenza B, RSV, and COVID PCR negative. Patient was admitted under our services with consultation to cardiology. Troponins trended all negative at less than 0.012 x 3 draws. Physical exam: Patient was seen and fully evaluated at bedside this morning. She continues to report shortness of breath and pain to midsternal chest in which she states is worse upon taking a deep breath. She denies having any palpitations, cough or congestion, headache, lightheadedness, dizziness, nausea, vomiting, or any other complaints at this time. Vital signs reviewed and stable. General: Nontoxic, no distress and appears stated age. Derm: Skin warm and dry, normal coloration for ethnicity. Head: Atraumatic, normocephalic and symmetric. Eyes: EOM's intact, no lid lag, and anicteric sclera Mouth: no lip lesions, mucus membranes moist Cardiovascular: regular rate and rhythm with normal S1S2, systolic murmur, positive posterior tibial pulses bilaterally, and cap refill < 2 seconds. Lungs: Respirations even, regular, and unlabored on supplemental oxygen. Lungs bibasilar crackles. No rhonchi, no rales, no wheezing, and no accessory muscle usage. Abdominal: soft, nontender to palpation, no guarding, no appreciable organomegaly Ext: ROM intact. No gross muscle atrophy, scant BLE edema, no contractures Neuro: Speech clear, face symmetrical and CN II-XII grossly intact with no noted focal neuro deficits Psych: Alert and oriented to person, place, time, and situation. Appropriate and pleasant affect. Assessment and Plan of Care: Acute on chronic diastolic heart failure exacerbation Atypical chest pain Pericardial effusion Nonischemic cardiomyopathy Paroxysmal atrial fibrillation Hypertension Hyperlipidemia -Cardiology following, reviewed documentation in chart -Telemetry monitoring -ProBNP 4020 -Daily weights with Close monitoring of I's and O's -Cardiac diet with 1500 cc fluid restriction -Lasix 20 mg IVP every 12 hours -Continuation of daily medications including: Amlodipine 2.5 mg daily, Eliquis 5 mg twice daily, Farxiga 10 mg daily, metoprolol succinate 50 mg twice daily, and Aldactone 12.5 mg twice daily. -Echocardiogram to be completed. -Continued close monitoring of electrolytes while diuresing. Hypothyroidism Continue daily medication regimen with levothyroxine 125 mcg daily. Data and imaging reviewed: Morning labs reviewed. CBC showing improvement of leukocytosis with WBC count decreasing to 11.65 and normocytic anemia with hemoglobin of 11.7. BMP showing mild hyponatremia with sodium of 132 otherwise normal findings. Blood glucose 123. Hemoglobin A1c 5.3%. Procalcitonin negative at 0.23. And troponins trended overnight all negative at less than 0.012 x 3 draws. Vital signs reviewed. Blood pressure 135/83, heart rate 82, respiratory rate 16, temp 98.0 F, and SpO2 of 94% on 2 L. CODE STATUS: Full code DVT prophylaxis: Eliqujennifer Anticipated discharge date: Pending clinical course Anticipated discharge place: Home Patient was seen independently by Nurse Pracitioner. This document was prepared using [employer] dictation software. Please allow for errors in stenotype machine operator, while rare they do occur. Stanislav Bo NP rendered care for this patient independently, reviewed the findings and plan as documented in the note above and agree with plan. I did not physically speak with or examine the patient on this date. Objective - Vital Signs Vital signs: Vital Signs Temp 98.2 F 08/03/24 02:00 Pulse 84 08/03/24 02:00 Resp 17 08/03/24 02:00 BP 113/74 08/03/24 02:00 Pulse Ox 94 L 08/03/24 02:00 FiO2 Intake & Output 08/02/24 08/03/24 08/03/24 18:59 06:59 18:59 Intake Total 240 Balance 240 Weight 98.883 kg 71.5 kg Intake: Oral 240 Other: Voiding Method Incontinent - Labs CBC & Chem 7: 08/03/24 05:27 08/03/24 05:27 Labs: Abnormal Lab Results - Last 24 Hours (Table) 08/02/24 08/02/24 08/02/24 Range/Units 14:00 14:00 14:00 WBC 15.0 H (3.8-10.6) k/uL Neutrophils # 12.6 H (1.3-7.7) k/uL Lymphocytes # 0.9 L (1.0-4.8) k/uL Monocytes # 1.2 H (0-1.0) k/uL PT 12.9 H (10.0-12.5) sec INR 1.2 H (<1.2) Sodium 132 L (137-145) mmol/L Chloride 94 L (98-107) mmol/L BUN 32 H (7-17) mg/dL Glucose 125 H (74-99) mg/dL POC Glucose (mg/dL) (70-110) mg/dL Total Bilirubin 1.4 H (0.2-1.3) mg/dL 08/03/24 Range/Units 06:27 WBC (3.8-10.6) k/uL Neutrophils # (1.3-7.7) k/uL Lymphocytes # (1.0-4.8) k/uL Monocytes # (0-1.0) k/uL PT (10.0-12.5) sec INR (<1.2) Sodium (137-145) mmol/L Chloride (98-107) mmol/L BUN (7-17) mg/dL Glucose (74-99) mg/dL POC Glucose (mg/dL) 123 H (70-110) mg/dL Total Bilirubin (0.2-1.3) mg/dL
[2024-08-03 17:11] LABS: Glucose,Whole Blood 150 mg/dL (70-110)
[2024-08-03 20:42] LABS: Glucose,Whole Blood 148 mg/dL (70-110)
[2024-08-04 05:38] LABS: Glucose,Whole Blood 106 mg/dL (70-110)
[2024-08-04] MEDS: amLODIPine 2.5 MG TAB PO SCH (08:52)
[2024-08-04 09:43] LABS: HCT 36.9 % (37.2-46.3); HGB 11.9 g/dL (12.0-15.0); MCH 27.7 pg (27.0-32.0); MCHC 32.2 g/dL (32.0-37.0); Mean Platelet Volume 9.9 FL (9.5-12.2); NRBC Per 100 WBC 0 X 10*3/uL (0.00-0.01); Platelet Count 246 X 10*3/uL (140-440); RBC 4.29 X 10*6/uL (4.10-5.20); WBC 10.18 X 10*3/uL (4.50-10.00)
[2024-08-04 09:49] LABS: BUN/Creat Ratio 25.67 Ratio (12.00-20.00); Blood Urea Nitrogen 23.1 mg/dL (9.0-27.0); Calcium 8.6 mg/dL (8.7-10.3); Carbon Dioxide 26.8 mmol/L (21.6-31.8); Chloride 97 mmol/L (96-109); Glucose 114 mg/dL (70-110); Magnesium 2.1 mg/dL (1.5-2.4); Potassium 4.1 mmol/L (3.5-5.5); Sodium 136 mmol/L (135-145)
--- NOTE | 2024-08-04 10:19 | CA ---
Transthoracic Echo Report Name: Beverley Frances Age: 69 Gender: F : 1955 Exam Date: 08/03/2024 12:20 Exam Location: [place] [facility] Ht (in): 62 Wt (lb): 217 Ordering Physician: Latricia Kirby Attending/Referring Phys: [id number], Kofi Patient Office Rep Denice Oscar, CRISTAL Procedure CPT: Indications: LVF Cardiac Hx: Technical Quality: Fair Contrast 1: Total Dose (mL): Contrast 2: Total Dose (mL): MEASUREMENTS (Male / Female) Normal Values 2D ECHO LV Diastolic Diameter PLAX 5.0 cm 4.2 - 5.9 / 3.9 - 5.3 cm LV Systolic Diameter PLAX 3.0 cm IVS Diastolic Thickness 0.9 cm 0.6 - 1.0 / 0.6 - 0.9 cm LVPW Diastolic Thickness 1.0 cm 0.6 - 1.0 / 0.6 - 0.9 cm LV Relative Wall Thickness 0.4 RV Internal Dim ED PLAX 2.4 cm LA Systolic Diameter LX 3.7 cm 3.0 - 4.0 / 2.7 - 3.8 cm LV Diastolic Volume MOD 4C 67.5 cm??? LV Systolic Volume MOD 4C 23.5 cm??? LV Ejection Fraction MOD 4C 65.2 % LV Cardiac Index MOD 4C 1818.9 cm???/min???m??? LV Diastolic Length 4C 6.2 cm LV Systolic Length 4C 5.3 cm LA Volume 62.6 cm??? 18 - 58 / 22 - 52 cm??? LA Volume Index 29.4 cm???/m??? 16 - 28 cm???/m??? M-MODE Aortic Root Diameter MM 3.1 cm LA Systolic Diameter MM 3.7 cm LA Ao Ratio MM 1.2 AV Cusp Separation MM 1.7 cm DOPPLER MV Area PHT 3.7 cm??? Mitral E Point Velocity 91.4 cm/s Mitral A Point Velocity 4.1 cm/s Mitral E to A Ratio 22.2 MV Deceleration Time 203.3 ms TR Peak Velocity 323.3 cm/s TR Peak Gradient 41.8 mmHg Right Ventricular Systolic Press 55.5 mmHg FINDINGS Left Ventricle Left ventricular ejection fraction is estimated at 40-45 %. Left ventricular cavity size normal. Mildly increased left ventricular wall thickness. Mildly reduced global left ventricular systolic function. Right Ventricle Moderate right ventricular dilatation. Moderate to severe pulmonary hypertension. Right Atrium Mild right atrial dilatation. Left Atrium Mildly increased left atrial volume. Mitral Valve Structurally normal mitral valve. Trace mitral regurgitation. No mitral stenosis. Aortic Valve Trileaflet aortic valve. No aortic stenosis. No aortic regurgitation. Tricuspid Valve Structurally normal tricuspid valve. Moderate tricuspid regurgitation. No tricuspid stenosis. Pulmonic Valve Structurally normal pulmonic valve. Trace pulmonic regurgitation. No pulmonic stenosis. Pericardium Small- moderate pericardial effusion. Aorta Normal size aortic root and proximal ascending aorta. CONCLUSIONS Mild LV systolic dysfunction with an ejection fraction of 45% Moderate to severe pulmonary hypertension Moderate tricuspid regurgitation Small to moderate pericardial effusion without any time tamponade Previewed by: Dr. Jaden Nichols MD (Electronically Signed) Final Date: 04 August 2024 10:18
--- NOTE | 2024-08-04 11:43 | P.PN ---
Subjective Progress Note Date: 08/04/24 Reason for Consult (text): CHest pain, CHF History of present illness: This is a 69-year-old female patient of Dr. Herman with past medical history of paroxysmal atrial fibrillation status post radiofrequency ablation x2 maintaining sinus rhythm on Eliquis, nonischemic cardiomyopathy, hypertension, mixed hyperlipidemia. We have been asked to evaluate the patient for chest pain and CHF. Patient states for the last couple days she had some sharp pain in the midsternal area. This seems to be getting worse. She is never had this type of pain before. She initially presented to [facility] and was transferred to [facility]. She has been started on Lasix 20 mg every 12 hours. Blood pressure 135/83, heart rate 82, pulse ox 94% on 2 L nasal cannula. -EKG: Sinus rhythm with no acute ST-T wave changes. -Chest x-ray: Patchy groundglass opacities throughout the right lung concerning for atypical pneumonia versus other etiologies. CTA chest: No acute pulmonary embolism. Small pericardial effusion. -Laboratory studies: WBC 15, hemoglobin 12.7, creatinine 0.91, sodium 132, potassium 4.2, troponin negative x 3. proBNP 4020, Cepheid viral screen negative. -Home cardiac medications: Amlodipine 2.5 mg daily, Eliquis 5 mg twice daily, Farxiga 10 mg daily, metoprolol succinate 50 mg twice daily, torsemide 40 mg daily, also on levothyroxine. 08/04 Patient is seen and examined. Patient states that she has a little bit better from yesterday but not very much. She still feels like she is full of fluid. She is requesting that her sister be updated. She is currently off oxygen and she is walked to the bathroom on her own for the first time. Lower extremity edema is slightly better. Blood pressure 98/67, heart rate 86, pulse ox 94% on room air. Patient has been maintained on IV Lasix 20 mg every 12 hours. Weights do not appear to be accurate. Repeat blood work reveals hemoglobin 10.9, BUN 23, creatinine 0.9 and potassium 4.1. Magnesium 2.1. Echocardiogram reveals EF of 45%, moderate to severe pulmonary hypertension, m oderate tricuspid regurgitation, small to moderate pericardial effusion without tamponade. Updated patient's sister, Beatrice Muller, , via phone. All questions were answered. Sister would like patient to be encouraged to follow-up with heart medical regarding her mask for sleep apnea. Physical examination: Gen: This is a 69-year-old female in no acute distress VS: reviewed HEENT: Head is atraumatic, normocephalic. Pupils equal, round. Sclerae is anicteric. NECK: Supple. No JVD. LUNGS: Clear to auscultation. No wheezes or rhonchi. No intercostal retractions. HEART: Regular rate and rhythm. Systolic murmur at the apex. ABDOMEN: Soft No tenderness. EXTREMITIES: No pedal edema. No calf tenderness. NEUROLOGICAL: Patient is awake, alert and oriented x3. 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 Herman and plan for outp atient stress testing. Further recommendations to follow based upon clinical course Nurse practitioner note has been reviewed, I agree with documented findings and plan of care. Patient was seen and examined. Objective - Vital Signs Vital signs: Vital Signs Temp 97.9 F 08/04/24 07:00 Pulse 86 08/04/24 07:00 Resp 15 08/04/24 07:00 BP 98/67 08/04/24 07:00 Pulse Ox 94 L 08/04/24 07:00 FiO2 Intake & Output 08/03/24 08/04/24 08/04/24 18:59 06:59 18:59 Intake Total 1062 Output Total 500 Balance 562 Weight 73.6 kg Intake: Oral 1062 Output: Urine 500 Other: Voiding Method External Catheter External Catheter # Bowel Movements 0 - Labs CBC & Chem 7: 08/04/24 06:36 08/04/24 06:36 Labs: Abnormal Lab Results - Last 24 Hours (Table) 08/03/24 08/03/24 08/03/24 Range/Units 05:27 12:20 17:09 WBC (4.50-10.00) X 10*3/uL Hgb (12.0-15.0) g/dL Hct (37.2-46.3) % Sodium 132 L (135-145) mmol/L Anion Gap (4.00-12.00) mmol/L BUN/Creatinine Ratio 32.62 H (12.00-20.00) Ratio Glucose 123 H (70-110) mg/dL POC Glucose (mg/dL) 170 H 150 H (70-110) mg/dL Calcium 8.6 L (8.7-10.3) mg/dL 08/03/24 08/04/24 08/04/24 Range/Units 20:36 06:36 06:36 WBC 10.18 H (4.50-10.00) X 10*3/uL Hgb 11.9 L (12.0-15.0) g/dL Hct 36.9 L (37.2-46.3) % Sodium (135-145) mmol/L Anion Gap 12.20 H (4.00-12.00) mmol/L BUN/Creatinine Ratio 25.67 H (12.00-20.00) Ratio Glucose 114 H (70-110) mg/dL POC Glucose (mg/dL) 148 H (70-110) mg/dL Calcium 8.6 L (8.7-10.3) mg/dL
[2024-08-04 11:53] LABS: Glucose,Whole Blood 126 mg/dL (70-110)
--- NOTE | 2024-08-04 15:47 | P.PN ---
Subjective Progress Note Date: 08/04/24 Hospital course: Patient is a very pleasant 69-year-old female with a past medical history of nonischemic cardiomyopathy, congestive heart failure, hypertension, h yperlipidemia, paroxysmal atrial fibrillation status post ablation on anticoagulation with Eliquis, and hypothyroidism. She presented to the emergency department on 08/02/2024 chief complaint of shortness of breath accompanied by midsternal chest pain radiating to bilateral shoulders. Upon arrival to our facility, patient underwent evaluation to the emergency department. Vital signs upon arrival show blood pressure 88/37, heart rate 75, respiratory rate 22, temp 98.2 F, and SpO2 of 94% on 2 L. EKG completed showing normal sinus rhythm at 74 bpm with no significant T wave or ST abnormality showing no signs of acute ischemia upon personal review and interpretation. Chest x-ray showing patchy groundglass opacities throughout the right lung. Labs were completed and reviewed. CBC showing leukocytosis with WBC count of 15.0. Coagulation profile showing elevated PT of 12.9 and INR of 1.2. BMP showing hyponatremia with sodium of 132 and hypochloremia with chloride of 94 along with mild prerenal azotemia with BUN of 32. Blood glucose 125. Liver profile unremarkable with exception of slightly elevated total bili of 1.4. Troponin was negative at less than 0.012. proBNP was 4020. CTA completed negative for pulmonary emboli, but revealing small pericardial effusion and groundglass opacities and some milder patchy infiltrates present throughout the bilateral lung cloud concerning for fluid volume overload along with some compressive atelectasis dependent lung bases bilaterally. Influenza A, influenza B, RSV, and COVID PCR negative. Patient was admitted under our services with consultation to cardiology. Troponins trended all negative at less than 0.012 x 3 draws. Physical exam: Patient was seen and fully evaluated at bedside this morning. She reports that she feels her breathing is slightly better but continues to report shortness of breath and pain to midsternal chest in which she states is worse upon taking a deep breath. She denies dizziness, lightheadedness, palpitations, cough or congestion, or any other complaints. Vital signs reviewed and stable. General: Nontoxic, no distress and appears stated age. Derm: Skin warm and dry, normal coloration for ethnicity. Head: Atraumatic, normocephalic and symmetric. Eyes: EOM's intact, no lid lag, and anicteric sclera Mouth: no lip lesions, mucus membranes moist Cardiovascular: regular rate and rhythm with normal S1S2, systolic murmur, positive posterior tibial pulses bilaterally, and cap refill < 2 seconds. Lungs: Respirations even, regular, and unlabored on supplemental oxygen. Lungs bibasilar crackles. No rhonchi, no rales, no wheezing, and no accessory muscle usage. Abdominal: soft, nontender to palpation, no guarding, no appreciable organomega ly Ext: ROM intact. No gross muscle atrophy, scant BLE edema, no contractures Neuro: Speech clear, face symmetrical and CN II-XII grossly intact with no noted focal neuro deficits Psych: Alert and oriented to person, place, time, and situation. Appropriate and pleasant affect. Assessment and Plan of Care: Acute on chronic diastolic heart failure exacerbation Atypical chest pain Pericardial effusion Nonischemic cardiomyopathy Paroxysmal atrial fibrillation Hypertension Hyperlipidemia -Cardiology following, recommending continuation of IV Lasix for an additional 24 hours patient to be started on lisinopril 2.5 mg daily starting tomorrow. -Telemetry monitoring -ProBNP 4020 -Daily weights with Close monitoring of I's and O's -Cardiac diet with 1500 cc fluid restriction -Lasix 20 mg IVP every 12 hours -Continuation of daily medications including: Amlodipine 2.5 mg daily, Eliquis 5 mg twice daily, Farxiga 10 mg daily, metoprolol succinate 50 mg twice daily, and Aldactone 12.5 mg twice daily. -Echocardiogram completed showing a reduced EF of 45% with moderate to severe pulmonary hypertension, moderate tricuspid regurgitation and small to moderate pericardial effusion without any signs of tamponade. -Continued close monitoring of electrolytes while diuresing. Hypothyroidism Continue daily medication regimen with levothyroxine 125 mcg daily. Data and imaging reviewed: Morning labs reviewed. CT showing mild leukocytosis with WBC count of 10.18 and stable normocytic anemia with hemoglobin of 11.9. BMP showing slightly elevated anion gap of 12.20 otherwise normal findings. Blood glucose 114. Magnesium 2.1. Vital signs reviewed. Blood pressure 98/67, heart rate 86, respiratory rate 15, temp 97.9 F, and SpO2 of 94% on room air. Echocardiogram completed showing a reduced EF of 45% with moderate to severe pulmonary hypertension, moderate tricuspid regurgitation and small to moderate pericardial effusion without any signs of tamponade. CODE STATUS: Full code DVT prophylaxis: Eliquis Anticipated discharge date: Pending clinical course Anticipated discharge place: Home Patient was seen independently by Nurse Pracitioner. This document was prepared using [employer] dictation software. Please allow for errors in accounting analyst, while rare they do occur. Stanislav Bo NP rendered care for this patient independently, reviewed the findings and plan as documented in the note above and agree with plan. I did not physically speak with or examine the patient on this date. . Objective - Vital Signs Vital signs: Vital Signs Temp 97.9 F 08/04/24 07:00 Pulse 86 08/04/24 07:00 Resp 15 08/04/24 07:00 BP 98/67 08/04/24 07:00 Pulse Ox 94 L 08/04/24 07:00 FiO2 Intake & Output 08/03/24 08/04/24 08/04/24 18:59 06:59 18:59 Intake Total 1062 Output Total 500 Balance 562 Weight 73.6 kg Intake: Oral 1062 Output: Urine 500 Other: Voiding Method External Catheter External Catheter # Bowel Movements 0 - Labs CBC & Chem 7: 08/04/24 06:36 08/04/24 06:36 Labs: Abnormal Lab Results - Last 24 Hours (Table) 08/03/24 08/03/24 08/03/24 Range/Units 05:27 05:27 12:20 WBC 11.65 H (4.50-10.00) X 10*3/uL Hgb 11.7 L (12.0-15.0) g/dL Hct 36.4 L (37.2-46.3) % Neutrophils # 9.44 H (1.80-7.70) X 10*3/uL Lymphocytes # 0.64 L (0.90-5.00) X 10*3/uL Monocytes # 1.47 H (0.20-1.00) X 10*3/uL Eosinophils # 0.02 L (0.04-0.35) X 10*3/uL Sodium 132 L (135-145) mmol/L BUN/Creatinine Ratio 32.62 H (12.00-20.00) Ratio Glucose 123 H (70-110) mg/dL POC Glucose (mg/dL) 170 H (70-110) mg/dL Calcium 8.6 L (8.7-10.3) mg/dL 08/03/24 08/03/24 Range/Units 17:09 20:36 WBC (4.50-10.00) X 10*3/uL Hgb (12.0-15.0) g/dL Hct (37.2-46.3) % Neutrophils # (1.80-7.70) X 10*3/uL Lymphocytes # (0.90-5.00) X 10*3/uL Monocytes # (0.20-1.00) X 10*3/uL Eosinophils # (0.04-0.35) X 10*3/uL Sodium (135-145) mmol/L BUN/Creatinine Ratio (12.00-20.00) Ratio Glucose (70-110) mg/dL POC Glucose (mg/dL) 150 H 148 H (70-110) mg/dL Calcium (8.7-10.3) mg/dL
[2024-08-04 17:06] LABS: Glucose,Whole Blood 108 mg/dL (70-110)
[2024-08-04 22:12] LABS: Glucose,Whole Blood 115 mg/dL (70-110)
[2024-08-05 06:06] LABS: Glucose,Whole Blood 127 mg/dL (70-110)
[2024-08-05 08:41] LABS: Blood Urea Nitrogen 22.4 mg/dL (9.0-27.0); Calcium 8.6 mg/dL (8.7-10.3); Chloride 96 mmol/L (96-109); Glucose 123 mg/dL (70-110); Potassium 3.6 mmol/L (3.5-5.5); Sodium 135 mmol/L (135-145)
[2024-08-05 10:08] LABS: HCT 38.4 % (37.2-46.3); HGB 12.3 g/dL (12.0-15.0); MCH 28.1 pg (27.0-32.0); MCV 87.7 FL (80.0-97.0); NRBC Per 100 WBC 0 X 10*3/uL (0.00-0.01); Platelet Count 252 X 10*3/uL (140-440); RBC 4.38 X 10*6/uL (4.10-5.20); RDW 13.8 % (11.5-14.5); WBC 8.41 X 10*3/uL (4.50-10.00)
[2024-08-05] MEDS: FUROSEMIDE 10 MG/ML 4 ML VIAL IV SCH (10:22)
--- NOTE | 2024-08-05 10:48 | P.PN ---
Subjective This is a 69-year-old female patient of Dr. Herman with past medical history of paroxysmal atrial fibrillation status post radiofrequency ablation x2 maintaining sinus rhythm on Eliquis, nonischemic cardiomyopathy, hypertension, mixed hyperlipidemia. We have been asked to evaluate the patient for chest pain and CHF. Patient states for the last couple days she had some sharp pain in the midsternal area. This seems to be getting worse. She is never had this type of pain before. She initially presented to [facility] and was tra nsferred to [facility]. She has been started on Lasix 20 mg every 12 hours. Blood pressure 135/83, heart rate 82, pulse ox 94% on 2 L nasal cannula. -EKG: Sinus rhythm with no acute ST-T wave changes. -Chest x-ray: Patchy groundglass opacities throughout the right lung concerning for atypical pneumonia versus other etiologies. CTA chest: No acute pulmonary embolism. Small pericardial effusion. -Laboratory studies: WBC 15, hemoglobin 12.7, creatinine 0.91, sodium 132, potassium 4.2, troponin negative x 3. proBNP 4020, Cepheid viral screen negative. -Home cardiac medications: Amlodipine 2.5 mg daily, Eliquis 5 mg twice daily, Farxiga 10 mg daily, metoprolol succinate 50 mg twice daily, torsemide 40 mg daily, also on levothyroxine. 08/04 Patient is seen and examined. Patient states that she has a little bit better from yesterday but not very much. She still feels like she is full of fluid. She is requesting that her sister be updated. She is currently off oxygen and she is walked to the bathroom on her own for the first time. Lower extremity edema is slightly better. Blood pressure 98/67, heart rate 86, pulse ox 94% on room air. Patient has been maintained on IV Lasix 20 mg every 12 hours. Weights do not appear to be accurate. Repeat blood work reveals hemoglobin 10.9, BUN 23, creatinine 0.9 and potassium 4.1. Magnesium 2.1. Echocardiogram reveals EF of 45%, moderate to severe pulmonary hypertension, moderate tricuspid regurgitation, small to moderate pericardial effusion without tamponade. Updated patient's sister, Beatrice Muller, , via phone. All questions were answered. Sister would like patient to be encouraged to follow-up with heart medical regarding her mask for sleep apnea. 08/05/2024 Patient seen and examined sitting up in the chair conversing with her sister on the phone. She continues to complain of exertional shortness of breath. No chest pain, dizziness or palpitations. Blood pressure 101/67 heart rate 85 afebrile maintaining oxygen saturation on nasal cannula. Laboratory data reviewed, CBC unremarkable, sodium 135, potassium 3.6, creatinine 1.0 and magnesium 2.0. She is up ambulating to the bathroom. She has ongoing lower extremity edema that has improved and mild rales noted in the lungs. Physical examination: Gen: This is a 69-year-old female in no acute distress VS: reviewed HEENT: Head is atraumatic, normocephalic. Pupils equal, round. Sclerae is anicteric. NECK: Supple. No JVD. LUNGS: Mild rales noted bilaterally. No wheezes or rhonchi. No intercostal retractions. HEART: Regular rate and rhythm. Systolic murmur at the apex. ABDOMEN: Soft No tenderness. EXTREMITIES: Bilateral lower extremity 1+ pitting edema. No calf tenderness. NEUROLOGICAL: Patient is awake, alert and oriented x3. 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 Add small dose of potassium supplementation daily. If she is doing well we will transition her to oral tomorrow. Monitor I&O, daily weights, electrolytes and renal function Plan explained to patient and her sister in great detail, questions answered appropriately. Further recommendations to follow based upon clinical course Nurse practitioner note has been reviewed, I agree with documented findings and plan of care. Patient was seen and examined. Objective - Vital Signs Vital signs: Vital Signs Temp 98.3 F 08/05/24 07:00 Pulse 85 08/05/24 07:00 Resp 18 08/05/24 07:00 BP 101/67 08/05/24 07:00 Pulse Ox 95 08/05/24 07:00 FiO2 Intake & Output 08/04/24 08/05/24 08/05/24 18:59 06:59 18:59 Intake Total 118 Balance 118 Weight 73.3 kg Intake: Oral 118 Other: Voiding Method Toilet Toilet # Voids 2 - Labs CBC & Chem 7: 08/05/24 05:28 08/05/24 05:28 Labs: Abnormal Lab Results - Last 24 Hours (Table) 08/04/24 08/04/24 08/05/24 Range/Units 11:52 22:11 05:28 BUN/Creatinine Ratio 22.40 H (12.00-20.00) Ratio Glucose 123 H (70-110) mg/dL POC Glucose (mg/dL) 126 H 115 H (70-110) mg/dL Calcium 8.6 L (8.7-10.3) mg/dL 08/05/24 Range/Units 06:04 BUN/Creatinine Ratio (12.00-20.00) Ratio Glucose (70-110) mg/dL POC Glucose (mg/dL) 127 H (70-110) mg/dL Calcium (8.7-10.3) mg/dL
[2024-08-05 11:57] LABS: Glucose,Whole Blood 137 mg/dL (70-110)
[2024-08-05] MEDS: POTASSIUM CHLORIDE ER 10 MEQ TAB.ER.PRT PO SCH (12:32)
--- NOTE | 2024-08-05 16:34 | P.PN ---
Subjective Progress Note Date: 08/05/24 Hospital course: Patient is a very pleasant 69-year-old female with a past medical history of nonischemic cardiomyopathy, congestive heart failure, hypertension, h yperlipidemia, paroxysmal atrial fibrillation status post ablation on anticoagulation with Eliquis, and hypothyroidism. She presented to the emergency department on 08/02/2024 chief complaint of shortness of breath accompanied by midsternal chest pain radiating to bilateral shoulders. Upon arrival to our facility, patient underwent evaluation to the emergency department. Vital signs upon arrival show blood pressure 88/37, heart rate 75, respiratory rate 22, temp 98.2 F, and SpO2 of 94% on 2 L. EKG completed showing normal sinus rhythm at 74 bpm with no significant T wave or ST abnormality showing no signs of acute ischemia upon personal review and interpretation. Chest x-ray showing patchy groundglass opacities throughout the right lung. Labs were completed and reviewed. CBC showing leukocytosis with WBC count of 15.0. Coagulation profile showing elevated PT of 12.9 and INR of 1.2. BMP showing hyponatremia with sodium of 132 and hypochloremia with chloride of 94 along with mild prerenal azotemia with BUN of 32. Blood glucose 125. Liver profile unremarkable with exception of slightly elevated total bili of 1.4. Troponin was negative at less than 0.012. proBNP was 4020. CTA completed negative for pulmonary emboli, but revealing small pericardial effusion and groundglass opacities and some milder patchy infiltrates present throughout the bilateral lung cloud concerning for fluid volume overload along with some compressive atelectasis dependent lung bases bilaterally. Influenza A, influenza B, RSV, and COVID PCR negative. Patient was admitted under our services with consultation to cardiology. Troponins trended all negative at less than 0.012 x 3 draws. Physical exam: Patient was seen and fully evaluated at bedside this morning. She reports that she feels her breathing is slightly better but continues to report shortness of breath but reports chest pain has improved and she is able to take a deeper breath today. She continues to deny having any dizziness, lightheadedness, palpitations, cough, or congestion. Vital signs reviewed and stable. General: Nontoxic, no distress and appears stated age. Derm: Skin warm and dry, normal coloration for ethnicity. Head: Atraumatic, normocephalic and symmetric. Eyes: EOM's intact, no lid lag, and anicteric sclera Mouth: no lip lesions, mucus membranes moist Cardiovascular: regular rate and rhythm with normal S1S2, systolic murmur, positive posterior tibial pulses bilaterally, and cap refill < 2 seconds. Lungs: Respirations even, regular, and unlabored on supplemental oxygen. Lungs bibasilar crackles. No rhonchi, no rales, no wheezing, and no accessory muscle usage. Abdominal: soft, nontender to palpation, no guarding, no appreciable organomegaly Ext: ROM intact. No gross muscle atrophy, scant to 1+ BLE edema, no contractures Neuro: Speech clear, face symmetrical and CN II-XII grossly intact with no noted focal neuro deficits Psych: Alert and oriented to person, place, time, and situation. Appropriate and pleasant affect. Assessment and Plan of Care: Acute on chronic diastolic and new onset systolic heart failure exacerbation Atypical chest pain Pericardial effusion Nonischemic cardiomyopathy Paroxysmal atrial fibrillation Hypertension Hyperlipidemia -Cardiology following,. Discussed plan of care increasing IV Lasix to 40 mg IVP every 12 hours. -Telemetry monitoring -ProBNP 4020 -Daily weights with Close monitoring of I's and O's -Cardiac diet with 1500 cc fluid restriction -Lasix increased this morning to 40 mg IVP every 12 hours. -Continuation of daily medications including: Amlodipine 2.5 mg daily, Eliquis 5 mg twice daily, Farxiga 10 mg daily, metoprolol succinate 50 mg twice daily, and Aldactone 12.5 mg twice daily. -Echocardiogram completed showing a reduced EF of 45% with moderate to severe pulmonary hypertension, moderate tricuspid regurgitation and small to moderate pericardial effusion without any signs of tamponade. -Continued close monitoring of electrolytes while diuresing. Hypothyroidism Continue daily medication regimen with levothyroxine 125 mcg daily. Data and imaging reviewed: Morning labs reviewed. CBC unremarkable. BMP also normal findings with exception of mildly elevated glucose of 123. Magnesium normal findings at 2.0. Vital signs reviewed. Blood pressure 101/67, heart rate 85, respiratory rate 18, temp 98.3 F, and SpO2 of 95% on 2 L. CODE STATUS: Full code DVT prophylaxis: Eliquis Anticipated discharge date: Pending clinical course Anticipated discharge place: Home Patient was seen independently by Nurse Pracitioner. This document was prepared using [employer] dictation software. Please allow for errors in planning advisor, while rare they do occur. Stanislav Bo NP rendered care for this patient independently, reviewed the findings and plan as documented in the note above and agree with plan. I did not physically speak with or examine the patient on this date. . Objective - Vital Signs Vital signs: Vital Signs Temp 97.7 F 08/05/24 02:00 Pulse 84 08/05/24 02:00 Resp 17 08/05/24 02:00 BP 116/58 08/05/24 02:00 Pulse Ox 98 08/05/24 02:00 FiO2 Intake & Output 08/04/24 08/05/24 08/05/24 18:59 06:59 18:59 Weight 73.3 kg Other: Voiding Method Toilet # Voids 2 - Labs CBC & Chem 7: 08/05/24 05:28 08/05/24 05:28 Labs: Abnormal Lab Results - Last 24 Hours (Table) 08/04/24 08/04/24 08/04/24 Range/Units 06:36 06:36 11:52 WBC 10.18 H (4.50-10.00) X 10*3/uL Hgb 11.9 L (12.0-15.0) g/dL Hct 36.9 L (37.2-46.3) % Anion Gap 12.20 H (4.00-12.00) mmol/L BUN/Creatinine Ratio 25.67 H (12.00-20.00) Ratio Glucose 114 H (70-110) mg/dL POC Glucose (mg/dL) 126 H (70-110) mg/dL Calcium 8.6 L (8.7-10.3) mg/dL 08/04/24 08/05/24 08/05/24 Range/Units 22:11 05:28 06:04 WBC (4.50-10.00) X 10*3/uL Hgb (12.0-15.0) g/dL Hct (37.2-46.3) % Anion Gap (4.00-12.00) mmol/L BUN/Creatinine Ratio 22.40 H (12.00-20.00) Ratio Glucose 123 H (70-110) mg/dL POC Glucose (mg/dL) 115 H 127 H (70-110) mg/dL Calcium 8.6 L (8.7-10.3) mg/dL
[2024-08-05 17:00] LABS: Glucose,Whole Blood 130 mg/dL (70-110)
[2024-08-05 21:05] LABS: Glucose,Whole Blood 135 mg/dL (70-110)
[2024-08-06 05:41] LABS: Glucose,Whole Blood 136 mg/dL (70-110)
[2024-08-06 08:53] LABS: Magnesium 2.1 mg/dL (1.5-2.4)
[2024-08-06 10:17] LABS: BUN/Creat Ratio 22.27 Ratio (12.00-20.00); Blood Urea Nitrogen 24.5 mg/dL (9.0-27.0); Calcium 8.8 mg/dL (8.7-10.3); Chloride 93 mmol/L (96-109); Glucose 128 mg/dL (70-110); Sodium 136 mmol/L (135-145)
[2024-08-06] MEDS: TORSEMIDE 20 MG TAB PO SCH ×2 (10:41→16:09)
[2024-08-06 12:10] LABS: Glucose,Whole Blood 141 mg/dL (70-110)
--- NOTE | 2024-08-06 12:52 | P.PN ---
Subjective HISTORY OF PRESENT ILLNESS: This is a 69-year-old female patient of Dr. Herman with past medical history of paroxysmal atrial fibrillation status post radiofrequency ablation x2 maintaining sinus rhythm on Eliquis, nonischemic cardiomyopathy, hypertension, mixed hyperlipidemia. We have been asked to evaluate the patient for chest pain and CHF. Patient states for the last couple days she had some sharp pain in the midsternal area. This seems to be getting worse. She is never had this type of pain before. She initially presented to [facility] and was transferred to [facility]. She has been started on Lasix 20 mg every 12 hours. Blood pressure 135/83, heart rate 82, pulse ox 94% on 2 L nasal cannula. -EKG: Sinus rhythm with no acute ST-T wave changes. -Chest x-ray: Patchy groundglass opacities throughout the right lung concerning for atypical pneumonia versus other etiologies. CTA chest: No acute pulmonary embolism. Small pericardial effusion. -Laboratory studies: WBC 15, hemoglobin 12.7, creatinine 0.91, sodium 132, potassium 4.2, troponin negative x 3. proBNP 4020, Cepheid viral screen negative. -Home cardiac medications: Amlodipine 2.5 mg daily, Eliquis 5 mg twice daily, Farxiga 10 mg daily, metoprolol succinate 50 mg twice daily, torsemide 40 mg daily, also on levothyroxine. 08/04 Patient is seen and examined. Patient states that she has a little bit better from yesterday but not very much. She still feels like she is full of fluid. She is requesting that her sister be updated. She is currently off oxygen and she is walked to the bathroom on her own for the first time. Lower extremity edema is slightly better. Blood pressure 98/67, heart rate 86, pulse ox 94% on room air. Patient has been maintained on IV Lasix 20 mg every 12 hours. Weights do not appear to be accurate. Repeat blood work reveals hemoglobin 10.9, BUN 23, creatinine 0.9 and potassium 4.1. Magnesium 2.1. Echocardiogram reveals EF of 45%, moderate to severe pulmonary hypertension, moderate tricuspid regurgitation, small to moderate pericardial effusion without tamponade. Updated patient's sister, Beatrice Muller, , via phone. All questions were answered. Sister would like patient to be encouraged to follow-up with heart medical regarding her mask for sleep apnea. 08/05/2024 Patient seen and examined sitting up in the chair conversing with her sister on the phone. She continues to complain of exertional shortness of breath. No chest pain, dizziness or palpitations. Blood pressure 101/67 heart rate 85 afebrile maintaining oxygen saturation on nasal cannula. Laboratory data reviewed, CBC unremarkable, sodium 135, potassium 3.6, creatinine 1.0 and magnesium 2.0. She is up ambulating to the bathroom. She has ongoing lower extremity edema that has improved and mild rales noted in the lungs. 08/06/2024 Patient examined this morning the bedside. Patient currently denies chest pain or pressure. She denies shortness of breath. She remains on IV diuretics. She is requiring oxygen this morning to maintain saturations greater than 92%. PHYSICAL EXAM: VITAL SIGNS: Reviewed. GENERAL: Well-developed in no acute distress. NECK: Supple. No JVD or thyromegaly LUNGS: Respirations even and unlabored. Lungs essentially clear to auscultation bilaterally, diminished. HEART: Regular rate and rhythm. S1 and S2 heard. Systolic murmur noted. EXTREMITIES: Normal range of motion. No clubbing or cyanosis. Peripheral pulses intact. 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 Begin oral Demadex 40 mg in the morning and 20 mg in the evening Wean oxygen as tolerated. Patient may require home oxygen at the time of discharge Consult pulmonary for evaluation per Dr. Koavcs Patient may be discharged today from a cardiac standpoint Patient to follow-up postdischarge with Dr. Herman Nurse practitioner note has been reviewed by physician. Signing provider agrees with the documented findings, assessment, and plan of care documented by [employer] as a scribe. Objective - Vital Signs Vital signs: Vital Signs Temp 98.1 F 08/06/24 08:00 Pulse 87 08/06/24 08:00 Resp 16 08/06/24 08:00 BP 103/70 08/06/24 08:00 Pulse Ox 95 08/06/24 08:00 FiO2 Intake & Output 08/05/24 08/06/24 08/06/24 18:59 06:59 18:59 Intake Total 776 118 Output Total 300 Balance 476 118 Weight 74.5 kg Intake: Oral 776 118 Output: Urine 300 Other: Voiding Method Toilet Toilet # Voids 1 2 # Bowel Movements 1 - Labs CBC & Chem 7: 08/05/24 05:28 08/06/24 05:17 Labs: Abnormal Lab Results - Last 24 Hours (Table) 08/05/24 08/05/24 08/05/24 Range/Units 11:56 16:59 21:04 Chloride (96-109) mmol/L Est GFR (CKD-EPI) (>=60) BUN/Creatinine Ratio (12.00-20.00) Ratio Glucose (70-110) mg/dL POC Glucose (mg/dL) 137 H 130 H 135 H (70-110) mg/dL 08/06/24 08/06/24 Range/Units 05:17 05:38 Chloride 93 L (96-109) mmol/L Est GFR (CKD-EPI) 54 L (>=60) BUN/Creatinine Ratio 22.27 H (12.00-20.00) Ratio Glucose 128 H (70-110) mg/dL POC Glucose (mg/dL) 136 H (70-110) mg/dL
--- NOTE | 2024-08-06 15:53 | P.DS ---
Providers Date of admission: 08/04/24 10:53 Expected date of discharge: 08/06/24 Attending physician: Elijah Fried MD Consults: 08/02/24 19:01 Consult Physician Routine Consulting Provider: Jose Herman Consult Reason/Comments: CP/CHF Do you want consulting provider notified?: Yes Primary care physician: Brittany Adam MD Hospital Course: Discharge Diagnosis: Acute on chronic diastolic and new onset systolic heart failure exacerbation. Atypical chest pain. Pericardial effusion. Nonischemic cardiomyopathy. Paroxysmal atrial fibrillation. Hypertension. Hyperlipidemia. Hypothyroidism. Hospital course: Patient is a very pleasant 69-year-old female with a past medical history of nonischemic cardiomyopathy, congestive heart failure, hypertension, hyperlipidemia, paroxysmal atrial fibrillation status post ablation on anticoagulation with Eliquis, and hypothyroidism. She presented to the emergency department on 08/02/2024 chief complaint of shortness of breath accompanied by midsternal chest pain radiating to bilateral shoulders. Upon arrival to our facility, patient underwent evaluation to the emergency department. Vital signs upon arrival show blood pressure 88/37, heart rate 75, respiratory rate 22, temp 98.2 F, and SpO2 of 94% on 2 L. EKG completed showing normal sinus rhythm at 74 bpm with no significant T wave or ST abnormality showing no signs of acute ischemia upon personal review and interpr etation. Chest x-ray showing patchy groundglass opacities throughout the right lung. Labs were completed and reviewed. CBC showing leukocytosis with WBC count of 15.0. Coagulation profile showing elevated PT of 12.9 and INR of 1.2. BMP showing hyponatremia with sodium of 132 and hypochloremia with chloride of 94 along with mild prerenal azotemia with BUN of 32. Blood glucose 125. Liver profile unremarkable with exception of slightly elevated total bili of 1.4. Troponin was negative at less than 0.012. proBNP was 4020. CTA completed negative for pulmonary emboli, but revealing small pericardial effusion and groundglass opacities and some milder patchy infiltrates present throughout the bilateral lung cloud concerning for fluid volume overload along with some compressive atelectasis dependent lung bases bilaterally. Influenza A, influenza B, RSV, and COVID PCR negative. Patient was admitted under our services with consultation to cardiology. Troponins trended all negative at less than 0.012 x 3 draws. Patient underwent successful IV diuresis. Echocardiogram completed showing a reduced EF of 45% with moderate to severe pulmonary hypertension, moderate tricuspid regurgitation and small to moderate pericardial effusion without any signs of tamponade. Cardiology started patient on lisinopril, potassium supplementation, and on day of discharge home dose of torsemide was increased by cardiology. STEMI, fisher mussel recommending evaluation by geriatric physical therapist, patient does follow with Dr. Krishan griffin and is scheduled to pick pack worker her CPAP machine in 2 days. Discussed with fisher mussel and okay to discontinue pulmonary consult and have patient follow-up outpatient as scheduled. Patient is medically optimized for discharge at this time. Patient is requiring discharge home on home oxygen. Prescription sent and arrangements made for delivery of oxygen. Patient medically optimized for discharge and to follow-up with PCP in 1 to 2 days, fisher mussel in 1 to 2 w eeks, and geriatric physical therapist in 1 week. Physical exam: Vital signs reviewed and stable. General: Nontoxic, no distress and appears stated age. Derm: Skin warm and dry, normal coloration for ethnicity. Head: Atraumatic, normocephalic and symmetric. Eyes: EOM's intact, no lid lag, and anicteric sclera Mouth: no lip lesions, mucus membranes moist Cardiovascular: regular rate and rhythm with normal S1S2, systolic murmur, positive posterior tibial pulses bilaterally, and cap refill < 2 seconds. Lungs: Respirations even, regular, and unlabored on supplemental oxygen. Lungs bibasilar crackles. No rhonchi, no rales, no wheezing, and no accessory muscle usage. Abdominal: soft, nontender to palpation, no guarding, no appreciable organomegaly Ext: ROM intact. No gross muscle atrophy, scant to 1+ BLE edema, no contractures Neuro: Speech clear, face symmetrical and CN II-XII grossly intact with no noted focal neuro deficits Psych: Alert and oriented to person, place, time, and situation. Appropriate and pleasant affect. A total of 37 minutes of time were spent preparing this complex discharge summary. Pt was discharged on 08/06/2024 at 10:28 AM Patient was seen independently by Nurse Practitioner. This document was prepared using [employer] dictation software. Please allow for errors in c unix developer while rare they do occur. Stanislav Bo NP rendered care for this patient independently, reviewed the findings and plan as documented in the note above. I did not physically speak with or examine the patient on this date. Patient Condition at Discharge: Stable Plan - Discharge Summary Discharge Rx Participant: Yes New Discharge Prescriptions: New Torsemide [Demadex] 20 mg PO DAILY@1600 30 Days #30 tab Potassium Chloride ER [K-Dur 10] 10 meq PO BID 30 Days #60 tab lisinopriL [Zestril] 2.5 mg PO DAILY 30 Days #30 tab Continue fluvoxaMINE MALEATE [Luvox] 200 mg PO HS Levothyroxine Sodium [Synthroid] 125 mcg PO DAILY Apixaban [Eliquis] 5 mg PO BID Omeprazole 20 mg PO DAILY Metoprolol Succinate (ER) [Toprol XL] 50 mg PO BID Torsemide [Demadex] 40 mg PO DAILY amLODIPine [Norvasc] 2.5 mg PO DAILY Chlorhexidine Gluconate [Peridex] 15 ml PO DIRECTED Eplerenone 12.5 mg PO DAILY Dapagliflozin Propanediol [Farxiga] 10 mg PO DAILY No Action Amoxicillin 1 dose PO DIRECTED Discharge Medication List Apixaban [Eliquis] 5 mg PO BID 03/02/23 [History] Levothyroxine Sodium [Synthroid] 125 mcg PO DAILY 03/02/23 [History] fluvoxaMINE MALEATE [Luvox] 200 mg PO HS 03/02/23 [History] Metoprolol Succinate (ER) [Toprol XL] 50 mg PO BID 07/12/23 [History] Omeprazole 20 mg PO DAILY 07/12/23 [History] Amoxicillin 1 dose PO DIRECTED 08/02/24 [History] Chlorhexidine Gluconate [Peridex] 15 ml PO DIRECTED 08/02/24 [History] Dapagliflozin Propanediol [Farxiga] 10 mg PO DAILY 08/02/24 [History] Eplerenone 12.5 mg PO DAILY 08/02/24 [History] Torsemide [Demadex] 40 mg PO DAILY 08/02/24 [History] amLODIPine [Norvasc] 2.5 mg PO DAILY 08/02/24 [History] Potassium Chloride ER [K-Dur 10] 10 meq PO BID 30 Days #60 tab 08/06/24 [Rx] Torsemide [Demadex] 20 mg PO DAILY@1600 30 Days #30 tab 08/06/24 [Rx] lisinopriL [Zestril] 2.5 mg PO DAILY 30 Days #30 tab 08/06/24 [Rx] Follow up Appointment(s)/Referral(s): Jaqueline Nickerson MD [STAFF PHYSICIAN] - 08/22/24 10:00 am Jose Herman MD [STAFF PHYSICIAN] - 08/19/24 2:45 pm [facility] [NON-STAFF] - As Needed Brittany Adam MD [Primary Care Provider] - 1-2 days Ambulatory/Diagnostic Orders: Basic Metabolic Panel [LAB.AMB] Time Frame: 1 Week, Location: None Selected Patient Instructions/Handouts: Heart Failure (DC) Activity/Diet/Wound Care/Special Instructions: Activity: As tolerated. Take breaks as needed. Diet: Heart healthy and carb consistent diet. Avoid salts, or foods with hidden salts such as canned or boxed foods and frozen dinners. Extra salt makes your heart work harder and traps the fluid in your body for longer. Special Instructions: Weigh yourself every morning after you urinate. If you gain 3 pounds overnight or more than 5 pounds in one week, call your primary physician and fisher mussel for guidance on your medications or they may want to see you in their office. Keep a daily log of your weights and be sure to bring with you at follow up visits with your PCP and fisher mussel. Take all of your medications as directed, especially your water pills. NEVER skip a dose. And remember to keep all of your doctor's appointments and follow- up as needed. Elevate your legs when you are not up moving around to help with circulation and prevent swelling. Compression stockings are also a great way to improve lower extremity circulation and prevent/improve lower extremity edema. Call your primary care provider and fisher mussel if you notice any extra swelling in your legs, ankles, feet or abdomen, if you have a new dry cough, if your shortness of breath worsens with activity or at rest, or if you feel more fatigued. Thank you for allowing us to participate in your care, it was truly a pleasure having you for our patient!!! . Discharge Disposition: HOME SELF-CARE
[2024-08-06 16:17] VITALS: BP 103/64; PULSE 94; RESP 17; TEMP 97.7
[2024-08-06 17:19] LABS: Glucose,Whole Blood 120 mg/dL (70-110)
== END 2024-08-06 18:36 | disposition home or self-care (01) | DRG 291 ==
LOC: EC 13:53 → 6NMEDSUR 19:02 → OBSVTOIN 08-04 10:53
PROVIDERS: ADMIT Internal Medicine; ATTEND Internal Medicine
DX: I11.0 Hypertensive heart disease with heart failure (principal); I50.43 Acute on chronic combined systolic (congestive) and diastolic (congestive) heart failure; J96.01 Acute respiratory failure with hypoxia; I31.39 Other pericardial effusion (noninflammatory); E87.1 Hypo-osmolality and hyponatremia; I27.22 Pulmonary hypertension due to left heart disease; E03.9 Hypothyroidism, unspecified; I07.1 Rheumatic tricuspid insufficiency; I42.8 Other cardiomyopathies; I48.0 Paroxysmal atrial fibrillation; I25.10 Atherosclerotic heart disease of native coronary artery without angina pectoris; E78.2 Mixed hyperlipidemia; E87.8 Other disorders of electrolyte and fluid balance, not elsewhere classified; D72.829 Elevated white blood cell count, unspecified; G47.33 Obstructive sleep apnea (adult) (pediatric); R79.1 Abnormal coagulation profile; R73.9 Hyperglycemia, unspecified; Z96.641 Presence of right artificial hip joint; Z99.81 Dependence on supplemental oxygen; Z79.01 Long term (current) use of anticoagulants; Z79.890 Hormone replacement therapy; Z79.899 Other long term (current) drug therapy; Z79.84 Long term (current) use of oral hypoglycemic drugs; Z86.73 Personal history of transient ischemic attack (TIA), and cerebral infarction without residual deficits
CPT/HCPCS: 36415; 71046; 71275; 80048; 80053; 83036; 83735; 83880; 84145; 84484; 85025; 85027; 85610; 85730; 87636; 93005; 93306; 96374; 99285

== ENCOUNTER → 2024-10-02 | Outpatient (CLI) | payer MEDICARE, OTHER ==
[2024-10-02 11:49] LABS: INR 1.1 (<1.2); Prothrombin Time 11.7 sec (10.0-12.5)
[2024-10-02 15:37] LABS: NT-Pro-B-Type Natriuretic Pept 884 pg/mL (0-125)
[2024-10-02 15:46] LABS: BUN/Creat Ratio 35.62 Ratio (12.00-20.00); Blood Urea Nitrogen 46.3 mg/dL (9.0-27.0); Carbon Dioxide 28.5 mmol/L (21.6-31.8); Chloride 92 mmol/L (96-109); Glucose 139 mg/dL (70-110); Magnesium 2.3 mg/dL (1.5-2.4); Potassium 3.8 mmol/L (3.5-5.5); Sodium 136 mmol/L (135-145)
[2024-10-02 15:47] LABS: ALT 14 U/L (8-44); AST 23 U/L (13-35); Albumin 3.9 g/dL (3.8-4.9); Albumin/Globulin Ratio 0.83 Ratio (1.60-3.17); Alkaline Phosphatase 128 U/L (41-126); Calcium 9.6 mg/dL (8.7-10.3); Globulin 4.7 g/dL (1.6-3.3); Total Bilirubin 0.4 mg/dL (0.3-1.2); Total Protein 8.6 g/dL (6.2-8.2)
[2024-10-02 16:01] LABS: Basophils # (A) 0.07 X 10*3/uL (0.00-0.10); Basophils % (A) 0.8 %; Eosinophils # (A) 0.27 X 10*3/uL (0.04-0.35); Eosinophils % (A) 3.2 %; HCT 40.7 % (37.2-46.3); HGB 12.6 g/dL (12.0-15.0); Lymphocytes # (A) 1.32 X 10*3/uL (0.90-5.00); Lymphocytes % (A) 15.4 %; MCH 27.3 pg (27.0-32.0); MCV 88.3 FL (80.0-97.0); Mean Platelet Volume 10.2 FL (9.5-12.2); Monocytes # (A) 0.94 X 10*3/uL (0.20-1.00); NRBC Per 100 WBC 0 X 10*3/uL (0.00-0.01); Neutrophils # (A) 5.91 X 10*3/uL (1.80-7.70); Neutrophils % (A) 69.1 %; Platelet Count 490 X 10*3/uL (140-440); RBC 4.61 X 10*6/uL (4.10-5.20); RDW 16.1 % (11.5-14.5); WBC 8.55 X 10*3/uL (4.50-10.00)
== END | disposition home or self-care (01) ==
LOC: LABWHC1 10:01
PROVIDERS: ATTEND Internal Medicine Interventional Cardiology
DX: Z01.810 Encounter for preprocedural cardiovascular examination (principal); I50.32 Chronic diastolic (congestive) heart failure; R73.09 Other abnormal glucose; I42.8 Other cardiomyopathies; D86.0 Sarcoidosis of lung; D50.9 Iron deficiency anemia, unspecified; D86.85 Sarcoid myocarditis
CPT/HCPCS: 36415; 80053; 83735; 83880; 85025; 85610

== ENCOUNTER → 2024-11-04 | Outpatient (CLI) | payer MEDICARE, OTHER ==
[2024-11-04 18:29] LABS: HCT 37.6 % (37.2-46.3); HGB 11.4 g/dL (12.0-15.0); MCH 26.8 pg (27.0-32.0); MCHC 30.3 g/dL (32.0-37.0); MCV 88.5 FL (80.0-97.0); Mean Platelet Volume 10.1 FL (9.5-12.2); NRBC Per 100 WBC 0 X 10*3/uL (0.00-0.01); Platelet Count 302 X 10*3/uL (140-440); RBC 4.25 X 10*6/uL (4.10-5.20); RDW 16.7 % (11.5-14.5); WBC 6.24 X 10*3/uL (4.50-10.00)
== END | disposition home or self-care (01) ==
LOC: LABWHC1 13:04
PROVIDERS: ATTEND Internal Medicine
DX: I50.22 Chronic systolic (congestive) heart failure (principal); I42.8 Other cardiomyopathies; I48.4 Atypical atrial flutter
CPT/HCPCS: 36415; 83036; 83735; 85027

== ENCOUNTER → 2024-11-19 | Outpatient (CLI) | payer MEDICARE, OTHER ==
[2024-11-19 18:05] LABS: Basophils # (A) 0.05 X 10*3/uL (0.00-0.10); Basophils % (A) 0.6 %; Eosinophils % (A) 7.7 %; HCT 39.4 % (37.2-46.3); Lymphocytes # (A) 0.99 X 10*3/uL (0.90-5.00); Lymphocytes % (A) 12.7 %; MCH 26.5 pg (27.0-32.0); MCHC 30.5 g/dL (32.0-37.0); MCV 87.2 FL (80.0-97.0); Mean Platelet Volume 9.7 FL (9.5-12.2); Monocytes # (A) 1.07 X 10*3/uL (0.20-1.00); Monocytes % (A) 13.8 %; NRBC Per 100 WBC 0 X 10*3/uL (0.00-0.01); Neutrophils # (A) 5.04 X 10*3/uL (1.80-7.70); Neutrophils % (A) 64.8 %; Platelet Count 418 X 10*3/uL (140-440); RBC 4.52 X 10*6/uL (4.10-5.20); RDW 16.2 % (11.5-14.5); WBC 7.78 X 10*3/uL (4.50-10.00)
[2024-11-20 02:47] LABS: NT-Pro-B-Type Natriuretic Pept 1050 pg/mL (0-125)
[2024-11-20 02:57] LABS: ALT 10 U/L (8-44); AST 19 U/L (13-35); Albumin 3.8 g/dL (3.8-4.9); Albumin/Globulin Ratio 0.86 Ratio (1.60-3.17); Alkaline Phosphatase 114 U/L (41-126); BUN/Creat Ratio 32.44 Ratio (12.00-20.00); Blood Urea Nitrogen 29.2 mg/dL (9.0-27.0); Carbon Dioxide 24.4 mmol/L (21.6-31.8); Chloride 97 mmol/L (96-109); Globulin 4.4 g/dL (1.6-3.3); Glucose 115 mg/dL (70-110); Potassium 4.5 mmol/L (3.5-5.5); Sodium 135 mmol/L (135-145); Total Bilirubin 0.7 mg/dL (0.3-1.2); Total Protein 8.2 g/dL (6.2-8.2)
== END | disposition home or self-care (01) ==
LOC: LABWHC1 15:32
PROVIDERS: ATTEND Internal Medicine
DX: I27.21 Secondary pulmonary arterial hypertension (principal); I42.8 Other cardiomyopathies; I48.4 Atypical atrial flutter
CPT/HCPCS: 36415; 80053; 83880; 85025

== ENCOUNTER → 2024-12-16 | Outpatient (CLI) | payer MEDICARE, OTHER ==
[2024-12-16 19:59] LABS: ALT 12 U/L (8-44); AST 22 U/L (13-35); Albumin/Globulin Ratio 0.98 Ratio (1.60-3.17); Alkaline Phosphatase 127 U/L (41-126); BUN/Creat Ratio 30.82 Ratio (12.00-20.00); Blood Urea Nitrogen 33.9 mg/dL (9.0-27.0); Calcium 9.6 mg/dL (8.7-10.3); Carbon Dioxide 26.8 mmol/L (21.6-31.8); Chloride 97 mmol/L (96-109); Globulin 4.1 g/dL (1.6-3.3); Glucose 128 mg/dL (70-110); Potassium 3.8 mmol/L (3.5-5.5); Sodium 137 mmol/L (135-145); T4, Free (Free Thyroxine) 1.74 ng/dL (0.80-1.80); Total Bilirubin 0.6 mg/dL (0.3-1.2); Total Protein 8.1 g/dL (6.2-8.2)
== END | disposition home or self-care (01) ==
LOC: LABWHC1 13:15
PROVIDERS: ATTEND Internal Medicine
DX: E03.9 Hypothyroidism, unspecified (principal)
CPT/HCPCS: 36415; 80053; 82306; 84439; 84443

== ENCOUNTER → 2024-12-26 | Outpatient (CLI) | payer MEDICARE, OTHER ==
[2024-12-26 19:23] LABS: Basophils # (A) 0.07 X 10*3/uL (0.00-0.10); Basophils % (A) 1.2 %; Eosinophils # (A) 0.25 X 10*3/uL (0.04-0.35); Eosinophils % (A) 4.2 %; HCT 40.3 % (37.2-46.3); HGB 12.4 g/dL (12.0-15.0); Lymphocytes % (A) 18.6 %; MCH 26.9 pg (27.0-32.0); MCHC 30.8 g/dL (32.0-37.0); MCV 87.4 FL (80.0-97.0); Mean Platelet Volume 9.6 FL (9.5-12.2); Monocytes # (A) 0.65 X 10*3/uL (0.20-1.00); NRBC Per 100 WBC 0 X 10*3/uL (0.00-0.01); Neutrophils # (A) 3.81 X 10*3/uL (1.80-7.70); Neutrophils % (A) 64.7 %; Platelet Count 272 X 10*3/uL (140-440); RBC 4.61 X 10*6/uL (4.10-5.20); RDW 15.5 % (11.5-14.5)
[2024-12-26 19:51] LABS: BUN/Creat Ratio 32.82 Ratio (12.00-20.00); Blood Urea Nitrogen 36.1 mg/dL (9.0-27.0); Calcium 9.2 mg/dL (8.7-10.3); Carbon Dioxide 25.9 mmol/L (21.6-31.8); Chloride 100 mmol/L (96-109); Glucose 109 mg/dL (70-110); Potassium 3.9 mmol/L (3.5-5.5); Sodium 137 mmol/L (135-145)
[2024-12-27 07:03] LABS: Cryptosporidium Antigen Negative (Negative)
== END | disposition home or self-care (01) ==
LOC: LABWHC1 15:12
DX: R19.7 Diarrhea, unspecified (principal)
CPT/HCPCS: 36415; 80048; 85025; 87045; 87046; 87328; 87329

== ENCOUNTER 2025-01-15 12:59 | Observation (INO) | payer MEDICARE, OTHER ==
--- NOTE | 2025-01-15 13:31 | ED ---
Abdominal Pain HPI - General Source: patient, RN notes reviewed Mode of arrival: ambulatory Limitations: no limitations <Belen Shelley - Last Filed: 01/15/25 13:29> - General Source: patient, RN notes reviewed, old records reviewed Mode of arrival: ambulatory Limitations: no limitations - History of Present Illness MD Complaint: abdominal pain -: days(s) Location: diffuse, RUQ Radiation: RUQ Migration to: no migration Severity: severe Severity scale (1-10): 7 Quality: cramping, stabbing Consistency: constant Improves With: nothing Worsens With: nothing Associated Symptoms: denies other symptoms Treatments Prior to Arrival: other <Levy Hong - Last Filed: 01/20/25 02:36> - General Chief Complaint: Abdominal Pain Stated Complaint: Abd pain Time Seen by Provider: 01/15/25 13:29 - History of Present Illness Initial Comments: Quick [id number] female presenting for right upper quadrant abdominal pain x 10 hours. States at 3 AM last night she suddenly began to feel a stabbing pain in her right side. Pain is exacerbated by lying supine. Denies nausea, vomiting, fevers. She does have a history of a cholecystectomy however states this feels similar to previous gallstones. Denies chest pain or shortness of breath. (Belen Shelley) This is a 69-year-old female to the ER for evaluation of right upper quadrant p ain right flank pain right-sided chest wall pain that started last night while she was sleeping. She just does not feel well with prior history of gallstone disease. No current chest pain maybe minimal shortness of breath recent weight loss decreased appetite decreased oral intake (Levy Hong) - Related Data Home Medications Medication Instructions Recorded Confirmed Levothyroxine Sodium [Synthroid] 125 mcg PO DAILY@0903/02/23 01/15/25 fluvoxaMINE MALEATE [Luvox] 200 mg PO HS@219903/02/23 01/15/25 Eplerenone 12.5 mg PO DAILY@99908/02/24 01/15/25 Torsemide [Demadex] 20 mg PO DAILY@1000 08/02/24 01/15/25 Rosuvastatin [Crestor] 10 mg PO HS@219908/11/24 01/15/25 Clopidogrel [Plavix] 75 mg PO DAILY@1000 01/15/25 01/15/25 Dapagliflozin Propanediol [Farxiga] 10 mg PO DAILY@1000 01/15/25 01/15/25 Famotidine [Pepcid] 20 mg PO HS@2200 01/15/25 01/15/25 Metoprolol Succinate (ER) [Toprol 100 mg PO DAILY@1000 01/15/25 01/15/25 XL] Potassium Chloride ER [K-Dur 20] 20 meq PO Q2D@1000 01/15/25 01/15/25 Torsemide [Demadex] 20 mg PO MOWEFR@1400 01/15/25 01/15/25 Previous Rx's Medication Instructions Recorded Clopidogrel [Plavix] 75 mg PO DAILY tab 01/17/25 Allergies Allergy/AdvReac Type Severity Reaction Status Date / Time amiodarone Allergy kidneys & Verified 01/15/25 17:43 liver shut down aspirin Allergy Swelling Verified 01/15/25 17:43 atorvastatin Allergy affected Verified 01/15/25 17:43 liver enzymes methimazole [From Tapazole] Allergy Unknown Verified 01/15/25 17:43 Sulfa (Sulfonamide Allergy Swelling Verified 01/15/25 17:43 Antibiotics) Review of Systems ROS Other: All systems not noted in ROS Statement are negative. <Belen Shelley - Last Filed: 01/15/25 13:29> ROS Other: All systems not noted in ROS Statement are negative. <Levy Hong - Last Filed: 01/20/25 02:36> ROS Statement: Those systems with pertinent positive or pertinent negative responses have been documented in the HPI. 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 for thyroid, had kidney & liver issues related to a medication but no current problems, doesn't use CPAP. COVID 04/30, recent adm to [facility] for elevated heart rate, & seroma & hematoma near recent right hip replacement in February, currently wearing heart monitor, takes Farxiga for heart not a diabetic per pt. History of Any Multi-Drug Resistant Organisms: None Reported Past Surgical History: Ablation, Cardiac Ablation, Joint Replacement, Orthopedic Surgery Additional Past Surgical History / Comment(s): wrist surg., colonoscopy 2016(next due 10yrs)., rt total hip 03/01 @[facility], recent cardioversion 2022, cardiac ablation @[facility] 2022 Past Anesthesia/Blood Transfusion Reactions: No Reported Reaction Additional Past Anesthesia/Blood Transfusion Reaction / Comment(s): "DOESN'T WANT TO BE AWAKE," PER PATIENT. Past Psychological History: Anxiety, Depression Smoking Status: Never smoker Past Alcohol Use History: None Reported Past Drug Use History: None Reported - Past Family History Mother Family Medical History: Cancer Additional Family Medical History / Comment(s): breast cancer Father Family Medical History: AFIB, Coronary Artery Disease (CAD), Hypertension Sister(s) Family Medical History: Thyroid Disorder Additional Family Medical History / Comment(s): Multiple sisters with thyroid conditions. <Belen Shelley - Last Filed: 01/15/25 13:29> General Exam Limitations: no limitations <Belen Shelley - Last Filed: 01/15/25 13:29> General appearance: alert, in no apparent distress Head exam: Present: atraumatic, normocephalic, normal inspection Eye exam: Present: normal appearance, PERRL, EOMI. Absent: scleral icterus, conjunctival injection, periorbital swelling ENT exam: Present: normal exam, mucous membranes moist Neck exam: Present: normal inspection. Absent: tenderness, meningismus, lymphadenopathy Respiratory exam: Present: normal lung sounds bilaterally. Absent: respiratory distress, wheezes, rales, rhonchi, stridor Cardiovascular Exam: Present: regular rate, normal rhythm, normal heart sounds. Absent: systolic murmur, diastolic murmur, rubs, gallop, clicks GI/Abdominal exam: Present: soft, normal bowel sounds. Absent: distended, tenderness, guarding, rebound, rigid Extremities exam: Present: normal inspection, full ROM, normal capillary refill. Absent: tenderness, pedal edema, joint swelling, calf tenderness Back exam: Present: normal inspection Neurological exam: Present: alert, oriented X3, CN II-XII intact Psychiatric exam: Present: normal affect, normal mood Skin exam: Present: warm, dry, intact, normal color. Absent: rash <RoskoppLevy B - Last Filed: 01/20/25 02:36> - General Exam Comments Initial Comments: Visual Physical Exam Vital signs reviewed General: Well-appearing, nontoxic, no acute distress. Head: Normocephalic, atraumatic Eyes: PERRLA, EOMI ENT: Airway patent Chest: Nonlabored breathing Skin: No visual rash, normal skin tone Neuro: Alert and oriented 3 Musculoskeletal: No gross abnormalities (Belen Shelley) Course <Levy Hong - Last Filed: 01/20/25 02:36> Vital Signs 01/15/25 01/15/25 01/15/25 13:22 16:31 18:07 Temperature 97.6 F 98.1 F Pulse Rate 87 72 71 Respiratory 16 16 18 Rate Blood Pressure 145/79 99/54 112/62 O2 Sat by Pulse 95 93 L Oximetry 01/15/25 23:01 Temperature 98.9 F Pulse Rate 77 Respiratory 16 Rate Blood Pressure 111/62 O2 Sat by Pulse 90 L Oximetry - Reevaluation(s) Reevaluation #1: 01/15/25 19:28 Medical records reviewed (Levy Hong) Reevaluation #2: 01/15/25 19:28 Patient's pain is improved with pain control though she still feels similar symptoms (Levy Hong) Reevaluation #3: 01/15/25 19:28 Patient informed of results questions answered (Levy Hong) Reevaluation #4: Was pt. sent in by a medical professional or institution (, PA, MAMMALOGIST, urgent care, hospital, or jail...) When possible be specific @ -no Did you speak to anyone other than the patient for history (EMS, parent, family, police, friend...)? What history was obtained from this source @ -no Did you review nursing and triage notes (agree or disagree)? Why? @ -agree Are old charts reviewed (outside hosp., previous admission, EMS record, old EKG, old radiological studies, urgent care reports/EKG's, jail records)? Report findings @ -yes Differential Diagnosis (chest pain, altered mental status, abdominal pain women, abdominal pain men, vaginal bleeding, weakness, fever, dyspnea, syncope, headache, dizziness, GI bleed, back pain, seizure, CVA, palpatations, mental health, musculoskeletal)? @ -prior EKG interpreted by me (3pts min.). @ -yes X-rays interpreted by me (1pt min.). @ -yes positive for CHF CT interpreted by me (1pt min.). @ -yes positive for CHF U/S interpreted by me (1pt. min.). @ -no What testing was considered but not performed or refused? (CT, X-rays, U/S, labs)? Why? @ -none What meds were considered but not given or refused? Why? @ -none Did you discuss the management of the patient with other professionals (professionals i.e. Dr., PA, MAMMALOGIST, lab, RT, psych nurse, social work msw, material yard clerk, teacher, wildlife conservation officer, case coordinator)? Give summary @ -no Was smoking cessation discussed for >3mins.? @ -no Was critical care preformed (if so, how long)? @ -no Were there social determinants of health that impacted care today? How? (Homelessness, low income, unemployed, alcoholism, drug addiction, transportation, low edu. Level, literacy, decrease access to med. care, detention, rehab)? @ -none Was there de-escalation of care discussed even if they declined (Discuss DNR or withdrawal of care, Hospice)? DNR status @ -no What co-morbidities impacted this encounter? (DM, HTN, Smoking, COPD, CAD, Cancer, CVA, ARF, Chemo, Hep., AIDS, mental health diagnosis, sleep apnea, morbid obesity)? @ -none Was patient admitted / discharged? Hospital course, mention meds given and route, prescriptions, significant lab abnormalities, going to OR and other pertinent info. @ - 69 female will be admitted for right-sided chest pain right side abdominal pain flank pain CHF on x-ray, patient has labile and soft blood pressure in the ER will admit for gentle fluid resuscitation and pain control Admitted Undiagnosed new problem with uncertain prognosis? @ -no Drug Therapy requiring intensive monitoring for toxicity (Heparin, Nitro, Insulin, Cardizem)? @ -no Were any procedures done? @ -no Diagnosis/symptom? @ -Chest pain CHF Acute, or Chronic, or Acute on Chronic? @ -Acute Uncomplicated (without systemic symptoms) or Complicated (systemic symptoms)? @ -Complicated Side effects of treatment? @ -no Exacerbation, Progression, or Severe Exacerbation? @ -exacerbation Poses a threat to life or bodily function? How? (Chest pain, USA, DC, pneumonia, PE, COPD, DKA, ARF, appy, cholecystitis, CVA, Diverticulitis, Homicidal, Suicidal, threat to staff... and all critical care pts) @ -yes with chest pain (Levy Hong) Reevaluation #5: Differential Chest Pain: Stable Angina, Unstable Angina, STEMI, NSTEMI Aortic Dissection, Pneumothorax, Musculoskeletal, Esophageal Spasm GERD, Cholecystitis, Pancreatitis, Zoster, this is not meant to be an all-inclusive list. Differential Abdominal Pain Women: Appendicitis, Cholecystitis, diverticulosis, ischemic bowel, pancreatitis, hepatitis, UTI, gastroenteritis, AAA, incarcerated hernia, bowel obstruction, constipation, inflammatory bowel, hepatitis, peptic ulcer disease, splenic infarction, perforated viscus, vulvitis, ovarian torsion, PID, kidney stone, placenta abruption, this is not meant to be an all-inclusive list (eLvy Hong) - Consultations Consultation #1: Spoke with [facility] who agrees to admit this patient (Levy Hong) Medical Decision Making <Belen Shelley - Last Filed: 01/15/25 13:29> - Lab Data Result diagrams: 01/17/25 05:04 01/17/25 05:04 - EKG Data -: EKG Interpreted by Me (EKG is sinus 74 OK 124 QRS 89 QTc 413) - Radiology Data Radiology results: report reviewed (CTA chest CT of the abdomen and pelvis negative for acute disease, chest x-ray negative for acute disease), image reviewed <Levy Hong - Last Filed: 01/20/25 02:36> - Medical Decision Making I completed the quick note portion of this chart signed Belen Shelley PA-C (Belen Shelley) 69 female will be admitted for right-sided chest pain right side abdominal pain flank pain CHF on x-ray, patient has labile and soft blood pressure in the ER will admit for gentle fluid resuscitation and pain control (Levy Hong) - Lab Data Lab Results 01/15/25 01/15/25 01/15/25 Range/Units 13:48 13:48 13:48 WBC 7.72 (4.50-10.00) 10*3/uL RBC 4.75 (4.10-5.20) 10*6/uL Hgb 13.5 (12.0-15.0) g/dL Hct 40.4 (37.2-46.3) % MCV 85.1 (80.0-97.0) fL MCH 28.4 (27.0-32.0) pg MCHC 33.4 (32.0-37.0) g/dL Plt Count 286 (140-440) 10*3/uL MPV 9.6 (9.5-12.2) fL Immature Gran % (Auto) 0.4 % Neutrophils % 77.0 % Lymphocytes % 11.5 % Monocytes % 9.6 % Eosinophils % 1.0 % Basophils % 0.5 % Immature Gran # 0.03 (0.00-0.04) 10*3/uL Neutrophils # 5.94 (1.80-7.70) 10*3/uL Lymphocytes # 0.89 L (0.90-5.00) 10*3/uL Monocytes # 0.74 (0.20-1.00) 10*3/uL Eosinophils # 0.08 (0.04-0.35) 10*3/uL Basophils # 0.04 (0.00-0.10) 10*3/uL PT 11.1 (10.0-12.5) sec INR 1.0 (<1.2) APTT 24.2 (22.0-30.0) sec Sodium 135 L (137-145) mmol/L Potassium 4.3 (3.5-5.1) mmol/L Chloride 97 L (98-107) mmol/L Carbon Dioxide 26 (22-30) mmol/L Anion Gap 12 mmol/L BUN 36 H (7-17) mg/dL Creatinine 1.02 (0.52-1.04) mg/dL Est GFR (CKD-EPI)AfAm 65 (>60 ml/min/1.73 sqM) Est GFR (CKD-EPI)NonAf 57 (>60 ml/min/1.73 sqM) Glucose 108 H (74-99) mg/dL Plasma Lactic Acid Dannie (0.7-2.0) mmol/L Calcium 10.0 (8.4-10.2) mg/dL Total Bilirubin 0.9 (0.2-1.3) mg/dL AST 26 (14-36) U/L ALT 14 (4-34) U/L Alkaline Phosphatase 142 H (38-126) U/L Total Protein 8.1 (6.3-8.2) g/dL Albumin 4.2 (3.5-5.0) g/dL Lipase 119 (23-300) U/L Urine Color Urine Appearance (Clear) Urine pH (5.0-8.0) Ur Specific [place] (1.001-1.035) Urine Protein (Negative) Urine Glucose (UA) (Negative) Urine Ketones (Negative) Urine Blood (Negative) Urine Nitrite (Negative) Urine Bilirubin (Negative) Urine Urobilinogen (<2.0) mg/dL Ur Leukocyte Esterase (Negative) Urine RBC (0-5) /hpf Urine WBC (0-5) /hpf Ur Squamous Epith Cells (0-4) /hpf Hyaline Casts (0-2) /lpf Urine Mucus (None) /hpf 01/15/25 01/15/25 Range/Units 13:48 14:13 WBC (4.50-10.00) 10*3/uL RBC (4.10-5.20) 10*6/uL Hgb (12.0-15.0) g/dL Hct (37.2-46.3) % MCV (80.0-97.0) fL MCH (27.0-32.0) pg MCHC (32.0-37.0) g/dL Plt Count (140-440) 10*3/uL MPV (9.5-12.2) fL Immature Gran % (Auto) % Neutrophils % % Lymphocytes % % Monocytes % % Eosinophils % % Basophils % % Immature Gran # (0.00-0.04) 10*3/uL Neutrophils # (1.80-7.70) 10*3/uL Lymphocytes # (0.90-5.00) 10*3/uL Monocytes # (0.20-1.00) 10*3/uL Eosinophils # (0.04-0.35) 10*3/uL Basophils # (0.00-0.10) 10*3/uL PT (10.0-12.5) sec INR (<1.2) APTT (22.0-30.0) sec Sodium (137-145) mmol/L Potassium (3.5-5.1) mmol/L Chloride (98-107) mmol/L Carbon Dioxide (22-30) mmol/L Anion Gap mmol/L BUN (7-17) mg/dL Creatinine (0.52-1.04) mg/dL Est GFR (CKD-EPI)AfAm (>60 ml/min/1.73 sqM) Est GFR (CKD-EPI)NonAf (>60 ml/min/1.73 sqM) Glucose (74-99) mg/dL Plasma Lactic Acid Dannie 1.1 (0.7-2.0) mmol/L Calcium (8.4-10.2) mg/dL Total Bilirubin (0.2-1.3) mg/dL AST (14-36) U/L ALT (4-34) U/L Alkaline Phosphatase (38-126) U/L Total Protein (6.3-8.2) g/dL Albumin (3.5-5.0) g/dL Lipase (23-300) U/L Urine Color Light Yellow Urine Appearance Clear (Clear) Urine pH 5.0 (5.0-8.0) Ur Specific [place] 1.015 (1.001-1.035) Urine Protein Negative (Negative) Urine Glucose (UA) 2+ H (Negative) Urine Ketones Negative (Negative) Urine Blood Trace H (Negative) Urine Nitrite Negative (Negative) Urine Bilirubin Negative (Negative) Urine Urobilinogen <2.0 (<2.0) mg/dL Ur Leukocyte Esterase Negative (Negative) Urine RBC <1 (0-5) /hpf Urine WBC 1 (0-5) /hpf Ur Squamous Epith Cells <1 (0-4) /hpf Hyaline Casts 8 H (0-2) /lpf Urine Mucus Rare H (None) /hpf Disposition <Belen Shelley - Last Filed: 01/15/25 13:29> Is patient prescribed a controlled substance at d/c from ED?: No Time of Disposition: 19:00 <Levy Hong - Last Filed: 01/20/25 02:36> Clinical Impression: Abdominal pain, Acute pulmonary edema, Chest pain, CHF (congestive heart failure), Hypotension Disposition: ADMITTED IP TO THIS HOSP Condition: Fair
[2025-01-15 14:10] LABS: Basophils # (A) 0.04 10*3/uL (0.00-0.10); Basophils % (A) 0.5 %; Eosinophils # (A) 0.08 10*3/uL (0.04-0.35); Eosinophils % (A) 1.0 %; HCT 40.4 % (37.2-46.3); HGB 13.5 g/dL (12.0-15.0); Lymphocytes # (A) 0.89 10*3/uL (0.90-5.00); Lymphocytes % (A) 11.5 %; MCH 28.4 pg (27.0-32.0); MCHC 33.4 g/dL (32.0-37.0); MCV 85.1 fL (80.0-97.0); Monocytes # (A) 0.74 10*3/uL (0.20-1.00); Monocytes % (A) 9.6 %; Neutrophils # (A) 5.94 10*3/uL (1.80-7.70); Neutrophils % (A) 77.0 %; Platelet Count 286 10*3/uL (140-440); RBC 4.75 10*6/uL (4.10-5.20); RDW 15.0 % (11.5-14.5); WBC 7.72 10*3/uL (4.50-10.00)
--- NOTE | 2025-01-15 14:17 | XR ---
EXAMINATION TYPE: XR chest 2V DATE OF EXAM: 01/15/2025 2:13 PM COMPARISON: Chest radiographs from 08/20/2024. CLINICAL INDICATION: Female, 69 years old with history of Right-sided rib pain; [facility] TECHNIQUE: XR chest 2V Frontal and lateral views of the chest. FINDINGS: Lungs/Pleura: There is no evidence of pleural effusion, focal consolidation, or pneumothorax. Pulmonary vascularity: Unremarkable. Heart/mediastinum: Cardiomediastinal silhouette is unremarkable. Musculoskeletal: No acute osseous pathology. Remote injuries to the bilateral shoulders. IMPRESSION: No acute cardiopulmonary disease/process. No displaced rib fracture definitely visualized. Consider CT imaging if there remains concern. [facility], , 01/15/2025 2:15 PM
[2025-01-15 14:31] LABS: INR 1.0 (<1.2); Partial Thromboplastin Time 24.2 sec (22.0-30.0); Prothrombin Time 11.1 sec (10.0-12.5)
[2025-01-15 14:34] LABS: ALT 14 U/L (4-34); AST 26 U/L (14-36); African American GFR (CKD) 65 (>60 ml/min/1.73 sqM); Albumin 4.2 g/dL (3.5-5.0); Alkaline Phosphatase 142 U/L (38-126); Anion Gap 12 mmol/L; Blood Urea Nitrogen 36 mg/dL (7-17); Calcium 10.0 mg/dL (8.4-10.2); Carbon Dioxide 26 mmol/L (22-30); Chloride 97 mmol/L (98-107); Glucose 108 mg/dL (74-99); Lipase 119 U/L (23-300); Non-African American GFR(CKD) 57 (>60 ml/min/1.73 sqM); Potassium 4.3 mmol/L (3.5-5.1); Sodium 135 mmol/L (137-145); Total Protein 8.1 g/dL (6.3-8.2)
[2025-01-15 14:47] LABS: Bilirubin,Urine Negative (Negative); Blood,Urine Trace (Negative); Color,Urine Light Yellow; Glucose,Urine (UA) 2+ (Negative); Hyaline Casts,Urine 8 /lpf (0-2); Ketones,Urine Negative (Negative); Leukocyte Esterase,Urine Negative (Negative); Mucus,Urine Rare /hpf; Nitrite,Urine Negative (Negative); PH, Urine 5.0 (5.0-8.0); Protein,Urine Negative (Negative); RBC,Urine <1 /hpf (0-5); Specific Gravity,Urine 1.015 (1.001-1.035); Squamous Epithelial Cell,Urine <1 /hpf (0-4); Urobilinogen,Urine <2.0 mg/dL (<2.0); WBC,Urine 1 /hpf (0-5)
[2025-01-15] MEDS: HYDROmorphone 0.5 MG/0.5 ML SYRINGE IVP STA (18:03)
[2025-01-15] MEDS: SODIUM CHLORIDE 0.9% 1,000 ML IV ONE (18:03)
[2025-01-15] MEDS: ONDANSETRON 4 MG/2 ML VIAL IVP STA (18:05)
--- NOTE | 2025-01-15 18:22 | CT ---
EXAMINATION TYPE: CT abdomen pelvis w con DATE OF EXAM: 01/15/2025 6:05 PM COMPARISON: 03/03/2023 CLINICAL INDICATION: Female, 69 years old with history of pain; abdominal pain TECHNIQUE: Axial CT abdomen pelvis w con;Sagittal and coronal reformats were created on a separate w orkstation. Contrast used:80ml mL of Isovue 370 with IV Contrast, (none if empty) Oral contrast used: without Oral Contrast (none if empty) CT DLP: 1068 mGycm, Automated exposure control for dose reduction was used. FINDINGS: LOWER CHEST: Please see dedicated CT chest for findings ABDOMEN LIVER: Unremarkable GALLBLADDER AND BILE DUCTS: The gallbladder is surgically absent. PANCREAS: Unremarkable. SPLEEN: Unremarkable. ADRENAL GLANDS: Unremarkable. KIDNEYS AND URETERS: No evidence of hydronephrosis or obstructing renal calculus. The ureters are unr emarkable. PELVIS BLADDER: No evidence for wall thickening or mass given limitations of exam. REPRODUCTIVE: Unremarkable. ABDOMEN & PELVIS STOMACH AND BOWEL: No evidence of bowel obstruction. Appendix is normal. Scattered colonic diverticul a. Redundant colon. PERITONEUM/RETROPERITONEUM: No evidence of pneumoperitoneum or free fluid. VASCULATURE: No evidence of aortic aneurysm. MUSCULOSKELETAL: No acute osseous abnormalities, right hip arthroplasty with streak artifact. LYMPH NODES: No gross evidence for lymphadenopathy. SOFT TISSUE/ABDOMINAL WALL: Unremarkable IMPRESSION: 1. No evidence for acute abdominal process. 2. Colonic diverticulosis. 3. No obstructive uropathy our renal calculus. 4. Normal appendix [facility], , 01/15/2025 6:19 PM
--- NOTE | 2025-01-15 18:27 | CT ---
EXAMINATION TYPE: CT angio chest DATE OF EXAM: 01/15/2025 6:05 PM COMPARISON: CT 08/17/2024 CLINICAL INDICATION: Female, 69 years old with history of pain; chest pain TECHNIQUE/CONTRAST: CTA scan of the thorax is performed with IV Contrast, patient injected with 80ml mL of Isovue 370, SC P images are created and reviewed these are created on a separate workstation.. CT DLP: 638.5 mGycm, Automated exposure control for dose reduction was used. FINDINGS: Lungs/Pleura: Similar diffuse scattered groundglass opacities No evidence of focal consolidation, ple ural effusion or pneumothorax. Airway: Large airways are patent. Heart: Cardiomegaly is demonstrated. Moderate coronary artery calcifications present. Left atrial quiana endage occlusion device appears occluded. No contrast in the left atrial appendage. Vasculature: Right-sided aortic arch is present. There is no evidence for a filling defect within the pulmonary vasculature to suggest acute pulmonary embolism. The pulmonary artery is of normal size. Dilated pulmonary trunk up to 3.4 cm. Mediastinum: No gross evidence of adenopathy. Musculoskeletal: Bridging syndesmophytes throughout the anterior longitudinal ligament of the thoraci c spine. Mild disc degeneration changes are present throughout the thoracolumbar spine secondary to o steophyte formation and facet joint arthropathy., severe degeneration changes of the shoulders with b one-on-bone articulation and deformity to the glenoid and humeral head. Soft Tissues/lymph nodes: Unremarkable. Lower neck: No significant findings. Upper Abdomen: No significant findings. IMPRESSION: 1. No evidence of pulmonary embolism. 2. Ground glass pulmonary opacities suggesting pulmonary edema with pulmonary hypertension and cardi omegaly correlate for congestive heart failure. 3. Left atrial appendage occlusion device appears occluded. No contrast in the left atrial appendage . 4. Mild cardiomegaly.] 5. Anatomic variant right sided aortic arch. 6. Diffuse idiopathic skeletal hyperostosis. Follow up recommendations for incidental pulmonary nodules, if there are any, are per [employer] or [employer]. https://radiopaedia.org/articles/svhowfzvly-pbwzekf-rfkheugoc-ybkrcz-[email or web address]-[email or web address]?lang=us [facility], , 01/15/2025 6:25 PM
[2025-01-15] MEDS ORDERED: ONDANSETRON 4 MG/2 ML VIAL IVP PRN (19:30)
[2025-01-15] MEDS ORDERED: NALOXONE 0.4 MG/ML 1 ML VIAL IV PRN (19:30)
[2025-01-15] MEDS ORDERED: HYDROmorphone 0.5 MG/0.5 ML SYRINGE IVP PRN (19:30)
[2025-01-15] MEDS: SODIUM CHLORIDE 0.9% 1,000 ML IV SCH ×2 (19:45→21:10)
--- NOTE | 2025-01-15 23:46 | P.HPIM ---
History of Present Illness H&P Date: 01/15/25 Patient is a 69 y/o F with afib on eliquis s/p watchman , CAD, PMHx pf HFrEF, CVA/TIA she is here for R flank pain. At around 3 AM yesterday, she had sudden onset stabbing RUQ pain 8.5 in severity. Pain was constant and is currently a 2/10 in severity after she got her pain meds. Says it feels similar to when she had her gall stones. She has hx of cholecystectomy. Patient had non bloody diarrhea for 2 weeks 5 weeks ago, she saw IM clinic who got stool samples (all negative) and prescribed imodium. This diarrhea was resolved but she had another episode last week. She has also lost 20lb since and has not been trying to lose weight - just indicates less appetite and increased fatigue. She shares that she finds herself sleeping late into the morning and missing her morning meds. Of note, aggressive fluid hydration puts her into afib. Patient endorses 20lb weight loss past 3 mos, fatigue, orthopnea, edema, diarrhea, and decreased appetite. Denies any fevers/chills, night sweats, chest pain, palpitations, diaphoresis, vomiting, nausea, constipation, or urinary sxs. Family Hx: -Mom Breast CA -Dad: AFib, CAD, HTN Social Hx: -Lives by herself, . Sister very involved in her care HRB: -No tobacco -Alcohol quit 26 yr ago -No other drugs Imaging: -CTA Chest: No PE. Ground glass opacities which could be pulmonary edema with pulmonary hypertension. Cardiomegaly. LA appendage occlusion device seems occluded. -EKG: Sinus rhythm -CTAP: Negative -CXR: Negative Labs: -Na: 135 -Cl:97 -BUN: 36 -Cr: 1.02 -AlkP: 142 -U/A: 2+ glucose, trace blood, 8 hyaline casts, rare mucus Vitals: 98.9F, 77bpm, 16 RR, 111/62, 90% o2 on 2L Review of systems: Pertinent positives and negatives as discussed in HPI, a complete review of systems was performed and all other systems are negative. Physical examination: Vital signs reviewed General: non toxic, no distress, appears at stated age, normal weight Derm: no unusual rashes/lesions, warm Head: atraumatic, normocephalic, symmetric Eyes: EOMI, anicteric sclera, pupils equal round reactive to light ENT: Nose and ears atraumatic Neck: No cervical lymphadenopathy, trachea midline, supple Mouth: no lip lesion, mucus membranes moist Cardiovascular: S1S2 reg, no murmur, positive dorsalis pedis pulse bilateral, no edema Lungs: CTA bilateral, no rhonchi, no rales, no accessory muscle use Abdominal: soft, TTP RUQ, no guarding, no rebound tenderness Ext: muscle strength 5 out of 5 in all 4 extremities grossly, no gross muscle atrophy Neuro: CN II-XI grossly intact, no gross focal neuro deficits Psych: Alert, oriented to person, place, and time Assessment/Plan: #RUQ Pain #Hypotension RUQ pain in pt with prior cholecystectomy, Imaging negative for abdominal process. Plan: CT abd no acute process -Monitor LFTs -Gentle hydration with normal saline 100mL/hr -Fall precautions -PT/OT check fobt consider colonoscopy , and age appropriate cancer screening #AFIB s/p watchman Pt hx of afib with CHADS VASC score of 5 CAD Plan: -Cardiac telemetry continue plavix continue metoprolol #unintentional Weight loss Lost 20lb over past several mos with decreased appetite and fatigue. Associated with increased morbidity and mortality. Common causes include malignancy, chronic disease, and GI pathology Plan: -ESR -CRP -FOBT LDH DVT prophylaxis: [Lovenox 40 mg sc daily ] CODE STATUS: [FULL CODE] Discussed with: [Dr Sylvester] I have seen and evaluated the patient today. I Discussed the case with the resident and agree with the resident's findings I edited the assessment and plan as necessary as documented in the resident's note. 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 for thyroid, had kidney & liver issues related to a medication but no current problems. COVID 04/30, recent adm to [facility] for elevated heart rate, & seroma & hematoma near recent right hip replacement in February, currently wearing heart monitor, takes Farxiga for heart not a diabetic per pt. History of Any Multi-Drug Resistant Organisms: None Reported Past Surgical History: Ablation, Cardiac Ablation, Cholecystectomy, Joint Replacement, Orthopedic Surgery Additional Past Surgical History / Comment(s): wrist surg., colonoscopy 2016(next due 10yrs)., rt total hip 03/01 @[facility], recent cardioversion 2022, cardiac ablation @[facility] 2022, bilateral knee replacements, gall bladder removed 2023 Past Anesthesia/Blood Transfusion Reactions: No Reported Reaction Additional Past Anesthesia/Blood Transfusion Reaction / Comment(s): "DOESN'T WANT TO BE AWAKE," PER PATIENT. Smoking Status: Never smoker - Past Family History Mother Family Medical History: Cancer Additional Family Medical History / Comment(s): breast cancer Father Family Medical History: AFIB, Coronary Artery Disease (CAD), Hypertension Sister(s) Family Medical History: Thyroid Disorder Additional Family Medical History / Comment(s): Multiple sisters with thyroid conditions. Medications and Allergies Home Medications Medication Instructions Recorded Confirmed Type Levothyroxine Sodium [Synthroid] 125 mcg PO DAILY@89903/02/23 01/15/25 History fluvoxaMINE MALEATE [Luvox] 200 mg PO HS@219903/02/23 01/15/25 History Eplerenone 12.5 mg PO DAILY@99908/02/24 01/15/25 History Torsemide [Demadex] 20 mg PO DAILY@99908/02/24 01/15/25 History Rosuvastatin [Crestor] 10 mg PO HS@219908/11/24 01/15/25 History Clopidogrel [Plavix] 75 mg PO DAILY@99901/15/25 01/15/25 History Dapagliflozin Propanediol [Farxiga] 10 mg PO DAILY@99901/15/25 01/15/25 History Famotidine [Pepcid] 20 mg PO HS@219901/15/25 01/15/25 History Metoprolol Succinate (ER) [Toprol 100 mg PO DAILY@99901/15/25 01/15/25 History Xl] Potassium Chloride ER [K-Dur 20] 20 meq PO Q2D@99901/15/25 01/15/25 History Torsemide [Demadex] 20 mg PO MOWEFR@139901/15/25 01/15/25 History Allergies Allergy/AdvReac Type Severity Reaction Status Date / Time amiodarone Allergy kidneys & Verified 01/15/25 17:43 liver shut down aspirin Allergy Swelling Verified 01/15/25 17:43 atorvastatin Allergy affected Verified 01/15/25 17:43 liver enzymes methimazole [From Tapazole] Allergy Unknown Verified 01/15/25 17:43 Sulfa (Sulfonamide Allergy Swelling Verified 01/15/25 17:43 Antibiotics) Physical Exam Vitals: Vital Signs Temp Pulse Resp BP Pulse Ox 01/15/25 18:07 71 18 112/62 01/15/25 16:31 98.1 F 72 16 99/54 93 L 01/15/25 13:22 97.6 F 87 16 145/79 95 Intake and Output 01/15/25 01/15/25 01/15/25 06:59 14:59 22:59 Other: Weight 92.533 kg 92.533 kg Results CBC & Chem 7: 01/16/25 00:14 01/16/25 00:14 Labs: Abnormal Lab Results - Last 24 Hours (Table) 01/15/25 01/15/25 01/15/25 Range/Units 13:48 13:48 14:13 Lymphocytes # 0.89 L (0.90-5.00) 10*3/uL Sodium 135 L (137-145) mmol/L Chloride 97 L (98-107) mmol/L BUN 36 H (7-17) mg/dL Glucose 108 H (74-99) mg/dL Alkaline Phosphatase 142 H (38-126) U/L Urine Glucose (UA) 2+ H (Negative) Urine Blood Trace H (Negative) Hyaline Casts 8 H (0-2) /lpf Urine Mucus Rare H (None) /hpf Thrombosis Risk Factor Assmnt - Choose All That Apply Any of the Below Risk Factors Present?: Yes Each Factor Represents 1 point: Obesity (BMI >25) Other Risk Factors: Yes Each Risk Factor Represents 2 Points: Age 61-74 years Other congenital or acquired thrombophilia - If yes, enter type in comment: No Thrombosis Risk Factor Assessment Total Risk Factor Score: 3 Thrombosis Risk Factor Assessment Level: Moderate Risk
[2025-01-16 00:38] LABS: Basophils # (A) 0.04 10*3/uL (0.00-0.10); Basophils % (A) 0.7 %; Eosinophils # (A) 0.17 10*3/uL (0.04-0.35); Eosinophils % (A) 3.0 %; HCT 37.3 % (37.2-46.3); HGB 11.8 g/dL (12.0-15.0); Lymphocytes # (A) 0.94 10*3/uL (0.90-5.00); Lymphocytes % (A) 16.5 %; MCH 27.5 pg (27.0-32.0); MCHC 31.6 g/dL (32.0-37.0); MCV 86.9 fL (80.0-97.0); Monocytes # (A) 0.79 10*3/uL (0.20-1.00); Monocytes % (A) 13.9 %; Neutrophils # (A) 3.73 10*3/uL (1.80-7.70); Neutrophils % (A) 65.7 %; Platelet Count 244 10*3/uL (140-440); RBC 4.29 10*6/uL (4.10-5.20); RDW 15.6 % (11.5-14.5); WBC 5.68 10*3/uL (4.50-10.00)
[2025-01-16 01:00] LABS: ALT 12 U/L (4-34); AST 23 U/L (14-36); African American GFR (CKD) 62 (>60 ml/min/1.73 sqM); Albumin 3.4 g/dL (3.5-5.0); Albumin/Globulin Ratio 1.0; Alkaline Phosphatase 107 U/L (38-126); Anion Gap 10 mmol/L; Blood Urea Nitrogen 32 mg/dL (7-17); Calcium 8.9 mg/dL (8.4-10.2); Carbon Dioxide 28 mmol/L (22-30); Chloride 102 mmol/L (98-107); Globulin 3.3 g/dL; Glucose 95 mg/dL (74-99); Magnesium 2.3 mg/dL (1.6-2.3); Non-African American GFR(CKD) 53 (>60 ml/min/1.73 sqM); Potassium 4.0 mmol/L (3.5-5.1); Sodium 140 mmol/L (137-145); Total Protein 6.7 g/dL (6.3-8.2)
[2025-01-16 08:13] LABS: ALT 11 U/L (4-34); AST 24 U/L (14-36); African American GFR (CKD) 61 (>60 ml/min/1.73 sqM); Albumin 3.3 g/dL (3.5-5.0); Albumin/Globulin Ratio 1.0; Alkaline Phosphatase 100 U/L (38-126); Anion Gap 8 mmol/L; Blood Urea Nitrogen 31 mg/dL (7-17); Calcium 8.9 mg/dL (8.4-10.2); Carbon Dioxide 28 mmol/L (22-30); Chloride 104 mmol/L (98-107); Globulin 3.2 g/dL; Glucose 87 mg/dL (74-99); LDH 179 U/L (120-246); Non-African American GFR(CKD) 53 (>60 ml/min/1.73 sqM); Potassium 4.3 mmol/L (3.5-5.1); Sodium 140 mmol/L (137-145); Total Protein 6.5 g/dL (6.3-8.2)
[2025-01-16] MEDS: CLOPIDOGREL 75 MG TAB PO SCH (08:48)
[2025-01-16] MEDS: TORSEMIDE 20 MG TAB PO SCH (08:49)
[2025-01-16] MEDS: DAPAGLIFLOZIN PROPANEDIOL 10 MG TABLET PO SCH (08:49)
[2025-01-16] MEDS: LEVOTHYROXINE 125 MCG TAB PO SCH (08:49)
[2025-01-16] MEDS: METOPROLOL SUCCINATE (ER) 100 MG TAB.ER.24H PO SCH (08:49)
[2025-01-16] MEDS: ENOXAPARIN 40 MG/0.4 ML SYRINGE SQ SCH (09:06)
[2025-01-16 10:12] LABS: HCT 36.7 % (37.2-46.3); HGB 11.2 g/dL (12.0-15.0); MCH 27.3 pg (27.0-32.0); MCHC 30.5 g/dL (32.0-37.0); MCV 89.3 FL (80.0-97.0); NRBC Per 100 WBC 0 X 10*3/uL (0.00-0.01); Platelet Count 235 X 10*3/uL (140-440); RBC 4.11 X 10*6/uL (4.10-5.20); RDW 15.4 % (11.5-14.5); WBC 6.33 X 10*3/uL (4.50-10.00)
--- NOTE | 2025-01-16 11:46 | P.CRDCN ---
History of Present Illness Consult date: 01/16/25 Consult reason: congestive heart failure History of present illness: This is a 69-year-old female patient of Dr. Herman with past medical history of paroxysmal atrial fibrillation status post radiofrequency ablation, mixed hyperlipidemia, hypertension, chronic diastolic heart failure, history of pericardial tamponade status post pericardial window 08/11/2024. We have been asked to evaluate the patient for CHF. Patient states that she came into the hospital due to right sided abdominal pain. She states it started 2 nights ago and 3 in the morning. She states the pain went away yesterday after she received pain meds here. Pain is gone today. She states she has never had this type of pain in the past. She denies shortness of breath. Blood pressure 113/71, heart rate 95, pulse ox 100% on 3 L nasal cannula. Patient is status post 1 L of IV fluids Zofran and Dilaudid. -EKG: Sinus rhythm with no acute ST-T wave changes. -Chest x-ray: No acute process. -CT abdomen and pelvis: No acute process. -CTA chest: No pulmonary embolism. Groundglass pulmonary opacities suggesting pulmonary edema with pulmonary hypertension and cardiomegaly correlate for heart failure. -Laboratory studies: WBC 6.3, hemoglobin 11.3, BUN 31, creatinine 1.08, potassium 4.3. Troponin negative x 2. -Home cardiac medications: Plavix 75 mg daily, Farxiga 10 mg daily, Toprol XL 100 mg daily, potassium 20 mEq every 2 days, rosuvastatin 10 mg at bedtime, Demadex 20 mg daily and 20 mg in the afternoon on Monday. -Patient echocardiogram performed 08/19/2024 revealed EF of 40%. No pericardial effusion. Review Of Systems: At the time of my exam: CONSTITUTIONAL: Denies fever or chills. HEENT: Denies blurred vision, vision changes, or eye pain. Denies hemoptysis CARDIOVASCULAR: Denies chest pain. Denies orthopnea. Denies PND. Denies p alpitations RESPIRATORY: Denies shortness of breath. GASTROINTESTINAL: Denies abdominal pain. Denies nausea or vomiting. HEMATOLOGIC: Denies bleeding disorders. GENITOURINARY: Denies any blood in urine. SKIN: Denies puritis. Denies rash. Physical examination: Gen: This is 69-year-old female in no acute distress. VS: reviewed HEENT: Head is atraumatic, normocephalic. Pupils equal, round. Sclerae is anicteric. NECK: Supple. No JVD. LUNGS: Clear to auscultation. No wheezes or rhonchi. No intercostal retractions. HEART: Regular rate and rhythm. 2/6 systolic murmur. ABDOMEN: Soft No tenderness. EXTREMITIES: No pedal edema. No calf tenderness. NEUROLOGICAL: Patient is awake, alert and oriented x3. Assessment: Paroxysmal atrial fibrillation status post radiofrequency ablation, currently in sinus rhythm History of recent pericardial effusion requiring pericardial window 08/2024 Sided abdominal pain of unclear etiology Hyperlipidemia Hypertension Chronic diastolic heart failure Nonischemic cardiomyopathy with EF 40 to 45% Moderate to severe pulmonary hypertension Moderate tricuspid regurgitation Plan: Resume patient's home cardiac medications and home dose of torsemide To repeat echocardiogram No further cardiac workup at this time Cardiology will sign off this case and follow on an as-needed basis. Please reconsult for any new concerns. Patient may follow-up in the office with Dr. Herman in one to 2 weeks. Thank you kindly for this consultation. Nurse practitioner note has been reviewed, I agree with documented findings and plan of care. Patient was seen and examined. 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 for thyroid, had kidney & liver issues related to a medication but no current problems. COVID 04/30, recent adm to [facility] for elevated heart rate, & seroma & hematoma near recent right hip replacement in February, currently wearing heart monitor, takes Farxiga for heart not a diabetic per pt. History of Any Multi-Drug Resistant Organisms: None Reported Past Surgical History: Ablation, Cardiac Ablation, Cholecystectomy, Joint Replacement, Orthopedic Surgery Additional Past Surgical History / Comment(s): wrist surg., colonoscopy 2015(n ext due 10yrs)., rt total hip 03/01 @[facility], recent cardioversion 2022, cardiac ablation @[facility] 2022, bilateral knee replacements, gall bladder removed 2023 Past Anesthesia/Blood Transfusion Reactions: No Reported Reaction Additional Past Anesthesia/Blood Transfusion Reaction / Comment(s): "DOESN'T WANT TO BE AWAKE," PER PATIENT. Smoking Status: Never smoker - Past Family History Mother Family Medical History: Cancer Additional Family Medical History / Comment(s): breast cancer Father Family Medical History: AFIB, Coronary Artery Disease (CAD), Hypertension Sister(s) Family Medical History: Thyroid Disorder Additional Family Medical History / Comment(s): Multiple sisters with thyroid conditions. Medications and Allergies Home Medications Medication Instructions Recorded Confirmed Type Levothyroxine Sodium [Synthroid] 125 mcg PO DAILY@89903/02/23 01/15/25 History fluvoxaMINE MALEATE [Luvox] 200 mg PO HS@219903/02/23 01/15/25 History Eplerenone 12.5 mg PO DAILY@99908/02/24 01/15/25 History Torsemide [Demadex] 20 mg PO DAILY@99908/02/24 01/15/25 History Rosuvastatin [Crestor] 10 mg PO HS@219908/11/24 01/15/25 History Clopidogrel [Plavix] 75 mg PO DAILY@99901/15/25 01/15/25 History Dapagliflozin Propanediol [Farxiga] 10 mg PO DAILY@99901/15/25 01/15/25 History Famotidine [Pepcid] 20 mg PO HS@219901/15/25 01/15/25 History Metoprolol Succinate (ER) [Toprol 100 mg PO DAILY@99901/15/25 01/15/25 History Xl] Potassium Chloride ER [K-Dur 20] 20 meq PO Q2D@99901/15/25 01/15/25 History Torsemide [Demadex] 20 mg PO MOWEFR@1400 01/15/25 01/15/25 History Allergies Allergy/AdvReac Type Severity Reaction Status Date / Time amiodarone Allergy kidneys & Verified 01/15/25 17:43 liver shut down aspirin Allergy Swelling Verified 01/15/25 17:43 atorvastatin Allergy affected Verified 01/15/25 17:43 liver enzymes methimazole [From Tapazole] Allergy Unknown Verified 01/15/25 17:43 Sulfa (Sulfonamide Allergy Swelling Verified 01/15/25 17:43 Antibiotics) Physical Exam Vitals: Vital Signs Temp Pulse Pulse Resp BP BP Pulse Ox 01/16/25 07:00 97.3 F L 58 L 17 106/69 100 01/16/25 04:09 97.7 F 61 16 105/67 99 01/16/25 02:00 16 01/15/25 23:17 97.5 F L 67 16 98/62 97 01/15/25 23:01 98.9 F 77 16 111/62 90 L 01/15/25 18:07 71 18 112/62 01/15/25 16:31 98.1 F 72 16 99/54 93 L 01/15/25 13:22 97.6 F 87 16 145/79 95 Intake and Output 01/15/25 01/16/25 01/16/25 22:59 06:59 14:59 Other: Voiding Method External Catheter # Voids 1 # Bowel Movements 0 Weight 92.533 kg Results 01/16/25 06:12 01/16/25 06:12 Cardiac Enzymes 01/15/25 01/15/25 01/16/25 Range/Units 13:48 21:01 00:09 AST 26 (14-36) U/L Troponin I <0.012 <0.012 (0.000-0.034) ng/mL 01/16/25 Range/Units 00:14 AST 23 (14-36) U/L Troponin I (0.000-0.034) ng/mL Coagulation 01/15/25 Range/Units 13:48 PT 11.1 (10.0-12.5) sec APTT 24.2 (22.0-30.0) sec CBC 01/15/25 01/16/25 Range/Units 13:48 00:14 WBC 7.72 5.68 (4.50-10.00) 10*3/uL RBC 4.75 4.29 (4.10-5.20) 10*6/uL Hgb 13.5 11.8 L (12.0-15.0) g/dL Hct 40.4 37.3 (37.2-46.3) % Plt Count 286 244 (140-440) 10*3/uL Comprehensive Metabolic Panel 01/15/25 01/16/25 Range/Units 13:48 00:14 Sodium 135 L 140 (137-145) mmol/L Potassium 4.3 4.0 (3.5-5.1) mmol/L Chloride 97 L 102 (98-107) mmol/L Carbon Dioxide 26 28 (22-30) mmol/L BUN 36 H 32 H (7-17) mg/dL Creatinine 1.02 1.07 H (0.52-1.04) mg/dL Glucose 108 H 95 (74-99) mg/dL Calcium 10.0 8.9 (8.4-10.2) mg/dL AST 26 23 (14-36) U/L ALT 14 12 (4-34) U/L Alkaline Phosphatase 142 H 107 (38-126) U/L Total Protein 8.1 6.7 (6.3-8.2) g/dL Albumin 4.2 3.4 L (3.5-5.0) g/dL Current Medications Generic Name Dose Route Start Last Admin Trade Name Freq PRN Reason Stop Dose Admin Clopidogrel Bisulfate 75 mg 01/16/25 09:00 Clopidogrel 75 Mg Tab PO DAILY JOE Dapagliflozin 10 mg 01/16/25 09:00 Dapagliflozin Propanediol 10 Mg Tablet PO DAILY [facility] Enoxaparin Sodium 40 mg 01/16/25 09:00 Enoxaparin 40 Mg/0.4 Ml Syringe SQ DAILY JOE Famotidine 20 mg 01/16/25 22:00 Famotidine 20 Mg Tab PO HS@2200 JOE Hydromorphone HCl 0.5 mg 01/15/25 19:30 Hydromorphone 0.5 Mg/0.5 Ml Syringe IVP Q3HR PRN Moderate Pain (Scale 4 to 6) Sodium Chloride 1,000 mls @ 130 mls/hr 01/15/25 17:15 01/16/25 02:13 Saline 0.9% IV Not Given .[id number] JOE Sodium Chloride 1,000 mls @ 75 mls/hr 01/15/25 19:30 01/15/25 21:10 Saline 0.9% IV Not Given .[id number] JOE Levothyroxine Sodium 125 mcg 01/16/25 10:00 Levothyroxine 125 Mcg Tab PO DAILY@0600 JOE Metoprolol Succinate 100 mg 01/16/25 09:00 Metoprolol Succinate (Er) 100 Mg Tab.Er.24h PO DAILY JOE Naloxone HCl 0.2 mg 01/15/25 19:30 Naloxone 0.4 Mg/Ml 1 Ml Vial IV Q2M PRN Opioid Reversal Crestor ( 1 each 01/16/25 22:00 Rosuvastatin) 10 Mg PO Tablet HS@2200 JOE Ondansetron HCl 4 mg 01/15/25 19:30 Ondansetron 4 Mg/2 Ml Vial IVP Q8HR PRN Nausea And Vomiting Intake and Output 01/15/25 01/16/25 01/16/25 22:59 06:59 14:59 Other: Voiding Method External Catheter # Voids 1 # Bowel Movements 0 Weight 92.533 kg 01/16/25 00:14 01/16/25 00:14
--- NOTE | 2025-01-16 15:43 | P.PN ---
Subjective Progress Note Date: 01/16/25 Patient reports doing well today. She says that her abdominal pain is still present but is much milder compared to yesterday. Denies any chest pain or shortness of breath. Also denies nausea or vomiting. Objective - Vital Signs Vital signs: Vital Signs Temp 97.3 F L 01/16/25 07:00 Pulse 58 L 01/16/25 07:00 Resp 17 01/16/25 07:00 BP 106/69 01/16/25 07:00 Pulse Ox 100 01/16/25 07:00 FiO2 Intake & Output 01/15/25 01/16/25 01/16/25 18:59 06:59 18:59 Weight 92.533 kg 92.533 kg Other: Voiding Method External Catheter # Voids 1 # Bowel Movements 0 - Exam Vital signs reviewed General: non toxic, no distress, appears at stated age, normal weight Derm: no unusual rashes/lesions, warm Head: atraumatic, normocephalic, symmetric Eyes: EOMI, anicteric sclera, pupils equal round reactive to light ENT: Nose and ears atraumatic Neck: No cervical lymphadenopathy, trachea midline, supple Mouth: no lip lesion, mucus membranes moist Cardiovascular: S1S2 reg, no murmur, positive dorsalis pedis pulse bilateral, no edema Lungs: CTA bilateral, no rhonchi, no rales, no accessory muscle use Abdominal: soft, No tenderness to palpation, no guarding, no rebound tenderness. No CVA tenderness bilaterally. Ext: muscle strength 5 out of 5 in all 4 extremities grossly, no gross muscle atrophy Neuro: CN II-XI grossly intact, no gross focal neuro deficits Psych: Alert, oriented to person, place, and time - Labs CBC & Chem 7: 01/16/25 06:12 01/16/25 06:12 Labs: Abnormal Lab Results - Last 24 Hours (Table) 01/15/25 01/15/25 01/15/25 Range/Units 13:48 13:48 14:13 Hgb (12.0-15.0) g/dL MCHC (32.0-37.0) g/dL RDW (11.5-14.5) % MPV (9.5-12.2) fL Lymphocytes # 0.89 L (0.90-5.00) 10*3/uL Sodium 135 L (137-145) mmol/L Chloride 97 L (98-107) mmol/L BUN 36 H (7-17) mg/dL Creatinine (0.52-1.04) mg/dL Glucose 108 H (74-99) mg/dL Phosphorus (2.5-4.5) mg/dL Alkaline Phosphatase 142 H (38-126) U/L Albumin (3.5-5.0) g/dL Urine Glucose (UA) 2+ H (Negative) Urine Blood Trace H (Negative) Hyaline Casts 8 H (0-2) /lpf Urine Mucus Rare H (None) /hpf 01/16/25 01/16/25 01/16/25 Range/Units 00:14 00:14 06:12 Hgb 11.8 L (12.0-15.0) g/dL MCHC 31.6 L (32.0-37.0) g/dL RDW 15.6 H (11.5-14.5) % MPV 9.3 L (9.5-12.2) fL Lymphocytes # (0.90-5.00) 10*3/uL Sodium (137-145) mmol/L Chloride (98-107) mmol/L BUN 32 H 31 H (7-17) mg/dL Creatinine 1.07 H 1.08 H (0.52-1.04) mg/dL Glucose (74-99) mg/dL Phosphorus 4.7 H (2.5-4.5) mg/dL Alkaline Phosphatase (38-126) U/L Albumin 3.4 L 3.3 L (3.5-5.0) g/dL Urine Glucose (UA) (Negative) Urine Blood (Negative) Hyaline Casts (0-2) /lpf Urine Mucus (None) /hpf Assessment and Plan Assessment: Assessment/Plan: 1. RUQ Pain (greatly improved) # Abdominal CT negative for acute abdominal process, obstructive uropathy, or renal calculus but did show colonic diverticulosis. # Patient's pain was treated with as needed Dilaudid while admitted #Hx of cholecystectomy -Recommend outpatient follow up. Was able to set up appointment with Dr. Woodruff on 01/20/2025 at 10:00am -Patient sees Dr. Nichols outpatient. Recommend follow-up when discharged. 2. Supplemental oxygen requirement # Has required up to 3 L of supplemental oxygen via nasal cannula while admitted #Chest CTA negative for pulmonary embolism but did show ground glass pulmonary opacities suggesting pulmonary edema with pulmonary hypertension and cardiomegaly correlate for congestive heart failure. - Cardiology saw the patient and recommend home cardiac medications at home dose of torsemide. Cardiology signed off. Mentioned in note that patient may follow-up in the office with Dr. Herman in 1 to 2 weeks. - Ordered 40 mg IV Lasix - Will trial room air again tomorrow 3. Hx of AFIB s/p watchman Pt hx of afib with CHADS VASC score of 5 CAD -Cardiac telemetry -continue plavix -continue metoprolol 4. unintentional Weight loss Lost 20lb over past several month with decreased appetite and fatigue. Associated with increased morbidity and mortality. Common causes include malignancy, chronic disease, and GI pathology -fobt ordered -Discussed with patient and recommend outpatient follow up with PCP and her GI physician. -Will likely need colonoscopy as her last one was 7 years ago -Follow-up with Dr. Nichols as mentioned above. DVT prophylaxis: [Lovenox 40 mg sc daily ] CODE STATUS: [FULL CODE] I have seen and evaluated the patient today. Discussed with the resident and agree with the residents subjective and objective as documented in the note above. We discussed the assessment and plan as below. Acute hypoxic respiratory failure multifactorial HFrEF EF 40% with pulmonary edema on CTA chest and sleep apnea on CPAP: Trial of Lasix 40 mg IV x 1 today. Takes Torsemide 40 mg PO MWF + 20 mg PO TTSS at home. Continue Metoprolol 100 mg PO QD, Farxiga 10 mg PO QD, Eplerenone 12.5 mg PO QD. Wound benefit from ACEi. Repeat home O2 eval tomorrow. Cardiology has signed off. RUQ pain with weight loss and diarrhea: Benign CT AP. LFTs appear normal. Pain significantly improved. Given recent weight loss and diarrhea, she would benefit from C-scope outpatient. Discussed with PCP Dr. Woodruff, will need outpatient appt with GI Dr. Nichols or Surgery for C-scope. She has an appt with Dr. Woodruff on Monday. Atrial fibrillation: Status post Watchman. Metoprolol as above. Anxiety: Fluvoxamine 200 mg PO QHS. Hypothyroidism: Synthroid 125 mcg PO QD. GERD: Pepcid 20 mg PO QHS. History of CVA: Plavix 75 mg PO QD. Crestor 10 mg PO QHS.
[2025-01-16] MEDS: FUROSEMIDE 10 MG/ML 4 ML VIAL IV STA (16:23)
[2025-01-16] MEDS: SPIRONOLACTONE 25 MG TAB PO SCH (21:04)
[2025-01-16] MEDS: FAMOTIDINE 20 MG TAB PO SCH (21:05)
[2025-01-16] MEDS: CRESTOR 10 MG PO SCH (22:03)
[2025-01-17 05:50] LABS: Basophils # (A) 0.04 10*3/uL (0.00-0.10); Basophils % (A) 0.6 %; Eosinophils # (A) 0.37 10*3/uL (0.04-0.35); Eosinophils % (A) 5.4 %; HCT 35.2 % (37.2-46.3); HGB 11.4 g/dL (12.0-15.0); Lymphocytes # (A) 1.32 10*3/uL (0.90-5.00); Lymphocytes % (A) 19.2 %; MCH 28.4 pg (27.0-32.0); MCHC 32.4 g/dL (32.0-37.0); MCV 87.6 fL (80.0-97.0); Monocytes # (A) 0.92 10*3/uL (0.20-1.00); Monocytes % (A) 13.4 %; Neutrophils # (A) 4.22 10*3/uL (1.80-7.70); Neutrophils % (A) 61.1 %; Platelet Count 229 10*3/uL (140-440); RBC 4.02 10*6/uL (4.10-5.20); RDW 15.2 % (11.5-14.5); WBC 6.89 10*3/uL (4.50-10.00)
[2025-01-17 06:02] LABS: African American GFR (CKD) 71 (>60 ml/min/1.73 sqM); Anion Gap 5 mmol/L; Blood Urea Nitrogen 29 mg/dL (7-17); Calcium 8.8 mg/dL (8.4-10.2); Carbon Dioxide 31 mmol/L (22-30); Chloride 100 mmol/L (98-107); Glucose 109 mg/dL (74-99); Non-African American GFR(CKD) 62 (>60 ml/min/1.73 sqM); Potassium 3.4 mmol/L (3.5-5.1); Sodium 136 mmol/L (137-145)
[2025-01-17] MEDS ORDERED: TORSEMIDE 20 MG TAB PO SCH (14:00)
[2025-01-17 15:12] VITALS: BP 103/69; PULSE 71; RESP 17; TEMP 97.5
--- NOTE | 2025-01-17 16:44 | P.DS ---
Providers Date of admission: 01/15/25 19:30 Expected date of discharge: 01/17/25 Attending physician: Elijah Fried MD Consults: 01/15/25 19:30 Consult Physician Routine Consulting Provider: Jose Herman Consult Reason/Comments: chf Do you want consulting provider notified?: Yes Primary care physician: Brittany Adam MD Hospital Course: Discharge Diagnosis: Acute hypoxic respiratory failure multifactorial HFrEF EF 40% with pulmonary edema on CTA chest and sleep apnea on CPAP RUQ pain with weight loss and diarrhea Atrial fibrillation status post watchman Anxiety Hypothyroidism GERD History of CVA Hospital Course: Patient is a 69 y/o F with afib on eliquis s/p watchman , CAD, PMHx pf HFrEF, CVA/TIA she is here for R flank pain. About 3 days ago, she had sudden onset stabbing RUQ pain 8.5 in severity. Pain was constant and is currently a 2/10 in severity after she got her pain meds. Says it feels similar to when she had her gall stones. She has hx of cholecystectomy. In the ED, on initial presentation the patient had saturation in the low to mid 90s and was placed on supplemental oxygen up to 3 L. The patient had an unremarkable EKG and CXR. Abdominal CT negative for acute abdominal process, obstructive uropathy, or renal calculus but did show colonic diverticulosis. Chest CTA negative for pulmonary embolism but did show ground glass pulmonary opacities suggesting pulmonary edema with pulmonary hypertension and cardiomegaly correlate for congestive heart failure. Labs were unremarkable except for a slight anemia (hgb stable around 11). Patient's pain was treated with as needed Dilaudid while admitted but her pain almost completely resolved while she was admitted. The patient was treated with a dose of IV Lasix and was able to be weaned off supplemental oxygen and at time of discharge she was able to ambulate without becoming hypoxic on room air. The patient was discharged on her home medications with the addition of clopidogrel 70 mg p.o. daily. For the patient's unintentional weight loss over the past several months, she will eventually need follow-up with her GI physician Dr. Nichols or surgery and will likely need a colonoscopy, The patient is to follow-up with Dr. Woodruff in 3 days (appointment set up with office). Patient seen and examined at bedside. Vital signs reviewed and stable. Physical examination: Vital signs reviewed General: non toxic, no distress, appears at stated age, normal weight Derm: no unusual rashes/lesions, warm Head: atraumatic, normocephalic, symmetric Eyes: EOMI, anicteric sclera, pupils equal round reactive to light ENT: Nose and ears atraumatic Neck: No cervical lymphadenopathy, trachea midline, supple Mouth: no lip lesion, mucus membranes moist Cardiovascular: S1S2 reg, no murmur, positive dorsalis pedis pulse bilateral, no edema Lungs: CTA bilateral, no rhonchi, no rales, no accessory muscle use Abdominal: soft, No tenderness to palpation, no guarding, no rebound tenderness. No CVA tenderness bilaterally. Ext: muscle strength 5 out of 5 in all 4 extremities grossly, no gross muscle atrophy Neuro: CN II-XI grossly intact, no gross focal neuro deficits Psych: Alert, oriented to person, place, and time A total of greater than 30 minutes of time were spent preparing this complex discharge summary. Patient was discharged on 01/16/2025 Elbert Ferguson MD PGY-1 TY Dictation was produced using [employer] dictation software. please excuse any grammatical, word or spelling errors. I saw and evaluated the patient during the gil and critical portions of this encounter, and discussed the case in detail with the resident author of this note, I agree with the Assessment and Plan, and my changes, if any, are highlighted in blue. Patient Condition at Discharge: Fair Plan - Discharge Summary Discharge Rx Participant: No New Discharge Prescriptions: New Clopidogrel [Plavix] 75 mg PO DAILY tab Continue fluvoxaMINE MALEATE [Luvox] 200 mg PO HS@2200 Levothyroxine Sodium [Synthroid] 125 mcg PO DAILY@0900 Torsemide [Demadex] 20 mg PO DAILY@1000 Rosuvastatin [Crestor] 10 mg PO HS@2200 Famotidine [Pepcid] 20 mg PO HS@2200 Metoprolol Succinate (ER) [Toprol XL] 100 mg PO DAILY@1000 Eplerenone 12.5 mg PO DAILY@1000 Potassium Chloride ER [K-Dur 20] 20 meq PO Q2D@1000 Dapagliflozin Propanediol [Farxiga] 10 mg PO DAILY@1000 Torsemide [Demadex] 20 mg PO MOWEFR@1400 Clopidogrel [Plavix] 75 mg PO DAILY@1000 Discharge Medication List Levothyroxine Sodium [Synthroid] 125 mcg PO DAILY@89903/02/23 [History] fluvoxaMINE MALEATE [Luvox] 200 mg PO HS@219903/02/23 [History] Eplerenone 12.5 mg PO DAILY@99908/02/24 [History] Torsemide [Demadex] 20 mg PO DAILY@99908/02/24 [History] Rosuvastatin [Crestor] 10 mg PO HS@219908/11/24 [History] Clopidogrel [Plavix] 75 mg PO DAILY@99901/15/25 [History] Dapagliflozin Propanediol [Farxiga] 10 mg PO DAILY@99901/15/25 [History] Famotidine [Pepcid] 20 mg PO HS@219901/15/25 [History] Metoprolol Succinate (ER) [Toprol XL] 100 mg PO DAILY@99901/15/25 [History] Potassium Chloride ER [K-Dur 20] 20 meq PO Q2D@99901/15/25 [History] Torsemide [Demadex] 20 mg PO MOWEFR@139901/15/25 [History] Clopidogrel [Plavix] 75 mg PO DAILY tab 01/17/25 [Rx] Follow up Appointment(s)/Referral(s): Zeb Woodruff MD [STAFF PHYSICIAN] - 3 Days (please call for an appointment today or Monday and please follow up with your winemaker next week!!) Patient Instructions/Handouts: Heart Failure (IP), Pulmonary Edema (IP), Acute Abdominal Pain (GEN) Discharge Disposition: HOME SELF-CARE
== END 2025-01-17 17:16 | disposition home or self-care (01) ==
LOC: EC 12:59 → 6NMEDSUR 19:30
PROVIDERS: ADMIT Internal Medicine; ATTEND Internal Medicine
DX: J96.01 Acute respiratory failure with hypoxia (principal); R10.11 Right upper quadrant pain; I95.9 Hypotension, unspecified; R07.89 Other chest pain; R19.7 Diarrhea, unspecified; I48.0 Paroxysmal atrial fibrillation; I11.0 Hypertensive heart disease with heart failure; I50.42 Chronic combined systolic (congestive) and diastolic (congestive) heart failure; I42.8 Other cardiomyopathies; I27.20 Pulmonary hypertension, unspecified; I07.1 Rheumatic tricuspid insufficiency; G47.30 Sleep apnea, unspecified; F41.9 Anxiety disorder, unspecified; F32.A Depression, unspecified; E78.2 Mixed hyperlipidemia; K21.9 Gastro-esophageal reflux disease without esophagitis; I25.10 Atherosclerotic heart disease of native coronary artery without angina pectoris; E03.9 Hypothyroidism, unspecified; R63.4 Abnormal weight loss; Z68.37 Body mass index [BMI] 37.0-37.9, adult; Z86.73 Personal history of transient ischemic attack (TIA), and cerebral infarction without residual deficits; Z90.49 Acquired absence of other specified parts of digestive tract; Z79.890 Hormone replacement therapy; Z79.899 Other long term (current) drug therapy; Z79.02 Long term (current) use of antithrombotics/antiplatelets; Z79.84 Long term (current) use of oral hypoglycemic drugs; Z88.2 Allergy status to sulfonamides; Z88.6 Allergy status to analgesic agent
CPT/HCPCS: 96372; 96374 ×2; 96375; 99285; 36415; 94760; 93005; 80053 ×2; 80048; 85652; 83605; 83615; 83690; 83735; 84100; 84484 ×2; 85025 ×3; 85027; 85610; 85730; 86140; 82272; 81001; 71046; 71275; 74177; G0378 ×3; J2405; J1650; J1171; Q9967; J1938